=== PATIENT | female | born 1955 | race Caucasian/White ===

== ENCOUNTER 2016-04-12 18:56 | Emergency (ER) | payer MEDICARE ==
[2016-04-12] MEDS ORDERED: ALBUTEROL SULFATE 0.083% NEB 2.5 MG/3 ML AMPUL NEB ONE (19:36)
--- NOTE | 2016-04-12 19:38 | ER Document Report ---
ED Medical Screen (RME) - General Stated Complaint: LEFT AND RIGHT FLANK PAIN,COUGH Time seen by provider: 19:35 Mode of Arrival: Ambulatory Information source: Patient Notes: 61-year-old female that was seen for low back pain treated with Keflex was diagnosed with urinary tract infection she had right-sided flank pain at that time. She is back again today because she has a cough that persists, left upper quadrant abdominal pain, and low back pain all the way across. TRAVEL OUTSIDE OF THE [place] IN LAST 30 DAYS: No - Related Data Allergies/Adverse Reactions: erythromycin base [Erythromycin Base] Allergy (Verified 12/30/15 14:48) ondansetron [From Zofran (as hydrochloride)] Allergy (Verified 12/30/15 14:48) Past Medical History - Past Medical History Cardiac Medical History: Reports: Hx Congestive Heart Failure - Diastolic Heart Failure, Hx Coronary Artery Disease, Hx Heart Attack, Hx Hypercholesterolemia, Hx Hypertension Pulmonary Medical History: Reports: Hx Asthma, Hx COPD, Hx Pneumonia Denies: Hx Tuberculosis Neurological Medical History: Denies: Hx Seizures Renal/ Medical History: Reports: Hx Kidney Stones, Hx Renal Insufficiency Musculoskeltal Medical History: Reports Hx Arthritis Psychiatric Medical History: Reports: Hx Anxiety, Hx Depression Past Surgical History: Reports: Hx Appendectomy, Hx Cardiac Catheterization, Hx Cardiac Surgery - stent in 08 and open heart in 02, Hx Carotid Endarterectomy - LEFT, Hx Section - x2, Hx Cholecystectomy, Hx Coronary Stent - 2008, Hx Hysterectomy, Hx Vascular Surgery - Left Carotidendarterectomy - Immunizations Hx Diphtheria, Pertussis, Tetanus Vaccination: Yes
[2016-04-12 20:55] LABS: ABSOLUTE BASOPHILS # (AUTO) 0.1 10^3/uL (0.0-0.2); ABSOLUTE EOSINOPHILS # (AUTO) 0.2 10^3/uL (0.0-0.6); ABSOLUTE LYMPHOCYTES (AUTO) 2.3 10^3/uL (0.5-4.7); ABSOLUTE MONOCYTES (AUTO) 0.9 10^3/uL (0.1-1.4); ABSOLUTE NEUT (AUTO) 8.6 10^3/uL (1.7-8.2); BASOPHILS % (AUTO) 0.8 % (0-2); EOSINOPHILS % (AUTO) 1.3 % (0-6); HEMATOCRIT 35.7 % (36.0-47.0); HGB HCT DIFFERENCE 0.3; MEAN CORPUSCULAR HEMOGLOBIN 31.5 pg (27.0-33.4); MEAN CORPUSCULAR HGB CONC 33.6 g/dL (32.0-36.0); MEAN CORPUSCULAR VOLUME 94 fl (80-97); MONOCYTES % (AUTO) 7.3 % (3-13); RED CELL DISTRIBUTION WIDTH 13.7 % (11.5-14.0); SEGMENTED NEUTROPHILS % (AUTO) 71.6 % (42-78)
[2016-04-12 21:03] LABS: APPEARANCE,URINE CLEAR; BILIRUBIN,URINE NEGATIVE (NEGATIVE); GLUCOSE, URINE NEGATIVE (NEGATIVE); KETONES,URINE NEGATIVE (NEGATIVE); LEUKOCYTE ESTERASE,URINE NEGATIVE (NEGATIVE); NITRITE,URINE NEGATIVE (NEGATIVE); PROTEIN,URINE NEGATIVE (NEGATIVE); URINE SPECIFIC GRAVITY 1.009; UROBILINOGEN,URINE NEGATIVE mg/dL (<2.0)
[2016-04-12 21:10] LABS: ALANINE AMINOTRANSFERASE 25 U/L (9-52); ALBUMIN 3.7 g/dL (3.5-5.0); ALKALINE PHOSPHATASE 106 U/L (38-126); ANION GAP 7 (5-19); ASPARTATE AMINO TRANSFERASE 25 U/L (14-36); BILIRUBIN,TOTAL 0.3 mg/dL (0.2-1.3); BLOOD UREA NITROGEN 17 mg/dL (7-20); CARBON DIOXIDE 29 mmol/L (22-30); CHLORIDE 102 mmol/L (98-107); CREATINE KINASE 29 U/L (30-135); CREATININE RESULT 1.07 mg/dL (0.52-1.25); GLUCOSE 90 mg/dL (75-110); POTASSIUM 4.4 mmol/L (3.6-5.0); SODIUM 137.9 mmol/L (137-145); TOTAL PROTEIN 6.9 g/dL (6.3-8.2)
[2016-04-12 21:21] LABS: CREATINE KINASE MB 0.25 ng/mL (<4.55)
[2016-04-12 21:22] LABS: TROPONIN I < 0.012 ng/mL
[2016-04-12] MEDS ORDERED: IPRATROPIUM/ALBUTEROL 0.5-2.5 MG/3 ML AMPUL NEB ONE (21:43)
--- NOTE | 2016-04-12 22:20 | ER Document Report ---
ED GI/ - General Chief Complaint: Flank Pain Stated Complaint: LEFT AND RIGHT FLANK PAIN,COUGH Mode of Arrival: Ambulatory Information source: Patient Notes: Patient is a 61-year-old female with a history of congestive heart failure, mitral valve replacement and asthma who presents to the ER today for left flank pain. Patient also admits that she just started coughing this morning with some left lower chest pain. She states that the pain is worse with coughing and deep breathing. She denies any fevers, chills. She denies any swelling to her extremities. She just finished 10 days of Keflex for a urinary tract infection. She states that she is worried that the kidney infection is not gone. She denies dysuria, hematuria, history of kidney stones. TRAVEL OUTSIDE OF THE [place] IN LAST 30 DAYS: No - Related Data Allergies/Adverse Reactions: erythromycin base [Erythromycin Base] Allergy (Verified 12/30/15 14:48) ondansetron [From Zofran (as hydrochloride)] Allergy (Verified 12/30/15 14:48) Past Medical History - General Information source: Patient - Social History Smoking Status: Never Smoker Chew tobacco use (# tins/day): No Frequency of alcohol use: None Drug Abuse: None Family History: Reviewed & Not Pertinent Patient has suicidal ideation: No Patient has homicidal ideation: No - Past Medical History Cardiac Medical History: Reports: Hx Congestive Heart Failure - Diastolic Heart Failure, Hx Coronary Artery Disease, Hx Heart Attack, Hx Hypercholesterolemia, Hx Hypertension Pulmonary Medical History: Reports: Hx Asthma, Hx COPD, Hx Pneumonia Denies: Hx Tuberculosis Neurological Medical History: Denies: Hx Seizures Renal/ Medical History: Reports: Hx Kidney Stones, Hx Renal Insufficiency Musculoskeltal Medical History: Reports Hx Arthritis Psychiatric Medical History: Reports: Hx Anxiety, Hx Depression Past Surgical History: Reports: Hx Appendectomy, Hx Cardiac Catheterization, Hx Cardiac Surgery - stent in 08 and open heart in 02, Hx Carotid Endarterectomy - LEFT, Hx Section - x2, Hx Cholecystectomy, Hx Coronary Stent - 2008, Hx Hysterectomy, Hx Vascular Surgery - Left Carotidendarterectomy - Immunizations Hx Diphtheria, Pertussis, Tetanus Vaccination: Yes Hx Pneumococcal Vaccination: 04/04/14 Review of Systems - Review of Systems Constitutional: No symptoms reported EENT: No symptoms reported Cardiovascular: See HPI Respiratory: See HPI Gastrointestinal: No symptoms reported Genitourinary: See HPI Female Genitourinary: No symptoms reported Musculoskeletal: No symptoms reported Skin: No symptoms reported Hematologic/Lymphatic: No symptoms reported Neurological/Psychological: No symptoms reported Physical Exam - Vital signs Vitals: Resp Pulse Ox 14 100 04/12/16 21:34 04/12/16 21:34 - Notes Notes: PHYSICAL EXAMINATION: GENERAL: Appears uncomfortable, but in no acute distress. HEAD: Atraumatic, normocephalic. EYES: Pupils equal round and reactive to light, extraocular movements intact, sclera anicteric, conjunctiva are normal. NECK: Normal range of motion, supple without lymphadenopathy LUNGS: slight wheezing in lower lung og, No rales or rhonchi. HEART/CHEST: tender to palpation to left chest, Regular rate and rhythm without murmurs ABDOMEN: Soft, no tenderness. No guarding, no rebound BACK: no vertebral tenderness, normal ROM GI/: no CVA tenderness EXTREMITIES: Normal range of motion, no pitting edema. No cyanosis. NEUROLOGICAL: Cranial nerves grossly intact. Normal sensory/motor exams. PSYCH: Normal mood, normal affect. SKIN: Warm, Dry, normal turgor, no rashes or lesions noted Course - Re-evaluation Re-evalutation: 04/12/16 23:40 Pt has a mildly elevated WBC at 12, but is afebrile here. Other labwork is unremarkable today including normal cardiac enzymes, EKG without evidence of ischemia or change from past EKG, chest x-ray reveals peribronchial cuffing but no consolidation and normal sized heart, CT renal protocol actually performed due to complaints of flank pain although urinalysis was clear of hematuria or infection, CT did catch small pleural effusion in the left lower lobe of the lung. Pt will be started on levaquin and given an incentive spirometer here, she did receive some breathing treatments which did not help her per pt. 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 - Vital Signs Vital signs: Temp Pulse Resp BP Pulse Ox 11 L 148/65 H 100 04/12/16 22:01 04/12/16 22:00 04/12/16 22:01 - Laboratory Result Diagrams: 04/12/16 20:36 04/12/16 20:36 Laboratory results interpreted by me: 04/12/16 04/12/16 20:36 20:36 WBC 12.0 H Hct 35.7 L Absolute Neutrophils 8.6 H Est GFR (Non-Af Amer) 52 L Creatine Kinase 29 L Discharge - Discharge Clinical Impression: Pleural effusion Chest pain Qualifiers: Chest pain type: unspecified Qualified Code(s): R07.9 - Chest pain, unspecified Condition: Stable Disposition: HOME, SELF-CARE Instructions: Pleural Effusion ([facility]) Additional Instructions: Please use your incentive spirometer every hour when you remember while awake! Return immediately for any new or worsening symptoms. Follow up with primary care provider, call tomorrow to make followup appointment. Prescriptions: Levofloxacin [Levaquin 750 mg Tablet] 750 mg PO DAILY #10 tablet Oxycodone HCl/Acetaminophen [Percocet 5-325 mg Tablet] 1 - 2 tab PO Q4H PRN #15 tablet PRN Reason:
[2016-04-12] MEDS ORDERED: LEVOFLOXACIN 500 MG TABLET PO ONE (22:30)
[2016-04-12] MEDS ORDERED: OXYCODONE-ACETAMINOPHEN 5-325 MG TABLET PO ONE (22:42)
--- NOTE | 2016-04-12 23:00 | EKG REPORT ---
SEVERITY:- ABNORMAL ECG - SINUS RHYTHM FIRST DEGREE AV BLOCK NONSPECIFIC INTRAVENTRICULAR CONDUCTION DELAY : Confirmed by: Guanaco Foley 12-Apr-2016 22:59:31
[2016-04-12] MEDS ORDERED: HYDROCODONE/ACETAMINOPHEN 5-325 MG 6 TAB/DSPK PO PRN (23:59)
[2016-04-13 00:14] VITALS: BP 144/66
== END 2016-04-13 00:14 | disposition home or self-care (01) ==
LOC: ER 18:56
DX: J90 Pleural effusion, not elsewhere classified (principal); R07.9 Chest pain, unspecified; R10.9 Unspecified abdominal pain; R05 Cough; I50.9 Heart failure, unspecified; I10 Essential (primary) hypertension; E78.00 Pure hypercholesterolemia, unspecified; Z95.2 Presence of prosthetic heart valve; Z88.3 Allergy status to other anti-infective agents; Z90.710 Acquired absence of both cervix and uterus; Z90.49 Acquired absence of other specified parts of digestive tract; I25.2 Old myocardial infarction
CPT/HCPCS: 93005; 94640 ×2; 99285; 36415; 87086; 82553; 82550; 83690; 85025; 80053; 81001; 84484; 83880; 71020; 76380; 93010; A9270 ×5; J7620

== ENCOUNTER 2016-04-13 22:46 | Inpatient (IN) | payer MEDICARE ==
[2016-04-13] MEDS ORDERED: MORPHINE SULFATE 10 MG/ML INJ IV ONE (23:41)
--- NOTE | 2016-04-13 23:44 | ER Document Report ---
[id number] DIFFICULTY BREATHING Notes: Patient is a 61-year-old female presents for complaint of difficulty breathing. Patient seen yesterday. She had a CT scan that abdomen is a recent injury tract infection. CT scan abdomen was normal but did show that she had small pleural effusion left side. She is placed on Levaquin. She has a history of mitral valve repair. She has not yet had replacement. She's followed by cardiology at [facility] her monitoring her mitral valve. She says she is feeling much better and then tonight she suddenly felt short of breath. When paramedics arrived she was 89% on room air. She did 1 LB all treatment at home. She said it helps some. She's had no fevers. Some nausea. No vomiting. She says that she felt a headache when she was short of breath. She also had slight chest pain but says it feels different than any type of angina pain she's had in the past. TRAVEL OUTSIDE OF THE [place] IN LAST 30 DAYS: No - Related Data Allergies/Adverse Reactions: erythromycin base [Erythromycin Base] Allergy (Verified 12/30/15 14:48) ondansetron [From Zofran (as hydrochloride)] Allergy (Verified 12/30/15 14:48) prednisone Adverse Reaction (Intermediate, Verified 04/17/16 09:50) GI upset Home Medications: Current Home Medications Aspirin [Aspirin 81 mg Chewable Tablet] 81 mg PO DAILY 04/14/16 [History] Budesonide/Formoterol Fumarate [Symbicort HFA 160-4.5 mcg Inhaler 6 gm] 2 puff IH Q12 04/14/16 [History] Cholecalciferol (Vitamin D3) [Vitamin D3 1000 Unit Tablet] 3,000 unit PO FARIA@ 1000 04/14/16 [History] Clonazepam [Klonopin] 0.5 mg PO Q8 04/14/16 [History] Escitalopram Oxalate [Lexapro 10 mg Tablet] 10 mg PO QHS 04/14/16 [History] Ezetimibe [Zetia 10 mg Tablet] 10 mg PO DAILY 04/14/16 [History] Furosemide [Lasix 20 mg Tablet] 20 mg PO DAILYP PRN 04/14/16 [History] Metoprolol Succinate [Toprol Xl 25 mg Tab.sr] 25 mg PO DAILY 04/14/16 [History] Nitroglycerin [Nitrostat 0.4 mg (1/150 Gr) Tabs 25/Bottle] 0.4 tab SL PRN PRN [History] Spironolactone [Aldactone 25 mg Tablet] 12.5 mg PO DAILY 04/14/16 [History] Tramadol HCl [Ultram 50 mg Tablet] 50 mg PO Q8 04/14/16 [History] Past Medical History - Social History Smoking Status: Former Smoker Frequency of alcohol use: None Drug Abuse: None Family History: Reviewed & Not Pertinent - Past Medical History Cardiac Medical History: Reports: Hx Congestive Heart Failure - Diastolic Heart Failure, Hx Coronary Artery Disease, Hx Heart Attack, Hx Hypercholesterolemia, Hx Hypertension Pulmonary Medical History: Reports: Hx Asthma, Hx COPD, Hx Pneumonia Denies: Hx Tuberculosis Neurological Medical History: Denies: Hx Seizures Renal/ Medical History: Reports: Hx Kidney Stones, Hx Renal Insufficiency Musculoskeltal Medical History: Reports Hx Arthritis Psychiatric Medical History: Reports: Hx Anxiety, Hx Depression Past Surgical History: Reports: Hx Appendectomy, Hx Cardiac Catheterization, Hx Cardiac Surgery - stent in 08 and open heart in 02, Hx Carotid Endarterectomy - LEFT, Hx Section - x2, Hx Cholecystectomy, Hx Coronary Stent - 2008, Hx Hysterectomy, Hx Vascular Surgery - Left Carotidendarterectomy - Immunizations Hx Diphtheria, Pertussis, Tetanus Vaccination: Yes Hx Pneumococcal Vaccination: 04/04/14 Review of Systems - Review of Systems Notes: My Normal Review Basic REVIEW OF SYSTEMS: CONSTITUTIONAL : Denies fever, chills, or sweats. Denies recent illness. EENT: Denies eye, ear, throat, or mouth pain or symptoms. Denies nasal or sinus congestion. CARDIOVASCULAR: Mild chest pain which is resolved. RESPIRATORY: Difficulty breathing GASTROINTESTINAL: Denies abdominal pain. Denies nausea, vomiting, or diarrhea. Denies constipation. Last BM: MUSCULOSKELETAL: Denies neck or back pain or joint pain or swelling. SKIN: Denies rash or skin lesions.d glands. NEUROLOGICAL: Denies altered mental status or loss of consciousness. Has a headache. Denies weakness or paralysis or loss of use of either side. Denies problems with gait or speech. Denies sensory or motor loss. ALL OTHER SYSTEMS REVIEWED AND NEGATIVE. Physical Exam - Vital signs Vitals: Temp BP Pulse Ox 98.0 F 117/76 98 04/13/16 22:53 04/13/16 22:53 04/13/16 22:53 - Notes Notes: General Appearance: Well nourished, alert, cooperative, no acute distress, no obvious discomfort. Vitals: reviewed, See vital signs table. Head: no swelling or tenderness to the head Eyes: PERRL, EOMI, Conjuctiva clear Mouth: No decreasd moisturethy Neck: Supple, no neck tenderness, No thyromegaly Lungs: squeak like breath sounds in the right side. Left side is clear to auscultation. Heart: Normal rate, Regular rythm, No murmur, no rub Abdomen: Normal BS, soft, No rigidity, No abdominal tenderness, No guarding, no rebound, no abdominal masses, no organomegaly Extremities: strength 5/5 in all extremities, good pulses in all extremities, no swelling or tenderness in the extremities, no edema. Skin: warm, dry, appropriate color, no rash Neuro: speech clear, oriented x 3, normal affect, responds appropriately to questions. Course - Re-evaluation Re-evalutation: 04/14/16 01:41 Patient's continues to have some shortness of breath. She continued to be tachycardic. Chest x-ray does not show anything particular; however clinically she looks uncomfortable. I will therefore perform CTA of the chest. Hopefully this will give us more information as to what is going on. She does have a large leukocytosis. This is much larger than what it was yesterday. She does have a history of the mitral valve stenosis and therefore I will give IV fluids slowly. - Vital Signs Vital signs: Temp Pulse Resp BP Pulse Ox 97.6 F 84 16 139/61 H 96 04/18/16 14:36 04/18/16 14:36 04/18/16 14:36 04/18/16 14:36 04/18/16 14:36 - Laboratory Result Diagrams: 04/18/16 04:44 04/18/16 04:42 Laboratory results interpreted by me: 04/13/16 04/13/16 04/13/16 23:46 23:46 23:46 WBC 20.3 H Hct 35.9 L Seg Neuts % (Manual) 87 H Lymphocytes % (Manual) 4 L Abs Neuts (Manual) 18.3 H Est GFR (Non-Af Amer) 53 L NT-Pro-B Natriuret Pep 1700 H - EKG Interpretation by Me Additional EKG results interpreted by me: 04/14/16 00:00 EKG is reviewed and interpreted by me. EKG shows sinus tachycardia with rate of 108 bpm. Patient is an incomplete left bundle branch block. I did review her previous records and she had a cardiac stress testing in August where the polishing machine operator mentioned in his report that she had a left bundle branch block at that time. No concerning ST segment changes. KS interval, QRS duration are prolonged. QT interval is within normal range. 04/14/16 00:01 - Transfer of Care Notes: 04/20/16 04:42 Patient and the patient's worsening respiratory status or loss 24 hours, give fevers, and some of symptoms in the past with pneumonia; I feel that this most likely is pneumonia. CT was obtained to rule out PE. This was negative for PE. There is some allow wants to show infiltrates which could represent some edema but it most likely represents early pneumonia. Patient says in the past she had a very similar presentation and pneumonia did not show up on x-ray to several days later and by that time she was very sick and septic. Started patient on antibiotics. I think it's appropriate to admit this time. Dictation of this chart was performed using voice recognition software; therefore, there may be some unintended grammatical errors. Discharge - Discharge Clinical Impression: Pneumonia, Hypoxemia Condition: Stable Disposition: ADMITTED INPATIENT
[2016-04-14 00:11] LABS: HEMATOCRIT 35.9 % (36.0-47.0); HEMOGLOBIN 12.1 g/dL (12.0-15.5); HGB HCT DIFFERENCE 0.4; MEAN CORPUSCULAR HEMOGLOBIN 31.4 pg (27.0-33.4); MEAN CORPUSCULAR HGB CONC 33.7 g/dL (32.0-36.0); MEAN CORPUSCULAR VOLUME 93 fl (80-97); RED BLOOD COUNT 3.86 10^6/uL (3.72-5.28); RED CELL DISTRIBUTION WIDTH 13.5 % (11.5-14.0); WHITE BLOOD COUNT 20.3 10^3/uL (4.0-10.5)
[2016-04-14 00:12] LABS: ALANINE AMINOTRANSFERASE 28 U/L (9-52); ALBUMIN 4.1 g/dL (3.5-5.0); ALKALINE PHOSPHATASE 118 U/L (38-126); ANION GAP 11 (5-19); ASPARTATE AMINO TRANSFERASE 15 U/L (14-36); BILIRUBIN,TOTAL 0.5 mg/dL (0.2-1.3); BLOOD UREA NITROGEN 12 mg/dL (7-20); CALCIUM 9.5 mg/dL (8.4-10.2); CARBON DIOXIDE 23 mmol/L (22-30); CHLORIDE 104 mmol/L (98-107); CREATINE KINASE 41 U/L (30-135); CREATININE RESULT 1.05 mg/dL (0.52-1.25); GLUCOSE 105 mg/dL (75-110); POTASSIUM 4.9 mmol/L (3.6-5.0); SODIUM 137.9 mmol/L (137-145); TOTAL PROTEIN 6.4 g/dL (6.3-8.2)
[2016-04-14 00:24] LABS: CREATINE KINASE MB 0.36 ng/mL (<4.55)
[2016-04-14 00:25] LABS: TROPONIN I < 0.012 ng/mL
[2016-04-14 00:32] LABS: BAND NEUTROPHILS % (MANUAL) 3 % (3-5); BASOPHILS % (MANUAL) 0 % (0-2); EOSINOPHILS % (MANUAL) 0 % (0-6); LYMPHOCYTES % (MANUAL) 4 % (13-45); TOTAL CELLS COUNTED 100
[2016-04-14 00:33] LABS: RBC MORPHOLOGY COMMENT NORMO-CYTIC/CHROMIC
[2016-04-14] MEDS ORDERED: NORMAL SALINE 1000 ML 500 ML IV ONE (01:40)
[2016-04-14] MEDS ORDERED: MORPHINE SULFATE 10 MG/ML INJ IV ONE (01:43)
[2016-04-14] MEDS ORDERED: CEFTRIAXONE INJ 1000 MG VIAL IV ONE (03:08)
[2016-04-14] MEDS ORDERED: LEVOFLOXACIN 750 MG/D5W RTU 150 ML IV ONE (03:08)
[2016-04-14] MEDS ORDERED: MORPHINE SULFATE 10 MG/ML INJ ONE (06:41)
[2016-04-14] MEDS ORDERED: HYDROMORPHONE HCL INJ/PF 2 MG/ML AMPULE IV PRN (08:28)
[2016-04-14] MEDS ORDERED: ACETAMINOPHEN 325 MG TABLET PO PRN (08:31)
[2016-04-14 08:37] LABS: APPEARANCE,URINE CLEAR; BILIRUBIN,URINE NEGATIVE (NEGATIVE); GLUCOSE, URINE NEGATIVE (NEGATIVE); KETONES,URINE NEGATIVE (NEGATIVE); LEUKOCYTE ESTERASE,URINE NEGATIVE (NEGATIVE); NITRITE,URINE NEGATIVE (NEGATIVE); PROTEIN,URINE NEGATIVE (NEGATIVE); URINE SPECIFIC GRAVITY 1.006; UROBILINOGEN,URINE NEGATIVE mg/dL (<2.0)
[2016-04-14] MEDS: HYDROMORPHONE HCL INJ/PF 2 MG/ML AMPULE IV PRN ×3 (10:24→19:03)
[2016-04-14] MEDS: ALBUTEROL SULFATE 0.083% NEB 2.5 MG/3 ML AMPUL NEB PRN (12:15)
[2016-04-14] MEDS: METHYLPREDNISOLONE INJ 40 MG/1 ML SDV IV SCH ×2 (12:50→17:41)
[2016-04-14] MEDS: GUAIFENESIN 600 MG TABLET.SA PO SCH ×2 (12:51→21:20)
[2016-04-14] MEDS ORDERED: AZITHROMYCIN 500 MG in DEXTROSE 5%-WATER 250 ML IV ONE (13:00)
--- NOTE | 2016-04-14 13:40 | EKG REPORT ---
SEVERITY:- ABNORMAL ECG - SINUS TACHYCARDIA FIRST DEGREE AV BLOCK INCOMPLETE LEFT BUNDLE BRANCH BLOCK PROBABLE LEFT VENTRICULAR HYPERTROPHY : Confirmed by: Cassie Darby MD 14-Apr-2016 13:38:32
[2016-04-14] MEDS: AZITHROMYCIN 500 MG in DEXTROSE 5%-WATER 250 ML IV SCH (14:09)
[2016-04-14] MEDS: ALBUTEROL SULFATE 0.083% NEB 2.5 MG/3 ML AMPUL NEB SCH ×2 (14:15→19:56)
[2016-04-14] MEDS ORDERED: (PENDING PHARMACY ID) (Clonazepam [Klonopin] 0.5 MG) PO PRN (15:32)
[2016-04-14] MEDS ORDERED: TRAMADOL HCL 50 MG TABLET PO PRN (15:32)
[2016-04-14] MEDS ORDERED: CLONAZEPAM 1 MG TABLET PO PRN (15:39)
--- NOTE | 2016-04-14 16:13 | PDOC H&P ---
History of Present Illness Admission Date/PCP: 04/14/16 08:31 Patient complains of: Shortness of breath History of Present Illness: DEAN VILLANUEVA is a 61 year old female presents via EMS with one day shortness of breath and several days bilateral flank pain. She was found by EMS to have an O2 sat of 89% on room air. She does not normally require oxygen supplementation. Incidentally she was treated in the emergency department on for a urinary tract infection. Review of emergency department records at that time show an unremarkable urinalysis and normal urine culture. She had a CT of the abdomen and pelvis at that time that shows no acute process. During today's evaluation she had a CTA of the chest was negative for pulmonary embolism, minimal interstitial changes with possible left lower lung airspace disease, small/trace effusion. Chest x-ray shows sternotomy wires, and is read by radiology to have clearing of interstitial changes, however on my interpretation patient appears to have bilateral airspace disease consistent with either infiltrate or pulmonary edema. Echocardiogram from 08/22/2015 showed EF greater than 60%, normal left ventricular diastolic function no significant valvular disease. Past Medical History Cardiac Medical History: Reports: Congestive Heart Failure - Diastolic Heart Failure, Coronary Artery Disease, Myocardial Infarction, Hyperlipidema, Hypertension Pulmonary Medical History: Reports: Asthma, Chronic Obstructive Pulmonary Disease (COPD), Pneumonia Denies: Tuberculosis Neurological Medical History: Denies: Seizures Renal/ Medical History: Reports: Nephrolithiasis Musculoskeltal Medical History: Reports: Arthritis Psychiatric Medical History: Reports: Depression Hematology: Reports: Anemia Past Surgical History Past Surgical History: Reports: Appendectomy, Cardiac Catheterization, Carotid Endarterectomy - LEFT, Section - x2, Cholecystectomy, Coronary Stent - 2008, Hysterectomy, Vascular Surgery - Left Carotidendarterectomy Social History Information Source: Patient Lives with: Spouse/Significant other Smoking Status: Former Smoker Cigarettes Packs Per Day: 0.5 Number of Years Smokin Last Time Smoked: 2014 Frequency of Alcohol Use: Rare Hx Recreational Drug Use: No Drugs: None Hx Prescription Drug Abuse: No - Advance Directive Resuscitation Status: Full Code Family History Family History: CAD, Other - Cerebral aneurysm-sister Parental Family History Reviewed: Yes Children Family History Reviewed: Yes Sibling(s) Family History Reviewed.: Yes Medication/Allergy Home Medications: Albuterol Sulfate [Ventolin 0.042% Neb 1.25 mg/3 ml Ampul] 1.25 mg NEB Q6HP PRN 04/14/16 Albuterol Sulfate [Ventolin Hfa] 2 puff IH Q6HP PRN 04/14/16 Aspirin [Aspirin 81 mg Chewable Tablet] 81 mg PO DAILY 04/14/16 Budesonide/Formoterol Fumarate [Symbicort Hfa 160-4.5 Mcg Inhaler 6 gm] 2 puff IH Q12 04/14/16 Cholecalciferol (Vitamin D3) [Vitamin D3 1000 Unit Tablet] 3,000 unit PO FARIA@ 1000 04/14/16 Clonazepam [Klonopin] 0.5 mg PO HSP PRN 04/14/16 Clonazepam [Klonopin] 0.5 mg PO Q8 04/14/16 Escitalopram Oxalate [Lexapro 10 mg Tablet] 10 mg PO QHS 04/14/16 Ezetimibe [Zetia 10 mg Tablet] 10 mg PO DAILY 04/14/16 Furosemide [Lasix 20 mg Tablet] 20 mg PO DAILYP PRN 04/14/16 Levofloxacin [Levaquin 750 mg Tablet] 750 mg PO DAILY 04/14/16 Metoprolol Succinate [Toprol Xl 25 mg Tab.sr] 25 mg PO DAILY 04/14/16 Nitroglycerin [Nitrostat 0.4 mg (1/150 Gr) Tabs 25/Bottle] 0.4 tab SL PRN PRN Spironolactone [Aldactone 25 mg Tablet] 12.5 mg PO DAILY 04/14/16 Tramadol HCl [Ultram 50 mg Tablet] 50 mg PO Q8 04/14/16 Allergies/Adverse Reactions: erythromycin base [Erythromycin Base] Allergy (Verified 12/30/15 14:48) ondansetron [From Zofran (as hydrochloride)] Allergy (Verified 12/30/15 14:48) Review of Systems Constitutional: ABSENT: chills, fever(s), headache(s), weight gain, weight loss Eyes: ABSENT: visual disturbances Ears: ABSENT: hearing changes Cardiovascular: ABSENT: chest pain, dyspnea on exertion, edema, orthropnea, palpitations Respiratory: PRESENT: cough, dyspnea. ABSENT: hemoptysis Gastrointestinal: ABSENT: abdominal pain, constipation, diarrhea, hematemesis, hematochezia, nausea, vomiting Genitourinary: ABSENT: dysuria, hematuria Musculoskeletal: PRESENT: back pain. ABSENT: joint swelling Integumentary: ABSENT: rash, wounds Neurological: ABSENT: abnormal gait, abnormal speech, confusion, dizziness, focal weakness, syncope Psychiatric: ABSENT: anxiety, depression, homidical ideation, suicidal ideation Endocrine: ABSENT: cold intolerance, heat intolerance, polydipsia, polyuria Hematologic/Lymphatic: ABSENT: easy bleeding, easy bruising Physical Exam Vital Signs: Temp Pulse Resp BP Pulse Ox 97.8 F 113 H 18 115/52 L 94 04/14/16 15:11 04/14/16 15:11 04/14/16 15:11 04/14/16 15:11 04/14/16 15:11 Intake & Output 04/13/16 04/14/16 04/15/16 06:59 06:59 06:59 Intake Total 100 Balance 100 Weight 82.7 kg PHYSICAL EXAM: GENERAL: Appears well, no acute distress HEENT: Normocephalic, no scleral icterus, conjunctiva clear, EOEM intact, PERRLA , moist mucous membranes NECK: trachea midline, no thyromegally RESPIRATORY: Bilateral wheezes, fine rhonchi CARDIAC: Regular rate and rhythm, no murmur/ernesto/rub ABDOMEN: Soft, no distension, no tenderness, no guarding, normal bowel sounds, negative Bernardo sign RECTAL: deferred : deferred EXTREMITIES: No edema, cyanosis, clubbing MUSCULOSKELETAL: No joint swelling or deformity VASCULAR: normal peripheral pulses NEUROLOGIC: Alert, oriented to person/place/time, normal speech, cranial nerves grossly intact, 5/5 strength in all extremities, tactile sensation intact in all extremities SKIN: No rash, no wounds, no worrisome skin lesions PSYCHIATRIC: Normal mood, normal affect Results Laboratory Results: Labs- All tests 24 hr 04/13/16 04/13/16 04/13/16 23:46 23:46 23:46 WBC 20.3 H RBC 3.86 Hgb 12.1 Hct 35.9 L MCV 93 MCH 31.4 MCHC 33.7 RDW 13.5 Plt Count 267 Total Counted 100 Seg Neutrophils % Not Reportable Seg Neuts % (Manual) 87 H Band Neutrophils % 3 Lymphocytes % Not Reportable Lymphocytes % (Manual) 4 L Monocytes % Not Reportable Monocytes % (Manual) 6 Eosinophils % Not Reportable Eosinophils % (Manual) 0 Basophils % Not Reportable Basophils % (Manual) 0 Absolute Neutrophils Not Reportable Abs Neuts (Manual) 18.3 H Absolute Lymphocytes Not Reportable Abs Lymphs (Manual) 0.8 Absolute Monocytes Not Reportable Abs Monocytes (Manual) 1.2 Absolute Eosinophils Not Reportable Absolute Eos (Manual) 0.0 Absolute Basophils Not Reportable Abs Basophils (Manual) 0.0 Platelet Comment ADEQUATE RBC Morph Comment NORMO-CYTIC/CHROMIC Sodium 137.9 Potassium 4.9 Chloride 104 Carbon Dioxide 23 Anion Gap 11 BUN 12 Creatinine 1.05 Est GFR ( Amer) > 60 Est GFR (Non-Af Amer) 53 L Glucose 105 Calcium 9.5 Total Bilirubin 0.5 Direct Bilirubin 0.0 AST 15 ALT 28 Alkaline Phosphatase 118 Creatine Kinase 41 CK-MB (CK-2) 0.36 Troponin I < 0.012 NT-Pro-B Natriuret Pep 1700 H Total Protein 6.4 Albumin 4.1 Urine Color Urine Appearance Urine pH Ur Specific [place] Urine Protein Urine Glucose (UA) Urine Ketones Urine Blood Urine Nitrite Urine Bilirubin Urine Urobilinogen Ur Leukocyte Esterase Squamous Epi Cells Auto Urine Mucus (Auto) Urine Ascorbic Acid 04/14/16 04:04 WBC RBC Hgb Hct MCV MCH MCHC RDW Plt Count Total Counted Seg Neutrophils % Seg Neuts % (Manual) Band Neutrophils % Lymphocytes % Lymphocytes % (Manual) Monocytes % Monocytes % (Manual) Eosinophils % Eosinophils % (Manual) Basophils % Basophils % (Manual) Absolute Neutrophils Abs Neuts (Manual) Absolute Lymphocytes Abs Lymphs (Manual) Absolute Monocytes Abs Monocytes (Manual) Absolute Eosinophils Absolute Eos (Manual) Absolute Basophils Abs Basophils (Manual) Platelet Comment RBC Morph Comment Sodium Potassium Chloride Carbon Dioxide Anion Gap BUN Creatinine Est GFR ( Amer) Est GFR (Non-Af Amer) Glucose Calcium Total Bilirubin Direct Bilirubin AST ALT Alkaline Phosphatase Creatine Kinase CK-MB (CK-2) Troponin I NT-Pro-B Natriuret Pep Total Protein Albumin Urine Color STRAW Urine Appearance CLEAR Urine pH 6.0 Ur Specific [place] 1.006 Urine Protein NEGATIVE Urine Glucose (UA) NEGATIVE Urine Ketones NEGATIVE Urine Blood NEGATIVE Urine Nitrite NEGATIVE Urine Bilirubin NEGATIVE Urine Urobilinogen NEGATIVE Ur Leukocyte Esterase NEGATIVE Squamous Epi Cells Auto <1 Urine Mucus (Auto) RARE Urine Ascorbic Acid NEGATIVE Impressions: Chest X-Ray 04/13/16 23:39 IMPRESSION: Clearing of the previously noted interstitial changes. Chest/Abdomen CTA 04/14/16 01:41 IMPRESSION: No pulmonary emboli. Minimal interstitial changes in the lungs with small effusions. Question interstitial edema. Assessment & Plan - Diagnosis (1) Sepsis Is this a current diagnosis for this admission?: YesPlan: Treat pneumonia. (2) Pneumonia Is this a current diagnosis for this admission?: YesPlan: Likely bacterial. IV Rocephin, IV azithromycin. Check blood cultures and sputum culture. (3) Acute and chronic respiratory failure ([id number]) Qualifiers: Respiratory failure complication: hypoxia Qualified Code(s): J96.21 - Acute and chronic respiratory failure with hypoxia Is this a current diagnosis for this admission?: YesPlan: Continue oxygen supplementation. Incentive spirometer. Patient normally does not require home oxygen. (4) COPD exacerbation Is this a current diagnosis for this admission?: YesPlan: IV Solu-Medrol. Albuterol nebulizer treatments. (5) Coronary artery disease Qualifiers: Coronary Disease-Associated Artery/Lesion type: unspecified vessel or lesion type Associated angina: angina presence unspecified Is this a current diagnosis for this admission?: YesPlan: ASA, Toprol XL. Check lipid panel in the morning. Patient does not appear to be on a statin at this time. (6) Hypertension Qualifiers: Hypertension type: essential hypertension Qualified Code(s): I10 - Essential (primary) hypertension Is this a current diagnosis for this admission?: Yes (7) Chronic congestive heart failure with left ventricular diastolic dysfunction Is this a current diagnosis for this admission?: YesPlan: Clinically compensated. Continue Lasix 20 mg by mouth daily, spironolactone 12.5 mg by mouth daily, Toprol-XL 25 mg by mouth daily. (8) Bilateral flank pain Is this a current diagnosis for this admission?: YesPlan: Likely musculoskeletal in nature. CT abdomen/pelvis on 04/12/2016 showed no acute process. Urinalysis/urine culture on 04/12/2016 negative. - Time Time Spent: Greater than 70 Minutes
[2016-04-14] MEDS: ESCITALOPRAM OXALATE 10 MG TABLET PO SCH (21:20)
[2016-04-14] MEDS: BUDESONIDE/FORMOTEROL 160-4.5 MCG 60 PUFF/6 GM MDI IH SCH (21:21)
[2016-04-14] MEDS: CEFTRIAXONE 1 GM/D5W RTU 1 GM/50 ML RTUPB IV SCH (21:22)
[2016-04-14] MEDS: CLONAZEPAM 1 MG TABLET PO SCH (21:25)
[2016-04-14] MEDS ORDERED: (PENDING PHARMACY ID) (Clonazepam [Klonopin] 0.5 MG) PO SCH (22:00)
[2016-04-15] MEDS: HYDROMORPHONE HCL INJ/PF 2 MG/ML AMPULE IV PRN ×4 (00:25→22:09)
[2016-04-15] MEDS: METHYLPREDNISOLONE INJ 40 MG/1 ML SDV IV SCH ×3 (02:29→17:46)
[2016-04-15 05:28] LABS: ANION GAP 12 (5-19); BLOOD UREA NITROGEN 18 mg/dL (7-20); CALCIUM 9.5 mg/dL (8.4-10.2); CARBON DIOXIDE 23 mmol/L (22-30); CHLORIDE 101 mmol/L (98-107); CHOLESTEROL 129.74 mg/dL (0-200); CREATININE RESULT 0.88 mg/dL (0.52-1.25); Direct HDL 46 mg/dL (>40); GLUCOSE 212 mg/dL (75-110); POTASSIUM 4.6 mmol/L (3.6-5.0); SODIUM 135.6 mmol/L (137-145); TRIGLYCERIDES 52 mg/dL (<150)
[2016-04-15] MEDS: CLONAZEPAM 1 MG TABLET PO SCH ×3 (05:29→21:20)
[2016-04-15 05:30] LABS: HEMATOCRIT 30.8 % (36.0-47.0); HEMOGLOBIN 10.6 g/dL (12.0-15.5); MEAN CORPUSCULAR HEMOGLOBIN 32.1 pg (27.0-33.4); MEAN CORPUSCULAR HGB CONC 34.6 g/dL (32.0-36.0); MEAN CORPUSCULAR VOLUME 93 fl (80-97); RED BLOOD COUNT 3.31 10^6/uL (3.72-5.28); RED CELL DISTRIBUTION WIDTH 13.3 % (11.5-14.0); WHITE BLOOD COUNT 10.7 10^3/uL (4.0-10.5)
[2016-04-15 05:40] LABS: DIRECT LDL 72 mg/dL (<100)
[2016-04-15 06:06] LABS: BAND NEUTROPHILS % (MANUAL) 1 % (3-5); BASOPHILS % (MANUAL) 0 % (0-2); EOSINOPHILS % (MANUAL) 0 % (0-6); LYMPHOCYTES % (MANUAL) 5 % (13-45); TOTAL CELLS COUNTED 100
[2016-04-15 06:10] LABS: OVALOCYTES SLIGHT; POIKILOCYTOSIS SLIGHT; SCHISTOCYTES SLIGHT
[2016-04-15] MEDS: ALBUTEROL SULFATE 0.083% NEB 2.5 MG/3 ML AMPUL NEB PRN (06:40)
[2016-04-15] MEDS: ENOXAPARIN SODIUM INJ 40 MG/0.4 ML DISP.SYRIN SUBCUT SCH (07:39)
[2016-04-15] MEDS: ALBUTEROL SULFATE 0.083% NEB 2.5 MG/3 ML AMPUL NEB SCH ×3 (08:09→19:37)
[2016-04-15] MEDS: EZETIMIBE 10 MG TABLET PO SCH (09:39)
[2016-04-15] MEDS: GUAIFENESIN 600 MG TABLET.SA PO SCH ×2 (09:39→21:20)
[2016-04-15] MEDS: ASPIRIN 81 MG TABLET, CHEWABLE PO SCH (09:40)
[2016-04-15] MEDS: FUROSEMIDE 20 MG TABLET PO SCH (09:40)
[2016-04-15] MEDS: METOPROLOL SUCCINATE 25 MG TAB.SR.24H PO SCH (09:40)
[2016-04-15] MEDS: BUDESONIDE/FORMOTEROL 160-4.5 MCG 60 PUFF/6 GM MDI IH SCH ×2 (09:41→21:19)
[2016-04-15] MEDS: SPIRONOLACTONE 25 MG TABLET PO SCH (09:41)
--- NOTE | 2016-04-15 09:43 | EKG REPORT ---
SEVERITY:- ABNORMAL ECG - SINUS RHYTHM FIRST DEGREE AV BLOCK LEFT ATRIAL ABNORMALITY NONSPECIFIC INTRAVENTRICULAR CONDUCTION DELAY LEFT VENTRICULAR HYPERTROPHY : Confirmed by: Cassie Darby MD 15-Apr-2016 09:41:33
--- NOTE | 2016-04-15 09:43 | EKG REPORT ---
SEVERITY:- ABNORMAL ECG - SINUS RHYTHM FIRST DEGREE AV BLOCK PROBABLE LEFT ATRIAL ABNORMALITY LEFT VENTRICULAR HYPERTROPHY : Confirmed by: Cassie Darby MD 15-Apr-2016 09:41:37
[2016-04-15] MEDS: AZITHROMYCIN 500 MG in DEXTROSE 5%-WATER 250 ML IV SCH (10:06)
[2016-04-15] MEDS ORDERED: PROMETHAZINE HCL INJ 25 MG/1 ML VIAL IV PRN (10:45)
--- NOTE | 2016-04-15 10:52 | PDOC PROGRESS REPORT ---
Subjective Progress Note for:: 04/15/16 Subjective:: Patient has continued dyspnea, cough, sweats. She continues to have thoracic back pain and upper abdominal discomfort with coughing. She is having some nausea and vomiting as well. Patient denies fever, chills, headache, new focal weakness, diarrhea, constipation. Physical Exam Vital Signs: Temp Pulse Resp BP Pulse Ox 97.8 F 84 18 133/58 H 95 04/15/16 07:15 04/15/16 08:09 04/15/16 08:09 04/15/16 07:15 04/15/16 08:09 Intake & Output 04/14/16 04/15/16 04/16/16 06:59 06:59 06:59 Intake Total 2236 Balance 2236 Weight 85.2 kg GENERAL: No acute distress HEENT: Conjunctiva clear, nonicteric, moist mucous membranes, no JVD, midline trachea RESPIRATORY: Tachypnea, bilateral inspiratory/expiratory wheezes, diminished air excursion CARDIAC: Regular rate and rhythm, no murmurs/gallops/rubs ABDOMEN: Soft, nondistended, nontender, positive bowel sounds, no rebound, no guarding EXTREMETIES: No edema, cyanosis, clubbing NEUROLOGIC: Alert, oriented to person/place/time, CN's grossly intact, no focal deficits SKIN: No rash, wounds PSYCH: Normal mood, normal affect Results Laboratory Results: 04/15/16 04:40 04/15/16 04:40 04/15/16 04/15/16 04:40 04:40 WBC 10.7 H RBC 3.31 L Hgb 10.6 L Hct 30.8 L MCV 93 MCH 32.1 MCHC 34.6 RDW 13.3 Plt Count 253 Seg Neutrophils % Not Reportable Lymphocytes % Not Reportable Monocytes % Not Reportable Eosinophils % Not Reportable Basophils % Not Reportable Absolute Neutrophils Not Reportable Absolute Lymphocytes Not Reportable Absolute Monocytes Not Reportable Absolute Eosinophils Not Reportable Absolute Basophils Not Reportable Sodium 135.6 L Potassium 4.6 Chloride 101 Carbon Dioxide 23 Anion Gap 12 BUN 18 Creatinine 0.88 Est GFR ( Amer) > 60 Est GFR (Non-Af Amer) > 60 Glucose 212 H Calcium 9.5 Triglycerides 52 Cholesterol 129.74 LDL Cholesterol Direct 72 VLDL Cholesterol 10.0 HDL Cholesterol 46 Impressions: Chest X-Ray 04/13/16 23:39 IMPRESSION: Clearing of the previously noted interstitial changes. Chest/Abdomen CTA 04/14/16 01:41 IMPRESSION: No pulmonary emboli. Minimal interstitial changes in the lungs with small effusions. Question interstitial edema. Assessment & Plan - Diagnosis (1) Sepsis Is this a current diagnosis for this admission?: YesPlan: Patient's white blood count has improved and she is afebrile. (2) Pneumonia Is this a current diagnosis for this admission?: YesPlan: Likely bacterial. IV Rocephin, IV azithromycin pending blood cultures and sputum culture. (3) Acute and chronic respiratory failure ([id number]) Qualifiers: Respiratory failure complication: hypoxia Qualified Code(s): J96.21 - Acute and chronic respiratory failure with hypoxia Is this a current diagnosis for this admission?: YesPlan: Continue oxygen supplementation. Incentive spirometer. Patient normally does not require home oxygen. (4) COPD exacerbation Is this a current diagnosis for this admission?: YesPlan: Continue IV Solu-Medrol. Albuterol nebulizer treatments. (5) Coronary artery disease Qualifiers: Coronary Disease-Associated Artery/Lesion type: unspecified vessel or lesion type Associated angina: angina presence unspecified Is this a current diagnosis for this admission?: YesPlan: ASA, Toprol XL. Check lipid panel in the morning. Patient does not appear to be on a statin at this time. Lipid panel does not warrant statin therapy at this time. She is followed by cardiology at [facility]. (6) Hypertension Qualifiers: Hypertension type: essential hypertension Qualified Code(s): I10 - Essential (primary) hypertension Is this a current diagnosis for this admission?: Yes (7) Chronic congestive heart failure with left ventricular diastolic dysfunction Is this a current diagnosis for this admission?: YesPlan: Clinically compensated. Continue Lasix 20 mg by mouth daily, spironolactone 12.5 mg by mouth daily, Toprol-XL 25 mg by mouth daily. Echocardiogram done recently shows normal ejection fraction, normal diastolic function, evidence of mitral valve repair. (8) Bilateral flank pain Is this a current diagnosis for this admission?: YesPlan: Likely musculoskeletal in nature. CT abdomen/pelvis on 04/12/2016 showed no acute process. Urinalysis/urine culture on 04/12/2016 negative. (9) H/O mitral valve repair Is this a current diagnosis for this admission?: Yes - Time Time Spent with patient: 35 or more minutes
[2016-04-15] MEDS: ESCITALOPRAM OXALATE 10 MG TABLET PO SCH (21:20)
[2016-04-15] MEDS: CEFTRIAXONE 1 GM/D5W RTU 1 GM/50 ML RTUPB IV SCH (21:21)
[2016-04-16] MEDS: METHYLPREDNISOLONE INJ 40 MG/1 ML SDV IV SCH ×3 (02:14→17:01)
[2016-04-16 04:31] LABS: HEMATOCRIT 32.7 % (36.0-47.0); HEMOGLOBIN 10.3 g/dL (12.0-15.5); HGB HCT DIFFERENCE -1.8; MEAN CORPUSCULAR HEMOGLOBIN 30.3 pg (27.0-33.4); MEAN CORPUSCULAR HGB CONC 31.7 g/dL (32.0-36.0); MEAN CORPUSCULAR VOLUME 96 fl (80-97); RED BLOOD COUNT 3.42 10^6/uL (3.72-5.28); RED CELL DISTRIBUTION WIDTH 13.7 % (11.5-14.0); WHITE BLOOD COUNT 18.7 10^3/uL (4.0-10.5)
[2016-04-16 05:00] LABS: ANION GAP 10 (5-19); BLOOD UREA NITROGEN 21 mg/dL (7-20); CALCIUM 9.5 mg/dL (8.4-10.2); CARBON DIOXIDE 26 mmol/L (22-30); CHLORIDE 100 mmol/L (98-107); CREATININE RESULT 0.77 mg/dL (0.52-1.25); GLUCOSE 172 mg/dL (75-110); SODIUM 135.6 mmol/L (137-145)
[2016-04-16] MEDS: CLONAZEPAM 1 MG TABLET PO SCH ×3 (05:06→22:36)
[2016-04-16 05:14] LABS: BASOPHILS % (MANUAL) 0 % (0-2); EOSINOPHILS % (MANUAL) 0 % (0-6); LYMPHOCYTES % (MANUAL) 3 % (13-45); TOTAL CELLS COUNTED 100
[2016-04-16 05:15] LABS: RBC MORPHOLOGY COMMENT NORMO-CYTIC/CHROMIC; TOXIC GRANULATION SLIGHT
[2016-04-16] MEDS: ALBUTEROL SULFATE 0.083% NEB 2.5 MG/3 ML AMPUL NEB SCH ×3 (07:59→19:10)
[2016-04-16] MEDS: HYDROMORPHONE HCL INJ/PF 2 MG/ML AMPULE IV PRN ×3 (08:29→17:30)
[2016-04-16] MEDS: ENOXAPARIN SODIUM INJ 40 MG/0.4 ML DISP.SYRIN SUBCUT SCH (08:29)
[2016-04-16] MEDS: AZITHROMYCIN 500 MG in DEXTROSE 5%-WATER 250 ML IV SCH (09:35)
[2016-04-16] MEDS: FUROSEMIDE 20 MG TABLET PO SCH (09:36)
[2016-04-16] MEDS: METOPROLOL SUCCINATE 25 MG TAB.SR.24H PO SCH (09:36)
[2016-04-16] MEDS: SPIRONOLACTONE 25 MG TABLET PO SCH (09:36)
[2016-04-16] MEDS: EZETIMIBE 10 MG TABLET PO SCH (09:36)
[2016-04-16] MEDS: ASPIRIN 81 MG TABLET, CHEWABLE PO SCH (09:36)
[2016-04-16] MEDS: BUDESONIDE/FORMOTEROL 160-4.5 MCG 60 PUFF/6 GM MDI IH SCH ×2 (09:36→22:36)
[2016-04-16] MEDS: GUAIFENESIN 600 MG TABLET.SA PO SCH ×2 (09:36→22:36)
[2016-04-16] MEDS ORDERED: METHYLPREDNISOLONE INJ 125 MG/2 ML SDV IV ONE (13:15)
--- NOTE | 2016-04-16 16:30 | PDOC PROGRESS REPORT ---
Subjective Progress Note for:: 04/16/16 Subjective:: Patient has continued shortness of breath and cough. She does not feel that she is significantly improved from admission. Patient denies fever, chills, headache, new focal weakness, diarrhea, constipation. Physical Exam Vital Signs: Temp Pulse Resp BP Pulse Ox 97.8 F 100 16 143/78 H 97 04/16/16 12:07 04/16/16 14:00 04/16/16 13:46 04/16/16 12:07 04/16/16 13:46 Intake & Output 04/15/16 04/16/16 04/17/16 06:59 06:59 06:59 Intake Total 2236 2038 474 Output Total 1000 Balance 2236 1038 474 Weight 85.2 kg 87.4 kg GENERAL: No acute distress HEENT: Conjunctiva clear, nonicteric, moist mucous membranes, no JVD, midline trachea RESPIRATORY: Tachypnea, bilateral inspiratory/expiratory wheezes, diminished air excursion CARDIAC: Regular rate and rhythm, no murmurs/gallops/rubs ABDOMEN: Soft, nondistended, nontender, positive bowel sounds, no rebound, no guarding EXTREMETIES: No edema, cyanosis, clubbing NEUROLOGIC: Alert, oriented to person/place/time, CN's grossly intact, no focal deficits SKIN: No rash, wounds PSYCH: Normal mood, normal affect Results Laboratory Results: 04/16/16 04:19 04/16/16 04:19 04/16/16 04/16/16 04:19 04:19 WBC 18.7 H RBC 3.42 L Hgb 10.3 L Hct 32.7 L MCV 96 MCH 30.3 MCHC 31.7 L RDW 13.7 Plt Count 263 Seg Neutrophils % Not Reportable Lymphocytes % Not Reportable Monocytes % Not Reportable Eosinophils % Not Reportable Basophils % Not Reportable Absolute Neutrophils Not Reportable Absolute Lymphocytes Not Reportable Absolute Monocytes Not Reportable Absolute Eosinophils Not Reportable Absolute Basophils Not Reportable Sodium 135.6 L Potassium 5.0 Chloride 100 Carbon Dioxide 26 Anion Gap 10 BUN 21 H Creatinine 0.77 Est GFR ( Amer) > 60 Est GFR (Non-Af Amer) > 60 Glucose 172 H Calcium 9.5 04/15/16 07:17 Sputum Gram Stain - Final 04/15/16 07:17 Sputum Sputum Culture - Final C.albicans/C.dubliniensis Reduced Normal Gunjan Impressions: Chest X-Ray 04/13/16 23:39 IMPRESSION: Clearing of the previously noted interstitial changes. Chest/Abdomen CTA 04/14/16 01:41 IMPRESSION: No pulmonary emboli. Minimal interstitial changes in the lungs with small effusions. Question interstitial edema. Assessment & Plan - Diagnosis (1) Sepsis Is this a current diagnosis for this admission?: YesPlan: Patient's is afebrile. She has persistent leukocytosis but this may be steroid effect. (2) Pneumonia Is this a current diagnosis for this admission?: YesPlan: Likely bacterial. IV Rocephin, IV azithromycin pending blood cultures and sputum culture. (3) Acute and chronic respiratory failure ([id number]) Qualifiers: Respiratory failure complication: hypoxia Qualified Code(s): J96.21 - Acute and chronic respiratory failure with hypoxia Is this a current diagnosis for this admission?: YesPlan: Continue oxygen supplementation. Incentive spirometer. Patient normally does not require home oxygen. (4) COPD exacerbation Is this a current diagnosis for this admission?: YesPlan: Increase IV Solu-Medrol. Albuterol nebulizer treatments. (5) Coronary artery disease Qualifiers: Coronary Disease-Associated Artery/Lesion type: unspecified vessel or lesion type Associated angina: angina presence unspecified Is this a current diagnosis for this admission?: YesPlan: ASA, Toprol XL. Lipid panel does not warrant statin therapy at this time. She is followed by cardiology at [facility]. (6) Hypertension Qualifiers: Hypertension type: essential hypertension Qualified Code(s): I10 - Essential (primary) hypertension Is this a current diagnosis for this admission?: Yes (7) Chronic congestive heart failure with left ventricular diastolic dysfunction Is this a current diagnosis for this admission?: YesPlan: Clinically compensated. Continue Lasix 20 mg by mouth daily, spironolactone 12.5 mg by mouth daily, Toprol-XL 25 mg by mouth daily. Echocardiogram done recently shows normal ejection fraction, normal diastolic function, evidence of mitral valve repair. (8) Bilateral flank pain Is this a current diagnosis for this admission?: YesPlan: Likely musculoskeletal in nature. CT abdomen/pelvis on 04/12/2016 showed no acute process. Urinalysis/urine culture on 04/12/2016 negative. (9) H/O mitral valve repair Is this a current diagnosis for this admission?: Yes - Time Time Spent with patient: 35 or more minutes
[2016-04-16] MEDS: ESCITALOPRAM OXALATE 10 MG TABLET PO SCH (22:35)
[2016-04-16] MEDS: CEFTRIAXONE 1 GM/D5W RTU 1 GM/50 ML RTUPB IV SCH (22:35)
[2016-04-17] MEDS: METHYLPREDNISOLONE INJ 40 MG/1 ML SDV IV SCH ×2 (01:01→09:22)
[2016-04-17] MEDS: CLONAZEPAM 1 MG TABLET PO SCH ×3 (05:49→21:27)
[2016-04-17 05:51] LABS: HEMATOCRIT 33.1 % (36.0-47.0); HEMOGLOBIN 10.5 g/dL (12.0-15.5); HGB HCT DIFFERENCE -1.6; MEAN CORPUSCULAR HEMOGLOBIN 30.3 pg (27.0-33.4); MEAN CORPUSCULAR HGB CONC 31.6 g/dL (32.0-36.0); MEAN CORPUSCULAR VOLUME 96 fl (80-97); RED BLOOD COUNT 3.45 10^6/uL (3.72-5.28); RED CELL DISTRIBUTION WIDTH 13.5 % (11.5-14.0)
[2016-04-17 06:03] LABS: ANION GAP 12 (5-19); BLOOD UREA NITROGEN 27 mg/dL (7-20); CALCIUM 9.4 mg/dL (8.4-10.2); CARBON DIOXIDE 24 mmol/L (22-30); CHLORIDE 99 mmol/L (98-107); CREATININE RESULT 0.82 mg/dL (0.52-1.25); GLUCOSE 162 mg/dL (75-110); POTASSIUM 4.9 mmol/L (3.6-5.0); SODIUM 135.1 mmol/L (137-145)
[2016-04-17 06:30] LABS: BASOPHILS % (MANUAL) 0 % (0-2); EOSINOPHILS % (MANUAL) 0 % (0-6); LYMPHOCYTES % (MANUAL) 4 % (13-45); TOTAL CELLS COUNTED 100
[2016-04-17 06:34] LABS: RBC MORPHOLOGY COMMENT NORMO-CYTIC/CHROMIC
[2016-04-17] MEDS: ENOXAPARIN SODIUM INJ 40 MG/0.4 ML DISP.SYRIN SUBCUT SCH (07:53)
[2016-04-17] MEDS: ALBUTEROL SULFATE 0.083% NEB 2.5 MG/3 ML AMPUL NEB SCH ×3 (08:21→20:33)
[2016-04-17] MEDS: BUDESONIDE/FORMOTEROL 160-4.5 MCG 60 PUFF/6 GM MDI IH SCH ×2 (09:21→21:29)
[2016-04-17] MEDS: EZETIMIBE 10 MG TABLET PO SCH (09:22)
[2016-04-17] MEDS: ASPIRIN 81 MG TABLET, CHEWABLE PO SCH (09:22)
[2016-04-17] MEDS: METOPROLOL SUCCINATE 25 MG TAB.SR.24H PO SCH (09:22)
[2016-04-17] MEDS: GUAIFENESIN 600 MG TABLET.SA PO SCH ×2 (09:22→21:31)
[2016-04-17] MEDS: SPIRONOLACTONE 25 MG TABLET PO SCH (09:22)
[2016-04-17] MEDS: FUROSEMIDE 20 MG TABLET PO SCH (09:23)
--- NOTE | 2016-04-17 09:54 | PDOC PROGRESS REPORT ---
Subjective Progress Note for:: 04/17/16 Subjective:: Patient states that her shortness of breath is dramatically improved since yesterday. Patient denies fever, chills, headache, new focal weakness, diarrhea , constipation. Physical Exam Vital Signs: Temp Pulse Resp BP Pulse Ox 97.4 F 75 14 149/78 H 97 04/17/16 07:30 04/17/16 08:21 04/17/16 08:21 04/17/16 07:30 04/17/16 08:21 Intake & Output 04/16/16 04/17/16 04/18/16 06:59 06:59 06:59 Intake Total 2038 2560 Output Total 1000 Balance 1038 2560 Weight 87.4 kg 87.6 kg GENERAL: No acute distress HEENT: Conjunctiva clear, nonicteric, moist mucous membranes, no JVD, midline trachea RESPIRATORY: Tachypnea, bilateral inspiratory/expiratory wheezes, diminished air excursion CARDIAC: Regular rate and rhythm, no murmurs/gallops/rubs ABDOMEN: Soft, nondistended, nontender, positive bowel sounds, no rebound, no guarding EXTREMETIES: No edema, cyanosis, clubbing NEUROLOGIC: Alert, oriented to person/place/time, CN's grossly intact, no focal deficits SKIN: No rash, wounds PSYCH: Normal mood, normal affect Results Laboratory Results: 04/17/16 04:28 04/17/16 04:28 04/17/16 04/17/16 04:28 04:28 WBC 14.0 H RBC 3.45 L Hgb 10.5 L Hct 33.1 L MCV 96 MCH 30.3 MCHC 31.6 L RDW 13.5 Plt Count 294 Seg Neutrophils % Not Reportable Lymphocytes % Not Reportable Monocytes % Not Reportable Eosinophils % Not Reportable Basophils % Not Reportable Absolute Neutrophils Not Reportable Absolute Lymphocytes Not Reportable Absolute Monocytes Not Reportable Absolute Eosinophils Not Reportable Absolute Basophils Not Reportable Sodium 135.1 L Potassium 4.9 Chloride 99 Carbon Dioxide 24 Anion Gap 12 BUN 27 H Creatinine 0.82 Est GFR ( Amer) > 60 Est GFR (Non-Af Amer) > 60 Glucose 162 H Calcium 9.4 04/15/16 07:17 Sputum Gram Stain - Final 04/15/16 07:17 Sputum Sputum Culture - Final C.albicans/C.dubliniensis Reduced Normal Gunjan Impressions: Chest X-Ray 04/13/16 23:39 IMPRESSION: Clearing of the previously noted interstitial changes. Chest/Abdomen CTA 04/14/16 01:41 IMPRESSION: No pulmonary emboli. Minimal interstitial changes in the lungs with small effusions. Question interstitial edema. Assessment & Plan - Diagnosis (1) Sepsis Is this a current diagnosis for this admission?: YesPlan: Patient's is afebrile and symptomatically improving. (2) Pneumonia Is this a current diagnosis for this admission?: YesPlan: Likely bacterial. Sputum culture growing Liz which is likely colonization. Discontinue IV antibiotics. Start doxycycline 100 mg by mouth twice daily. She will need follow-up chest x-ray in 3-4 weeks to evaluate this as well as small pleural effusion. (3) Acute and chronic respiratory failure ([id number]) Qualifiers: Respiratory failure complication: hypoxia Qualified Code(s): J96.21 - Acute and chronic respiratory failure with hypoxia Is this a current diagnosis for this admission?: YesPlan: Wean off oxygen as tolerated. Incentive spirometer. Patient normally does not require home oxygen. (4) COPD exacerbation Is this a current diagnosis for this admission?: YesPlan: Much improved. Discontinue IV Solu-Medrol. Start Medrol 4 mg by mouth every 6 hours. Patient has adverse reaction to prednisone in the past. She states that she can take Medrol without problems. Albuterol nebulizer treatments. (5) Coronary artery disease Qualifiers: Coronary Disease-Associated Artery/Lesion type: unspecified vessel or lesion type Associated angina: angina presence unspecified Is this a current diagnosis for this admission?: YesPlan: ASA, Toprol XL. Lipid panel does not warrant statin therapy at this time. She is followed by cardiology at [facility]. (6) Hypertension Qualifiers: Hypertension type: essential hypertension Qualified Code(s): I10 - Essential (primary) hypertension Is this a current diagnosis for this admission?: Yes (7) Chronic congestive heart failure with left ventricular diastolic dysfunction Is this a current diagnosis for this admission?: YesPlan: Clinically compensated. Continue Lasix 20 mg by mouth daily, spironolactone 12.5 mg by mouth daily, Toprol-XL 25 mg by mouth daily. Echocardiogram done recently shows normal ejection fraction, normal diastolic function, evidence of mitral valve repair. (8) Bilateral flank pain Is this a current diagnosis for this admission?: YesPlan: Likely musculoskeletal in nature. CT abdomen/pelvis on 04/12/2016 showed no acute process. Urinalysis/urine culture on 04/12/2016 negative. (9) H/O mitral valve repair Is this a current diagnosis for this admission?: YesPlan: Patient is followed by cardiology and CT surgery at [facility]. She states that they are planning to do a REFUGIO to further evaluate valve diameter. She states that they may be considering valve replacement. - Time Time Spent with patient: 35 or more minutes
[2016-04-17] MEDS ORDERED: AZITHROMYCIN 250 MG TABLET PO SCH (10:00)
[2016-04-17] MEDS ORDERED: PREDNISONE 20 MG TABLET PO SCH (10:00)
[2016-04-17] MEDS ORDERED: DOXYCYCLINE HYCLATE 100 MG TABLET PO ONE (11:30)
[2016-04-17] MEDS: OXYCODONE HCL IR 5 MG TABLET PO PRN ×2 (12:22→18:41)
[2016-04-17] MEDS: METHYLPREDNISOLONE 4 MG TABLET PO SCH ×2 (12:23→16:59)
[2016-04-17] MEDS: ESCITALOPRAM OXALATE 10 MG TABLET PO SCH (21:26)
[2016-04-17] MEDS: DOXYCYCLINE HYCLATE 100 MG TABLET PO SCH (21:26)
[2016-04-18] MEDS: METHYLPREDNISOLONE 4 MG TABLET PO SCH ×3 (00:14→11:39)
[2016-04-18 05:11] LABS: HEMATOCRIT 32.5 % (36.0-47.0); HEMOGLOBIN 10.7 g/dL (12.0-15.5); HGB HCT DIFFERENCE -0.4; MEAN CORPUSCULAR HEMOGLOBIN 30.9 pg (27.0-33.4); MEAN CORPUSCULAR HGB CONC 32.8 g/dL (32.0-36.0); MEAN CORPUSCULAR VOLUME 94 fl (80-97); RED BLOOD COUNT 3.46 10^6/uL (3.72-5.28); RED CELL DISTRIBUTION WIDTH 13.5 % (11.5-14.0); WHITE BLOOD COUNT 11.6 10^3/uL (4.0-10.5)
[2016-04-18 05:38] LABS: ANION GAP 11 (5-19); BLOOD UREA NITROGEN 28 mg/dL (7-20); CALCIUM 9.3 mg/dL (8.4-10.2); CARBON DIOXIDE 27 mmol/L (22-30); CHLORIDE 99 mmol/L (98-107); CREATININE RESULT 0.86 mg/dL (0.52-1.25); GLUCOSE 129 mg/dL (75-110); POTASSIUM 4.9 mmol/L (3.6-5.0); SODIUM 136.6 mmol/L (137-145)
[2016-04-18 05:54] LABS: BASOPHILS % (MANUAL) 1 % (0-2); EOSINOPHILS % (MANUAL) 0 % (0-6); LYMPHOCYTES % (MANUAL) 7 % (13-45); TOTAL CELLS COUNTED 100
[2016-04-18 05:56] LABS: RBC MORPHOLOGY COMMENT NORMO-CYTIC/CHROMIC
[2016-04-18] MEDS: CLONAZEPAM 1 MG TABLET PO SCH ×2 (06:33→13:24)
[2016-04-18] MEDS: ENOXAPARIN SODIUM INJ 40 MG/0.4 ML DISP.SYRIN SUBCUT SCH (08:14)
[2016-04-18] MEDS: OXYCODONE HCL IR 5 MG TABLET PO PRN (08:20)
[2016-04-18] MEDS: ALBUTEROL SULFATE 0.083% NEB 2.5 MG/3 ML AMPUL NEB SCH ×2 (08:21→14:16)
[2016-04-18] MEDS ORDERED: CHOLECALCIFEROL (D3) 1,000 UNIT TABLET PO SCH (10:00)
[2016-04-18] MEDS: METOPROLOL SUCCINATE 25 MG TAB.SR.24H PO SCH (10:50)
[2016-04-18] MEDS: BUDESONIDE/FORMOTEROL 160-4.5 MCG 60 PUFF/6 GM MDI IH SCH (10:50)
[2016-04-18] MEDS: DOXYCYCLINE HYCLATE 100 MG TABLET PO SCH (10:51)
[2016-04-18] MEDS: SPIRONOLACTONE 25 MG TABLET PO SCH (10:51)
[2016-04-18] MEDS: FUROSEMIDE 20 MG TABLET PO SCH (10:51)
[2016-04-18] MEDS: EZETIMIBE 10 MG TABLET PO SCH (10:51)
[2016-04-18] MEDS: ASPIRIN 81 MG TABLET, CHEWABLE PO SCH (10:51)
[2016-04-18] MEDS: GUAIFENESIN 600 MG TABLET.SA PO SCH (10:56)
--- NOTE | 2016-04-18 14:06 | PDOC DISCHARGE SUMMARY ---
General - Admit/Disc Date/PCP Admission Date/Primary Care Provider: 04/14/16 08:31 Discharge Date: 04/18/16 - Discharge Diagnosis (1) Sepsis Is this a current diagnosis for this admission?: YesSummary: Patient presented with sepsis secondary to pneumonia. Sepsis is now resolved. (2) Pneumonia Is this a current diagnosis for this admission?: YesSummary: Patient was admitted for pneumonia. This was likely bacterial however culture were negative. Patient was initially treated with IV antibiotics. She was eventually converted to oral doxycycline and has been stable on oral antibiotics. (3) Acute and chronic respiratory failure ([id number]) Is this a current diagnosis for this admission?: YesSummary: Patient required oxygen supplementation initially secondary to COPD and pneumonia. She is now stable on room air. (4) COPD exacerbation Is this a current diagnosis for this admission?: YesSummary: Patient had acute exacerbation of COPD. She was initially treated with IV steroids and nebulization treatments. She has not been converted to Medrol dosepak. (5) Coronary artery disease Is this a current diagnosis for this admission?: Yes (6) Hypertension Is this a current diagnosis for this admission?: Yes (7) Chronic congestive heart failure with left ventricular diastolic dysfunction Is this a current diagnosis for this admission?: YesSummary: Patient has chronic congestive heart failure. Echocardiogram done recently shows normal ejection fraction, normal diastolic function, evidence of mitral valve repair. She is followed by cardiology at [facility]. I believe they are planning on doing a mitral valve replacement soon. She is to follow-up with cardiology as soon as possible. (8) Bilateral flank pain Is this a current diagnosis for this admission?: Yes (9) H/O mitral valve repair Is this a current diagnosis for this admission?: Yes - Additional Information Resuscitation Status: Full Code Discharge Diet: Cardiac Discharge Activity: Slowly Increase Activity Home Medications: Aspirin [Aspirin 81 mg Chewable Tablet] 81 mg PO DAILY 04/14/16 Budesonide/Formoterol Fumarate [Symbicort HFA 160-4.5 mcg Inhaler 6 gm] 2 puff IH Q12 04/14/16 Cholecalciferol (Vitamin D3) [Vitamin D3 1000 Unit Tablet] 3,000 unit PO FARIA@ 1000 04/14/16 Clonazepam [Klonopin] 0.5 mg PO Q8 04/14/16 Escitalopram Oxalate [Lexapro 10 mg Tablet] 10 mg PO QHS 04/14/16 Ezetimibe [Zetia 10 mg Tablet] 10 mg PO DAILY 04/14/16 Furosemide [Lasix 20 mg Tablet] 20 mg PO DAILYP PRN 04/14/16 Metoprolol Succinate [Toprol Xl 25 mg Tab.sr] 25 mg PO DAILY 04/14/16 Nitroglycerin [Nitrostat 0.4 mg (1/150 Gr) Tabs 25/Bottle] 0.4 tab SL PRN PRN Spironolactone [Aldactone 25 mg Tablet] 12.5 mg PO DAILY 04/14/16 Tramadol HCl [Ultram 50 mg Tablet] 50 mg PO Q8 04/14/16 Albuterol Sulfate [Ventolin 0.083% Neb 2.5 mg/3 mL Ampul] 2.5 mg NEB RTQ6HP PRN #60 vial.neb 04/18/16 Albuterol Sulfate [Ventolin Hfa] 2 puff IH Q6HP PRN #1 hfa.aer.ad 04/18/16 Doxycycline Hyclate [Vibramycin 100 mg Tablet] 100 mg PO Q12 #14 tablet Methylprednisolone [Medrol Dosepack (4 mg/Tab) 21 Tab/Dosepak] 4 mg PO ASDIR PRN #21 tab.ds.pk 04/18/16 Oxycodone HCl [Oxy-Ir 5 mg Tablet] 5 mg PO Q6HP PRN #20 tablet 04/18/16 History of Present Illness Patient complains of: Shortness of breath History of Present Illness: EDAN VILLANUEVA is a 61 year old female presents via EMS with one day shortness of breath and several days bilateral flank pain. She was found by EMS to have an O2 sat of 89% on room air. She does not normally require oxygen supplementation. Incidentally she was treated in the emergency department on for a urinary tract infection. Review of emergency department records at that time show an unremarkable urinalysis and normal urine culture. She had a CT of the abdomen and pelvis at that time that shows no acute process. During today's evaluation she had a CTA of the chest was negative for pulmonary embolism, minimal interstitial changes with possible left lower lung airspace disease, small/trace effusion. Chest x-ray shows sternotomy wires, and is read by radiology to have clearing of interstitial changes, however on my interpretation patient appears to have bilateral airspace disease consistent with either infiltrate or pulmonary edema. Echocardiogram from 08/22/2015 showed EF greater than 60%, normal left ventricular diastolic function no significant valvular disease. Hospital Course Hospital Course: See above Physical Exam Vital Signs: Temp Pulse Resp BP Pulse Ox 97.6 F 84 16 141/77 H 96 04/18/16 11:38 04/18/16 11:38 04/18/16 11:38 04/18/16 11:38 04/18/16 11:38 Intake & Output 04/17/16 04/18/16 04/19/16 06:59 06:59 06:59 Intake Total 2560 2067 650 Balance 2560 2067 650 Weight 87.6 kg 87.6 kg GENERAL: No acute distress HEENT: Conjunctiva clear, nonicteric, moist mucous membranes, no JVD, midline trachea RESPIRATORY: Faint bilateral wheezes, good air excursion CARDIAC: Regular rate and rhythm, no murmurs/gallops/rubs ABDOMEN: Soft, nondistended, nontender, positive bowel sounds, no rebound, no guarding EXTREMETIES: No edema, cyanosis, clubbing NEUROLOGIC: Alert, oriented to person/place/time, CN's grossly intact, no focal deficits SKIN: No rash, wounds PSYCH: Normal mood, normal affect Results Laboratory Results: 04/18/16 04:44 04/18/16 04:42 04/18/16 04/18/16 04:42 04:44 WBC 11.6 H RBC 3.46 L Hgb 10.7 L Hct 32.5 L MCV 94 MCH 30.9 MCHC 32.8 RDW 13.5 Plt Count 309 Seg Neutrophils % Not Reportable Lymphocytes % Not Reportable Monocytes % Not Reportable Eosinophils % Not Reportable Basophils % Not Reportable Absolute Neutrophils Not Reportable Absolute Lymphocytes Not Reportable Absolute Monocytes Not Reportable Absolute Eosinophils Not Reportable Absolute Basophils Not Reportable Sodium 136.6 L Potassium 4.9 Chloride 99 Carbon Dioxide 27 Anion Gap 11 BUN 28 H Creatinine 0.86 Est GFR ( Amer) > 60 Est GFR (Non-Af Amer) > 60 Glucose 129 H Calcium 9.3 Impressions: Chest X-Ray 04/13/16 23:39 IMPRESSION: Clearing of the previously noted interstitial changes. Chest/Abdomen CTA 04/14/16 01:41 IMPRESSION: No pulmonary emboli. Minimal interstitial changes in the lungs with small effusions. Question interstitial edema. Qualifiers PATEINT BEING DISCHARGED WITH ANY OF THE FOLLOWING DIAGNOSIS?: No Plan Discharge Plan: Follow-up with cardiology and pulmonary medicine at [facility]. Time Spent: Less than 30 Minutes
[2016-04-18 14:40] VITALS: BP 139/61
== END 2016-04-18 15:20 | disposition home or self-care (01) | DRG 871 ==
LOC: ER 22:46 → EH 04-14 08:31 → UNDOADMIN 04-14 09:08 → EH 04-14 09:08 → 3W 04-14 10:45
PROVIDERS: ADMIT Family Medicine; ATTEND Family Medicine
PROC: 3E0F73Z Introduction of Anti-inflammatory into Respiratory Tract, Via Natural or Artificial Opening (ICD-10-PCS; principal; 2016-04-14)
DX: A41.9 Sepsis, unspecified organism (principal); J18.9 Pneumonia, unspecified organism; J96.21 Acute and chronic respiratory failure with hypoxia; I50.32 Chronic diastolic (congestive) heart failure; J44.1 Chronic obstructive pulmonary disease with (acute) exacerbation; I11.0 Hypertensive heart disease with heart failure; E87.5 Hyperkalemia; J45.909 Unspecified asthma, uncomplicated; M19.90 Unspecified osteoarthritis, unspecified site; F32.9 Major depressive disorder, single episode, unspecified; D64.9 Anemia, unspecified; I05.0 Rheumatic mitral stenosis; I25.2 Old myocardial infarction; Z90.49 Acquired absence of other specified parts of digestive tract; Z95.5 Presence of coronary angioplasty implant and graft; Z90.710 Acquired absence of both cervix and uterus; Z79.51 Long term (current) use of inhaled steroids; Z79.899 Other long term (current) drug therapy; Z87.891 Personal history of nicotine dependence; Z88.3 Allergy status to other anti-infective agents; Z79.82 Long term (current) use of aspirin
CPT/HCPCS: 36415; 71010; 71020; 71275; 76380; 80048; 80053; 80061; 81001; 82550; 82553; 83690; 83880; 84484; 85025; 87040; 87070; 87077; 87086; 87186; 87205; 93005; 93010; 94799; 96361; 96365; 96375; 96376; 99285; J0456; J0696; J1170; J1650; J2270; J2550; J2920; J2930; J3490; J7030; J7060; J7509

== ENCOUNTER 2016-05-27 12:56 | Emergency (ER) | payer MEDICARE ==
--- NOTE | 2016-05-27 13:17 | ER Document Report ---
ED Medical Screen (RME) - General Chief Complaint: Flank Pain Stated Complaint: FLANK PAIN Mode of Arrival: Ambulatory Information source: Patient Notes: 61 y/o F presents to ED c/o persistent left flank pain and pain/redness to right lower leg. Pt states was recently admitted to hospital for pneumonia and pleural effusion with similar symptoms. I have greeted and performed a rapid initial assessment of this patient. A comprehensive ED assessment and evaluation of the patient, analysis of test results and completion of the medical decision making process will be conducted by additional ED providers. TRAVEL OUTSIDE OF THE [place] IN LAST 30 DAYS: No - Related Data Allergies/Adverse Reactions: erythromycin base [Erythromycin Base] Allergy (Verified 05/27/16 13:02) ondansetron [From Zofran (as hydrochloride)] Allergy (Verified 05/27/16 13:02) prednisone Adverse Reaction (Intermediate, Verified 05/27/16 13:02) GI upset Past Medical History - Social History Chew tobacco use (# tins/day): No Frequency of alcohol use: None Drug Abuse: None - Past Medical History Cardiac Medical History: Reports: Hx Congestive Heart Failure - Diastolic Heart Failure, Hx Coronary Artery Disease, Hx Heart Attack, Hx Hypercholesterolemia, Hx Hypertension Pulmonary Medical History: Reports: Hx Asthma, Hx COPD, Hx Pneumonia Denies: Hx Tuberculosis Neurological Medical History: Denies: Hx Seizures Renal/ Medical History: Reports: Hx Kidney Stones, Hx Renal Insufficiency. Denies: Hx Peritoneal Dialysis Musculoskeltal Medical History: Reports Hx Arthritis Psychiatric Medical History: Reports: Hx Anxiety, Hx Depression Past Surgical History: Reports: Hx Appendectomy, Hx Cardiac Catheterization, Hx Cardiac Surgery - stent in 08 and open heart in 02, Hx Carotid Endarterectomy - LEFT, Hx Section - x2, Hx Cholecystectomy, Hx Coronary Stent - 2008, Hx Hysterectomy, Hx Vascular Surgery - Left Carotidendarterectomy - Immunizations Hx Diphtheria, Pertussis, Tetanus Vaccination: Yes Physical Exam - Vital signs Vitals: Temp Pulse Resp BP Pulse Ox 98.1 F 78 16 113/87 H 95 05/27/16 13:01 05/27/16 13:01 05/27/16 13:01 05/27/16 13:01 05/27/16 13:01 - General General appearance: Appears well, Alert In distress: None - Respiratory Respiratory status: No respiratory distress - Cardiovascular Rhythm: Regular Pulses: Normal: Radial Normal capillary refill: Yes Course - Vital Signs Vital signs: Temp Pulse Resp BP Pulse Ox 98.1 F 78 16 113/87 H 95 05/27/16 13:01 05/27/16 13:01 05/27/16 13:01 05/27/16 13:01 05/27/16 13:01
[2016-05-27 13:59] LABS: APPEARANCE,URINE CLEAR; BILIRUBIN,URINE NEGATIVE (NEGATIVE); GLUCOSE, URINE NEGATIVE (NEGATIVE); KETONES,URINE NEGATIVE (NEGATIVE); LEUKOCYTE ESTERASE,URINE NEGATIVE (NEGATIVE); NITRITE,URINE NEGATIVE (NEGATIVE); PROTEIN,URINE NEGATIVE (NEGATIVE); URINE SPECIFIC GRAVITY 1.009; UROBILINOGEN,URINE NEGATIVE mg/dL (<2.0)
[2016-05-27 14:00] LABS: ABSOLUTE BASOPHILS # (AUTO) 0.1 10^3/uL (0.0-0.2); ABSOLUTE EOSINOPHILS # (AUTO) 0.1 10^3/uL (0.0-0.6); ABSOLUTE LYMPHOCYTES (AUTO) 2.2 10^3/uL (0.5-4.7); ABSOLUTE MONOCYTES (AUTO) 0.7 10^3/uL (0.1-1.4); ABSOLUTE NEUT (AUTO) 5.8 10^3/uL (1.7-8.2); BASOPHILS % (AUTO) 0.6 % (0-2); EOSINOPHILS % (AUTO) 1.1 % (0-6); HEMATOCRIT 37.7 % (36.0-47.0); HEMOGLOBIN 12.9 g/dL (12.0-15.5); LYMPHOCYTES % (AUTO) 25.2 % (13-45); MEAN CORPUSCULAR HGB CONC 34.4 g/dL (32.0-36.0); MEAN CORPUSCULAR VOLUME 93 fl (80-97); MONOCYTES % (AUTO) 7.4 % (3-13); RED BLOOD COUNT 4.05 10^6/uL (3.72-5.28); RED CELL DISTRIBUTION WIDTH 14.1 % (11.5-14.0); SEGMENTED NEUTROPHILS % (AUTO) 65.7 % (42-78); WHITE BLOOD COUNT 8.9 10^3/uL (4.0-10.5)
[2016-05-27 14:11] LABS: ALANINE AMINOTRANSFERASE 22 U/L (9-52); ALBUMIN 4.5 g/dL (3.5-5.0); ALKALINE PHOSPHATASE 103 U/L (38-126); ANION GAP 9 (5-19); ASPARTATE AMINO TRANSFERASE 17 U/L (14-36); BILIRUBIN,TOTAL 0.4 mg/dL (0.2-1.3); BLOOD UREA NITROGEN 17 mg/dL (7-20); CALCIUM 10.3 mg/dL (8.4-10.2); CARBON DIOXIDE 26 mmol/L (22-30); CHLORIDE 101 mmol/L (98-107); CREATINE KINASE 42 U/L (30-135); CREATININE RESULT 0.89 mg/dL (0.52-1.25); GLUCOSE 103 mg/dL (75-110); POTASSIUM 4.5 mmol/L (3.6-5.0); SODIUM 136.3 mmol/L (137-145); TOTAL PROTEIN 6.7 g/dL (6.3-8.2)
[2016-05-27 14:23] LABS: CREATINE KINASE MB 0.24 ng/mL (<4.55)
[2016-05-27 14:24] LABS: TROPONIN I < 0.012 ng/mL
--- NOTE | 2016-05-27 16:34 | EKG REPORT ---
SEVERITY:- ABNORMAL ECG - SINUS RHYTHM FIRST DEGREE AV BLOCK NONSPECIFIC INTRAVENTRICULAR CONDUCTION DELAY PROBABLE LEFT VENTRICULAR HYPERTROPHY : Confirmed by: Cassie Darby MD 27-May-2016 16:33:21
[2016-05-27] MEDS ORDERED: MORPHINE SULFATE 10 MG/ML INJ IV PRN (16:38)
[2016-05-27] MEDS ORDERED: PROMETHAZINE HCL 25 MG TABLET PO ONE (16:38)
--- NOTE | 2016-05-27 16:44 | ER Document Report ---
ED General - General Chief Complaint: Flank Pain Stated Complaint: FLANK PAIN Time seen by provider: 16:39 Mode of Arrival: Ambulatory Information source: Patient Notes: This is a 61-year-old female with a history of recent pneumonia, mitral valve repair, reactive airway disease. Patient presents to the ER with sharp left- sided chest pain. Patient states it similar to when she had pneumonia and pleural effusion in the past. Patient denies any chest pain with exertion. She looks comfortable in the stretcher at this time. She also states that she has an area of tenderness on the anterior mid fisher on the right lower extremity. She denies any trauma to the extremity and states when she woke up the aftab was there and it was tender. The patient is concerned that she has worsening pleural effusion which she's been diagnosed within the past on the left. She is also concerned about the pneumonia in the past. TRAVEL OUTSIDE OF THE [place] IN LAST 30 DAYS: No - HPI Onset: Last week Onset/Duration: Gradual Quality of pain: Sharp Severity: Moderate Pain Level: 2 Associated symptoms: denies: Chills, Fever, Shortness of breath Exacerbated by: Denies Relieved by: Denies Similar symptoms previously: Yes Recently seen / treated by doctor: Yes - Related Data Allergies/Adverse Reactions: erythromycin base [Erythromycin Base] Allergy (Verified 05/27/16 13:02) ondansetron [From Zofran (as hydrochloride)] Allergy (Verified 05/27/16 13:02) prednisone Adverse Reaction (Intermediate, Verified 05/27/16 13:02) GI upset Past Medical History - General Information source: Patient - Social History Smoking Status: Never Smoker Chew tobacco use (# tins/day): No Frequency of alcohol use: None Drug Abuse: None Lives with: Family Family History: Reviewed & Not Pertinent Patient has suicidal ideation: No Patient has homicidal ideation: No - Past Medical History Cardiac Medical History: Reports: Hx Congestive Heart Failure - Diastolic Heart Failure, Hx Coronary Artery Disease, Hx Heart Attack, Hx Hypercholesterolemia, Hx Hypertension Pulmonary Medical History: Reports: Hx Asthma, Hx COPD, Hx Pneumonia Denies: Hx Tuberculosis Neurological Medical History: Denies: Hx Seizures Renal/ Medical History: Reports: Hx Kidney Stones, Hx Renal Insufficiency. Denies: Hx Peritoneal Dialysis Musculoskeltal Medical History: Reports Hx Arthritis Psychiatric Medical History: Reports: Hx Anxiety, Hx Depression Past Surgical History: Reports: Hx Appendectomy, Hx Cardiac Catheterization, Hx Cardiac Surgery - stent in 08 and open heart in 02, Hx Carotid Endarterectomy - LEFT, Hx Section - x2, Hx Cholecystectomy, Hx Coronary Stent - 2008, Hx Hysterectomy, Hx Vascular Surgery - Left Carotidendarterectomy - Immunizations Hx Diphtheria, Pertussis, Tetanus Vaccination: Yes Hx Pneumococcal Vaccination: 04/04/14 Review of Systems - Review of Systems Constitutional: denies: Chills, Fever EENT: No symptoms reported Cardiovascular: No symptoms reported Respiratory: See HPI Gastrointestinal: No symptoms reported Genitourinary: No symptoms reported Female Genitourinary: No symptoms reported Musculoskeletal: No symptoms reported Skin: No symptoms reported Hematologic/Lymphatic: No symptoms reported Neurological/Psychological: No symptoms reported Physical Exam - Vital signs Vitals: Temp Pulse Resp BP Pulse Ox 98.1 F 78 16 113/87 H 95 05/27/16 13:01 05/27/16 13:01 05/27/16 13:01 05/27/16 13:01 05/27/16 13:01 Notes: Physical exam: GENERAL: 61-year-old female, alert and oriented 3, tearful but does not appear to be in any respiratory distress. Her oxygen saturation is 100% on room air. Pulse is 85. HEAD: Atraumatic, normocephalic. EYES: Pupils equal round and reactive to light, extraocular movements intact, sclera anicteric, conjunctiva are normal. ENT: TMs normal, nares patent, oropharynx clear without exudates. Moist mucous membranes. NECK: Normal range of motion, supple without lymphadenopathy or JVD. LUNGS: Breath sounds clear to auscultation bilaterally and equal. No wheezes rales or rhonchi. HEART: Regular rate and rhythm without murmurs, rubs or gallops. ABDOMEN: Soft, normoactive bowel sounds. No tenderness to palpation. No guarding, no rebound. No masses appreciated. EXTREMITIES: Patient does have an area of erythema on the anterior portion of the mid tib-fib area which is tender to palpation. It does not feel nodular. It is not fluctuant or warm. It looks like a bruise. There is no calf pain, calf erythema or calf tenderness. The distal foot has good cap refill and is warm and a good DP pulse. NEUROLOGICAL: Cranial nerves II through XII grossly intact. Normal speech, normal gait. PSYCH: Normal mood, normal affect. SKIN: Warm, Dry, normal turgor, no rashes or lesions noted. Course - Re-evaluation Re-evalutation: 05/27/16 16:43 Patient is followed by a saw superintendent (Dr. Cavazos) in [place] and is scheduled for repeat evaluation in July with a possible follow-up REFUGIO for the mitral valve. The patient is also followed by a client advocate (Dr. Sen Perry) who has recently evaluated the patient. 05/27/16 22:52 The lesion on the leg is on the anterior fisher and looks more like a bruise to me. The patient's been in the ER for 8 hours and I have seen no change in the lesion in that time period. I have very little suspicion for DVT. The lower extremity Doppler ordered from triage was negative. CT of the chest shows no evidence of pleural effusion and complete resolution of the pneumonia. Patient's white blood cell count, electrolytes, renal function are all normal. I've discussed the results with her as well as her who is at the bedside. I've given him a copy of all her results and requested they follow up with both her saw superintendent and client advocate as planned. - Vital Signs Vital signs: Temp Pulse Resp BP Pulse Ox 98.3 F 78 18 113/57 L 95 05/27/16 21:31 05/27/16 13:01 05/27/16 21:31 05/27/16 21:31 05/27/16 21:31 - Laboratory Result Diagrams: 05/27/16 13:40 05/27/16 13:40 Laboratory results interpreted by me: 05/27/16 05/27/16 13:40 13:40 RDW 14.1 H Sodium 136.3 L Calcium 10.3 H - Diagnostic Test Radiology reviewed: Image reviewed, Reports reviewed - Chest x-ray is clear Discharge - Discharge Clinical Impression: pleurisy Condition: Stable Disposition: HOME, SELF-CARE Instructions: Pleurisy ([facility]), Oral Narcotic Medication ([facility]) Additional Instructions: As we discussed: The CAT scan of the lungs look good and there is no evidence of any effusion and the pneumonia has cleared. The lower extremity Doppler showed no evidence of blood clots. Your white blood count, electrolytes, renal function and sugar were good. Take the pain medicine as prescribed. The pain medicine is Gardner which is the same as Vicodin (same medicine, different names). See the narcotic instruction sheet Take Phenergan as needed Bring a copy of today's results with you when you see the saw superintendent and the client advocate Follow-up with both of those doctors as planned. Return to the emergency room for any fever (temperature greater than 100.5), worsening pain, any worsening redness or any concerns he getting worse. Prescriptions: Hydrocodone/Acetaminophen [Gardner 5-325 Tablet] 1 each PO Q6HP PRN #30 tablet PRN Reason: Promethazine HCl [Phenergan 25 mg Tablet] 25 mg PO Q6H PRN #15 tablet PRN Reason:
--- NOTE | 2016-05-27 16:54 | XCELERA REPORT ---
[address] [address] Lower Extremity Venous Evaluation Name: DEAN VILLANUEVA Age: 61 yrs Gender: Female : 1955 Patient Status: Emergency Patient Location: ER Study Date: 05/27/2016 02:25 PM Procedure: Color flow and duplex imaging of the veins of the right lower extremity as well as the left Common Femoral vein. Reason For Study: right lower leg pain, redness Ordering Physician: BECKY BONNER Performed By: Gifty Friedman Right Sided Venous Evaluation Normal vessel filling wall to wall, compression and augmentation as well as Colour flow down to the infrageniculate veins. Left Sided Venous Evaluation The left common femoral vein is fully compressible. Spontaneous and phasic flow is present in the left common femoral vein. Critical Findings Called in at about 1700. Interpretation Summary No duplex evidence of DVT or obstruction in the right lower extremity nor in the left Common Femoral vein. : BECKY BONNER > Carmelo Espino
[2016-05-27] MEDS ORDERED: HYDROCODONE/ACETAMINOPHEN 5-325 MG 6 TAB/DSPK PO PRN (21:45)
[2016-05-27 21:51] VITALS: BP 113/57
== END 2016-05-27 22:00 | disposition home or self-care (01) ==
LOC: ER 12:56
DX: R09.1 Pleurisy (principal); L98.9 Disorder of the skin and subcutaneous tissue, unspecified; L53.9 Erythematous condition, unspecified; J45.909 Unspecified asthma, uncomplicated; J44.9 Chronic obstructive pulmonary disease, unspecified; I25.10 Atherosclerotic heart disease of native coronary artery without angina pectoris; I25.2 Old myocardial infarction; I10 Essential (primary) hypertension; Z87.01 Personal history of pneumonia (recurrent); Z98.890 Other specified postprocedural states; Z88.1 Allergy status to other antibiotic agents; Z88.8 Allergy status to other drugs, medicaments and biological substances; Z98.61 Coronary angioplasty status
CPT/HCPCS: 93005; 99285; 96374; 36415; 82553; 82550; 85025; 80053; 81001; 84484; 93971 ×2; 71020; 71250; 93010; J2270; A9270 ×2

== ENCOUNTER 2016-07-11 14:58 | Emergency (ER) | payer MEDICARE ==
[2016-07-11] MEDS ORDERED: KETOROLAC TROMETHAMINE INJ/PF 30 MG/1 ML SDV IV ONE (15:16)
[2016-07-11] MEDS ORDERED: MORPHINE SULFATE 10 MG/ML INJ IV ONE (15:16)
--- NOTE | 2016-07-11 15:16 | ER Document Report ---
ED General - General Mode of Arrival: Medic Information source: Patient, [facility] Records TRAVEL OUTSIDE OF THE [place] IN LAST 30 DAYS: No - HPI Patient complains to provider of: Left Chest Pain Onset: Other - Apr 2016 Onset/Duration: Gradual, Persistent Quality of pain: Stabbing Associated symptoms: Productive cough, Hurts to breath Similar symptoms previously: Yes Recently seen / treated by doctor: Yes - Apr 2016, May 2016 [facility] ED <YESSI VASQUEZ - Last Filed: 07/11/16 15:36> <TODD VARGAS - Last Filed: 07/11/16 19:09> - General Chief Complaint: Breathing Difficulty Stated Complaint: DIFFICULTY BREATHING Notes: Patient is a 61-year-old female presenting to the emergency department with concerns of pain in her left lung when she breathes deeply that she states is been ongoing since she was discharged from here in April 2016. Patient states she returned late May and Dr. Bishop ordered a CT, which she states showed the same pleural effusion, but CT report from that visit states that there were no abnormalities. Patient complains of left-sided sharp pain in the same place as before, especially with deep breaths. Patient also complains of cough with frothy white sputum. Patient has a history of mitral valve stenosis, second-degree heart block, and heart failure, and states that she has an implanted loop heart monitor. (YESSI VASQUEZ) - Related Data Allergies/Adverse Reactions: erythromycin base [Erythromycin Base] Allergy (Verified 05/27/16 13:02) ondansetron [From Zofran (as hydrochloride)] Allergy (Verified 05/27/16 13:02) prednisone Adverse Reaction (Intermediate, Verified 05/27/16 13:02) GI upset Home Medications: Current Home Medications Clonazepam [Klonopin 1 mg Tablet] 1 mg PO TID 07/11/16 [History] Furosemide [Lasix] 40 mg PO DAILY 07/11/16 [History] Past Medical History - General Information source: Patient, [facility] Records - Social History Smoking Status: Never Smoker Family History: Reviewed & Not Pertinent - Past Medical History Cardiac Medical History: Reports: Hx Congestive Heart Failure - Diastolic Heart Failure, Hx Coronary Artery Disease, Hx Heart Attack, Hx Hypercholesterolemia, Hx Hypertension Pulmonary Medical History: Reports: Hx Asthma, Hx COPD, Hx Pneumonia Denies: Hx Tuberculosis Neurological Medical History: Denies: Hx Seizures Renal/ Medical History: Reports: Hx Kidney Stones, Hx Renal Insufficiency. Denies: Hx Peritoneal Dialysis Musculoskeltal Medical History: Reports Hx Arthritis Psychiatric Medical History: Reports: Hx Anxiety, Hx Depression Past Surgical History: Reports: Hx Appendectomy, Hx Cardiac Catheterization, Hx Cardiac Surgery - stent in 08 and open heart in 02, Hx Carotid Endarterectomy - LEFT, Hx Section - x2, Hx Cholecystectomy, Hx Coronary Stent - 2008, Hx Hysterectomy, Hx Vascular Surgery - Left Carotidendarterectomy - Immunizations Hx Diphtheria, Pertussis, Tetanus Vaccination: Yes Hx Pneumococcal Vaccination: 04/04/14 <YESSI VASUQEZ - Last Filed: 07/11/16 15:36> Review of Systems - Review of Systems Constitutional: No symptoms reported EENT: No symptoms reported Cardiovascular: No symptoms reported Respiratory: See HPI, Cough, Hurts to breathe - pain with deep breathing, Sputum - white frothy, Wheezing Gastrointestinal: No symptoms reported Genitourinary: No symptoms reported Female Genitourinary: No symptoms reported Musculoskeletal: No symptoms reported Skin: No symptoms reported Hematologic/Lymphatic: No symptoms reported Neurological/Psychological: No symptoms reported -: Yes All other systems reviewed and negative <YESSI VASQUEZ - Last Filed: 07/11/16 15:36> Physical Exam - Vital signs Interpretation: Normal - General General appearance: Alert - Tearful - HEENT Head: Normocephalic, Atraumatic Eyes: Normal Pupils: PERRL - Respiratory Respiratory status: No respiratory distress Chest status: Pain with deep breathing Breath sounds: Decreased air movement - Bilaterally, Wheezing - Mild Chest palpation: Normal - Cardiovascular Rhythm: Regular Heart sounds: Normal auscultation Murmur: No - Abdominal Inspection: Normal Tenderness: Nontender - Back Back: Normal, Nontender - Extremities General upper extremity: Normal inspection, Nontender General lower extremity: Normal inspection, Nontender Calf: Other - No calf tenderness - Neurological Neuro grossly intact: Yes Cognition: Normal Orientation: AAOx4 Five [place] Coma Scale Eye Opening: Spontaneous Luis Coma Scale Verbal: Oriented Five Points Coma Scale Motor: Obeys Commands Luis Coma Scale Total: 15 Speech: Normal - Psychological Associated symptoms: Normal affect, Tearful - Skin Skin Temperature: Warm Skin Moisture: Dry Skin Color: Normal <YESSI VASQUEZ - Last Filed: 07/11/16 15:36> Course <YESSI VASQUEZ - Last Filed: 07/11/16 15:36> - Laboratory Result Diagrams: 07/11/16 15:20 07/11/16 15:20 - EKG Interpretation by Me EKG shows normal: Sinus rhythm Rate: Normal Rhythm: NSR Heart block present: 1st Degree <TODD VARGAS - Last Filed: 07/11/16 19:09> - Re-evaluation Re-evalutation: 07/11/16 18:58 Patient's pain is improved. She has a follow-up this week at [place]. Her CT scan here is negative. I see no infectious cause so no antibiotics are warranted. She can use Medrol but she is not supposed to use NSAIDs at all. We will write her for some pain medication to help her through this. ( TODD VARGAS) - Vital Signs Vital signs: Temp Pulse Resp BP Pulse Ox 97.7 F 69 15 150/74 H 99 07/11/16 15:15 07/11/16 15:15 07/11/16 18:00 07/11/16 17:02 07/11/16 18:00 - Laboratory Laboratory results interpreted by me: 07/11/16 07/11/16 07/11/16 15:20 15:20 16:37 RDW 14.2 H VBG pH 7.51 H VBG pCO2 30.1 L Ur Leukocyte Esterase TRACE H - EKG Interpretation by Me Additional EKG results interpreted by me: 07/11/16 15:26 Nonspecific intraventricular conduction delay (TODD VARGAS) Discharge <YESSI VASQUEZ - Last Filed: 07/11/16 15:36> <TODD VARGAS - Last Filed: 07/11/16 19:09> - Discharge Clinical Impression: Chest pain, Pleurisy without effusion Clinical Impression: (Ruled Out): Pleurisy Condition: Good Disposition: HOME, SELF-CARE Additional Instructions: Please follow up with your primary care physician this week. Return for worsening or concern. Start the Medrol Dosepak tomorrow. Prescriptions: Hydrocodone/Acetaminophen [[place] 5-325 mg Tablet] 1 tab PO Q4HP PRN #14 tablet PRN Reason: For Pain Methylprednisolone [Medrol Dosepack (4 mg/Tab) 21 Tab/Dosepak] 4 mg PO ASDIR PRN #21 tab.ds.pk PRN Reason: Forms: Elevated Blood Pressure Scribe Attestation: 07/11/16 19:01 I personally performed the services described in the documentation, reviewed and edited the documentation which was dictated to the scribe in my presence, and it accurately records my words and actions. (TODD VARGAS) Scribe Documentation - Scribe Written by Scribe:: Yessi Vasquez 07/11/2016 1516 acting as scribe for :: Alberto <YESSI VASQUEZ - Last Filed: 07/11/16 15:36>
[2016-07-11] MEDS ORDERED: IPRATROPIUM/ALBUTEROL 0.5-2.5 MG/3 ML AMPUL NEB ONE (15:28)
[2016-07-11 15:54] LABS: ABSOLUTE BASOPHILS # (AUTO) 0.1 10^3/uL (0.0-0.2); ABSOLUTE EOSINOPHILS # (AUTO) 0.1 10^3/uL (0.0-0.6); ABSOLUTE LYMPHOCYTES (AUTO) 2.1 10^3/uL (0.5-4.7); ABSOLUTE MONOCYTES (AUTO) 0.6 10^3/uL (0.1-1.4); ABSOLUTE NEUT (AUTO) 5.1 10^3/uL (1.7-8.2); BASOPHILS % (AUTO) 0.7 % (0-2); EOSINOPHILS % (AUTO) 1.7 % (0-6); HEMATOCRIT 37.9 % (36.0-47.0); HEMOGLOBIN 13.1 g/dL (12.0-15.5); HGB HCT DIFFERENCE 1.4; LYMPHOCYTES % (AUTO) 26.4 % (13-45); MEAN CORPUSCULAR HEMOGLOBIN 32.2 pg (27.0-33.4); MEAN CORPUSCULAR HGB CONC 34.5 g/dL (32.0-36.0); MEAN CORPUSCULAR VOLUME 94 fl (80-97); RED BLOOD COUNT 4.05 10^6/uL (3.72-5.28); RED CELL DISTRIBUTION WIDTH 14.2 % (11.5-14.0); SEGMENTED NEUTROPHILS % (AUTO) 63.2 % (42-78); WHITE BLOOD COUNT 8.1 10^3/uL (4.0-10.5)
[2016-07-11 15:56] LABS: VENOUS BLOOD BASE EXCESS 1.3 mmol/L; VENOUS BLOOD HCO3 23.3 mmol/L (20-32); VENOUS BLOOD PCO2 30.1 mmHg (35-63); VENOUS BLOOD PH 7.51 (7.30-7.42)
[2016-07-11 16:08] LABS: ALANINE AMINOTRANSFERASE 22 U/L (9-52); ALBUMIN 4.4 g/dL (3.5-5.0); ALKALINE PHOSPHATASE 94 U/L (38-126); ANION GAP 11 (5-19); ASPARTATE AMINO TRANSFERASE 21 U/L (14-36); BILIRUBIN,DIRECT 0.3 mg/dL (0.0-0.4); BILIRUBIN,TOTAL 0.4 mg/dL (0.2-1.3); BLOOD UREA NITROGEN 14 mg/dL (7-20); CARBON DIOXIDE 26 mmol/L (22-30); CHLORIDE 105 mmol/L (98-107); CREATINE KINASE 54 U/L (30-135); CREATININE RESULT 0.87 mg/dL (0.52-1.25); GLUCOSE 94 mg/dL (75-110); POTASSIUM 4.2 mmol/L (3.6-5.0); SODIUM 141.8 mmol/L (137-145); TOTAL PROTEIN 7.1 g/dL (6.3-8.2)
[2016-07-11 16:20] LABS: CREATINE KINASE MB 0.43 ng/mL (<4.55)
[2016-07-11 16:21] LABS: TROPONIN I < 0.012 ng/mL
[2016-07-11 16:53] LABS: APPEARANCE,URINE CLEAR; BILIRUBIN,URINE NEGATIVE (NEGATIVE); GLUCOSE, URINE NEGATIVE (NEGATIVE); KETONES,URINE NEGATIVE (NEGATIVE); LEUKOCYTE ESTERASE,URINE TRACE (NEGATIVE); NITRITE,URINE NEGATIVE (NEGATIVE); PROTEIN,URINE NEGATIVE (NEGATIVE); UROBILINOGEN,URINE NEGATIVE mg/dL (<2.0)
[2016-07-11] MEDS ORDERED: DOXYCYCLINE HYCLATE 100 MG TABLET PO ONE (16:59)
[2016-07-11] MEDS ORDERED: HYDROMORPHONE HCL INJ/PF 2 MG/ML AMPULE IV ONE (17:16)
[2016-07-11 17:17] VITALS: BP 150/74
--- NOTE | 2016-07-11 20:48 | EKG REPORT ---
SEVERITY:- ABNORMAL ECG - SINUS RHYTHM FIRST DEGREE AV BLOCK NONSPECIFIC INTRAVENTRICULAR CONDUCTION DELAY : Confirmed by: Guanaco Foley 11-Jul-2016 20:47:49
== END 2016-07-11 19:36 | disposition home or self-care (01) ==
LOC: ER 14:58
DX: R09.1 Pleurisy (principal); J44.9 Chronic obstructive pulmonary disease, unspecified; R07.1 Chest pain on breathing; R05 Cough; I44.0 Atrioventricular block, first degree; I25.10 Atherosclerotic heart disease of native coronary artery without angina pectoris; I25.2 Old myocardial infarction; I10 Essential (primary) hypertension; Z95.818 Presence of other cardiac implants and grafts; Z86.79 Personal history of other diseases of the circulatory system; Z88.1 Allergy status to other antibiotic agents; Z88.8 Allergy status to other drugs, medicaments and biological substances; Z87.01 Personal history of pneumonia (recurrent); Z98.61 Coronary angioplasty status
CPT/HCPCS: 93005; 94640; 99285; 96374; 96375; 36415; 82553; 82550; 85025; 80053; 81001; 84484; 82803; 83880; 71010; 71275; 93010; J1885; J2270; J1170; A9270; J7620

== ENCOUNTER 2016-08-06 18:06 | Emergency (ER) | payer MEDICARE ==
[2016-08-06 18:36] VITALS: BP 118/62
--- NOTE | 2016-08-06 19:02 | EKG REPORT ---
SEVERITY:- ABNORMAL ECG - SINUS RHYTHM FIRST DEGREE AV BLOCK : Confirmed by: Gilberto Streeter MD 06-Aug-2016 19:01:40
--- NOTE | 2016-08-06 20:01 | ER Document Report ---
ED Medical Screen (RME) - General Chief Complaint: Chest Pain Stated Complaint: CHEST PAIN Notes: Patient is a 61-year-old female with past medical history of mitral valve regurgitation requiring surgical repair in the future with associated pulmonary hypertension followed at [facility] who presents with multiple complaints including headache, left flank spasms, intermittent shortness of breath, intermittent chest pain and nausea. She states "I'm just so scared and I feel so sick". I have greeted and performed a rapid initial assessment of this patient. A comprehensive ED assessment and evaluation of the patient, analysis of test results and completion of medical decision making process will be conducted by an additional ED providers. TRAVEL OUTSIDE OF THE [place]. IN LAST 30 DAYS: No - Related Data Allergies/Adverse Reactions: erythromycin base [Erythromycin Base] Allergy (Verified 05/27/16 13:02) ondansetron [From Zofran (as hydrochloride)] Allergy (Verified 05/27/16 13:02) prednisone Adverse Reaction (Intermediate, Verified 05/27/16 13:02) GI upset Past Medical History - Past Medical History Cardiac Medical History: Reports: Hx Congestive Heart Failure - Diastolic Heart Failure, Hx Coronary Artery Disease, Hx Heart Attack, Hx Hypercholesterolemia, Hx Hypertension Pulmonary Medical History: Reports: Hx Asthma, Hx COPD, Hx Pneumonia Denies: Hx Tuberculosis Neurological Medical History: Denies: Hx Seizures Renal/ Medical History: Reports: Hx Kidney Stones, Hx Renal Insufficiency. Denies: Hx Peritoneal Dialysis Musculoskeltal Medical History: Reports Hx Arthritis Psychiatric Medical History: Reports: Hx Anxiety, Hx Depression Past Surgical History: Reports: Hx Appendectomy, Hx Cardiac Catheterization, Hx Cardiac Surgery - stent in 08 and open heart in 02, Hx Carotid Endarterectomy - LEFT, Hx Section - x2, Hx Cholecystectomy, Hx Coronary Stent - 2008, Hx Hysterectomy, Hx Vascular Surgery - Left Carotidendarterectomy - Immunizations Hx Diphtheria, Pertussis, Tetanus Vaccination: Yes Physical Exam - Vital signs Vitals: Temp Pulse Resp BP Pulse Ox 98.3 F 72 20 118/62 98 08/06/16 18:31 08/06/16 18:31 08/06/16 18:31 08/06/16 18:31 08/06/16 18:31 Notes: PHYSICAL EXAMINATION: GENERAL: Well-appearing, well-nourished and in no acute distress. HEAD: Atraumatic, normocephalic. EYES: Pupils equal round and reactive to light, extraocular movements intact, sclera anicteric, conjunctiva are normal. ENT: nares patent, oropharynx clear without exudates. Moist mucous membranes. NECK: Normal range of motion, supple without lymphadenopathy LUNGS: Breath sounds clear to auscultation bilaterally and equal. Mildly diminished at the left base HEART: Regular rate and rhythm, systolic murmur 3 out of 6 ABDOMEN: Soft, nontender, normoactive bowel sounds. No guarding, no rebound. No masses appreciated. EXTREMITIES: Normal range of motion, no pitting or edema. No cyanosis. NEUROLOGICAL: No focal neurological deficits. Moves all extremities spontaneously and on command. PSYCH: Anxious, tearful SKIN: Warm, Dry, normal turgor, no rashes or lesions noted. Course - Vital Signs Vital signs: Temp Pulse Resp BP Pulse Ox 98.3 F 72 20 118/62 98 08/06/16 18:31 08/06/16 18:31 08/06/16 18:31 08/06/16 18:31 08/06/16 18:31
[2016-08-06] MEDS ORDERED: ASPIRIN 81 MG TABLET, CHEWABLE PO ONE (20:12)
[2016-08-06 20:40] LABS: ABSOLUTE BASOPHILS # (AUTO) 0.1 10^3/uL (0.0-0.2); ABSOLUTE EOSINOPHILS # (AUTO) 0.2 10^3/uL (0.0-0.6); ABSOLUTE MONOCYTES (AUTO) 0.5 10^3/uL (0.1-1.4); ABSOLUTE NEUT (AUTO) 4.7 10^3/uL (1.7-8.2); BASOPHILS % (AUTO) 1.4 % (0-2); EOSINOPHILS % (AUTO) 2.8 % (0-6); HEMATOCRIT 39.3 % (36.0-47.0); HEMOGLOBIN 13.2 g/dL (12.0-15.5); HGB HCT DIFFERENCE 0.3; LYMPHOCYTES % (AUTO) 27.2 % (13-45); MEAN CORPUSCULAR HEMOGLOBIN 32.4 pg (27.0-33.4); MEAN CORPUSCULAR HGB CONC 33.7 g/dL (32.0-36.0); MEAN CORPUSCULAR VOLUME 96 fl (80-97); RED BLOOD COUNT 4.08 10^6/uL (3.72-5.28); RED CELL DISTRIBUTION WIDTH 13.6 % (11.5-14.0); SEGMENTED NEUTROPHILS % (AUTO) 61.6 % (42-78); WHITE BLOOD COUNT 7.5 10^3/uL (4.0-10.5)
[2016-08-06 20:57] LABS: ANION GAP 12 (5-19); BLOOD UREA NITROGEN 15 mg/dL (7-20); CALCIUM 9.8 mg/dL (8.4-10.2); CARBON DIOXIDE 24 mmol/L (22-30); CHLORIDE 101 mmol/L (98-107); CREATININE RESULT 0.86 mg/dL (0.52-1.25); GLUCOSE 98 mg/dL (75-110); POTASSIUM 4.6 mmol/L (3.6-5.0); SODIUM 136.9 mmol/L (137-145)
--- NOTE | 2016-08-06 23:34 | ER Document Report ---
ED General <ROSEMARIE BAUTISTA - Last Filed: 08/06/16 23:44> - General Mode of Arrival: Ambulatory Information source: Patient TRAVEL OUTSIDE OF THE [place] IN LAST 30 DAYS: No - HPI Onset: Other - since April Onset/Duration: Persistent Quality of pain: Achy, Sharp Severity: None Similar symptoms previously: Yes Recently seen / treated by doctor: Yes <NAYELIMARY - Last Filed: 08/07/16 05:36> - General Chief Complaint: Chest Pain Stated Complaint: CHEST PAIN Notes: Patient is a 61-year-old female that presents to the emergency department today with complaints of a headache and left posterior chest wall pain. The patient states the symptoms have been going on since April. Patient is being followed at [facility] by a looper fixer for mitral valve stenosis and she is waiting for a mechanical valve replacement. Patient believes that her headache and chest wall pain are secondary to her mitral valve stenosis and adds that "you should read up at the [facility]" in regards to the correlation between mitral valve stenosis and headaches/chest wall pain. Patient has no primary care physician currently but after reviewing records, she has been to several primary care physicians in the area. Patient goes on to say that "she does not have a primary care physician in the area because there are no good ones". Patient requesting narcotic pain medication to "get some relief from this pain" . Patient confirms that there is no change in her headache or chest wall pain, this is the same pain that has been going on since April. Patient was given [place] by a physician at [facility] and she has run out of this prescription. Patient denies any rashes. (MARY TYLER) - Related Data Allergies/Adverse Reactions: erythromycin base [Erythromycin Base] Allergy (Verified 05/27/16 13:02) ondansetron [From Zofran (as hydrochloride)] Allergy (Verified 05/27/16 13:02) prednisone Adverse Reaction (Intermediate, Verified 05/27/16 13:02) GI upset Past Medical History - General Information source: Patient, [facility] Records - Social History Smoking Status: Never Smoker Cigarette use (# per day): No Frequency of alcohol use: None Drug Abuse: None Lives with: Family Family History: Reviewed & Not Pertinent Patient has suicidal ideation: No Patient has homicidal ideation: No - Past Medical History Cardiac Medical History: Reports: Hx Congestive Heart Failure - Diastolic Heart Failure, Hx Coronary Artery Disease, Hx Heart Attack, Hx Hypercholesterolemia, Hx Hypertension Pulmonary Medical History: Reports: Hx Asthma, Hx COPD, Hx Pneumonia Renal/ Medical History: Reports: Hx Kidney Stones, Hx Renal Insufficiency Musculoskeltal Medical History: Reports Hx Arthritis Psychiatric Medical History: Reports: Hx Anxiety, Hx Depression Past Surgical History: Reports: Hx Appendectomy, Hx Cardiac Catheterization, Hx Cardiac Surgery - stent in 08 and open heart in 02, Hx Carotid Endarterectomy - LEFT, Hx Section - x2, Hx Cholecystectomy, Hx Coronary Stent - 2008, Hx Hysterectomy, Hx Vascular Surgery - Left Carotidendarterectomy - Immunizations Hx Diphtheria, Pertussis, Tetanus Vaccination: Yes Hx Pneumococcal Vaccination: 04/04/14 <MARY TYLER - Last Filed: 08/07/16 05:36> Review of Systems - Review of Systems Constitutional: No symptoms reported EENT: No symptoms reported Cardiovascular: No symptoms reported Respiratory: See HPI, Other - left posterior chest wall pain Gastrointestinal: No symptoms reported Genitourinary: No symptoms reported Female Genitourinary: No symptoms reported Musculoskeletal: No symptoms reported Skin: No symptoms reported Hematologic/Lymphatic: No symptoms reported Neurological/Psychological: See HPI, Headaches -: Yes All other systems reviewed and negative <MARY TYLER - Last Filed: 08/07/16 05:36> Physical Exam <ROSEMARIE BAUTISTA - Last Filed: 08/06/16 23:44> <MARY TYLER - Last Filed: 08/07/16 05:36> - Vital signs Vitals: Temp Pulse Resp BP Pulse Ox 98.3 F 72 20 118/62 98 08/06/16 18:31 08/06/16 18:31 08/06/16 18:31 08/06/16 18:31 08/06/16 18:31 - Notes Notes: Physical Exam: General: Alert, appears well. HEENT: Normocephalic. Atraumatic. PERRL. Extraocular movements intact. Oropharynx clear. Neck: Supple. Non-tender. Respiratory: No respiratory distress. Clear and equal breath sounds bilaterally. Reproducible left sided chest wall pain. Cardiovascular: Regular rate and rhythm. Abdominal: Normal Inspection. Non-tender. No distension. Normal Bowel Sounds. Back: Non-tender. No deformity or step off. Extremities: Moves all four extremities. Upper extremities: Normal inspection. Normal ROM. Lower extremities: Normal inspection. No edema. Normal ROM. Neurological: Normal cognition. AAOx4. Normal speech. Psychological: Normal affect. Normal Mood. Skin: Warm. Dry. Normal color. (NAYELIMARY) Course - Laboratory Result Diagrams: 08/06/16 20:25 08/06/16 20:25 <ROSEMARIE BAUTISTA - Last Filed: 08/06/16 23:44> - Laboratory Result Diagrams: 08/06/16 20:25 08/06/16 20:25 <NAYELIMARY - Last Filed: 08/07/16 05:36> - Re-evaluation Re-evalutation: 08/06/16 23:39 Patient presents emergency per chief complaint headache. She describes it as exactly same character quality frequency and duration is previous headaches that been going on for quite some time. She also gets intermittent dizziness. Was concerned about her blood pressure is 118/60 to arrival. She complains of chronic left chest wall left flank pain that has been going on "for a while. When I ask her specifically she says several months. She sees [facility] specialist in cardiology but does not have a local primary care physician and states a local primary care physicians are terrible and she will see any of them. Review of records shows that she's had multiple different local primary care physicians all of which she no longer sees. She has all the paperwork from [facility] including discharge paperwork from her last visit. She states they were giving her Vicodin for her chronic chest wall pain and she is out of it now. She has been seen and evaluated up in the triage area had a full extensive workup including chest x-ray EKG labs all of which are nonacute. She has reproducible chest wall tenderness on examination which she states is the same as previous episodes. She has no acute clinical concerns for LA PE or dissection. Discussion with her and her at the bedside in terms of outpatient management of the chronic condition. I told her that I could give her a dose of something here for pain but I cannot write her prescription they became very angry and argumentative with me stating that we have always given her chronic pain medication in the past. Explained to her our policy in the hospital policy. She states at [facility] told her to come here I explained to her that that is appropriate and when he come to the emergency department we do a workup to look for anything acute life threatening. If her workup is negative and there is a chronic condition for her own safety we need her to be managed by a local primary care physician or [facility] if she chooses to go there. Very disgruntled angry ripping her bandages EKG pads off. Charge nurse came in explained our policy as well. They gave her a dose of [place] here we'll send her information to the mental health case manager and administration to support outpatient follow-up and reasons why we don't treat chronic pain in the emergency department specifically discussed reasons for ED return sooner 08/06/16 23:42 08/06/16 23:44 (ROSEMARIE BAUTISTA) - Vital Signs Vital signs: Temp Pulse Resp BP Pulse Ox 98.3 F 72 20 118/62 98 08/06/16 18:31 08/06/16 18:31 08/06/16 18:31 08/06/16 18:31 08/06/16 18:31 - Laboratory Laboratory results interpreted by me: 08/06/16 20:25 Sodium 136.9 L - EKG Interpretation by Me Additional EKG results interpreted by me: 08/06/16 23:44 EKG shows sinus rhythm with first-degree block no acute ST segment elevation or depression (ROSEMARIE BAUTISTA) Discharge <ROSEMARIE BAUTISTA - Last Filed: 08/06/16 23:44> <MARY TYLER - Last Filed: 08/07/16 05:36> - Discharge Clinical Impression: chronic chest wall pain, request for narcotic prescription, history of mitral valve regurgitation Condition: Stable Disposition: HOME, SELF-CARE Additional Instructions: Chest Wall Pain recurrent Your chest pain has been diagnosed as coming from the chest wall. This is often caused by straining the muscles or joints in the chest during physical activity, direct trauma, coughing, or vigorous vomiting. Persons with arthritis are especially prone to this type of pain, due to inflammation of the cartilage joints near the breast bone. Occasionally, no cause can be found. Rest from strenuous physical activity. This kind of chest pain is usually made worse by movement of the chest. Depending on the symptoms, we may prescribe medicine for pain, muscle relaxation, and antiinflammatory effects. If the pain is new, and seems to be due to muscle strain, cold packs can help. Otherwise, apply gentle warmth to the painful area for 15 minutes every hour or two. You should contact the doctor immediately if things change. Further evaluation is needed if you develop a fever or cough, if the nature of the pain changes, or if you become short of breath. Referrals: KARTIK NULL MD [ACTIVE STAFF] - (Call for an appointment to be seen in 2-3 days must have primary care physician to manage all chronic or current conditions return to the emergency from sooner for increasing worsening or new symptoms) Scribe Attestation: 08/06/16 23:38 I personally performed the services described in the documentation reviewed the documentation recorded by my scribe in my presence and it accurately and completely records my words and actions (ROSEMARIE BAUTISTA) Scribe Documentation - Scribe Written by Katy:: Katy Anna, 08/07/2016 0031 acting as scribe for :: Daniel <MARY TYLER - Last Filed: 08/07/16 05:36>
[2016-08-06] MEDS ORDERED: HYDROCODONE/ACETAMINOPHEN 5-325 MG TABLET PO ONE (23:43)
== END 2016-08-06 23:52 | disposition home or self-care (01) ==
LOC: ER 18:06
DX: G89.29 Other chronic pain (principal); R07.9 Chest pain, unspecified; R51 Headache; R06.02 Shortness of breath; R11.0 Nausea; I34.0 Nonrheumatic mitral (valve) insufficiency; I50.30 Unspecified diastolic (congestive) heart failure; I25.10 Atherosclerotic heart disease of native coronary artery without angina pectoris; E78.00 Pure hypercholesterolemia, unspecified; I10 Essential (primary) hypertension; J44.9 Chronic obstructive pulmonary disease, unspecified; J45.909 Unspecified asthma, uncomplicated; Z88.3 Allergy status to other anti-infective agents; Z87.442 Personal history of urinary calculi; Z90.49 Acquired absence of other specified parts of digestive tract; Z90.710 Acquired absence of both cervix and uterus; I25.2 Old myocardial infarction
CPT/HCPCS: 36415; 71010; 80048; 84484; 85025; 93005; 93010; 99285

== ENCOUNTER → 2016-09-20 | Outpatient (CLI) | payer MEDICARE ==
[2016-09-20 10:45] LABS: PROTHROMBIN TIME 22.9 SEC (11.4-15.4)
== END ==
LOC: OD 10:11
PROVIDERS: ATTEND Nurse Practitioner Adult Health
DX: Z95.2 Presence of prosthetic heart valve (principal)
CPT/HCPCS: 36415; 85610

== ENCOUNTER → 2016-09-28 | Outpatient (CLI) | payer MEDICARE ==
[2016-09-28 09:30] LABS: PROTHROMBIN TIME 17.1 SEC (11.4-15.4)
== END ==
LOC: OD 08:07
PROVIDERS: ATTEND Internal Medicine
DX: Z95.4 Presence of other heart-valve replacement (principal)
CPT/HCPCS: 36415; 85610

== ENCOUNTER 2016-10-01 13:50 | Inpatient (IN) | payer MEDICARE ==
[2016-10-01] MEDS ORDERED: ASPIRIN 81 MG TABLET, CHEWABLE PO ONE (15:08)
[2016-10-01] MEDS ORDERED: HYDROMORPHONE HCL INJ/PF 2 MG/ML AMPULE IV ONE ×2 (15:10→20:03)
--- NOTE | 2016-10-01 15:30 | ER Document Report ---
ED Medical Screen (RME) - General Mode of Arrival: Wheelchair Information source: Patient TRAVEL OUTSIDE OF THE [place] IN LAST 30 DAYS: No - HPI Patient complains to provider of: Chest Pain Onset: Yesterday Associated Symptoms: Other - see notes above - Related Data Smoking: Non-smoker Frequency of alcohol use: None Drug Abuse: None <GAVIOTA PEREZ - Last Filed: 10/01/16 16:10> <CHRIS SMILEY - Last Filed: 10/01/16 20:45> - General Chief Complaint: Chest Pain Stated Complaint: CHEST Time Seen by Provider: 10/01/16 14:59 Notes: 61 year old female with history of mitral valve replacement secondary to mitral valve stenosis, CABGx1, and a pacemaker presents to the ED complaining of bilateral chest wall pain that is exacerbated with deep breathing. Patient had surgery performed in early September [address] Murray ([place]) for a mechanical valve, CABGx1, and pacemaker. Patient spoke with Dr. Murray earlier today describing her symptoms and was told to come to the ED to be evaluated. Patient reports that her doctor is concerned over possible pulmonary emboli. Patient is currently taking Dilaudid for pain control secondary to the surgery. (GAVIOTA PEREZ) - Related Data Allergies/Adverse Reactions: erythromycin base [Erythromycin Base] Allergy (Verified 05/27/16 13:02) ondansetron [From Zofran (as hydrochloride)] Allergy (Verified 05/27/16 13:02) prednisone Adverse Reaction (Intermediate, Verified 05/27/16 13:02) GI upset Past Medical History - General Information source: Patient - Social History Cigarette use (# per day): No Chew tobacco use (# tins/day): No Frequency of alcohol use: None Drug Abuse: None - Past Medical History Cardiac Medical History: Reports: Hx Congestive Heart Failure - Diastolic Heart Failure, Hx Coronary Artery Disease, Hx Heart Attack, Hx Hypercholesterolemia, Hx Hypertension Pulmonary Medical History: Reports: Hx Asthma, Hx COPD, Hx Pneumonia Denies: Hx Tuberculosis Neurological Medical History: Denies: Hx Seizures Renal/ Medical History: Reports: Hx Kidney Stones, Hx Renal Insufficiency. Denies: Hx Peritoneal Dialysis Musculoskeltal Medical History: Reports Hx Arthritis Psychiatric Medical History: Reports: Hx Anxiety, Hx Depression Past Surgical History: Reports: Hx Appendectomy, Hx Cardiac Catheterization, Hx Cardiac Surgery - stent in 08 and open heart in 02, Hx Carotid Endarterectomy - LEFT, Hx Section - x2, Hx Cholecystectomy, Hx Coronary Stent - 2008, Hx Hysterectomy, Hx Vascular Surgery - Left Carotidendarterectomy - Immunizations Hx Diphtheria, Pertussis, Tetanus Vaccination: Yes <GAVIOTA PEREZ - Last Filed: 10/01/16 16:10> Review of Systems - Review of Systems Constitutional: See HPI, Recent illness - Recent surgery early September 2016 EENT: No symptoms reported Cardiovascular: See HPI, Chest pain Respiratory: See HPI, Hurts to breathe Gastrointestinal: No symptoms reported Genitourinary: No symptoms reported Female Genitourinary: No symptoms reported Musculoskeletal: No symptoms reported Skin: No symptoms reported Hematologic/Lymphatic: No symptoms reported Neurological/Psychological: No symptoms reported -: Yes All other systems reviewed and negative <GAVIOTA PEREZ - Last Filed: 10/01/16 16:10> Physical Exam - General General appearance: Alert In distress: None - Respiratory Respiratory status: No respiratory distress Breath sounds: Other - Crackles to the bilateral bases with diffuse pleural rub. - Skin Skin Temperature: Warm Skin Moisture: Dry Skin Color: Normal Skin irregularity: other - well healing scars secondary to sternotomy and pacemaker incision site. <GAVIOTA PEREZ - Last Filed: 10/01/16 16:10> Course - Laboratory Result Diagrams: 10/01/16 15:20 10/01/16 15:20 <GAVIOTA PEREZ - Last Filed: 10/01/16 16:10> - Laboratory Result Diagrams: 10/01/16 15:20 10/01/16 15:20 <CHRIS SMILEY - Last Filed: 10/01/16 20:45> - Vital Signs Vital signs: Temp Pulse Resp BP Pulse Ox 98.5 F 73 14 126/103 H 98 10/01/16 14:13 10/01/16 14:13 10/01/16 19:00 10/01/16 19:01 10/01/16 19:01 - Laboratory Laboratory results interpreted by me: 10/01/16 10/01/16 10/01/16 15:20 15:20 15:20 RBC 3.48 L Hgb 10.3 L Hct 32.8 L MCHC 31.5 L RDW 15.7 H Eosinophils % 15.6 H Absolute Eosinophils 1.2 H PT 15.6 H Alkaline Phosphatase 143 H NT-Pro-B Natriuret Pep 10/01/16 15:20 RBC Hgb Hct MCHC RDW Eosinophils % Absolute Eosinophils PT Alkaline Phosphatase NT-Pro-B Natriuret Pep 1920 H Doctor's Discharge <GAVIOTA PEREZ - Last Filed: 10/01/16 16:10> <CHRIS SMILEY - Last Filed: 10/01/16 20:45> - Discharge Clinical Impression: Right-sided chest pain, Subtherapeutic international normalized ratio (INR), H/ O mitral valve repair Condition: Good Disposition: ADMITTED OBSERVATION Scribe Documentation - Scribe Written by Alphonseibe:: Katy De Leon, 10/01/2016 1535 acting as scribe for :: Anaid <GAVIOTA PEREZ - Last Filed: 10/01/16 16:10>
[2016-10-01 15:45] LABS: ABSOLUTE BASOPHILS # (AUTO) 0.1 10^3/uL (0.0-0.2); ABSOLUTE EOSINOPHILS # (AUTO) 1.2 10^3/uL (0.0-0.6); ABSOLUTE LYMPHOCYTES (AUTO) 1.3 10^3/uL (0.5-4.7); ABSOLUTE MONOCYTES (AUTO) 0.7 10^3/uL (0.1-1.4); ABSOLUTE NEUT (AUTO) 4.2 10^3/uL (1.7-8.2); BASOPHILS % (AUTO) 0.9 % (0-2); EOSINOPHILS % (AUTO) 15.6 % (0-6); HEMATOCRIT 32.8 % (36.0-47.0); HEMOGLOBIN 10.3 g/dL (12.0-15.5); HGB HCT DIFFERENCE -1.9; LYMPHOCYTES % (AUTO) 17.8 % (13-45); MEAN CORPUSCULAR HEMOGLOBIN 29.7 pg (27.0-33.4); MEAN CORPUSCULAR HGB CONC 31.5 g/dL (32.0-36.0); MEAN CORPUSCULAR VOLUME 94 fl (80-97); RED BLOOD COUNT 3.48 10^6/uL (3.72-5.28); RED CELL DISTRIBUTION WIDTH 15.7 % (11.5-14.0); SEGMENTED NEUTROPHILS % (AUTO) 56.7 % (42-78); WHITE BLOOD COUNT 7.4 10^3/uL (4.0-10.5)
[2016-10-01 15:48] LABS: PROTHROMBIN TIME 15.6 SEC (11.4-15.4)
[2016-10-01 16:00] LABS: ALANINE AMINOTRANSFERASE 27 U/L (9-52); ALBUMIN 4.1 g/dL (3.5-5.0); ALKALINE PHOSPHATASE 143 U/L (38-126); ANION GAP 11 (5-19); ASPARTATE AMINO TRANSFERASE 19 U/L (14-36); BILIRUBIN,DIRECT 0.3 mg/dL (0.0-0.4); BILIRUBIN,TOTAL 0.6 mg/dL (0.2-1.3); BLOOD UREA NITROGEN 14 mg/dL (7-20); CALCIUM 9.4 mg/dL (8.4-10.2); CARBON DIOXIDE 29 mmol/L (22-30); CHLORIDE 101 mmol/L (98-107); CREATINE KINASE 50 U/L (30-135); CREATININE RESULT 0.89 mg/dL (0.52-1.25); GLUCOSE 81 mg/dL (75-110); POTASSIUM 4.1 mmol/L (3.6-5.0); SODIUM 140.8 mmol/L (137-145); TOTAL PROTEIN 7.4 g/dL (6.3-8.2)
[2016-10-01 16:12] LABS: CREATINE KINASE MB 0.56 ng/mL (<4.55)
[2016-10-01 16:17] LABS: TROPONIN I 0.104 ng/mL
[2016-10-01] MEDS ORDERED: LIDOCAINE 5% (700 MG) TRANSDERMAL ADH..PATCH TP ONE ×2 (16:29→20:30)
--- NOTE | 2016-10-01 16:30 | RADIOLOGY REPORT (SQ) ---
EXAM DESCRIPTION: CHEST SINGLE VIEW COMPLETED DATE/TIME: 10/01/2016 4:19 pm REASON FOR STUDY: chest pain post CABG COMPARISON: 08/06/2016 EXAM PARAMETERS: NUMBER OF VIEWS: One view. TECHNIQUE: Single frontal radiographic view of the chest acquired. RADIATION DOSE: NA LIMITATIONS: None. FINDINGS: LUNGS AND PLEURA: There is a small left pleural effusion and a minimal right pleural effus ion. No pulmonary infiltrate or mass is seen. MEDIASTINUM AND HILAR STRUCTURES: No masses. Contour normal. HEART AND VASCULAR STRUCTURES: The heart size is borderline. There is no evidence of failure. BONES: No acute findings. HARDWARE: Pacemaker, sternotomy wires, graft markers. OTHER: No other significant finding. IMPRESSION: Borderline cardiomegaly with small pleural effusions and no blessing CHF. TECHNICAL DOCUMENTATION: JOB ID: [id number]
--- NOTE | 2016-10-01 17:14 | RADIOLOGY REPORT (SQ) ---
EXAM DESCRIPTION: CTA CHEST COMPLETED DATE/TIME: 10/01/2016 4:36 pm REASON FOR STUDY: CP post CABG, r/o PE per [place] CT surgery COMPARISON: Chest radiograph 10/01/2016 TECHNIQUE: CT scan of the chest performed using helical scanning technique with dynamic intravenous contrast injection. Images reviewed with lung, soft tissue and bone windows. Reconstructed coronal and sagittal MPR images reviewed. Additional 3 dimensional post-processing performed to develop Maximal Intensity Projection images (DE P). All images stored on PACS. All CT scanners at this facility use dose modulation, iterative reconstruction, and/or weight based d osing when appropriate to reduce radiation dose to as low as reasonably achievable (ALARA). [facility]: Dose Right [facility]: CareDose [facility]: Dose Right [facility]: Teradose 4D [facility]: Linq3 CONTRAST TYPE AND DOSE: contrast/concentration: Isovue 370.00 mg/ml; Total Contrast Delivered: 78.0 ml; Total Saline Delivered: 100.0 ml RENAL FUNCTION: GFR > 60. RADIATION DOSE: Up-to-date CT equipment and radiation dose reduction techniques were employed. CTDIv ol: 16.9 - 33.1 mGy. DLP: 537 mGy-cm. . LIMITATIONS: None. FINDINGS: LUNGS AND PLEURA: Small right pleural effusion. Small to moderate left pleural effusion w ith basilar atelectasis. Pneumothorax. AORTA AND GREAT VESSELS: No aneurysm. HEART: No pericardial effusion. PULMONARY ARTERIES: No emboli visualized in the main pulmonary arteries or the segmental branches. HILAR AND MEDIASTINAL STRUCTURES: No identified masses or abnormal nodes. HARDWARE: Cardiac pacemaker. UPPER ABDOMEN: No significant findings. Limited exam. THYROID AND OTHER SOFT TISSUES: No masses. No adenopathy. BONES: Sternal wires. 3D MIPS: Confirm above findings. OTHER: No other significant finding. IMPRESSION: No pulmonary emboli Small right pleural effusion small to moderate left pleural effusion with left basilar atelectasis. TECHNICAL DOCUMENTATION: JOB ID: [id number] Quality ID # [id number]: Final reports with documentation of one or more dose reduction techniques (e.g., Au tomated exposure control, adjustment of the mA and/or kV according to patient size, use of iterative reconstruction technique) 2010 [employer]- All Rights Reserved
[2016-10-01] MEDS ORDERED: HEPARIN SODIUM,PORCINE/D5W 250 ML IV PRN (19:40)
[2016-10-01] MEDS ORDERED: HEPARIN SOD (PORCINE) 1,000 UNIT/ML 10 ML VIAL IV ONE (19:40)
[2016-10-01] MEDS ORDERED: HEPARIN SOD (PORCINE) 1,000 UNIT/ML 10 ML VIAL IV PRN ×2 (19:40→22:14)
--- NOTE | 2016-10-01 19:49 | ER Document Report ---
ED General - General Chief Complaint: Chest Pain Stated Complaint: CHEST Time Seen by Provider: 10/01/16 14:59 Mode of Arrival: Wheelchair TRAVEL OUTSIDE OF THE [place] IN LAST 30 DAYS: No - HPI Notes: Patient is coming in for chest wall pain evaluation. Patient recently had CABG 1 vessel pacemaker replacement heart valve replacement performed at [facility] 4 weeks ago. Patient developed right sided chest wall pain approximately 24 hours prior to arrival. Patient states pain is worse with deep breath and movement. Patient denies any history of other trauma. Patient states compliance with her home medications. Denies any other complaints. - Related Data Allergies/Adverse Reactions: erythromycin base [Erythromycin Base] Allergy (Verified 05/27/16 13:02) ondansetron [From Zofran (as hydrochloride)] Allergy (Verified 05/27/16 13:02) prednisone Adverse Reaction (Intermediate, Verified 05/27/16 13:02) GI upset Past Medical History - General Information source: Patient - Social History Smoking Status: Unknown if Ever Smoked Cigarette use (# per day): No Chew tobacco use (# tins/day): No Frequency of alcohol use: None Drug Abuse: None Family History: Reviewed & Not Pertinent Patient has suicidal ideation: No Patient has homicidal ideation: No - Past Medical History Cardiac Medical History: Reports: Hx Congestive Heart Failure - Diastolic Heart Failure, Hx Coronary Artery Disease, Hx Heart Attack, Hx Hypercholesterolemia, Hx Hypertension Pulmonary Medical History: Reports: Hx Asthma, Hx COPD, Hx Pneumonia Denies: Hx Tuberculosis Neurological Medical History: Denies: Hx Seizures Renal/ Medical History: Reports: Hx Kidney Stones, Hx Renal Insufficiency. Denies: Hx Peritoneal Dialysis Musculoskeltal Medical History: Reports Hx Arthritis Psychiatric Medical History: Reports: Hx Anxiety, Hx Depression Past Surgical History: Reports: Hx Appendectomy, Hx Cardiac Catheterization, Hx Cardiac Surgery - stent in 08 and open heart in 02, Hx Carotid Endarterectomy - LEFT, Hx Section - x2, Hx Cholecystectomy, Hx Coronary Stent - 2008, Hx Hysterectomy, Hx Vascular Surgery - Left Carotidendarterectomy - Immunizations Hx Diphtheria, Pertussis, Tetanus Vaccination: Yes Hx Pneumococcal Vaccination: 04/04/14 Review of Systems - Review of Systems Constitutional: No symptoms reported EENT: No symptoms reported Cardiovascular: Chest pain Respiratory: No symptoms reported Gastrointestinal: No symptoms reported Genitourinary: No symptoms reported Female Genitourinary: No symptoms reported Musculoskeletal: No symptoms reported Skin: No symptoms reported Hematologic/Lymphatic: No symptoms reported Neurological/Psychological: No symptoms reported Physical Exam - Vital signs Vitals: Temp Pulse Resp BP Pulse Ox 98.5 F 73 14 128/64 H 96 10/01/16 14:13 10/01/16 14:13 10/01/16 14:13 10/01/16 14:13 10/01/16 14:13 Interpretation: Normal - General General appearance: Appears well, Alert - HEENT Head: Normocephalic, Atraumatic Eyes: Normal Pupils: PERRL - Respiratory Respiratory status: No respiratory distress Chest status: Tender - Reproduction of pain to palpation Breath sounds: Normal Chest palpation: Normal - Cardiovascular Rhythm: Regular Heart sounds: Normal auscultation Murmur: No - Abdominal Inspection: Normal Distension: No distension Bowel sounds: Normal Tenderness: Nontender Organomegaly: No organomegaly - Back Back: Normal, Nontender - Extremities General upper extremity: Normal inspection, Nontender, Normal color, Normal ROM , Normal temperature General lower extremity: Normal inspection, Nontender, Normal color, Normal ROM , Normal temperature, Normal weight bearing. No: Janae's sign - Neurological Neuro grossly intact: Yes Cognition: Normal Orientation: AAOx4 [place]on Coma Scale Eye Opening: Spontaneous [place] Coma Scale Verbal: Oriented Lim[place] Coma Scale Motor: Obeys Commands Limon Coma Scale Total: 15 Speech: Normal Motor strength normal: LUE, RUE, LLE, RLE Sensory: Normal - Psychological Associated symptoms: Normal affect, Normal mood - Skin Skin Temperature: Warm Skin Moisture: Dry Skin Color: Normal Course - Re-evaluation Re-evalutation: 10/01/16 20:05 Patient coming in for evaluation of right-sided chest wall pain concerned about PE. Patient lab work does not reveal any critical pathology. CTA did not reveal any critical pathology. I did discuss with Dr. Reza Colon cardiothoracic surgery at [facility] agrees with assessment plan however is concerned that the patient has mechanical heart valve and have an INR 1.1. Requested we admit the patient to our hospital for bridging and hold patient's her INR is therapeutic level. Discussed with hospitalist who requested a cardiology consult. Discussed with Dr. Darby who agrees that the troponin is more likely due to recent surgery no need for any further cardiac workup at this time the patient can be bridged no need for any cardiac consult. Discussed again with the hospitalist Dr. Flores agreed to admit the patient for breathing. Patient was admitted for her INR - Vital Signs Vital signs: Temp Pulse Resp BP Pulse Ox 98.5 F 73 14 126/103 H 98 10/01/16 14:13 10/01/16 14:13 10/01/16 19:00 10/01/16 19:01 10/01/16 19:01 - Laboratory Result Diagrams: 10/01/16 15:20 10/01/16 15:20 Laboratory results interpreted by me: 10/01/16 10/01/16 10/01/16 15:20 15:20 15:20 RBC 3.48 L Hgb 10.3 L Hct 32.8 L MCHC 31.5 L RDW 15.7 H Eosinophils % 15.6 H Absolute Eosinophils 1.2 H PT 15.6 H Alkaline Phosphatase 143 H NT-Pro-B Natriuret Pep 10/01/16 15:20 RBC Hgb Hct MCHC RDW Eosinophils % Absolute Eosinophils PT Alkaline Phosphatase NT-Pro-B Natriuret Pep 1920 H Discharge - Discharge Clinical Impression: Right-sided chest pain, Subtherapeutic international normalized ratio (INR), H/ O mitral valve repair Condition: Good Disposition: ADMITTED OBSERVATION Admitting Provider: Latoniaist Lynnette Flores Unit Admitted: Telemetry
--- NOTE | 2016-10-01 20:45 | EKG REPORT ---
SEVERITY:- ABNORMAL ECG - SINUS RHYTHM FIRST DEGREE AV BLOCK NONSPECIFIC INTRAVENTRICULAR CONDUCTION DELAY PROBABLE LVH WITH SECONDARY REPOL ABNRM : Confirmed by: Guanaco Foley 01-Oct-2016 20:44:30
[2016-10-01 21:13] LABS: ABSOLUTE BASOPHILS # (AUTO) 0.1 10^3/uL (0.0-0.2); ABSOLUTE EOSINOPHILS # (AUTO) 1.2 10^3/uL (0.0-0.6); ABSOLUTE LYMPHOCYTES (AUTO) 1.4 10^3/uL (0.5-4.7); ABSOLUTE MONOCYTES (AUTO) 0.7 10^3/uL (0.1-1.4); ABSOLUTE NEUT (AUTO) 4.8 10^3/uL (1.7-8.2); BASOPHILS % (AUTO) 0.9 % (0-2); EOSINOPHILS % (AUTO) 15.1 % (0-6); HEMATOCRIT 31.7 % (36.0-47.0); HGB HCT DIFFERENCE -1.7; LYMPHOCYTES % (AUTO) 17.4 % (13-45); MEAN CORPUSCULAR HEMOGLOBIN 29.6 pg (27.0-33.4); MEAN CORPUSCULAR HGB CONC 31.5 g/dL (32.0-36.0); MEAN CORPUSCULAR VOLUME 94 fl (80-97); MONOCYTES % (AUTO) 8.4 % (3-13); RED BLOOD COUNT 3.38 10^6/uL (3.72-5.28); RED CELL DISTRIBUTION WIDTH 15.3 % (11.5-14.0); SEGMENTED NEUTROPHILS % (AUTO) 58.2 % (42-78); WHITE BLOOD COUNT 8.3 10^3/uL (4.0-10.5)
[2016-10-01 21:25] LABS: PARTIAL THROMBOPLASTIN TIME 35.9 SEC (23.5-35.8)
[2016-10-01 21:34] LABS: APPEARANCE,URINE CLEAR; BILIRUBIN,URINE NEGATIVE (NEGATIVE); GLUCOSE, URINE NEGATIVE (NEGATIVE); KETONES,URINE NEGATIVE (NEGATIVE); LEUKOCYTE ESTERASE,URINE MODERATE (NEGATIVE); NITRITE,URINE NEGATIVE (NEGATIVE); PROTEIN,URINE NEGATIVE (NEGATIVE); URINE SPECIFIC GRAVITY 1.012; UROBILINOGEN,URINE NEGATIVE mg/dL (<2.0)
[2016-10-01] MEDS ORDERED: MAGNESIUM HYDROXIDE SUSP 30 ML UDCUP PO PRN (22:17)
[2016-10-01] MEDS ORDERED: ACETAMINOPHEN 325 MG TABLET PO PRN (22:17)
[2016-10-01] MEDS ORDERED: PROMETHAZINE HCL 25 MG TABLET PO PRN (22:25)
--- NOTE | 2016-10-01 22:43 | PDOC H&P ---
History of Present Illness Admission Date/PCP: 10/01/16 19:59 PCP Savi (sp.??) Jazmine [facility] History of Present Illness: DEAN VILLANUEVA is a 61 year old female, status post single vessel coronary arterial bypass graft, pacemaker implant, and mechanical mitral valve replacement the of this month at [facility]. She presents to the emergency room for evaluation of approximately 24 hour history of intermittent sharp right lower lateral chest wall pain that increases with deep breathing and with certain movements. She has had nausea but no vomiting. Low-grade fever 99.0-99.8; states she usually runs 97.8. No shaking chills. No diarrhea or dysuria. Emergency room physician discussed patient with cardiothoracic surgery at [facility]. Their concern was her subtherapeutic INR. Recommended this be bridged with either Lovenox or heparin. Patient declined the Lovenox route which could have been accomplished at home. Will proceed with heparin drip. No absolute contraindication to systemic anticoagulation. Patient and both state that her INR has been difficult to regulate on Coumadin. Emergency room physician also discussed the case with Dr. Darby, our on- call core cleaner. He felt that her indeterminate troponin was due to recent surgery with no further cardiac workup needed and no need for cardiology consult at this facility. Notes in the chart have been reviewed. She is currently resting quietly, still having some mild chest discomfort at the above-noted site. Patient has been discussed with emergency room physician who evaluated the patient. Hospitalized on our service the through 18 April of this year, with final diagnoses including sepsis felt secondary to pneumonia, along with COPD exacerbation and acute on chronic respiratory failure. History and physical and discharge summary have been reviewed. According to her discharge summary, echocardiogram August of last year revealed ejection fraction greater than 60%, with a normal left ventricular diastolic function.. Laboratory results are listed in [employer] and are reviewed. X-ray summary results are listed below, with full report(s) reviewed. . EKG reviewed and compared to prior tracing from the fifth of last month. Social history/personal habits: . 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 No use of alcohol tobacco or illicit drugs. Allergies/adverse reactions are listed in [employer] and are reviewed. Home medications initially autopopulated into [facility] [facility] may not accurately reflect patient's true medications, dosages, and/or frequencies. certified ophthalmic technician has reconciled medications. REVIEW OF SYSTEMS: Constitutional: See history and present illness. Eyes: Wears glasses ENT: No swallowing problems or complaints. Denies hearing loss. Pulmonary: No current complaints. Cardiovascular: See history and present illness. Gastrointestinal: See history and present illness. Skin: No current complaints, including rashes. Hematologic: Easy bruising. Neurologic: No current complaints, including numbness or tingling. Musculoskeletal: Mild arthritis. Psychiatric: Anxiety Endocrine: No current complaints, including polyuria. Genitourinary: No current complaints, including dysuria. PHYSICAL EXAMINATION: 5 feet tall. 95.6 kg. BMI 41.2 kg/m. Blood pressure 174/71. 98% saturation on room air. Pulse 75 and regular. Respirations are 13 and unlabored. Temperature 98.5. Obese otherwise well-developed female appearing perhaps a bit older than her stated age. Pleasant awake alert and cooperative. No obvious distress other than mild discomfort at the above-noted site. Female emergency room nurse Xi is present. is present at her side; patient approves. Skin is warm and dry. No grossly obvious evidence of rash in areas of skin examined. No subcutaneous nodules palpated. Sternal incision, pacemaker incision, and upper abdominal incisions all healing nicely. ENT: Hearing grossly normal to normal conversation. Tongue midline on protrusion pink and slightly tacky. Eyes: No scleral icterus. Pupils equal and reactive to light at 4 mm. [place] conjunctivae. Neck is supple and nontender to gentle active range of motion and palpation. Midline trachea. No palpable thyroid nodule mass enlargement or tenderness. Lymphatic: No palpable cervical or clavicular nodes. Neck and lymphatic exams limited by patient body habitus. Psychiatric: Reasonable insight into acute and chronic medical issues. Oriented to time location and why here. Lungs: Auscultation reveals clear and equal breath sounds bilaterally. No use of accessory respiratory muscles. Cardiovascular: Heart regular rate and rhythm, without gallop murmur or rub. No carotid or abdominal aortic bruits. No ankle or pedal edema. Faintly palpable dorsalis pedis pulses. Palpation and compression at the lower right lateral chest wall does increase her sharp discomfort. No crepitus fluctuance or gross instability. Abdomen:soft somewhat obese nontender with positive bowel sounds. Unable to adequately evaluate abdomen for masses or organomegaly due to body habitus. Extremities: Feet are warm and dry. No calf tenderness to compression. No grossly obvious visual evidence of calf swelling. Gentle manipulation of lower extremities fails to reveal any obvious evidence of injury or instability to knees hips or ankles. Neurologic: Moves upper extremities grossly normally. Patellar reflexes absent. Absent Babinski. Light touch is intact at feet. Dorsiflexion and plantarflexion of feet 5 / 5 and symmetric. Past Medical History Cardiac Medical History: Reports: Congestive Heart Failure - History of heart Failure, Coronary Artery Disease, Myocardial Infarction, Hyperlipidema, Hypertension Denies: DVT, Pulmonary Embolism Pulmonary Medical History: Reports: Asthma, Pneumonia Denies: Chronic Obstructive Pulmonary Disease (COPD), Sleep Apnea, Tuberculosis EENT Medical History: Reports: Eyes - Glasses Denies: Ears, Throat Neurological Medical History: Reports: Other - Prior TIA Denies: Hemorrhagic CVA, Ischemic CVA, Seizures Endocrine Medical History: Denies: Diabetes Mellitus Type 1, Diabetes Mellitus Type 2, Hyperthyroidism, Hypothyroidism Renal/ Medical History: Reports: None GI Medical History: Denies: Cirrhosis, Gastroesophageal Reflux Disease, Hepatitis, Peptic Ulcer Disease Musculoskeltal Medical History: Reports: Arthritis Skin Medical History: Reports: None Psychiatric Medical History: Reports: General Anxiety Disorder Denies: Alcohol Dependency, Depression, Substance Abuse, Tobacco Dependency Hematology: Reports: Anemia, Other - Easy bruising Infectious Medical History: Denies: Clostridium Difficile, Hepatitis B, Hepatitis C, Methicillin- Resistant Staph Aureus Past Surgical History Past Surgical History: Reports: Appendectomy, Cardiac Catheterization, Carotid Endarterectomy - LEFT, Section - x2, Cholecystectomy, Coronary Artery Bypass Graft - September 2016, Coronary Stent - 2008, Hysterectomy, Pacemaker - September 2016, Valve Replacement - Mitral valve, September 2016, Vascular Surgery - Left Carotidendarterectomy Social History Information Source: Patient, Emergency Med Personnel, [facility] Records Lives with: Spouse/Significant other Smoking Status: Unknown if Ever Smoked Frequency of Alcohol Use: None Hx Recreational Drug Use: No Drugs: None Hx Prescription Drug Abuse: No - Advance Directive Resuscitation Status: Full Code Surrogate healthcare decision maker:: Family History Family History: Reviewed & Not Pertinent Parental Family History Reviewed: Yes - Both parents at an advanced age. Children Family History Reviewed: Yes - Son with bronchitis Sibling(s) Family History Reviewed.: Yes - Sister of complications of an AV malformation Medication/Allergy Home Medications: Albuterol Sulfate [Albuterol Sulfate 2.5mg/3 mL] 1 vial NEB Q6HP PRN 10/01/16 Albuterol Sulfate [Ventolin Hfa] 2 puff IH Q6HP PRN 10/01/16 Amox Tr/Potassium Clavulanate [Augmentin 875-125 mg Tablet] 1 tab PO BID Aspirin [Aspirin 81 mg Chewable Tablet] 81 mg PO DAILY 10/01/16 Budesonide/Formoterol Fumarate [Symbicort HFA 160-4.5 mcg Inhaler 6 gm] 2 puff IH Q12 10/01/16 Clonazepam [Klonopin] 0.5 mg PO TID 10/01/16 Escitalopram Oxalate [Lexapro 10 mg Tablet] 10 mg PO QHS 10/01/16 Ezetimibe [Zetia 10 mg Tablet] 10 mg PO DAILY 10/01/16 Furosemide [Lasix] 40 mg PO BID 10/01/16 Hydromorphone HCl [Dilaudid 2 mg Tablet] 2 mg PO Q4HP PRN 10/01/16 Metoprolol Succinate [Toprol Xl 25 mg Tab.sr] 25 mg PO BID 10/01/16 Nitroglycerin [Nitrostat] 0.4 mg SL Q5M 10/01/16 Potassium Chloride [Klor-Con 10 Meq Tablet.sa] 20 meq PO DAILY 10/01/16 Spironolactone [Aldactone 25 mg Tablet] 25 mg PO DAILY 10/01/16 Warfarin Sodium [Coumadin 2.5 mg Tablet] 2.5 mg PO DAILY 10/01/16 Allergies/Adverse Reactions: erythromycin base [Erythromycin Base] Allergy (Verified 05/27/16 13:02) ondansetron [From Zofran (as hydrochloride)] Allergy (Verified 05/27/16 13:02) prednisone Adverse Reaction (Intermediate, Verified 10/01/16 22:19) GI upset Physical Exam Vital Signs: Temp Pulse Resp BP Pulse Ox 98.5 F 73 13 144/72 H 93 10/01/16 14:13 10/01/16 14:13 10/01/16 21:23 10/01/16 21:23 10/01/16 21:43 Results Laboratory Results: 10/01/16 20:47 10/01/16 10/01/16 20:47 21:06 WBC 8.3 RBC 3.38 L Hgb 10.0 L Hct 31.7 L MCV 94 MCH 29.6 MCHC 31.5 L RDW 15.3 H Plt Count 329 Seg Neutrophils % 58.2 Lymphocytes % 17.4 Monocytes % 8.4 Eosinophils % 15.1 H Basophils % 0.9 Absolute Neutrophils 4.8 Absolute Lymphocytes 1.4 Absolute Monocytes 0.7 Absolute Eosinophils 1.2 H Absolute Basophils 0.1 Urine Color STRAW Urine Appearance CLEAR Urine pH 7.0 Ur Specific [place] 1.012 Urine Protein NEGATIVE Urine Glucose (UA) NEGATIVE Urine Ketones NEGATIVE Urine Blood NEGATIVE Urine Nitrite NEGATIVE Ur Leukocyte Esterase MODERATE H Urine WBC (Auto) 12 10/01/16 20:47 Troponin I 0.092 Impressions: Chest X-Ray 10/01/16 15:09 IMPRESSION: Borderline cardiomegaly with small pleural effusions and no blessing CHF. Chest/Abdomen CTA 10/01/16 15:09 IMPRESSION: No pulmonary emboli Small right pleural effusion small to moderate left pleural effusion with left basilar atelectasis. Assessment & Plan - Diagnosis (1) Abnormal urinalysis Is this a current diagnosis for this admission?: YesPlan: Urine culture. We will forego antibiotics at this point in time. (2) Anticoagulated Is this a current diagnosis for this admission?: YesPlan: As noted above, will proceed with heparin drip, with adjustment of her Coumadin. Systemic anticoagulation recommended to patient and . Patient and understand the risks of systemic anti-coagulation to include but not be limited to internal bleeding, which can take the form of GI tract and/or intracranial hemorrhage, the latter of which can result in or stroke with permanent paralysis. Patient has no absolute contraindication to systemic anticoagulation. Above discussed in lay person's terms. Patient agrees to undergo systemic anticoagulation. (3) H/O mitral valve repair Is this a current diagnosis for this admission?: Yes (4) Right-sided chest pain Is this a current diagnosis for this admission?: YesPlan: Chest wall pain. As needed pain medication. (5) Subtherapeutic international normalized ratio (INR) Is this a current diagnosis for this admission?: Yes (6) COPD (chronic obstructive pulmonary disease) Qualifiers: Emphysema type: unspecified Is this a current diagnosis for this admission?: YesPlan: Resume home medications as appropriate once these have been determined and reviewed.
[2016-10-01] MEDS: OXYCODONE HCL IR 5 MG TABLET PO PRN (23:44)
[2016-10-02] MEDS: OXYCODONE HCL IR 5 MG TABLET PO PRN (05:45)
[2016-10-02] MEDS: IPRATROPIUM/ALBUTEROL 0.5-2.5 MG/3 ML AMPUL NEB PRN (06:02)
[2016-10-02 07:03] LABS: PROTHROMBIN TIME 17.3 SEC (11.4-15.4)
[2016-10-02] MEDS ORDERED: WARFARIN SODIUM 3.5 MG PO SCH (10:00)
[2016-10-02] MEDS: POTASSIUM CHLORIDE 10 MEQ TABLET.SA PO SCH (10:38)
[2016-10-02] MEDS: ASPIRIN 81 MG TABLET, CHEWABLE PO SCH (10:38)
[2016-10-02] MEDS: EZETIMIBE 10 MG TABLET PO SCH (10:38)
[2016-10-02] MEDS: DOCUSATE SODIUM 100 MG CAPSULE PO SCH ×2 (10:38→17:14)
[2016-10-02] MEDS: FUROSEMIDE 40 MG TABLET PO SCH ×2 (10:39→17:14)
[2016-10-02] MEDS: SPIRONOLACTONE 25 MG TABLET PO SCH (10:39)
[2016-10-02] MEDS: METOPROLOL SUCCINATE 25 MG TAB.SR.24H PO SCH ×2 (10:40→17:25)
[2016-10-02] MEDS ORDERED: (PENDING PHARMACY ID) (Amox Tr/Potassium Clavulanate [Augmentin 875-125 Mg Tablet] 1 TAB) PO SCH (10:45)
[2016-10-02] MEDS: BUDESONIDE/FORMOTEROL 160-4.5 MCG 60 PUFF/6 GM MDI IH SCH ×2 (10:45→22:08)
[2016-10-02] MEDS: HYDROMORPHONE HCL 2 MG TABLET PO PRN ×3 (11:24→22:08)
--- NOTE | 2016-10-02 12:31 | PDOC PROGRESS REPORT ---
Subjective Progress Note for:: 10/02/16 Subjective:: Patient has no new complaints. She continues to have right lateral/mid axillary sharp chest pain with deep exertion. She denies bleeding problems. She denies fever, chills, shortness of breath, abdominal pain, nausea, vomiting. Physical Exam Vital Signs: Temp Pulse Resp BP Pulse Ox 99.6 F 77 17 140/58 H 98 10/02/16 07:52 10/02/16 07:52 10/02/16 07:52 10/02/16 07:52 10/02/16 07:52 Intake & Output 10/01/16 10/02/16 10/03/16 06:59 06:59 06:59 Intake Total 590 Balance 590 Weight 85.3 kg GENERAL: No acute distress HEENT: Conjunctiva clear, nonicteric, moist mucous membranes, no JVD, midline trachea RESPIRATORY: Clear to auscultation bilaterally, no wheezes, no rhonchi CARDIAC: Regular rate and rhythm, no murmurs/gallops/rubs ABDOMEN: Soft, nondistended, nontender, positive bowel sounds, no rebound, no guarding EXTREMETIES: No edema, cyanosis, clubbing NEUROLOGIC: Alert, oriented to person/place/time, CN's grossly intact, no focal deficits SKIN: Sternal incision healing well. Left upper chest wall incision at pacemaker site healing well. PSYCH: Normal mood, normal affect Results Laboratory Results: 10/02/16 00:38 Stool Occult Blood NEGATIVE Impressions: Chest X-Ray 10/01/16 15:09 IMPRESSION: Borderline cardiomegaly with small pleural effusions and no blessing CHF. Chest/Abdomen CTA 10/01/16 15:09 IMPRESSION: No pulmonary emboli Small right pleural effusion small to moderate left pleural effusion with left basilar atelectasis. Assessment & Plan - Diagnosis (1) Subtherapeutic international normalized ratio (INR) Is this a current diagnosis for this admission?: YesPlan: Coumadin increased to 5 mg QPM. Continue heparin drip until INR greater than 2.5. Monitor INR daily secondary to dosage adjustment and drug drug interaction with Augmentin. (2) H/O mitral valve repair Is this a current diagnosis for this admission?: YesPlan: Anticoagulation management as mentioned above. (3) Chest pain Is this a current diagnosis for this admission?: YesPlan: Patient with right lateral chest wall pain. Reproducible on exam. Muscular skeletal nature. (4) Sternal wound infection Is this a current diagnosis for this admission?: YesPlan: Patient is completing course of oral Augmentin. (5) Coronary artery disease Qualifiers: Coronary Disease-Associated Artery/Lesion type: unspecified vessel or lesion type Associated angina: angina presence unspecified Is this a current diagnosis for this admission?: YesPlan: Patient with recent single-vessel bypass graft. Continue aspirin, metoprolol. (6) COPD (chronic obstructive pulmonary disease) Qualifiers: Emphysema type: unspecified Is this a current diagnosis for this admission?: YesPlan: Continue Symbicort. DuoNeb's as needed. - Time Time Spent with patient: 35 or more minutes
[2016-10-02] MEDS ORDERED: (PENDING PHARMACY ID) (Clonazepam [Klonopin] 0.5 MG) PO SCH (14:00)
[2016-10-02] MEDS: CLONAZEPAM 1 MG TABLET PO SCH ×2 (16:23→22:08)
[2016-10-02] MEDS: AMOXICILLIN TR/POT CLAVULANATE 500-125 MG TAB PO SCH ×2 (16:24→22:08)
[2016-10-02] MEDS: HEPARIN SODIUM,PORCINE/D5W 25,000 UNIT/250 ML RTUINJ IV PRN (17:25)
[2016-10-02] MEDS ORDERED: WARFARIN SODIUM 2.5 MG TABLET PO SCH (22:00)
[2016-10-02] MEDS ORDERED: WARFARIN SODIUM 1 MG TABLET PO SCH (22:00)
[2016-10-02] MEDS: ESCITALOPRAM OXALATE 10 MG TABLET PO SCH (22:08)
[2016-10-02] MEDS: WARFARIN SODIUM 5 MG TABLET PO SCH (22:08)
[2016-10-03] MEDS: HYDROMORPHONE HCL 2 MG TABLET PO PRN ×4 (04:16→21:56)
[2016-10-03] MEDS: CLONAZEPAM 1 MG TABLET PO SCH ×3 (05:25→21:56)
[2016-10-03] MEDS: AMOXICILLIN TR/POT CLAVULANATE 500-125 MG TAB PO SCH ×3 (05:25→21:56)
[2016-10-03 07:32] LABS: PROTHROMBIN TIME 15.3 SEC (11.4-15.4)
[2016-10-03 07:34] LABS: PARTIAL THROMBOPLASTIN TIME 72.8 SEC (23.5-35.8)
[2016-10-03 07:35] LABS: ABSOLUTE BASOPHILS # (AUTO) 0.1 10^3/uL (0.0-0.2); ABSOLUTE EOSINOPHILS # (AUTO) 1.1 10^3/uL (0.0-0.6); ABSOLUTE LYMPHOCYTES (AUTO) 1.4 10^3/uL (0.5-4.7); ABSOLUTE MONOCYTES (AUTO) 0.8 10^3/uL (0.1-1.4); ABSOLUTE NEUT (AUTO) 4.5 10^3/uL (1.7-8.2); EOSINOPHILS % (AUTO) 13.9 % (0-6); HEMATOCRIT 30.9 % (36.0-47.0); HEMOGLOBIN 9.8 g/dL (12.0-15.5); HGB HCT DIFFERENCE -1.5; LYMPHOCYTES % (AUTO) 17.9 % (13-45); MEAN CORPUSCULAR HEMOGLOBIN 29.5 pg (27.0-33.4); MEAN CORPUSCULAR HGB CONC 31.9 g/dL (32.0-36.0); MEAN CORPUSCULAR VOLUME 93 fl (80-97); MONOCYTES % (AUTO) 10.4 % (3-13); RED BLOOD COUNT 3.34 10^6/uL (3.72-5.28); RED CELL DISTRIBUTION WIDTH 15.2 % (11.5-14.0); SEGMENTED NEUTROPHILS % (AUTO) 56.8 % (42-78); WHITE BLOOD COUNT 7.9 10^3/uL (4.0-10.5)
[2016-10-03 07:53] LABS: ANION GAP 11 (5-19); BLOOD UREA NITROGEN 15 mg/dL (7-20); CALCIUM 9.3 mg/dL (8.4-10.2); CARBON DIOXIDE 28 mmol/L (22-30); CHLORIDE 102 mmol/L (98-107); CREATININE RESULT 0.97 mg/dL (0.52-1.25); GLUCOSE 119 mg/dL (75-110); POTASSIUM 4.5 mmol/L (3.6-5.0); SODIUM 140.7 mmol/L (137-145)
[2016-10-03] MEDS: EZETIMIBE 10 MG TABLET PO SCH (09:50)
[2016-10-03] MEDS: POTASSIUM CHLORIDE 10 MEQ TABLET.SA PO SCH (09:50)
[2016-10-03] MEDS: FUROSEMIDE 40 MG TABLET PO SCH ×2 (09:50→17:07)
[2016-10-03] MEDS: BUDESONIDE/FORMOTEROL 160-4.5 MCG 60 PUFF/6 GM MDI IH SCH ×2 (09:50→21:57)
[2016-10-03] MEDS: DOCUSATE SODIUM 100 MG CAPSULE PO SCH ×2 (09:51→17:06)
[2016-10-03] MEDS: SPIRONOLACTONE 25 MG TABLET PO SCH (09:51)
[2016-10-03] MEDS: METOPROLOL SUCCINATE 25 MG TAB.SR.24H PO SCH ×2 (09:51→17:06)
[2016-10-03] MEDS: ASPIRIN 81 MG TABLET, CHEWABLE PO SCH (09:52)
[2016-10-03] MEDS: HEPARIN SODIUM,PORCINE/D5W 25,000 UNIT/250 ML RTUINJ IV PRN (09:52)
--- NOTE | 2016-10-03 11:23 | EKG REPORT ---
SEVERITY:- ABNORMAL ECG - ATRIAL-PACED COMPLEXES FIRST DEGREE AV BLOCK PROBABLE LEFT ATRIAL ABNORMALITY LEFT BUNDLE BRANCH BLOCK : Confirmed by: Guanaco Foley 03-Oct-2016 11:22:44
--- NOTE | 2016-10-03 13:10 | PDOC PROGRESS REPORT ---
Subjective Progress Note for:: 10/03/16 Subjective:: Patient with no new complaints. Patient denies fever, chills, headache, new focal weakness, chest pain, shortness of breath, abdominal pain, nausea, vomiting, diarrhea, constipation. Physical Exam Vital Signs: Temp Pulse Resp BP Pulse Ox 98.5 F 70 20 123/59 L 96 10/03/16 07:53 10/03/16 07:53 10/03/16 07:53 10/03/16 07:53 10/03/16 07:53 Intake & Output 10/02/16 10/03/16 10/04/16 06:59 06:59 06:59 Intake Total 590 1890 Output Total 4210 Balance 590 -2320 Weight 85.3 kg GENERAL: No acute distress HEENT: Conjunctiva clear, nonicteric, moist mucous membranes, no JVD, midline trachea RESPIRATORY: Clear to auscultation bilaterally, no wheezes, no rhonchi CARDIAC: Regular rate and rhythm, no murmurs/gallops/rubs ABDOMEN: Soft, nondistended, nontender, positive bowel sounds, no rebound, no guarding EXTREMETIES: No edema, cyanosis, clubbing NEUROLOGIC: Alert, oriented to person/place/time, CN's grossly intact, no focal deficits SKIN: Sternal incision healing well. Left upper chest wall incision at pacemaker site healing well. PSYCH: Normal mood, normal affect Results Laboratory Results: 10/03/16 06:48 10/03/16 06:48 10/03/16 10/03/16 06:48 06:48 WBC 7.9 RBC 3.34 L Hgb 9.8 L Hct 30.9 L MCV 93 MCH 29.5 MCHC 31.9 L RDW 15.2 H Plt Count 355 Seg Neutrophils % 56.8 Lymphocytes % 17.9 Monocytes % 10.4 Eosinophils % 13.9 H Basophils % 1.0 Absolute Neutrophils 4.5 Absolute Lymphocytes 1.4 Absolute Monocytes 0.8 Absolute Eosinophils 1.1 H Absolute Basophils 0.1 Sodium 140.7 Potassium 4.5 Chloride 102 Carbon Dioxide 28 Anion Gap 11 BUN 15 Creatinine 0.97 Est GFR ( Amer) > 60 Est GFR (Non-Af Amer) 59 L Glucose 119 H Calcium 9.3 Impressions: Chest X-Ray 10/01/16 15:09 IMPRESSION: Borderline cardiomegaly with small pleural effusions and no blessing CHF. Chest/Abdomen CTA 10/01/16 15:09 IMPRESSION: No pulmonary emboli Small right pleural effusion small to moderate left pleural effusion with left basilar atelectasis. Assessment & Plan - Diagnosis (1) Subtherapeutic international normalized ratio (INR) Is this a current diagnosis for this admission?: YesPlan: Coumadin increased to 5 mg QPM. Continue heparin drip until INR greater than 2.5. Monitor INR daily secondary to dosage adjustment and drug drug interaction with Augmentin. (2) H/O mitral valve repair Is this a current diagnosis for this admission?: YesPlan: Anticoagulation management as mentioned above. (3) Chest pain Is this a current diagnosis for this admission?: YesPlan: Patient with right lateral chest wall pain. Reproducible on exam. Muscular skeletal nature. (4) Sternal wound infection Is this a current diagnosis for this admission?: YesPlan: Patient is completing course of oral Augmentin. (5) Coronary artery disease Qualifiers: Coronary Disease-Associated Artery/Lesion type: unspecified vessel or lesion type Associated angina: angina presence unspecified Is this a current diagnosis for this admission?: YesPlan: Patient with recent single-vessel bypass graft. Continue aspirin, metoprolol. (6) COPD (chronic obstructive pulmonary disease) Qualifiers: Emphysema type: unspecified Is this a current diagnosis for this admission?: Yes - Time Time Spent with patient: 25-34 minutes
[2016-10-03] MEDS: IPRATROPIUM/ALBUTEROL 0.5-2.5 MG/3 ML AMPUL NEB PRN (14:13)
[2016-10-03] MEDS ORDERED: HYDROMORPHONE HCL INJ/PF 2 MG/ML AMPULE ONE (18:02)
[2016-10-03] MEDS ORDERED: HYDROMORPHONE HCL INJ/PF 2 MG/ML AMPULE IV ONE (18:30)
[2016-10-03] MEDS: WARFARIN SODIUM 5 MG TABLET PO SCH (21:56)
[2016-10-03] MEDS: ESCITALOPRAM OXALATE 10 MG TABLET PO SCH (21:56)
[2016-10-04] MEDS: HYDROMORPHONE HCL 2 MG TABLET PO PRN ×5 (05:15→22:04)
[2016-10-04] MEDS: AMOXICILLIN TR/POT CLAVULANATE 500-125 MG TAB PO SCH ×3 (05:15→21:12)
[2016-10-04] MEDS: CLONAZEPAM 1 MG TABLET PO SCH ×3 (05:16→21:11)
[2016-10-04] MEDS: HEPARIN SODIUM,PORCINE/D5W 25,000 UNIT/250 ML RTUINJ IV PRN (05:25)
[2016-10-04 06:13] LABS: HEMATOCRIT 31.7 % (36.0-47.0); HEMOGLOBIN 10.2 g/dL (12.0-15.5); HGB HCT DIFFERENCE -1.1; MEAN CORPUSCULAR HEMOGLOBIN 29.5 pg (27.0-33.4); MEAN CORPUSCULAR HGB CONC 32.1 g/dL (32.0-36.0); MEAN CORPUSCULAR VOLUME 92 fl (80-97); RED BLOOD COUNT 3.44 10^6/uL (3.72-5.28); RED CELL DISTRIBUTION WIDTH 15.3 % (11.5-14.0); WHITE BLOOD COUNT 7.4 10^3/uL (4.0-10.5)
[2016-10-04 06:17] LABS: PROTHROMBIN TIME 17.4 SEC (11.4-15.4)
[2016-10-04 06:24] LABS: ANION GAP 12 (5-19); BLOOD UREA NITROGEN 17 mg/dL (7-20); CALCIUM 9.6 mg/dL (8.4-10.2); CARBON DIOXIDE 26 mmol/L (22-30); CHLORIDE 104 mmol/L (98-107); CREATININE RESULT 0.95 mg/dL (0.52-1.25); GLUCOSE 100 mg/dL (75-110); POTASSIUM 4.3 mmol/L (3.6-5.0); SODIUM 142.1 mmol/L (137-145)
[2016-10-04] MEDS: POTASSIUM CHLORIDE 10 MEQ TABLET.SA PO SCH (09:43)
[2016-10-04] MEDS: DOCUSATE SODIUM 100 MG CAPSULE PO SCH ×2 (09:43→18:05)
[2016-10-04] MEDS: SPIRONOLACTONE 25 MG TABLET PO SCH (09:43)
[2016-10-04] MEDS: METOPROLOL SUCCINATE 25 MG TAB.SR.24H PO SCH ×2 (09:44→18:06)
[2016-10-04] MEDS: ASPIRIN 81 MG TABLET, CHEWABLE PO SCH (09:45)
[2016-10-04] MEDS: EZETIMIBE 10 MG TABLET PO SCH (09:45)
[2016-10-04] MEDS: BUDESONIDE/FORMOTEROL 160-4.5 MCG 60 PUFF/6 GM MDI IH SCH ×2 (09:45→21:11)
[2016-10-04] MEDS: FUROSEMIDE 40 MG TABLET PO SCH ×2 (09:45→18:05)
[2016-10-04 09:56] LABS: APPEARANCE,URINE CLEAR; BILIRUBIN,URINE NEGATIVE (NEGATIVE); GLUCOSE, URINE NEGATIVE (NEGATIVE); KETONES,URINE NEGATIVE (NEGATIVE); LEUKOCYTE ESTERASE,URINE NEGATIVE (NEGATIVE); NITRITE,URINE NEGATIVE (NEGATIVE); PROTEIN,URINE NEGATIVE (NEGATIVE); UROBILINOGEN,URINE NEGATIVE mg/dL (<2.0)
--- NOTE | 2016-10-04 15:15 | PDOC PROGRESS REPORT ---
Subjective Progress Note for:: 10/04/16 Subjective:: Patient with no new complaints. Patient denies fever, chills, headache, new focal weakness, chest pain, shortness of breath, abdominal pain, nausea, vomiting, diarrhea, constipation. Physical Exam Vital Signs: Temp Pulse Resp BP Pulse Ox 98.3 F 70 16 142/52 H 97 10/04/16 11:40 10/04/16 14:00 10/04/16 14:00 10/04/16 11:40 10/04/16 14:00 Intake & Output 10/03/16 10/04/16 10/05/16 06:59 06:59 06:59 Intake Total 2747 Output Total 5350 Balance -2603 Weight 85.5 kg GENERAL: No acute distress HEENT: Conjunctiva clear, nonicteric, moist mucous membranes, no JVD, midline trachea RESPIRATORY: Clear to auscultation bilaterally, no wheezes, no rhonchi CARDIAC: Regular rate and rhythm, mechanical click, no murmur ABDOMEN: Soft, nondistended, nontender, positive bowel sounds, no rebound, no guarding EXTREMETIES: No edema, cyanosis, clubbing NEUROLOGIC: Alert, oriented to person/place/time, CN's grossly intact, no focal deficits SKIN: Sternal incision healing well. Left upper chest wall incision at pacemaker site healing well. PSYCH: Normal mood, normal affect Results Laboratory Results: 10/04/16 05:12 10/04/16 05:12 10/04/16 10/04/16 10/04/16 05:12 05:12 09:20 WBC 7.4 RBC 3.44 L Hgb 10.2 L Hct 31.7 L MCV 92 MCH 29.5 MCHC 32.1 RDW 15.3 H Plt Count 373 Sodium 142.1 Potassium 4.3 Chloride 104 Carbon Dioxide 26 Anion Gap 12 BUN 17 Creatinine 0.95 Est GFR ( Amer) > 60 Est GFR (Non-Af Amer) > 60 Glucose 100 Calcium 9.6 Urine Color YELLOW Urine Appearance CLEAR Urine pH 7.0 Ur Specific [place] 1.010 Urine Protein NEGATIVE Urine Glucose (UA) NEGATIVE Urine Ketones NEGATIVE Urine Blood NEGATIVE Urine Nitrite NEGATIVE Ur Leukocyte Esterase NEGATIVE Urine WBC (Auto) 1 Impressions: Chest X-Ray 10/01/16 15:09 IMPRESSION: Borderline cardiomegaly with small pleural effusions and no blessing CHF. Chest/Abdomen CTA 10/01/16 15:09 IMPRESSION: No pulmonary emboli Small right pleural effusion small to moderate left pleural effusion with left basilar atelectasis. Assessment & Plan - Diagnosis (1) Subtherapeutic international normalized ratio (INR) Is this a current diagnosis for this admission?: YesPlan: Coumadin increased to 5 mg QPM 10/02/2016. Continue heparin drip until INR greater than 2.5. Monitor INR daily secondary to dosage adjustment and drug drug interaction with Augmentin. Consult dietitian for Coumadin education. (2) H/O mitral valve repair Is this a current diagnosis for this admission?: YesPlan: Anticoagulation management as mentioned above. (3) Chest pain Is this a current diagnosis for this admission?: YesPlan: Patient with right lateral chest wall pain. Reproducible on exam. Muscular skeletal nature. (4) Sternal wound infection Is this a current diagnosis for this admission?: YesPlan: Patient is completing course of oral Augmentin until 10/09/2016. (5) Coronary artery disease Qualifiers: Coronary Disease-Associated Artery/Lesion type: unspecified vessel or lesion type Associated angina: angina presence unspecified Is this a current diagnosis for this admission?: YesPlan: Patient with recent single-vessel bypass graft. Continue aspirin, metoprolol. (6) COPD (chronic obstructive pulmonary disease) Qualifiers: Emphysema type: unspecified Is this a current diagnosis for this admission?: Yes - Time Time Spent with patient: 25-34 minutes Anticipated discharge: Home
[2016-10-04] MEDS: WARFARIN SODIUM 5 MG TABLET PO SCH (21:12)
[2016-10-04] MEDS: ESCITALOPRAM OXALATE 10 MG TABLET PO SCH (21:12)
[2016-10-04] MEDS: IPRATROPIUM/ALBUTEROL 0.5-2.5 MG/3 ML AMPUL NEB PRN (21:16)
[2016-10-05] MEDS: HEPARIN SODIUM,PORCINE/D5W 25,000 UNIT/250 ML RTUINJ IV PRN (00:59)
[2016-10-05 06:06] LABS: ABSOLUTE BASOPHILS # (AUTO) 0.1 10^3/uL (0.0-0.2); ABSOLUTE EOSINOPHILS # (AUTO) 0.6 10^3/uL (0.0-0.6); ABSOLUTE LYMPHOCYTES (AUTO) 1.7 10^3/uL (0.5-4.7); ABSOLUTE NEUT (AUTO) 5.4 10^3/uL (1.7-8.2); BASOPHILS % (AUTO) 1.1 % (0-2); EOSINOPHILS % (AUTO) 7.1 % (0-6); HEMATOCRIT 32.8 % (36.0-47.0); HEMOGLOBIN 10.7 g/dL (12.0-15.5); HGB HCT DIFFERENCE -0.7; MEAN CORPUSCULAR HEMOGLOBIN 29.9 pg (27.0-33.4); MEAN CORPUSCULAR HGB CONC 32.6 g/dL (32.0-36.0); MEAN CORPUSCULAR VOLUME 92 fl (80-97); RED BLOOD COUNT 3.58 10^6/uL (3.72-5.28); SEGMENTED NEUTROPHILS % (AUTO) 61.8 % (42-78); WHITE BLOOD COUNT 8.8 10^3/uL (4.0-10.5)
[2016-10-05] MEDS: CLONAZEPAM 1 MG TABLET PO SCH ×3 (06:08→22:39)
[2016-10-05] MEDS: AMOXICILLIN TR/POT CLAVULANATE 500-125 MG TAB PO SCH (06:08)
[2016-10-05 06:12] LABS: PROTHROMBIN TIME 18.7 SEC (11.4-15.4)
[2016-10-05 06:19] LABS: ANION GAP 13 (5-19); BLOOD UREA NITROGEN 18 mg/dL (7-20); CALCIUM 9.6 mg/dL (8.4-10.2); CARBON DIOXIDE 26 mmol/L (22-30); CHLORIDE 103 mmol/L (98-107); CREATININE RESULT 0.99 mg/dL (0.52-1.25); GLUCOSE 99 mg/dL (75-110); POTASSIUM 4.4 mmol/L (3.6-5.0); SODIUM 141.9 mmol/L (137-145)
[2016-10-05] MEDS: HYDROMORPHONE HCL 2 MG TABLET PO PRN (07:42)
[2016-10-05] MEDS: DOCUSATE SODIUM 100 MG CAPSULE PO SCH ×2 (09:31→17:26)
[2016-10-05] MEDS: SULFAMETHOXAZOLE/TRIMETHOPRIM 800-160 MG TABLET PO SCH ×2 (09:31→22:39)
[2016-10-05] MEDS: POTASSIUM CHLORIDE 10 MEQ TABLET.SA PO SCH (09:32)
[2016-10-05] MEDS: SPIRONOLACTONE 25 MG TABLET PO SCH (09:32)
[2016-10-05] MEDS: ASPIRIN 81 MG TABLET, CHEWABLE PO SCH (09:32)
[2016-10-05] MEDS: FUROSEMIDE 40 MG TABLET PO SCH ×2 (09:32→17:26)
[2016-10-05] MEDS: METOPROLOL SUCCINATE 25 MG TAB.SR.24H PO SCH ×2 (09:32→17:26)
[2016-10-05] MEDS: EZETIMIBE 10 MG TABLET PO SCH (09:32)
[2016-10-05] MEDS: BUDESONIDE/FORMOTEROL 160-4.5 MCG 60 PUFF/6 GM MDI IH SCH ×2 (09:33→22:41)
[2016-10-05] MEDS ORDERED: HYDROMORPHONE HCL 2 MG TABLET PO PRN (11:17)
[2016-10-05] MEDS ORDERED: KETOROLAC TROMETHAMINE INJ/PF 30 MG/1 ML SDV IV ONE (12:00)
[2016-10-05] MEDS: OXYCODONE-ACETAMINOPHEN 5-325 MG TABLET PO PRN ×2 (13:53→20:11)
--- NOTE | 2016-10-05 15:49 | PDOC PROGRESS REPORT ---
Subjective Progress Note for:: 10/05/16 Subjective:: Patient reports that she is feeling significantly better. Nursing notes that she is slightly confused today after receiving Dilaudid. Patient reports that she would like to come off of Dilaudid, but reports that she has been on this since her discharge from [place]. She reports that she gets discomfort around both sides of her ribs with deep breathing. Patient denies chest pain, shortness of breath, nausea, vomiting, fever, chills , headache, constipation, diarrhea, new onset weakness. Physical Exam Vital Signs: Temp Pulse Resp BP Pulse Ox 98.2 F 75 17 148/66 H 98 10/05/16 07:07 10/05/16 07:07 10/05/16 07:07 10/05/16 07:07 10/05/16 07:07 Intake & Output 10/04/16 10/05/16 10/06/16 06:59 06:59 06:59 Intake Total 2747 1575 Output Total 5350 1950 Balance -2603 -375 Weight 85.5 kg 86.3 kg Exam: GENERAL: No acute distress HEENT: Conjunctiva clear, nonicteric, moist mucous membranes, no JVD, midline trachea RESPIRATORY: Clear to auscultation bilaterally, no wheezes, no rhonchi CARDIAC: Regular rate and rhythm, mechanical click, no murmur ABDOMEN: Soft, nondistended, nontender, positive bowel sounds, no rebound, no guarding EXTREMETIES: No edema, cyanosis, clubbing NEUROLOGIC: Alert, oriented to person/place/time, CN's grossly intact, no focal deficits SKIN: Sternal incision healing well. Left upper chest wall incision at pacemaker site healing well. PSYCH: Normal mood, normal affect; slightly tangential Results Laboratory Results: 10/05/16 05:24 10/05/16 05:24 10/04/16 10/04/16 10/05/16 09:20 21:00 05:24 WBC 8.8 RBC 3.58 L Hgb 10.7 L Hct 32.8 L MCV 92 MCH 29.9 MCHC 32.6 RDW 15.0 H Plt Count 379 Seg Neutrophils % 61.8 Lymphocytes % 19.0 Monocytes % 11.0 Eosinophils % 7.1 H Basophils % 1.1 Absolute Neutrophils 5.4 Absolute Lymphocytes 1.7 Absolute Monocytes 1.0 Absolute Eosinophils 0.6 Absolute Basophils 0.1 Sodium Potassium Chloride Carbon Dioxide Anion Gap BUN Creatinine Est GFR ( Amer) Est GFR (Non-Af Amer) Glucose Calcium Urine Color YELLOW Urine Appearance CLEAR Urine pH 7.0 Ur Specific [place] 1.010 Urine Protein NEGATIVE Urine Glucose (UA) NEGATIVE Urine Ketones NEGATIVE Urine Blood NEGATIVE Urine Nitrite NEGATIVE Ur Leukocyte Esterase NEGATIVE Urine WBC (Auto) 1 Stool Occult Blood NEGATIVE 10/05/16 05:24 WBC RBC Hgb Hct MCV MCH MCHC RDW Plt Count Seg Neutrophils % Lymphocytes % Monocytes % Eosinophils % Basophils % Absolute Neutrophils Absolute Lymphocytes Absolute Monocytes Absolute Eosinophils Absolute Basophils Sodium 141.9 Potassium 4.4 Chloride 103 Carbon Dioxide 26 Anion Gap 13 BUN 18 Creatinine 0.99 Est GFR ( Amer) > 60 Est GFR (Non-Af Amer) 57 L Glucose 99 Calcium 9.6 Urine Color Urine Appearance Urine pH Ur Specific [place] Urine Protein Urine Glucose (UA) Urine Ketones Urine Blood Urine Nitrite Ur Leukocyte Esterase Urine WBC (Auto) Stool Occult Blood Impressions: Chest X-Ray 10/01/16 15:09 IMPRESSION: Borderline cardiomegaly with small pleural effusions and no blessing CHF. Chest/Abdomen CTA 10/01/16 15:09 IMPRESSION: No pulmonary emboli Small right pleural effusion small to moderate left pleural effusion with left basilar atelectasis. Assessment & Plan - Diagnosis (1) Subtherapeutic international normalized ratio (INR) Is this a current diagnosis for this admission?: YesPlan: Continue heparin drip and increase patient's Coumadin tonight. Ordered home health for this patient. Patient may benefit from home Coumadin monitor. (2) UTI (urinary tract infection) Qualifiers: Urinary tract infection type: acute cystitis Hematuria presence: without hematuria Qualified Code(s): N30.00 - Acute cystitis without hematuria Is this a current diagnosis for this admission?: YesPlan: Patient to oral Bactrim for 3 days. (3) Anemia Qualifiers: Anemia type: unspecified type Qualified Code(s): D64.9 - Anemia, unspecified Is this a current diagnosis for this admission?: YesPlan: Chronic and likely multifactorial secondary to recent surgery and now mechanical valve. (4) Coronary artery disease Qualifiers: Coronary Disease-Associated Artery/Lesion type: unspecified vessel or lesion type Associated angina: angina presence unspecified Is this a current diagnosis for this admission?: Yes (5) Gastroesophageal reflux disease Qualifiers: Esophagitis presence: esophagitis presence not specified Qualified Code(s): K21.9 - Gastro-esophageal reflux disease without esophagitis Is this a current diagnosis for this admission?: Yes (6) H/O mitral valve repair Is this a current diagnosis for this admission?: Yes (7) Troponin leak Is this a current diagnosis for this admission?: YesPlan: Secondary to recent cardiac surgery (8) Bilateral flank pain Is this a current diagnosis for this admission?: YesPlan: Secondary to immobility. Place patient on Toradol and Percocet and begin to wean Dilaudid. (9) COPD (chronic obstructive pulmonary disease) Qualifiers: Emphysema type: unspecified Is this a current diagnosis for this admission?: Yes (11) Obesity (BMI 30-39.9) Qualifiers: Obesity type: with alveolar hypoventilation Obesity severity: morbid Qualified Code(s): E66.2 - Morbid (severe) obesity with alveolar hypoventilation Is this a current diagnosis for this admission?: Yes - Time Time Spent with patient: 25-34 minutes Medications reviewed and adjusted accordingly: Yes Anticipated discharge: Home Within: within 48 hours - Inpatient Certification Based on my medical assessment, after consideration of the patient's comorbidities, presenting symptoms, or acuity I expect that the services needed warrant INPATIENT care.: Yes I certify that my determination is in accordance with my understanding of Medicare's requirements for reasonable and necessary INPATIENT services [42 CFR 412.3e].: Yes Medical Necessity: Risk of Complication if Not Cared For in Hospital Post Hospital Care: D/C [employer] Documentation
[2016-10-05] MEDS: KETOROLAC TROMETHAMINE INJ/PF 30 MG/1 ML SDV IV PRN (17:59)
[2016-10-05] MEDS: WARFARIN SODIUM 5 MG TABLET PO SCH (22:39)
[2016-10-05] MEDS: ESCITALOPRAM OXALATE 10 MG TABLET PO SCH (22:39)
[2016-10-06] MEDS: KETOROLAC TROMETHAMINE INJ/PF 30 MG/1 ML SDV IV PRN ×2 (00:33→08:18)
[2016-10-06] MEDS: CLONAZEPAM 1 MG TABLET PO SCH ×3 (05:40→21:46)
[2016-10-06 06:29] LABS: HEMATOCRIT 31.5 % (36.0-47.0); HEMOGLOBIN 10.3 g/dL (12.0-15.5); HGB HCT DIFFERENCE -0.6; MEAN CORPUSCULAR HEMOGLOBIN 29.8 pg (27.0-33.4); MEAN CORPUSCULAR HGB CONC 32.6 g/dL (32.0-36.0); MEAN CORPUSCULAR VOLUME 91 fl (80-97); RED BLOOD COUNT 3.45 10^6/uL (3.72-5.28); RED CELL DISTRIBUTION WIDTH 15.4 % (11.5-14.0); WHITE BLOOD COUNT 8.7 10^3/uL (4.0-10.5)
[2016-10-06 06:33] LABS: PROTHROMBIN TIME 22.7 SEC (11.4-15.4)
[2016-10-06 07:18] LABS: ANION GAP 14 (5-19); BLOOD UREA NITROGEN 31 mg/dL (7-20); CALCIUM 9.3 mg/dL (8.4-10.2); CARBON DIOXIDE 25 mmol/L (22-30); CHLORIDE 98 mmol/L (98-107); CREATININE RESULT 1.58 mg/dL (0.52-1.25); GLUCOSE 110 mg/dL (75-110); MAGNESIUM 2.6 mg/dL (1.6-2.3); SODIUM 137.2 mmol/L (137-145)
[2016-10-06 08:53] LABS: APPEARANCE,URINE CLEAR; BILIRUBIN,URINE NEGATIVE (NEGATIVE); GLUCOSE, URINE NEGATIVE (NEGATIVE); KETONES,URINE NEGATIVE (NEGATIVE); LEUKOCYTE ESTERASE,URINE NEGATIVE (NEGATIVE); NITRITE,URINE NEGATIVE (NEGATIVE); PROTEIN,URINE NEGATIVE (NEGATIVE); URINE SPECIFIC GRAVITY 1.011; UROBILINOGEN,URINE NEGATIVE mg/dL (<2.0)
[2016-10-06] MEDS: POTASSIUM CHLORIDE 10 MEQ TABLET.SA PO SCH (09:57)
[2016-10-06] MEDS: EZETIMIBE 10 MG TABLET PO SCH (09:57)
[2016-10-06] MEDS: ASPIRIN 81 MG TABLET, CHEWABLE PO SCH (09:58)
[2016-10-06] MEDS: SULFAMETHOXAZOLE/TRIMETHOPRIM 800-160 MG TABLET PO SCH ×2 (09:58→21:46)
[2016-10-06] MEDS: METOPROLOL SUCCINATE 25 MG TAB.SR.24H PO SCH ×2 (09:58→17:11)
[2016-10-06] MEDS: DOCUSATE SODIUM 100 MG CAPSULE PO SCH ×2 (09:59→17:11)
[2016-10-06] MEDS: SPIRONOLACTONE 25 MG TABLET PO SCH (09:59)
[2016-10-06] MEDS: BUDESONIDE/FORMOTEROL 160-4.5 MCG 60 PUFF/6 GM MDI IH SCH ×2 (09:59→21:46)
[2016-10-06] MEDS: FUROSEMIDE 40 MG TABLET PO SCH (09:59)
[2016-10-06] MEDS: OXYCODONE-ACETAMINOPHEN 5-325 MG TABLET PO PRN ×3 (10:15→20:43)
[2016-10-06] MEDS ORDERED: NORMAL SALINE 1000 ML 500 ML IV ONE (11:33)
[2016-10-06 11:54] LABS: PROTHROMBIN TIME 24.9 SEC (11.4-15.4)
[2016-10-06 11:56] LABS: PARTIAL THROMBOPLASTIN TIME 112.6 SEC (23.5-35.8)
--- NOTE | 2016-10-06 15:01 | PDOC PROGRESS REPORT ---
Subjective Progress Note for:: 10/06/16 Subjective:: Patient reports that she is feeling significantly better. Patient reports that Percocet improved her over Dilaudid. Patient denies chest pain, shortness of breath, nausea, vomiting, fever, chills , headache, constipation, diarrhea, new onset weakness. Physical Exam Vital Signs: Temp Pulse Resp BP Pulse Ox 97.9 F 81 16 136/51 H 98 10/06/16 11:52 10/06/16 11:52 10/06/16 11:52 10/06/16 11:52 10/06/16 11:52 Intake & Output 10/05/16 10/06/16 10/07/16 06:59 06:59 06:59 Intake Total 1575 1281 Output Total 1950 200 Balance -375 1081 Weight 86.3 kg 86.9 kg Exam: GENERAL: No acute distress HEENT: Conjunctiva clear, nonicteric, moist mucous membranes, no JVD, midline trachea RESPIRATORY: Clear to auscultation bilaterally, no wheezes, no rhonchi CARDIAC: Regular rate and rhythm, mechanical click, no murmur ABDOMEN: Soft, nondistended, nontender, positive bowel sounds, no rebound, no guarding EXTREMETIES: No edema, cyanosis, clubbing NEUROLOGIC: Alert, oriented to person/place/time, CN's grossly intact, no focal deficits SKIN: Sternal incision healing well. Left upper chest wall incision at pacemaker site healing well. PSYCH: Normal mood, normal affect Results Laboratory Results: 10/06/16 05:26 10/06/16 05:26 10/06/16 10/06/16 10/06/16 05:26 05:26 08:15 WBC 8.7 RBC 3.45 L Hgb 10.3 L Hct 31.5 L MCV 91 MCH 29.8 MCHC 32.6 RDW 15.4 H Plt Count 372 Sodium 137.2 Potassium 5.0 Chloride 98 Carbon Dioxide 25 Anion Gap 14 BUN 31 H Creatinine 1.58 H Est GFR ( Amer) 40 L Est GFR (Non-Af Amer) 33 L Glucose 110 Calcium 9.3 Magnesium 2.6 H Urine Color YELLOW Urine Appearance CLEAR Urine pH 5.0 Ur Specific [place] 1.011 Urine Protein NEGATIVE Urine Glucose (UA) NEGATIVE Urine Ketones NEGATIVE Urine Blood NEGATIVE Urine Nitrite NEGATIVE Ur Leukocyte Esterase NEGATIVE Urine WBC (Auto) 1 Urine RBC (Auto) 0 Impressions: Chest X-Ray 10/01/16 15:09 IMPRESSION: Borderline cardiomegaly with small pleural effusions and no blessing CHF. Chest/Abdomen CTA 10/01/16 15:09 IMPRESSION: No pulmonary emboli Small right pleural effusion small to moderate left pleural effusion with left basilar atelectasis. Assessment & Plan - Diagnosis (1) Subtherapeutic international normalized ratio (INR) Is this a current diagnosis for this admission?: YesPlan: Continue heparin drip and continue patient's Coumadin. Ordered home health for this patient. Patient may benefit from home Coumadin monitor. (2) UTI (urinary tract infection) Qualifiers: Urinary tract infection type: acute cystitis Hematuria presence: without hematuria Qualified Code(s): N30.00 - Acute cystitis without hematuria Is this a current diagnosis for this admission?: YesPlan: Patient on oral Bactrim for 3 days. (3) Anemia Qualifiers: Anemia type: unspecified type Qualified Code(s): D64.9 - Anemia, unspecified Is this a current diagnosis for this admission?: Yes (4) Coronary artery disease Qualifiers: Coronary Disease-Associated Artery/Lesion type: unspecified vessel or lesion type Associated angina: angina presence unspecified Is this a current diagnosis for this admission?: Yes (5) Gastroesophageal reflux disease Qualifiers: Esophagitis presence: esophagitis presence not specified Qualified Code(s): K21.9 - Gastro-esophageal reflux disease without esophagitis Is this a current diagnosis for this admission?: Yes (6) H/O mitral valve repair Is this a current diagnosis for this admission?: Yes (7) Troponin leak Is this a current diagnosis for this admission?: YesPlan: Secondary to recent cardiac surgery (8) Bilateral flank pain Is this a current diagnosis for this admission?: Yes (9) COPD (chronic obstructive pulmonary disease) Qualifiers: Emphysema type: unspecified Is this a current diagnosis for this admission?: YesPlan: Continue prn nebulized. (10) Chronic congestive heart failure with left ventricular diastolic dysfunction Is this a current diagnosis for this admission?: Yes (11) Obesity (BMI 30-39.9) Qualifiers: Obesity type: with alveolar hypoventilation Obesity severity: morbid Qualified Code(s): E66.2 - Morbid (severe) obesity with alveolar hypoventilation Is this a current diagnosis for this admission?: Yes - Time Time Spent with patient: 15-24 minutes
[2016-10-06 18:42] LABS: PROTHROMBIN TIME 27.6 SEC (11.4-15.4)
[2016-10-06] MEDS: WARFARIN SODIUM 5 MG TABLET PO SCH (21:46)
[2016-10-06] MEDS: ESCITALOPRAM OXALATE 10 MG TABLET PO SCH (21:46)
[2016-10-07] MEDS: OXYCODONE-ACETAMINOPHEN 5-325 MG TABLET PO PRN ×4 (04:34→21:48)
[2016-10-07] MEDS: KETOROLAC TROMETHAMINE INJ/PF 30 MG/1 ML SDV IV PRN (04:34)
[2016-10-07] MEDS: IPRATROPIUM/ALBUTEROL 0.5-2.5 MG/3 ML AMPUL NEB PRN (04:39)
[2016-10-07] MEDS: CLONAZEPAM 1 MG TABLET PO SCH ×3 (05:26→21:48)
[2016-10-07 05:31] LABS: ABSOLUTE BASOPHILS # (AUTO) 0.1 10^3/uL (0.0-0.2); ABSOLUTE EOSINOPHILS # (AUTO) 0.9 10^3/uL (0.0-0.6); ABSOLUTE LYMPHOCYTES (AUTO) 1.6 10^3/uL (0.5-4.7); ABSOLUTE MONOCYTES (AUTO) 0.8 10^3/uL (0.1-1.4); ABSOLUTE NEUT (AUTO) 4.8 10^3/uL (1.7-8.2); BASOPHILS % (AUTO) 1.3 % (0-2); EOSINOPHILS % (AUTO) 10.9 % (0-6); HEMATOCRIT 32.1 % (36.0-47.0); HEMOGLOBIN 10.3 g/dL (12.0-15.5); HGB HCT DIFFERENCE -1.2; LYMPHOCYTES % (AUTO) 19.2 % (13-45); MEAN CORPUSCULAR HEMOGLOBIN 29.6 pg (27.0-33.4); MEAN CORPUSCULAR HGB CONC 32.1 g/dL (32.0-36.0); MEAN CORPUSCULAR VOLUME 92 fl (80-97); MONOCYTES % (AUTO) 9.5 % (3-13); RED BLOOD COUNT 3.48 10^6/uL (3.72-5.28); RED CELL DISTRIBUTION WIDTH 15.5 % (11.5-14.0); SEGMENTED NEUTROPHILS % (AUTO) 59.1 % (42-78); WHITE BLOOD COUNT 8.1 10^3/uL (4.0-10.5)
[2016-10-07 05:35] LABS: PROTHROMBIN TIME 30.5 SEC (11.4-15.4)
[2016-10-07 05:37] LABS: PARTIAL THROMBOPLASTIN TIME 87.6 SEC (23.5-35.8)
[2016-10-07 05:54] LABS: ANION GAP 14 (5-19); BLOOD UREA NITROGEN 33 mg/dL (7-20); CALCIUM 9.4 mg/dL (8.4-10.2); CARBON DIOXIDE 21 mmol/L (22-30); CHLORIDE 98 mmol/L (98-107); CREATININE RESULT 1.76 mg/dL (0.52-1.25); GLUCOSE 82 mg/dL (75-110); POTASSIUM 5.9 mmol/L (3.6-5.0)
[2016-10-07] MEDS ORDERED: NORMAL SALINE 1000 ML 1,000 ML IV ONE (07:35)
[2016-10-07] MEDS ORDERED: NORMAL SALINE 1000 ML 1,000 ML IV PRN (07:38)
[2016-10-07] MEDS ORDERED: MAGNESIUM HYDROXIDE SUSP 30 ML UDCUP PO PRN (07:44)
[2016-10-07] MEDS ORDERED: SODIUM POLYSTYRENE SULFONATE 15 GM/60 ML PO ONE (07:45)
[2016-10-07] MEDS: METOPROLOL SUCCINATE 25 MG TAB.SR.24H PO SCH ×2 (10:01→17:39)
[2016-10-07] MEDS: DOCUSATE SODIUM 100 MG CAPSULE PO SCH ×2 (10:01→17:39)
[2016-10-07] MEDS: SPIRONOLACTONE 25 MG TABLET PO SCH (10:02)
[2016-10-07] MEDS: BUDESONIDE/FORMOTEROL 160-4.5 MCG 60 PUFF/6 GM MDI IH SCH ×2 (10:02→21:48)
[2016-10-07] MEDS: ASPIRIN 81 MG TABLET, CHEWABLE PO SCH (10:02)
[2016-10-07] MEDS: EZETIMIBE 10 MG TABLET PO SCH (10:02)
[2016-10-07 16:57] LABS: ANION GAP 9 (5-19); BLOOD UREA NITROGEN 26 mg/dL (7-20); CALCIUM 8.7 mg/dL (8.4-10.2); CARBON DIOXIDE 24 mmol/L (22-30); CHLORIDE 102 mmol/L (98-107); CREATININE RESULT 1.51 mg/dL (0.52-1.25); GLUCOSE 84 mg/dL (75-110); POTASSIUM 5.1 mmol/L (3.6-5.0); SODIUM 134.7 mmol/L (137-145)
[2016-10-07] MEDS: WARFARIN SODIUM 5 MG TABLET PO SCH (21:48)
[2016-10-07] MEDS: ESCITALOPRAM OXALATE 10 MG TABLET PO SCH (21:48)
[2016-10-08] MEDS: CLONAZEPAM 1 MG TABLET PO SCH ×2 (06:01→13:45)
[2016-10-08] MEDS: OXYCODONE-ACETAMINOPHEN 5-325 MG TABLET PO PRN ×3 (06:01→15:00)
[2016-10-08] MEDS: BUDESONIDE/FORMOTEROL 160-4.5 MCG 60 PUFF/6 GM MDI IH SCH (09:03)
[2016-10-08] MEDS: ASPIRIN 81 MG TABLET, CHEWABLE PO SCH (09:03)
[2016-10-08] MEDS: DOCUSATE SODIUM 100 MG CAPSULE PO SCH (09:04)
[2016-10-08] MEDS: METOPROLOL SUCCINATE 25 MG TAB.SR.24H PO SCH (09:04)
[2016-10-08] MEDS: EZETIMIBE 10 MG TABLET PO SCH (09:04)
[2016-10-08 09:45] LABS: ANION GAP 13 (5-19); BLOOD UREA NITROGEN 20 mg/dL (7-20); CALCIUM 9.4 mg/dL (8.4-10.2); CARBON DIOXIDE 24 mmol/L (22-30); CHLORIDE 102 mmol/L (98-107); CREATININE RESULT 1.36 mg/dL (0.52-1.25); GLUCOSE 88 mg/dL (75-110); SODIUM 138.9 mmol/L (137-145)
[2016-10-08 13:35] VITALS: BP 130/48
--- NOTE | 2016-10-09 20:40 | PDOC PROGRESS REPORT ---
Subjective Progress Note for:: 10/07/16 Subjective:: Reports she is feeling poorly today. Overnight, patient had an increase in her creatinine. Denies chest pain, shortness of breath, nausea, vomiting, fever, chills. Patient is having diarrhea from Kayexalate. Physical Exam Vital Signs: Temp Pulse Resp BP Pulse Ox 98.2 F 71 17 131/50 H 95 10/08/16 03:23 10/08/16 03:23 10/08/16 03:23 10/08/16 03:23 10/08/16 03:23 Intake & Output 10/07/16 10/08/16 10/09/16 06:59 06:59 06:59 Intake Total 2420 5899 Output Total 2400 Balance 20 5899 Weight 86.9 kg Exam: GENERAL: No acute distress HEENT: Conjunctiva clear, nonicteric, moist mucous membranes, no JVD, midline trachea RESPIRATORY: Clear to auscultation bilaterally, no wheezes, no rhonchi CARDIAC: Regular rate and rhythm, mechanical click, no murmur ABDOMEN: Soft, nondistended, nontender, positive bowel sounds, no rebound, no guarding EXTREMETIES: No edema, cyanosis, clubbing NEUROLOGIC: Alert, oriented to person/place/time, CN's grossly intact, no focal deficits SKIN: Sternal incision healing well. Left upper chest wall incision at pacemaker site healing well. PSYCH: Normal mood, normal affect Results Laboratory Results: 10/07/16 04:26 10/07/16 16:05 10/07/16 16:05 Sodium 134.7 L Potassium 5.1 H Chloride 102 Carbon Dioxide 24 Anion Gap 9 BUN 26 H Creatinine 1.51 H Est GFR ( Amer) 43 L Est GFR (Non-Af Amer) 35 L Glucose 84 Calcium 8.7 Impressions: Chest X-Ray 10/01/16 15:09 IMPRESSION: Borderline cardiomegaly with small pleural effusions and no blessing CHF. Chest/Abdomen CTA 10/01/16 15:09 IMPRESSION: No pulmonary emboli Small right pleural effusion small to moderate left pleural effusion with left basilar atelectasis. Assessment & Plan - Diagnosis (1) Hyperkalemia Is this a current diagnosis for this admission?: YesPlan: Held patient's spironolactone and potassium. Kayexalate 1 (2) Acute renal failure Qualifiers: Acute renal failure type: unspecified Qualified Code(s): N17.9 - Acute kidney failure, unspecified Is this a current diagnosis for this admission?: YesPlan: This is secondary to overdiuresis and Bactrim usage. Stop Bactrim and begin hydration. Recheck creatinine in the a.m. (3) Subtherapeutic international normalized ratio (INR) Is this a current diagnosis for this admission?: YesPlan: INR is now therapeutic. (4) UTI (urinary tract infection) Qualifiers: Urinary tract infection type: acute cystitis Hematuria presence: without hematuria Qualified Code(s): N30.00 - Acute cystitis without hematuria Is this a current diagnosis for this admission?: YesPlan: Increase patient's creatinine significantly. Patient has completed 3 full days including Rocephin. Stop antibiotics (5) Anemia Qualifiers: Anemia type: unspecified type Qualified Code(s): D64.9 - Anemia, unspecified Is this a current diagnosis for this admission?: Yes (6) Coronary artery disease Qualifiers: Coronary Disease-Associated Artery/Lesion type: unspecified vessel or lesion type Associated angina: angina presence unspecified Is this a current diagnosis for this admission?: Yes (7) Gastroesophageal reflux disease Qualifiers: Esophagitis presence: esophagitis presence not specified Qualified Code(s): K21.9 - Gastro-esophageal reflux disease without esophagitis Is this a current diagnosis for this admission?: Yes (8) H/O mitral valve repair Is this a current diagnosis for this admission?: Yes (9) Troponin leak Is this a current diagnosis for this admission?: Yes (10) Bilateral flank pain Is this a current diagnosis for this admission?: Yes (11) COPD (chronic obstructive pulmonary disease) Qualifiers: Emphysema type: unspecified Is this a current diagnosis for this admission?: Yes (12) Chronic congestive heart failure with left ventricular diastolic dysfunction Is this a current diagnosis for this admission?: Yes (13) Obesity (BMI 30-39.9) Qualifiers: Obesity type: with alveolar hypoventilation Is this a current diagnosis for this admission?: Yes - Time Time Spent with patient: 25-34 minutes Medications reviewed and adjusted accordingly: Yes Anticipated discharge: Home Within: within 24 hours
--- NOTE | 2016-10-09 20:44 | PDOC DISCHARGE SUMMARY ---
General - Admit/Disc Date/PCP Admission Date/Primary Care Provider: 10/03/16 13:06 Discharge Date: 10/08/16 - Discharge Diagnosis (1) Subtherapeutic international normalized ratio (INR) Is this a current diagnosis for this admission?: Yes (2) Hyperkalemia Is this a current diagnosis for this admission?: Yes (3) Acute renal failure Is this a current diagnosis for this admission?: Yes (4) UTI (urinary tract infection) Is this a current diagnosis for this admission?: Yes (5) Anemia Is this a current diagnosis for this admission?: Yes (6) Coronary artery disease Is this a current diagnosis for this admission?: Yes (7) Gastroesophageal reflux disease Is this a current diagnosis for this admission?: Yes (8) H/O mitral valve repair Is this a current diagnosis for this admission?: Yes (9) Troponin leak Is this a current diagnosis for this admission?: Yes (10) Bilateral flank pain Is this a current diagnosis for this admission?: Yes (11) COPD (chronic obstructive pulmonary disease) Is this a current diagnosis for this admission?: Yes (12) Chronic congestive heart failure with left ventricular diastolic dysfunction Is this a current diagnosis for this admission?: Yes (13) Obesity (BMI 30-39.9) Is this a current diagnosis for this admission?: Yes - Additional Information Resuscitation Status: Full Code Discharge Diet: Cardiac Discharge Activity: Walk Frequently, Weigh Daily Home Medications: Albuterol Sulfate [Albuterol Sulfate 2.5mg/3 mL] 1 vial NEB Q6HP PRN 10/01/16 Albuterol Sulfate [Ventolin Hfa] 2 puff IH Q6HP PRN 10/01/16 Aspirin [Aspirin 81 mg Chewable Tablet] 81 mg PO DAILY 10/01/16 Budesonide/Formoterol Fumarate [Symbicort HFA 160-4.5 mcg Inhaler 6 gm] 2 puff IH Q12 10/01/16 Clonazepam [Klonopin] 0.5 mg PO TID 10/01/16 Escitalopram Oxalate [Lexapro 10 mg Tablet] 10 mg PO QHS 10/01/16 Ezetimibe [Zetia 10 mg Tablet] 10 mg PO DAILY 10/01/16 Furosemide [Lasix] 40 mg PO BID 10/01/16 Metoprolol Succinate [Toprol Xl 25 mg Tab.sr] 25 mg PO BID 10/01/16 Nitroglycerin [Nitrostat] 0.4 mg SL Q5M 10/01/16 Potassium Chloride [Klor-Con 10 Meq Tablet.sa] 20 meq PO DAILY 10/01/16 Spironolactone [Aldactone 25 mg Tablet] 25 mg PO DAILY 10/01/16 Docusate Sodium [Colace 100 mg Capsule] 100 mg PO BID #60 capsule 10/07/16 Warfarin Sodium [Coumadin 5 mg Tablet] 5 mg PO QHS #60 tablet 10/07/16 Oxycodone HCl/Acetaminophen [Percocet 5-325 mg Tablet] 1 tab PO Q4HP PRN #10 tablet 10/08/16 History of Present Illness History of Present Illness: See H&P for full HPI Hospital Course Hospital Course: Found to have mild UTI, but was admitted because she had a subtherapeutic INR with a mechanical valve. Patient also had very mild volume overload. Patient was seen by cardiology for mildly elevated troponin which is felt to be secondary to her surgery. Patient was started on heparin drip and Coumadin. Coumadin education was provided for this patient. Patient incidentally was found to have a urinary tract infection with pansensitive E. coli and transitioned to Bactrim. Patient's creatinine increased and her diuretics and Bactrim were stopped. Patient was given gentle hydration with an improvement of her creatinine. Patient's INR prior to discharge was 2.78. Patient was given prescription for her INR to be checked on 10/11/[address] Palencia her primary care physician and she has follow-up with her within the next 7 days. Patient complained of generalized pain and had been previously given oral Dilaudid. This was de-escalated to Percocet with improvement of her symptoms. On day of discharge patient was feeling improved. Physical Exam Vital Signs: Temp Pulse Resp BP Pulse Ox 97.3 F 88 16 130/48 H 98 10/08/16 15:26 10/08/16 15:26 10/08/16 15:26 10/08/16 15:26 10/08/16 15:26 Intake & Output 10/08/16 10/09/16 10/10/16 06:59 06:59 06:59 Intake Total 5899 Balance 5899 Weight 86.9 kg Exam: GENERAL: No acute distress HEENT: Conjunctiva clear, nonicteric, moist mucous membranes, no JVD, midline trachea RESPIRATORY: Clear to auscultation bilaterally, no wheezes, no rhonchi CARDIAC: Regular rate and rhythm, mechanical click, no murmur ABDOMEN: Soft, nondistended, nontender, positive bowel sounds, no rebound, no guarding EXTREMETIES: No edema, cyanosis, clubbing NEUROLOGIC: Alert, oriented to person/place/time, CN's grossly intact, no focal deficits SKIN: Sternal incision healing well. Left upper chest wall incision at pacemaker site healing well. PSYCH: Normal mood, normal affect Results Laboratory Results: 10/07/16 04:26 10/08/16 08:54 Impressions: Chest X-Ray 10/01/16 15:09 IMPRESSION: Borderline cardiomegaly with small pleural effusions and no blessing CHF. Chest/Abdomen CTA 10/01/16 15:09 IMPRESSION: No pulmonary emboli Small right pleural effusion small to moderate left pleural effusion with left basilar atelectasis. Qualifiers PATEINT BEING DISCHARGED WITH ANY OF THE FOLLOWING DIAGNOSIS?: Heart Failure HF Pt being discharged on ACEI for LVEF less than 40%?: No Reason(s) for not prescribing ACEI:: Not indicated - Greater than 65 HF Pt being discharged on ARBS for LVEF less than 40%?: No Reason(s) for not prescribing ARBS:: Not indicated - Ejection fraction greater than 40 HF Pt with Afib discharged with Warfarin?: Yes HF Pt discharged on evidence-based Beta Jolene:: Yes Plan Time Spent: Less than 30 Minutes
== END 2016-10-08 17:26 | disposition home or self-care (01) | DRG 948 ==
LOC: ER 13:50 → UNDOADMOB 19:59 → EH 19:59 → 4S 22:32 → EH 22:32 → OBSVTOIN 10-03 13:06
PROVIDERS: ADMIT Family Medicine; ATTEND Family Medicine
DX: R79.1 Abnormal coagulation profile (principal); N17.9 Acute kidney failure, unspecified; I50.32 Chronic diastolic (congestive) heart failure; N30.00 Acute cystitis without hematuria; R07.89 Other chest pain; B96.20 Unspecified Escherichia coli [E. coli] as the cause of diseases classified elsewhere; E87.5 Hyperkalemia; D64.9 Anemia, unspecified; I25.10 Atherosclerotic heart disease of native coronary artery without angina pectoris; K21.9 Gastro-esophageal reflux disease without esophagitis; R10.9 Unspecified abdominal pain; J44.9 Chronic obstructive pulmonary disease, unspecified; E66.9 Obesity, unspecified; Z68.36 Body mass index [BMI] 36.0-36.9, adult; M19.90 Unspecified osteoarthritis, unspecified site; F41.1 Generalized anxiety disorder; Z90.49 Acquired absence of other specified parts of digestive tract; Z86.73 Personal history of transient ischemic attack (TIA), and cerebral infarction without residual deficits; Z95.1 Presence of aortocoronary bypass graft; Z95.0 Presence of cardiac pacemaker; Z95.2 Presence of prosthetic heart valve; Z79.899 Other long term (current) drug therapy; Z79.82 Long term (current) use of aspirin; Z79.01 Long term (current) use of anticoagulants; Z88.1 Allergy status to other antibiotic agents; Z88.8 Allergy status to other drugs, medicaments and biological substances
CPT/HCPCS: 36415; 71010; 71275; 80048; 80053; 81001; 82272; 82550; 82553; 83735; 83880; 84484; 85025; 85027; 85610; 85730; 87086; 87088; 87186; 93005; 93010; 94640; 96374; 96376; 99285; G0378; J1170; J1644; J1885; J3490; J7030; J7620

== ENCOUNTER → 2016-10-01 | Outpatient (CLI) | payer MEDICARE ==
[2016-10-01 11:20] LABS: PROTHROMBIN TIME 15.9 SEC (11.4-15.4)
== END ==
LOC: OD 09:37
PROVIDERS: ATTEND Internal Medicine
DX: Z95.4 Presence of other heart-valve replacement (principal)
CPT/HCPCS: 36415; 85610

== ENCOUNTER → 2016-10-11 | Outpatient (CLI) | payer MEDICARE ==
[2016-10-11 08:57] LABS: PROTHROMBIN TIME 39.2 SEC (11.4-15.4)
== END ==
LOC: LAB 08:25
PROVIDERS: ATTEND Family Medicine
DX: Z51.81 Encounter for therapeutic drug level monitoring (principal); Z79.01 Long term (current) use of anticoagulants
CPT/HCPCS: 36415; 85610

== ENCOUNTER → 2016-10-14 | Outpatient (CLI) | payer MEDICARE ==
[2016-10-14 10:49] LABS: PROTHROMBIN TIME 21.9 SEC (11.4-15.4)
== END ==
LOC: OD 09:57
PROVIDERS: ATTEND Internal Medicine
DX: Z95.4 Presence of other heart-valve replacement (principal)
CPT/HCPCS: 36415; 85610

== ENCOUNTER → 2016-10-18 | Outpatient (CLI) | payer MEDICARE ==
[2016-10-18 13:41] LABS: PROTHROMBIN TIME 26.8 SEC (11.4-15.4)
== END ==
LOC: OD 12:19
PROVIDERS: ATTEND Internal Medicine
DX: Z98.890 Other specified postprocedural states (principal)
CPT/HCPCS: 36415; 85610

== ENCOUNTER 2016-10-23 11:21 | Emergency (ER) | payer MEDICARE ==
--- NOTE | 2016-10-23 11:58 | ER Document Report ---
ED Headache - General Mode of Arrival: Wheelchair Information source: Patient TRAVEL OUTSIDE OF THE [place] IN LAST 30 DAYS: No - General Chief Complaint: Headache Stated Complaint: HEADACHE Time Seen by Provider: 10/23/16 11:37 Notes: Patient is a 61 year old female presenting to the ED for headache and blurry vision. Patient recently had a mitral valve repair on 09/03/16 and a pacemaker placement. Patient is concerned she is having an adverse reaction to Lyrica. Patient is has this headache for 5 days and denies any trauma or recent injury. Patient's sister had an aneurysm. Patient states after taking lyrica she "slammed into a wall" with her head and chest because shefelt out of it. Patient states she felt "high." Patient's last dose of Lyrica was on Tuesday. Patient states her headache is located in her frontal lobe and has pressure behind her eyes. Patient denies any dizziness or neck pain. Patient does have some pain on her chest where her pacemaker was placed. Patient has a home health nurse. Patient was given dilaudid at discharge after her surgery and was taken off dilaudid and given oxycodone. Patient has an appointment with pain management this week. (ANTELMO HERMAN) - Related Data Allergies/Adverse Reactions: erythromycin base [Erythromycin Base] Allergy (Verified 05/27/16 13:02) ondansetron [From Zofran (as hydrochloride)] Allergy (Verified 05/27/16 13:02) prednisone Adverse Reaction (Intermediate, Verified 10/01/16 22:19) GI upset Past Medical History - General Information source: Patient, Relative - spouse - Social History Smoking Status: Never Smoker Cigarette use (# per day): No Chew tobacco use (# tins/day): No Smoking Education Provided: No Frequency of alcohol use: None Drug Abuse: None Family History: None Patient has suicidal ideation: No Patient has homicidal ideation: No - Past Medical History Cardiac Medical History: Reports: Hx Congestive Heart Failure - History of heart Failure, Hx Coronary Artery Disease, Hx Heart Attack, Hx Hypercholesterolemia, Hx Hypertension Pulmonary Medical History: Reports: Hx Asthma, Hx Pneumonia Renal/ Medical History: Reports: Hx Kidney Stones, Hx Renal Insufficiency Musculoskeltal Medical History: Reports Hx Arthritis Psychiatric Medical History: Reports: Hx Anxiety Past Surgical History: Reports: Hx Appendectomy, Hx Cardiac Catheterization, Hx Cardiac Surgery - stent in 08 and open heart in 02, Hx Carotid Endarterectomy - LEFT, Hx Section - x2, Hx Cholecystectomy, Hx Coronary Artery Bypass Graft - September 2016, Hx Coronary Stent - 2008, Hx Hysterectomy, Hx Pacemaker - September 2016, Hx Valve Replacement - Mitral valve, September 2016, Hx Vascular Surgery - Left Carotidendarterectomy - Immunizations Hx Diphtheria, Pertussis, Tetanus Vaccination: Yes Hx Pneumococcal Vaccination: 04/04/14 Review of Systems - Review of Systems Constitutional: No symptoms reported EENT: No symptoms reported Cardiovascular: No symptoms reported Respiratory: No symptoms reported Gastrointestinal: No symptoms reported Genitourinary: No symptoms reported Female Genitourinary: No symptoms reported Musculoskeletal: See HPI Skin: No symptoms reported Hematologic/Lymphatic: No symptoms reported Neurological/Psychological: See HPI, Headaches -: Yes All other systems reviewed and negative Physical Exam - Vital signs Interpretation: Normal - Vital signs Vitals: Temp Pulse Resp BP Pulse Ox 98.3 F 76 16 135/64 H 99 10/23/16 11:28 10/23/16 11:28 10/23/16 11:28 10/23/16 11:28 10/23/16 11:28 - Notes Notes: GENERAL: Alert, interacts well. No acute distress. HEAD: Normocephalic, atraumatic. EYES: Appear normal. Pupils equal, round, and reactive to light. ENT: Moist mucus membranes, tongue midline. Nares patent, TM's intacts. NECK: Full range of motion. Supple. Trachea midline. LUNGS: Clear to auscultation bilaterally, no wheezes, rales, or rhonchi. No respiratory distress. Mild tenderness to the left chest wall consistent with injury. HEART: Regular rate and rhythm. No murmurs, gallops, or rubs. ABDOMEN: Soft, non-tender. Non-distended. Normal bowel sounds. EXTREMITIES: Moves all 4 extremities spontaneously. Normal strength. No edema. Normal radial and dorsalis pedis pulses bilaterally. NEUROLOGICAL: Alert and oriented x3. Normal speech. No focal neurological deficits. GSC 15. PSYCH: Normal affect, normal mood. SKIN: Warm, dry, normal turgor. No rashes or lesions noted. (ANTELMO HERMAN) Course - Re-evaluation Re-evalutation: 10/23/16 13:03 Patient presents emergency department with a chief complaint of headache that has been going on for approximately 5 days gradual onset persistent occasional blurred vision no history of trauma or fall is on Coumadin since she had a mitral valve repair on September 03 and pacemaker placement. She states it is not the worst headache of her life she did have a sister of some sort of bleeding into the brain. She has no known aneurysms. She denies any dizziness neck pain follow strokelike symptoms or inability to ambulate. On physical exam blood pressure stable she is not tachycardic she is afebrile GCS of 15 and no neurological deficits. CT of head is negative for acute pathology. She also complained that she bumped into the wall after taking Lyrica a few days ago where her incision site is for mitral valve and a pacemaker I did a chest x- ray on that area is negative acute with resolving pleural effusion. She is not in any respiratory distress. At this time she discussed with me that she is going to be following up with pain management and so that she can get through her physical therapy for status post open heart surgery. At this time went ahead and give her IM injections to control the headache blood pressure is stable she be discharged follow-up in 2 days with primary care physician Tuesday pain management and discuss specific reasons for ED return sooner 10/23/16 14:27 That the medication patient says headache is nearly resolved she is awake alert pleasant and thankful for the care she will follow primary care physician on Tuesday her Coumadin was subtherapeutic with mechanical valves I told her to double the dose for the next 2 days and he can recheck it on Tuesday and discussed reasons for ED return sooner (ROSEMARIE BAUTISTA) - Vital Signs Vital signs: Temp Pulse Resp BP Pulse Ox 98.3 F 75 16 159/75 H 98 10/23/16 14:36 10/23/16 14:36 10/23/16 14:36 10/23/16 14:36 10/23/16 14:36 - Laboratory Laboratory results interpreted by me: 10/23/16 12:30 PT 22.8 H Discharge - Discharge Clinical Impression: chest wall contusion Cephalgia Qualifiers: Headache type: unspecified Headache chronicity pattern: acute headache Intractability: not intractable Qualified Code(s): R51 - Headache Condition: Stable Disposition: HOME, SELF-CARE Referrals: LYSSA WREN MD [Primary Care Provider] - (in 1-2 days return to er sooner for increasing worsening or new symptoms) Scribe Attestation: 10/23/16 14:27 I personally performed the services described in the documentation reviewed the documentation recorded by my scribe in my presence and it accurately and completely records my words and actions (ROSEMARIE BAUTISTA) Scribe Documentation - Scribe Written by Scribe:: Katy Ashton 10/23/16 21:50 acting as scribe for :: Daniel
--- NOTE | 2016-10-23 12:31 | RADIOLOGY REPORT (SQ) ---
EXAM DESCRIPTION: CHEST PA/LAT COMPLETED DATE/TIME: 10/23/2016 12:13 pm REASON FOR STUDY: hit chest recent mitral valve repair COMPARISON: 10/01/2016 EXAM PARAMETERS: NUMBER OF VIEWS: two views TECHNIQUE: Digital Frontal and Lateral radiographic views of the chest acquired. RADIATION DOSE: NA LIMITATIONS: none FINDINGS: LUNGS AND PLEURA: Stable chronic lung change without new airspace disease, masses or pneum othorax. No pleural effusion. MEDIASTINUM AND HILAR STRUCTURES: No masses or contour abnormalities. HEART AND VASCULAR STRUCTURES: Heart normal size. No evidence for failure. BONES: No acute findings. HARDWARE: Stable. OTHER: No other significant finding. IMPRESSION: NO ACUTE CARDIOPULMONARY PROCESS. Interval resolution left pleural effusion. TECHNICAL DOCUMENTATION: JOB ID: [id number] [employer]- All Rights Reserved
--- NOTE | 2016-10-23 12:45 | RADIOLOGY REPORT (SQ) ---
EXAM DESCRIPTION: CT HEAD WITHOUT COMPLETED DATE/TIME: 10/23/2016 12:36 pm REASON FOR STUDY: headache COMPARISON: 08/18/2015 TECHNIQUE: Axial images acquired through the brain without intravenous contrast. Images reviewed wi th bone, brain and subdural windows. Images stored on PACS. All CT scanners at this facility use dose modulation, iterative reconstruction, and/or weight based d osing when appropriate to reduce radiation dose to as low as reasonably achievable (ALARA). [facility]: Dose Right [facility]: CareDose [facility]: Dose Right [facility]: Teradose 4D [facility]: Smart Mendix RADIATION DOSE: Up-to-date CT equipment and radiation dose reduction techniques were employed. CTDIv ol: 64.6 mGy. DLP: 1163 mGy-cm. mGy. LIMITATIONS: None. FINDINGS: VENTRICLES: Prominent. CEREBRUM: No masses. No hemorrhage. No midline shift. Areas of low density in the white matter mos t likely due to chronic micro-vascular ischemic change. No evidence for acute infarction. CEREBELLUM: No masses. No hemorrhage. No alteration of density. No evidence for acute infarction. EXTRAAXIAL SPACES: Mild age-related involutional change. No fluid collections. No masses. ORBITS AND GLOBE: No intra- or extraconal masses. Normal contour of globe without masses. CALVARIUM: No fracture. PARANASAL SINUSES: No fluid or mucosal thickening. SOFT TISSUES: No mass or hematoma. OTHER: No other significant finding. IMPRESSION: NO ACUTE INTRACRANIAL PROCESS. NO SIGNIFICANT CHANGE FROM PRIOR STUDY. TECHNICAL DOCUMENTATION: JOB ID: [id number] Quality ID # [id number]: Final reports with documentation of one or more dose reduction techniques (e.g., Au tomated exposure control, adjustment of the mA and/or kV according to patient size, use of iterative reconstruction technique) 2010 [employer]- All Rights Reserved
[2016-10-23] MEDS ORDERED: METOCLOPRAMIDE HCL INJ/PF 10 MG/2 ML SDV IM ONE (13:03)
[2016-10-23] MEDS ORDERED: DIPHENHYDRAMINE HCL 50 MG/ML VIAL IM ONE (13:03)
[2016-10-23 13:11] LABS: PROTHROMBIN TIME 22.8 SEC (11.4-15.4)
[2016-10-23 14:36] VITALS: BP 159/75
== END 2016-10-23 14:36 | disposition home or self-care (01) ==
LOC: ER 11:21
DX: R51 Headache (principal); S20.219A Contusion of unspecified front wall of thorax, initial encounter; W22.01XA Walked into wall, initial encounter; H53.8 Other visual disturbances; R07.9 Chest pain, unspecified; I25.10 Atherosclerotic heart disease of native coronary artery without angina pectoris; I25.2 Old myocardial infarction; I10 Essential (primary) hypertension; J45.909 Unspecified asthma, uncomplicated; Z95.2 Presence of prosthetic heart valve; Z79.01 Long term (current) use of anticoagulants; Z95.0 Presence of cardiac pacemaker; Z95.1 Presence of aortocoronary bypass graft; Z98.51 Tubal ligation status; Z79.891 Long term (current) use of opiate analgesic; Z88.1 Allergy status to other antibiotic agents; Z88.8 Allergy status to other drugs, medicaments and biological substances; Z82.49 Family history of ischemic heart disease and other diseases of the circulatory system
CPT/HCPCS: 99284; 96372; 36415; 85610; 71020; 70450; J1200; J2765

== ENCOUNTER → 2016-11-02 | Outpatient (CLI) | payer MEDICARE ==
[2016-11-02 13:23] LABS: PROTHROMBIN TIME 30.2 SEC (11.4-15.4)
== END ==
LOC: OD 12:26
PROVIDERS: ATTEND Internal Medicine
DX: I25.119 Atherosclerotic heart disease of native coronary artery with unspecified angina pectoris (principal); Z94.5 Skin transplant status
CPT/HCPCS: 36415; 85610

== ENCOUNTER → 2016-11-10 | Outpatient (CLI) | payer MEDICARE | LOC: OD 08:04 | PROVIDERS: ATTEND Internal Medicine | DX: Z79.01 Long term (current) use of anticoagulants (principal); Z51.81 Encounter for therapeutic drug level monitoring | CPT/HCPCS: 36415; 85610 ==

== ENCOUNTER 2016-11-17 11:40 | Emergency (ER) | payer MEDICARE ==
[2016-11-17 12:13] LABS: ABSOLUTE BASOPHILS # (AUTO) 0.1 10^3/uL (0.0-0.2); ABSOLUTE EOSINOPHILS # (AUTO) 0.3 10^3/uL (0.0-0.6); ABSOLUTE LYMPHOCYTES (AUTO) 1.7 10^3/uL (0.5-4.7); ABSOLUTE MONOCYTES (AUTO) 0.5 10^3/uL (0.1-1.4); EOSINOPHILS % (AUTO) 3.8 % (0-6); HEMATOCRIT 37.2 % (36.0-47.0); HEMOGLOBIN 12.2 g/dL (12.0-15.5); HGB HCT DIFFERENCE -0.6; LYMPHOCYTES % (AUTO) 26.4 % (13-45); MEAN CORPUSCULAR HEMOGLOBIN 29.8 pg (27.0-33.4); MEAN CORPUSCULAR HGB CONC 32.9 g/dL (32.0-36.0); MEAN CORPUSCULAR VOLUME 91 fl (80-97); MONOCYTES % (AUTO) 7.6 % (3-13); RED BLOOD COUNT 4.11 10^6/uL (3.72-5.28); RED CELL DISTRIBUTION WIDTH 16.1 % (11.5-14.0); SEGMENTED NEUTROPHILS % (AUTO) 61.2 % (42-78); WHITE BLOOD COUNT 6.6 10^3/uL (4.0-10.5)
--- NOTE | 2016-11-17 12:20 | ER Document Report ---
ED Cardiac - General Information source: Patient TRAVEL OUTSIDE OF THE [place] IN LAST 30 DAYS: No - HPI Patient complains to provider of: Chest pain, Palpitations, Shortness of breath Associated symptoms: Other - see above <RHINA MARCELO - Last Filed: 11/17/16 12:14> <ALESHA PETER - Last Filed: 11/17/16 16:50> <KARTIK BRUNNER - Last Filed: 11/17/16 17:42> - General Chief Complaint: Chest Pain Stated Complaint: CHEST PAIN Time Seen by Provider: 11/17/16 11:54 Notes: Patient is a 61 year old female who presents to the ED with complaints of her heart fluttering intermittently since this morning accompanied by chest pain and SOB. Patient also states she had an episode of dizziness and near syncope. Patient also had an elevated blood pressure which she states is unusual for her. Patient had a mechanical valve in September 2016 and pacemaker placed in September 2016. (RHINA MARCELO) - Related Data Allergies/Adverse Reactions: erythromycin base [Erythromycin Base] Allergy (Verified 05/27/16 13:02) ondansetron [From Zofran (as hydrochloride)] Allergy (Verified 05/27/16 13:02) prednisone Adverse Reaction (Intermediate, Verified 10/01/16 22:19) GI upset Past Medical History - General Information source: Patient - Social History Smoking Status: Former Smoker Family History: None - Past Medical History Cardiac Medical History: Reports: Hx Congestive Heart Failure - History of heart Failure, Hx Coronary Artery Disease, Hx Heart Attack, Hx Hypercholesterolemia, Hx Hypertension Pulmonary Medical History: Reports: Hx Asthma, Hx COPD, Hx Pneumonia Renal/ Medical History: Reports: Hx Kidney Stones, Hx Renal Insufficiency. Denies: Hx Peritoneal Dialysis Musculoskeltal Medical History: Reports Hx Arthritis Psychiatric Medical History: Reports: Hx Anxiety Infectious Medical History: Denies: Hx C-Diff, Hx Hepatitis, Hx MRSA Past Surgical History: Reports: Hx Appendectomy, Hx Cardiac Catheterization, Hx Cardiac Surgery - stent in and open heart in , Hx Carotid Endarterectomy - LEFT, Hx Section - x2, Hx Cholecystectomy, Hx Coronary Artery Bypass Graft - September 2016, Hx Coronary Stent - 2007, Hx Hysterectomy, Hx Pacemaker - September 2016, Hx Valve Replacement - Mitral valve, September 2016, Hx Vascular Surgery - Left Carotidendarterectomy - Immunizations Hx Diphtheria, Pertussis, Tetanus Vaccination: Yes Hx Pneumococcal Vaccination: 04/04/14 <RHINA MARCELO - Last Filed: 11/17/16 12:14> Review of Systems - Review of Systems Constitutional: No symptoms reported EENT: No symptoms reported Cardiovascular: No symptoms reported, Chest pain, Palpitations, Dyspnea, Dizziness Respiratory: See HPI, Short of breath Gastrointestinal: No symptoms reported Genitourinary: No symptoms reported Female Genitourinary: No symptoms reported Musculoskeletal: No symptoms reported Skin: No symptoms reported Hematologic/Lymphatic: No symptoms reported Neurological/Psychological: No symptoms reported <RHINA MARCELO - Last Filed: 11/17/16 12:14> Physical Exam - General General appearance: Appears well, Alert In distress: None - HEENT Head: Normocephalic, Atraumatic Eyes: Normal Extraocular movements intact: Yes Pupils: PERRL - Respiratory Respiratory status: No respiratory distress Breath sounds: Normal - Cardiovascular Rhythm: Regular, Other - claims to feel fluttering even though she is regular paced rhythm Heart sounds: Normal auscultation Murmur: No - Abdominal Inspection: Normal Distension: No distension Tenderness: Nontender - Back Back: Normal - Extremities General upper extremity: Normal inspection, Normal ROM General lower extremity: Normal inspection, Normal ROM. No: Edema - Neurological Neuro grossly intact: Yes - Psychological Associated symptoms: Anxious - Skin Skin Temperature: Warm - anerior chest has fresh healing mediastinotomy wound with some surrounding bruising that is very tender Skin Moisture: Dry Skin Color: Normal <RHINA MARCELO - Last Filed: 11/17/16 12:14> - Vital signs Vitals: Resp BP Pulse Ox 16 152/69 H 96 11/17/16 12:01 11/17/16 12:01 11/17/16 12:01 Course - Laboratory Result Diagrams: 11/17/16 12:00 11/17/16 12:00 <RHINA MARCELO - Last Filed: 11/17/16 12:14> - Laboratory Result Diagrams: 11/17/16 12:00 11/17/16 12:00 - Diagnostic Test Radiology reviewed: Image reviewed, Reports reviewed - Chest x-ray does not show acute changes. - EKG Interpretation by [place] EKG shows normal: [place], Intervals, QRS Complexes, ST-T Waves. abnormal: Sinus rhythm Rhythm: Other - Atrial paced rhythm [place]/QRS: LBBB - Incomplete left bundle branch block Voltage: Consistant with LVH When compared to previous EKG there are: No significant change - Transfer of Care Care transferred to following provider: Dr. Brunner <ALESHA PETER - Last Filed: 11/17/16 16:50> - Laboratory Result Diagrams: 11/17/16 12:00 11/17/16 12:00 <KARTIK BRUNNER - Last Filed: 11/17/16 17:42> - Re-evaluation Re-evalutation: 11/17/16 16:34 Have been trying to get the pacemaker interrogated for approximately 4 hours without success. The nurse reports that her Internet connection seems to be quite slow and it takes a long time to download. She then was unable to confirm it was ever received anywhere and was placed on hold in excess of 10 minutes trying to call the numbers provided to talk to someone. (ALESHA PETER) 11/17/16 17:41 [employer] transmission received without any evidence of prolonged arrhythmia episodes. Patient instructed to double her Coumadin dose for subtherapeutic INR and follow-up with her meter mechanic tomorrow. She understands. (KARTIK BRUNNER) - Vital Signs Vital signs: Temp Pulse Resp BP Pulse Ox 10 L 127/48 H 95 11/17/16 15:01 11/17/16 15:01 11/17/16 15:01 - Laboratory Laboratory results interpreted by me: 11/17/16 11/17/16 12:00 12:00 RDW 16.1 H Alkaline Phosphatase 131 H - Transfer of Care Notes: 11/17/16 16:54 We are awaiting to have the pacemaker interrogated. If there is no abnormality seen, the patient can be discharged to home and follow-up with her doctors. ( ALESHA PETER) Discharge <RHINA MARCELO - Last Filed: 11/17/16 12:14> <ALESHA PETER - Last Filed: 11/17/16 16:50> <KARTIK BRUNNER - Last Filed: 11/17/16 17:42> - Discharge Clinical Impression: Palpitations, Chest wall pain following surgery Chronic pain Qualifiers: Chronic pain type: chronic pain syndrome Qualified Code(s): G89.4 - Chronic pain syndrome Condition: Stable Disposition: HOME, SELF-CARE Additional Instructions: CHEST PAIN OF UNCLEAR CAUSE: The exact cause of your chest pain isn't clear. Fortunately, there is no evidence of a dangerous medical condition. Further testing may be required to find the source of the pain. Most often, we find that this pain is coming from the chest wall -- the muscles or rib joints in the chest. But chest pain can come from the lung and lung lining, the esophagus, the heart valves or heart lining, and even the stomach or gallbladder. Rest. Eat lightly until the pain is gone. We may prescribe medicine for pain and inflammation. You should call the physician immediately if the pain radiates to the shoulder, jaw or arms; if you start to run a fever or develop a cough; or if you develop shortness of breath, or other new or alarming symptoms. NORMAL EXAM AND WORKUP: At this time, your examination and workup show no significant abnormality. No significant abnormal physical findings were noted. All laboratory, EKG, and imaging (x-ray, CT scans, ultrasound) studies that were ordered show no significant abnormality. Although your examination and all studies that were ordered showed no significant abnormal finding, there are no examinations and no studies that are 100% accurate. There is always the possibility that some abnormality could exist and not be detected with physical examination or within the limits and capabilities of laboratory and other studies. You should return or follow up as you were instructed on your visit today for further evaluation if your symptoms do not resolve. CHEST WALL PAIN: Your chest pain may be coming from the chest wall. This is often caused by straining the muscles or joints in the chest during physical activity, direct trauma, coughing, or vigorous vomiting. Persons with arthritis are especially prone to this type of pain, due to inflammation of the cartilage joints near the breast bone. Occasionally, no cause can be found. Rest from strenuous physical activity. This kind of chest pain is usually made worse by movement of the chest. Depending on the symptoms, we may prescribe medicine for pain, muscle relaxation, and antiinflammatory effects. If the pain is new, and seems to be due to muscle strain, cold packs can help. Otherwise, apply gentle warmth to the painful area for 15 minutes every hour or two. You should call contact the doctor immediately if things change. Further evaluation is needed if you develop a fever or cough, if the nature of the pain changes, or if you become short of breath. ANGINA EPISODE: Your physician has diagnosed the pain you experienced as an episode of angina. Angina occurs when a portion of the heart muscle temporarily lacks oxygen. It does not cause any permanent heart damage, but serves as a warning. Hospitalization is not necessary now. Evaluation of your cardiac condition , and medical therapy for angina will be necessary. It's important you be sure to keep all appointments and take medication exactly as prescribed. Angina is usually treated with a type of "nitrate" medication. This is available as ointment, pills, or sublingual (under the tongue) tablets. Depending on your clinical situation, other medications may be added to help control angina. These may include beta blockers or calcium blockers. If episodes of angina are occurring with increased frequency, or if chest pain lasts longer than 15 minutes or does not respond to nitroglycerin, you must seek emergency medical care immediately. FOLLOW-UP CARE: If you have been referred to a physician for follow-up care, call the physician s office for an appointment as you were instructed or within the next two days. If you experience worsening or a significant change in your symptoms, notify the physician immediately or return to the Emergency Department at any time for re-evaluation. Referrals: LYSSA WREN MD [Primary Care Provider] - Follow up as needed Scribe Documentation - Scribe Written by Esther:: esther Pillai, 11/17/2016, 1227 acting as scribe for :: Macy <RHINA MARCELO - Last Filed: 11/17/16 12:14>
[2016-11-17 12:30] LABS: ALANINE AMINOTRANSFERASE 25 U/L (9-52); ALBUMIN 4.2 g/dL (3.5-5.0); ALKALINE PHOSPHATASE 131 U/L (38-126); ANION GAP 11 (5-19); ASPARTATE AMINO TRANSFERASE 22 U/L (14-36); BILIRUBIN,DIRECT 0.4 mg/dL (0.0-0.4); BILIRUBIN,TOTAL 0.4 mg/dL (0.2-1.3); BLOOD UREA NITROGEN 17 mg/dL (7-20); CALCIUM 9.7 mg/dL (8.4-10.2); CARBON DIOXIDE 24 mmol/L (22-30); CHLORIDE 106 mmol/L (98-107); CREATINE KINASE 54 U/L (30-135); CREATININE RESULT 0.94 mg/dL (0.52-1.25); GLUCOSE 90 mg/dL (75-110); POTASSIUM 4.3 mmol/L (3.6-5.0); TOTAL PROTEIN 7.2 g/dL (6.3-8.2)
--- NOTE | 2016-11-17 12:42 | RADIOLOGY REPORT (SQ) ---
EXAM DESCRIPTION: CHEST SINGLE VIEW COMPLETED DATE/TIME: 11/17/2016 12:30 pm REASON FOR STUDY: bed 14 cp COMPARISON: CT chest 10/01/2016 LS films 10/23/2016 EXAM PARAMETERS: NUMBER OF VIEWS: One view. TECHNIQUE: Single frontal radiographic view of the chest acquired. RADIATION DOSE: NA LIMITATIONS: None. FINDINGS: LUNGS AND PLEURA: No opacities, masses or pneumothorax. No pleural effusion. MEDIASTINUM AND HILAR STRUCTURES: No masses. Contour normal. HEART AND VASCULAR STRUCTURES: Post sternotomy with CABG and mitral valve replacement. Stable mild c ardiomegaly BONES: No acute findings. HARDWARE: Left-sided dual lead pacemaker OTHER: No other significant finding. IMPRESSION: No acute changes TECHNICAL DOCUMENTATION: JOB ID: [id number]
[2016-11-17 13:09] LABS: CREATINE KINASE MB 0.76 ng/mL (<4.55)
[2016-11-17 13:17] LABS: TROPONIN I < 0.012 ng/mL
[2016-11-17] MEDS ORDERED: OXYCODONE-ACETAMINOPHEN 5-325 MG TABLET PO ONE (13:53)
[2016-11-17] MEDS ORDERED: HYDROMORPHONE HCL INJ/PF 2 MG/ML AMPULE IV ONE (16:34)
[2016-11-17 17:54] VITALS: BP 139/51
--- NOTE | 2016-11-17 17:56 | EKG REPORT ---
SEVERITY:- ABNORMAL ECG - ATRIAL-PACED RHYTHM INCOMPLETE LEFT BUNDLE BRANCH BLOCK LVH WITH SECONDARY REPOLARIZATION ABNORMALITY : Confirmed by: Gilberto Streeter MD 17-Nov-2016 17:55:40
== END 2016-11-17 17:59 | disposition home or self-care (01) ==
LOC: ER 11:40
DX: G89.18 Other acute postprocedural pain (principal); R07.89 Other chest pain; G89.4 Chronic pain syndrome; I44.7 Left bundle-branch block, unspecified; I25.10 Atherosclerotic heart disease of native coronary artery without angina pectoris; I25.2 Old myocardial infarction; I10 Essential (primary) hypertension; R55 Syncope and collapse; R00.2 Palpitations; J44.9 Chronic obstructive pulmonary disease, unspecified; R06.02 Shortness of breath; Z95.0 Presence of cardiac pacemaker; Z95.2 Presence of prosthetic heart valve; Z79.01 Long term (current) use of anticoagulants; Z88.1 Allergy status to other antibiotic agents; Z88.8 Allergy status to other drugs, medicaments and biological substances; Z87.891 Personal history of nicotine dependence; Z98.61 Coronary angioplasty status; Z95.1 Presence of aortocoronary bypass graft
CPT/HCPCS: 93005; 99285; 96374; 36415; 82553; 82550; 85025; 85610; 80053; 84484; 71010; 93010; A9270; J1170

== ENCOUNTER → 2016-11-17 | Outpatient (CLI) | payer MEDICARE ==
[2016-11-17 09:00] LABS: PROTHROMBIN TIME 22.8 SEC (11.4-15.4)
== END ==
LOC: OD 08:25
PROVIDERS: ATTEND Internal Medicine
DX: Z51.81 Encounter for therapeutic drug level monitoring (principal)
CPT/HCPCS: 36415; 85610

== ENCOUNTER → 2016-11-24 | Outpatient (CLI) | payer MEDICARE | LOC: OD 09:26 | PROVIDERS: ATTEND Internal Medicine | DX: Z79.01 Long term (current) use of anticoagulants (principal); Z51.81 Encounter for therapeutic drug level monitoring | CPT/HCPCS: 36415; 85610 ==

== ENCOUNTER → 2016-12-07 | Outpatient (CLI) | payer MEDICARE ==
[2016-12-07 10:58] LABS: ABSOLUTE BASOPHILS # (AUTO) 0.1 10^3/uL (0.0-0.2); ABSOLUTE EOSINOPHILS # (AUTO) 0.1 10^3/uL (0.0-0.6); ABSOLUTE LYMPHOCYTES (AUTO) 1.2 10^3/uL (0.5-4.7); ABSOLUTE MONOCYTES (AUTO) 0.6 10^3/uL (0.1-1.4); ABSOLUTE NEUT (AUTO) 6.8 10^3/uL (1.7-8.2); BASOPHILS % (AUTO) 0.7 % (0-2); EOSINOPHILS % (AUTO) 1.6 % (0-6); HEMATOCRIT 40.3 % (36.0-47.0); HEMOGLOBIN 13.4 g/dL (12.0-15.5); HGB HCT DIFFERENCE -0.1; LYMPHOCYTES % (AUTO) 13.8 % (13-45); MEAN CORPUSCULAR HEMOGLOBIN 29.8 pg (27.0-33.4); MEAN CORPUSCULAR HGB CONC 33.3 g/dL (32.0-36.0); MEAN CORPUSCULAR VOLUME 89 fl (80-97); MONOCYTES % (AUTO) 7.3 % (3-13); RED BLOOD COUNT 4.51 10^6/uL (3.72-5.28); RED CELL DISTRIBUTION WIDTH 16.6 % (11.5-14.0); SEGMENTED NEUTROPHILS % (AUTO) 76.6 % (42-78); WHITE BLOOD COUNT 8.8 10^3/uL (4.0-10.5)
[2016-12-07 11:03] LABS: PROTHROMBIN TIME 31.6 SEC (11.4-15.4)
[2016-12-07 11:20] LABS: ALANINE AMINOTRANSFERASE 32 U/L (9-52); ALBUMIN 4.4 g/dL (3.5-5.0); ALKALINE PHOSPHATASE 144 U/L (38-126); ANION GAP 11 (5-19); ASPARTATE AMINO TRANSFERASE 26 U/L (14-36); BILIRUBIN,DIRECT 0.5 mg/dL (0.0-0.4); BILIRUBIN,TOTAL 0.5 mg/dL (0.2-1.3); BLOOD UREA NITROGEN 21 mg/dL (7-20); CALCIUM 10.2 mg/dL (8.4-10.2); CARBON DIOXIDE 23 mmol/L (22-30); CHLORIDE 107 mmol/L (98-107); CREATININE RESULT 0.97 mg/dL (0.52-1.25); GLUCOSE 82 mg/dL (75-110); POTASSIUM 4.8 mmol/L (3.6-5.0); SODIUM 140.9 mmol/L (137-145); TOTAL PROTEIN 7.4 g/dL (6.3-8.2)
== END ==
LOC: OD 09:50
PROVIDERS: ATTEND Internal Medicine
DX: Z79.01 Long term (current) use of anticoagulants (principal); I25.10 Atherosclerotic heart disease of native coronary artery without angina pectoris
CPT/HCPCS: 36415; 80053; 85025; 85610

== ENCOUNTER → 2016-12-23 | Outpatient (CLI) | payer MEDICARE ==
[2016-12-23 10:29] LABS: PROTHROMBIN TIME 31.7 SEC (11.4-15.4)
== END ==
LOC: OD 09:35
PROVIDERS: ATTEND Internal Medicine
DX: Z51.81 Encounter for therapeutic drug level monitoring (principal); Z79.01 Long term (current) use of anticoagulants
CPT/HCPCS: 36415; 85610

== ENCOUNTER → 2017-01-06 | Outpatient (CLI) | payer MEDICARE ==
[2017-01-06 09:44] LABS: PROTHROMBIN TIME 35.8 SEC (11.4-15.4)
== END ==
LOC: OD 08:56
PROVIDERS: ATTEND Internal Medicine
DX: Z51.81 Encounter for therapeutic drug level monitoring (principal); Z79.899 Other long term (current) drug therapy
CPT/HCPCS: 36415; 85610

== ENCOUNTER 2017-01-13 06:33 | Emergency (ER) | payer MEDICARE ==
[2017-01-13] MEDS ORDERED: KETOROLAC TROMETHAMINE INJ/PF 30 MG/1 ML SDV IM ONE (07:25)
--- NOTE | 2017-01-13 07:43 | ER Document Report ---
ED General - General Chief Complaint: Pedal Edema Stated Complaint: FOOT SWELLING Time Seen by Provider: 01/13/17 07:08 TRAVEL OUTSIDE OF THE [place] IN LAST 30 DAYS: No - HPI Notes: Patient is a 61-year-old female who presents the ED complaining of right foot pain and bilateral lower extremity swelling intermittently 1-2 months. Patient states that the pain in her foot has been relatively constant over the last month. She was evaluated by her primary care provider was diagnosed with gout. Patient states that she had a shot of Toradol and was placed on some medication she cannot remember which did help with her pain, but the pain started to return about a week later. Patient states that the swelling in her legs goes away easily with elevation, but when she starts walking she starts noticing the buildup of edema again. She has not had any redness or swelling otherwise. Patient states that she did have the great saphenous vein of the right harvested for a bypass. Patient is taking Coumadin daily. Patient states that her pain in the right foot is located to the MTP joint primarily as well as the dorsal foot on occasion. Denies any headache, fever, URI, sore throat, chest pain, palpitations, syncope, cough, shortness of breath, wheeze, dyspnea, abdominal pain, nausea/vomiting/diarrhea, urinary retention, dysuria, hematuria, loss of control of bowel or bladder, numbness/tingling, saddle anesthesia, muscle paralysis/weakness, or rash. - Related Data Allergies/Adverse Reactions: erythromycin base [Erythromycin Base] Allergy (Verified 05/27/16 13:02) ondansetron [From Zofran (as hydrochloride)] Allergy (Verified 05/27/16 13:02) prednisone Adverse Reaction (Intermediate, Verified 10/01/16 22:19) GI upset Past Medical History - Social History Smoking Status: Unknown if Ever Smoked Family History: None Patient has suicidal ideation: No Patient has homicidal ideation: No - Past Medical History Cardiac Medical History: Reports: Hx Congestive Heart Failure - History of heart Failure, Hx Coronary Artery Disease, Hx Heart Attack, Hx Hypercholesterolemia, Hx Hypertension Denies: Hx DVT, Hx Pulmonary Embolism Pulmonary Medical History: Reports: Hx Asthma, Hx COPD, Hx Pneumonia Denies: Hx Sleep Apnea, Hx Tuberculosis Neurological Medical History: Denies: Hx Seizures Endocrine Medical History: Denies: Hx Diabetes Mellitus Type 1, Hx Diabetes Mellitus Type 2, Hx Hyperthyroidism, Hx Hypothyroidism Renal/ Medical History: Reports: Hx Kidney Stones, Hx Renal Insufficiency. Denies: Hx Peritoneal Dialysis GI Medical History: Denies: Hx Cirrhosis, Hx Gastroesophageal Reflux Disease, Hx Hepatitis Musculoskeltal Medical History: Reports Hx Arthritis Psychiatric Medical History: Reports: Hx Anxiety Denies: Hx Depression Infectious Medical History: Denies: Hx C-Diff, Hx Hepatitis, Hx MRSA Past Surgical History: Reports: Hx Appendectomy, Hx Cardiac Catheterization, Hx Cardiac Surgery - stent in 08 and open heart in , Hx Carotid Endarterectomy - LEFT, Hx Section - x2, Hx Cholecystectomy, Hx Coronary Artery Bypass Graft - September 2016, Hx Coronary Stent - 2007, Hx Hysterectomy, Hx Pacemaker - September 2016, Hx Valve Replacement - Mitral valve, September 2016, Hx Vascular Surgery - Left Carotidendarterectomy - Immunizations Hx Diphtheria, Pertussis, Tetanus Vaccination: Yes Hx Pneumococcal Vaccination: 04/04/14 Review of Systems - Review of Systems Notes: REVIEW OF SYSTEMS: CONSTITUTIONAL : Denies fever, chills, or sweats. Denies recent illness. EENT: Denies eye, ear, throat, or mouth pain or symptoms. Denies nasal or sinus congestion or discharge. Denies throat, tongue, or mouth swelling or difficulty swallowing. CARDIOVASCULAR: Denies chest pain. Denies palpitations or racing or irregular heart beat. Denies ankle edema. RESPIRATORY: Denies cough, cold, or chest congestion. Denies shortness of breath, difficulty breathing, or wheezing. GASTROINTESTINAL: Denies abdominal pain or distention. Denies nausea, vomiting , or diarrhea. Denies blood in vomitus, stools, or per rectum. Denies black, tarry stools. Denies constipation. GENITOURINARY: Denies difficulty urinating, painful urination, burning, frequency, blood in urine, or discharge. MUSCULOSKELETAL: see hpi SKIN: Denies rash, lesions or sores. NEUROLOGICAL: Denies confusion or altered mental status. Denies passing out or loss of consciousness. Denies dizziness or lightheadedness. Denies headache. Denies weakness or paralysis or loss of use of either side. Denies problems with gait or speech. Denies sensory loss, numbness, or tingling. ALL OTHER SYSTEMS REVIEWED AND NEGATIVE. Dictation was performed using [employer] recognition software Physical Exam - Vital signs Vitals: Temp Pulse Resp BP Pulse Ox 98.7 F 71 16 168/63 H 96 01/13/17 06:37 01/13/17 06:37 01/13/17 06:37 01/13/17 06:37 01/13/17 06:37 Notes: PHYSICAL EXAMINATION: GENERAL: Well-appearing, well-nourished and in no acute distress. LUNGS: Breath sounds clear to auscultation bilaterally and equal. No wheezes rales or rhonchi. HEART: Regular rate and rhythm without murmurs, rubs, gallops. ABDOMEN: Soft, nontender, nondistended abdomen. No guarding, no rebound. No masses appreciated. Normal bowel sounds present. No CVA tenderness bilaterally. Musculoskeletal: Rt foot: FROM to passive/active. Strength 5+/5. + tenderness to the MTP joint. Janae neg. No calf tenderness. Extremities: Trace edema b/l LE's, excluding the feet. Peripheral pulses 2+. Capillary refill less than 3 seconds. NEUROLOGICAL: Cranial nerves grossly intact. Normal speech, normal gait. Normal sensory, motor exams PSYCH: Normal mood, normal affect. SKIN: Warm, Dry, normal turgor, no rashes or lesions noted. Course - Re-evaluation Re-evalutation: 01/13/17 08:30 Patient is an afebrile, well-hydrated, 61-year-old female who presents the ED with right foot pain, suspect gout and bilateral lower extremity trace pitting edema which is suspected to be venous insufficiency. Vitals are stable. PE is otherwise unremarkable. No imaging warranted at this time as patient had an x- ray 1 month ago. X-ray report showed osteo process, bone spurs. Low suspicion/ risk for any DVT, septic joint, osteomyelitis, fracture, dislocation, tendon/ ligament rupture. Patient is aware that her condition can change from initial presentation and she needs to monitor symptoms closely and seek medical attention with any acute changes. Patient states that she is not allergic to prednisone and that she has had a Medrol Dosepak without any difficulties. Toradol 15 mg given IM today. I will send her home with a steroids for 4 days. Patient to follow-up with PCM in 2-3 days for recheck/recheck of INR. Risks and benefits are understood the medications given today. Return to the ED with any worsening/concerning symptoms otherwise as reviewed discharge. Patient is in agreement. - Vital Signs Vital signs: Temp Pulse Resp BP Pulse Ox 98.7 F 71 16 168/63 H 96 01/13/17 06:37 01/13/17 06:37 01/13/17 06:37 01/13/17 06:37 01/13/17 06:37 Discharge - Discharge Clinical Impression: Foot pain, right Condition: Stable Disposition: HOME, SELF-CARE Instructions: Gout ([facility]), Gout Diet ([facility]) Additional Instructions: Rest, Ice, Compression, Elevation Use carole-wrap/compression stockings as reviewed Tylenol as needed Light stretches daily Strength exercises as able Moist heat and massage may help Epsom salt soaks may help F/u with your PCP in 2-3 days for a recheck and recheck of your INR Consider consult(s) with Orthopedics/phy sical therapy/Podiatry for ongoing/ worsening symptoms Return to the ED with any worsening symptoms and/or development of fever, headache, chest pain, palpitations, syncope, shortness of breath, trouble breathing, abdominal pain, n/v/d, muscle weakness/paralysis, numbness/tingling, swelling, redness, or other worsening symptoms that are concerning to you. Prescriptions: Diclofenac Sodium [Voltaren] 4 gm TP QID PRN #100 gel..gm. PRN Reason: Prednisone [Deltasone 10 mg Tablet] 10 mg PO ASDIR PRN #21 tablet PRN Reason: Forms: Elevated Blood Pressure Referrals: [facility] [Provider Group] - Follow up as needed [facility] [Provider Group] - Follow up as needed [facility] [Provider Group] - 01/15/17
[2017-01-13 09:04] VITALS: BP 115/77
== END 2017-01-13 09:05 | disposition home or self-care (01) ==
LOC: ER 06:33
DX: M25.571 Pain in right ankle and joints of right foot (principal); M79.671 Pain in right foot; R60.0 Localized edema; M77.9 Enthesopathy, unspecified; I25.10 Atherosclerotic heart disease of native coronary artery without angina pectoris; I25.2 Old myocardial infarction; I10 Essential (primary) hypertension; J44.9 Chronic obstructive pulmonary disease, unspecified; Z79.01 Long term (current) use of anticoagulants; Z95.1 Presence of aortocoronary bypass graft; Z95.5 Presence of coronary angioplasty implant and graft; Z95.2 Presence of prosthetic heart valve; Z88.1 Allergy status to other antibiotic agents; Z88.8 Allergy status to other drugs, medicaments and biological substances
CPT/HCPCS: 99283; 96372; J1885

== ENCOUNTER → 2017-01-19 | Outpatient (CLI) | payer MEDICARE ==
[2017-01-19 17:56] LABS: PROTHROMBIN TIME 32.7 SEC (11.4-15.4)
== END ==
LOC: OD 17:04
PROVIDERS: ATTEND Family Medicine Geriatric Medicine
DX: I25.10 Atherosclerotic heart disease of native coronary artery without angina pectoris (principal); I05.9 Rheumatic mitral valve disease, unspecified
CPT/HCPCS: 36415; 85610

== ENCOUNTER 2017-04-23 09:30 | Emergency (ER) | payer MEDICARE ==
--- NOTE | 2017-04-23 09:58 | ER Document Report ---
ED Medical Screen (RME) - General Mode of Arrival: Ambulatory Information source: Patient TRAVEL OUTSIDE OF THE [place] IN LAST 30 DAYS: No <MARY TYLER - Last Filed: 04/23/17 10:08> <RICH BENAVIDES - Last Filed: 04/23/17 14:36> - General Chief Complaint: Abnormal Lab Results Stated Complaint: ABNORMAL LABS Time Seen by Provider: 04/23/17 09:53 Notes: 62-year-old female presenting with complaints of elevated INR. Patient had blood drawn yesterday and was found to have an INR of 5.5. Patient is on blood thinners secondary to mechanical mitral valve. Patient mentions she has had difficulty with word finding and intermittent headaches for the last few weeks. (MARY TYLER) - Related Data Allergies/Adverse Reactions: erythromycin base [Erythromycin Base] Allergy (Verified 05/27/16 13:02) ondansetron [From Zofran (as hydrochloride)] Allergy (Verified 05/27/16 13:02) prednisone Adverse Reaction (Intermediate, Verified 10/01/16 22:19) GI upset Past Medical History - General Information source: [facility] Records - Social History Chew tobacco use (# tins/day): No Frequency of alcohol use: None Drug Abuse: None - Past Medical History Cardiac Medical History: Reports: Hx Congestive Heart Failure - History of heart Failure, Hx Coronary Artery Disease, Hx Heart Attack, Hx Hypercholesterolemia, Hx Hypertension Pulmonary Medical History: Reports: Hx Asthma, Hx COPD, Hx Pneumonia Neurological Medical History: Denies: Hx Seizures Renal/ Medical History: Reports: Hx Kidney Stones, Hx Renal Insufficiency Musculoskeltal Medical History: Reports Hx Arthritis Psychiatric Medical History: Reports: Hx Anxiety Past Surgical History: Reports: Hx Appendectomy, Hx Cardiac Catheterization, Hx Cardiac Surgery - stent in and open heart in , Hx Carotid Endarterectomy - LEFT, Hx Section - x2, Hx Cholecystectomy, Hx Coronary Artery Bypass Graft - September 2016, Hx Coronary Stent - 2007, Hx Hysterectomy, Hx Pacemaker - September 2016, Hx Valve Replacement - Mitral valve, September 2016, Hx Vascular Surgery - Left Carotidendarterectomy - Immunizations Hx Diphtheria, Pertussis, Tetanus Vaccination: Yes <MARY TYLER - Last Filed: 04/23/17 10:08> Review of Systems - Review of Systems Constitutional: See HPI, Other - elevated INR Neurological/Psychological: See HPI, Headaches <MARY TYLER - Last Filed: 04/23/17 10:08> Physical Exam - Respiratory Respiratory status: No respiratory distress Chest status: Nontender Breath sounds: Normal Chest palpation: Normal - Cardiovascular Rhythm: Regular Heart sounds: Normal auscultation Murmur: No <MARY TYLER - Last Filed: 04/23/17 10:08> - Vital signs Vitals: Temp Pulse Resp BP Pulse Ox 98.4 F 82 12 110/69 97 04/23/17 09:39 04/23/17 09:39 04/23/17 09:39 04/23/17 09:39 04/23/17 09:39 Course - Laboratory Result Diagrams: 04/23/17 10:30 04/23/17 12:40 - Diagnostic Test Radiology reviewed: Image reviewed, Reports reviewed - CT of the patient's brain is normal. - EKG Interpretation by Me Rate: Normal - Patient has an atrioventricular dual paced rhythm at 72 bpm. <RICH BENAVIDES - Last Filed: 04/23/17 14:36> - Vital Signs Vital signs: Temp Pulse Resp BP Pulse Ox 98.4 F 82 12 110/69 97 04/23/17 09:39 04/23/17 09:39 04/23/17 09:39 04/23/17 09:39 04/23/17 09:39 - Laboratory Laboratory results interpreted by me: 04/23/17 04/23/17 04/23/17 10:30 11:17 12:40 RDW 14.7 H PT 42.2 H Est GFR (Non-Af Amer) 53 L Scribe Documentation - Scribe Written by Scribe:: Katy Anna, 04/23/2017 [id number] acting as scribe for :: Alberto <MARY TYLER - Last Filed: 04/23/17 10:08>
--- NOTE | 2017-04-23 10:57 | RADIOLOGY REPORT (SQ) ---
EXAM DESCRIPTION: CT HEAD WITHOUT COMPLETED DATE/TIME: 04/23/2017 10:46 am REASON FOR STUDY: VAIL COMPARISON: 10/23/2016 TECHNIQUE: Axial images acquired through the brain without intravenous contrast. Images reviewed wi th bone, brain and subdural windows. Images stored on PACS. All CT scanners at this facility use dose modulation, iterative reconstruction, and/or weight based d osing when appropriate to reduce radiation dose to as low as reasonably achievable (ALARA). [facility]: Dose Right [facility]: CareDose [facility]: Dose Right [facility]: Teradose 4D [facility]: Smart Q-Bot RADIATION DOSE: CT Rad equipment meets quality standard of care and radiation dose reduction techniq ues were employed. CTDIvol: 64.6 mGy. DLP: 1034 mGy-cm. mGy. LIMITATIONS: None. FINDINGS: VENTRICLES: Prominent. CEREBRUM: No masses. No hemorrhage. No midline shift. Areas of low density in the white matter mos t likely due to chronic micro-vascular ischemic change. No evidence for acute infarction. CEREBELLUM: No masses. No hemorrhage. No alteration of density. No evidence for acute infarction. EXTRAAXIAL SPACES: Mild age-related involutional change. No fluid collections. No masses. ORBITS AND GLOBE: No intra- or extraconal masses. Normal contour of globe without masses. CALVARIUM: No fracture. PARANASAL SINUSES: No fluid or mucosal thickening. SOFT TISSUES: No mass or hematoma. OTHER: No other significant finding. IMPRESSION: NO ACUTE INTRACRANIAL PROCESS. NO SIGNIFICANT CHANGE FROM PRIOR STUDY. EVIDENCE OF ACUTE STROKE: NO. TECHNICAL DOCUMENTATION: JOB ID: [id number] Quality ID # [id number]: Final reports with documentation of one or more dose reduction techniques (e.g., Au tomated exposure control, adjustment of the mA and/or kV according to patient size, use of iterative reconstruction technique) 2010 [employer]- All Rights Reserved
[2017-04-23 11:00] LABS: ABSOLUTE BASOPHILS # (AUTO) 0.1 10^3/uL (0.0-0.2); ABSOLUTE EOSINOPHILS # (AUTO) 0.2 10^3/uL (0.0-0.6); ABSOLUTE LYMPHOCYTES (AUTO) 2.1 10^3/uL (0.5-4.7); ABSOLUTE MONOCYTES (AUTO) 0.7 10^3/uL (0.1-1.4); ABSOLUTE NEUT (AUTO) 5.1 10^3/uL (1.7-8.2); EOSINOPHILS % (AUTO) 2.4 % (0-6); HEMATOCRIT 41.3 % (36.0-47.0); LYMPHOCYTES % (AUTO) 25.4 % (13-45); MEAN CORPUSCULAR HEMOGLOBIN 31.8 pg (27.0-33.4); MEAN CORPUSCULAR HGB CONC 33.9 g/dL (32.0-36.0); MEAN CORPUSCULAR VOLUME 94 fl (80-97); MONOCYTES % (AUTO) 8.1 % (3-13); PLATELET COUNT 322 10^3/uL (150-450); RED CELL DISTRIBUTION WIDTH 14.7 % (11.5-14.0); SEGMENTED NEUTROPHILS % (AUTO) 63.1 % (42-78); TOTAL CELLS COUNTED % (AUTO) 100 %; WHITE BLOOD COUNT 8.1 10^3/uL (4.0-10.5)
[2017-04-23 11:54] LABS: INTERNATIONAL RATION (INR) 4.19; PROTHROMBIN TIME 42.2 SEC (11.4-15.4)
[2017-04-23] MEDS ORDERED: TRAMADOL HCL 50 MG TABLET PO ONE (12:25)
[2017-04-23 13:25] LABS: ANION GAP 7 (5-19); BLOOD UREA NITROGEN 16 mg/dL (7-20); CALCIUM 9.7 mg/dL (8.4-10.2); CARBON DIOXIDE 30 mmol/L (22-30); CHLORIDE 102 mmol/L (98-107); GLUCOSE 95 mg/dL (75-110); POTASSIUM 4.4 mmol/L (3.6-5.0); SODIUM 138.5 mmol/L (137-145)
--- NOTE | 2017-04-23 14:41 | ER Document Report ---
ED General - General Chief Complaint: Abnormal Lab Results Stated Complaint: ABNORMAL LABS Time Seen by Provider: 04/23/17 09:53 Mode of Arrival: Ambulatory Notes: Patient has had a right-sided headache for the past couple of weeks. She has been experiencing episodes of confusion and difficulty with her speech. These episodes are happening about 1-3 times per day. She went to see her primary care physician yesterday who thought she might be having a TIA and wanted to get a CT of the patient's head. The patient is on Coumadin for a mechanical heart valve and they ankur an INR yesterday and it came back over 5 today so the office called and told her to come to the emergency room. Patient denies any other neurologic symptoms or deficits. TRAVEL OUTSIDE OF THE [place] IN LAST 30 DAYS: No - Related Data Allergies/Adverse Reactions: erythromycin base [Erythromycin Base] Allergy (Verified 05/27/16 13:02) ondansetron [From Zofran (as hydrochloride)] Allergy (Verified 05/27/16 13:02) prednisone Adverse Reaction (Intermediate, Verified 10/01/16 22:19) GI upset Past Medical History - General Information source: [facility] Records - Social History Smoking Status: Former Smoker Chew tobacco use (# tins/day): No Frequency of alcohol use: None Drug Abuse: None Family History: None, Reviewed & Not Pertinent Patient has suicidal ideation: No Patient has homicidal ideation: No - Past Medical History Cardiac Medical History: Reports: Hx Congestive Heart Failure - History of heart Failure, Hx Coronary Artery Disease, Hx Heart Attack, Hx Hypercholesterolemia, Hx Hypertension Pulmonary Medical History: Reports: Hx Asthma, Hx COPD, Hx Pneumonia Renal/ Medical History: Reports: Hx Kidney Stones, Hx Renal Insufficiency Musculoskeltal Medical History: Reports Hx Arthritis Psychiatric Medical History: Reports: Hx Anxiety Past Surgical History: Reports: Hx Appendectomy, Hx Cardiac Catheterization, Hx Cardiac Surgery - stent in 08 and open heart in , Hx Carotid Endarterectomy - LEFT, Hx Section - x2, Hx Cholecystectomy, Hx Coronary Artery Bypass Graft - September 2016, Hx Coronary Stent - 2007, Hx Hysterectomy, Hx Pacemaker - September 2016, Hx Valve Replacement - Mitral valve, September 2016, Hx Vascular Surgery - Left Carotidendarterectomy - Immunizations Hx Diphtheria, Pertussis, Tetanus Vaccination: Yes Hx Pneumococcal Vaccination: 04/04/14 Review of Systems - Review of Systems Notes: REVIEW OF SYSTEMS: CONSTITUTIONAL : Denies fever. EENT: Denies eye, ear, nose or mouth or throat pain or other symptoms. CARDIOVASCULAR: Denies chest pain. RESPIRATORY: Denies cough, chest congestion, or shortness of breath. GASTROINTESTINAL: Denies abdominal pain or nausea, vomiting, or diarrhea. GENITOURINARY: Denies difficulty or painful urinating, urinary frequency, blood in urine. MUSCULOSKELETAL: Denies back or neck pain. Denies joint pain or swelling. SKIN: Denies rash or skin lesions. NEUROLOGICAL: Denies LOC or altered mental status. See HPI regarding headache. Denies sensory loss or motor deficits. ALL OTHER SYSTEMS REVIEWED AND NEGATIVE. Physical Exam - Vital signs Vitals: Temp Pulse Resp BP Pulse Ox 98.4 F 82 12 110/69 97 04/23/17 09:39 04/23/17 09:39 04/23/17 09:39 04/23/17 09:39 04/23/17 09:39 Interpretation: Normal - Notes Notes: PHYSICAL EXAMINATION: GENERAL: Well-appearing, in no acute distress. HEAD: Atraumatic, normocephalic. EYES: Pupils equal round and reactive to light, extraocular movements intact. ENT: oropharynx clear without exudates. Moist mucous membranes. NECK: Normal range of motion, supple. LUNGS: Breath sounds clear and equal bilaterally. HEART: Regular rate and rhythm without murmurs. ABDOMEN: Soft, nontender. No guarding or rebound. No masses. BACK: No tenderness throughout entire back. EXTREMITIES: Normal range of motion without pain. NEUROLOGICAL: Normal speech, normal gait. Normal sensory, motor, and reflex exams. Awake, alert, and oriented x3. Cranial nerves normal. SKIN: Warm, dry, no rashes. Course - Vital Signs Vital signs: Temp Pulse Resp BP Pulse Ox 98.3 F 81 18 143/65 H 98 04/23/17 14:54 04/23/17 14:54 04/23/17 14:54 04/23/17 14:54 04/23/17 14:54 - Laboratory Result Diagrams: 04/23/17 10:30 04/23/17 12:40 Laboratory results interpreted by me: 04/23/17 04/23/17 04/23/17 10:30 11:17 12:40 RDW 14.7 H PT 42.2 H Est GFR (Non-Af Amer) 53 L - Diagnostic Test Radiology reviewed: Image reviewed, Reports reviewed - CT scan of the brain is normal. - EKG Interpretation by Me Rate: Normal Additional EKG results interpreted by me: 04/23/17 21:50 Patient's EKG shows a paced cardiac rhythm. Discharge - Discharge Clinical Impression: Over-anticoagulated Condition: Stable Disposition: HOME, SELF-CARE Additional Instructions: Over anticoagulation with warfarin. Your INR level was 4.19. It should be below 3.5. If you skip 1 dose of your Coumadin, the value of the INR should return below 3.5 as desired. I advised you to hold her dose of warfarin tonight and then resume taking it like you have been tomorrow night. Follow-up with Dr. Charlton Tuesday or Tuesday for a repeat INR at that time. Otherwise, you had a NORMAL EXAM AND WORKUP: At this time, your examination and workup show no significant abnormality. No significant abnormal physical findings were noted. All laboratory, EKG, and imaging (x-ray, CT scans, ultrasound) studies that were ordered show no significant abnormality. Although your examination and all studies that were ordered showed no significant abnormal finding, there are no examinations and no studies that are 100% accurate. There is always the possibility that some abnormality could exist and not be detected with physical examination or within the limits and capabilities of laboratory and other studies. You should return or follow up as you were instructed on your visit today for further evaluation if your symptoms do not resolve. Your lab studies were essentially normal. Your CT scan of your brain was normal. Your EKG shows your pacemaker working fine. Referrals: MANOHAR CHARLTON MD [Primary Care Provider] - Follow up as needed
[2017-04-23 14:55] VITALS: BP 143/65
--- NOTE | 2017-04-23 22:13 | EKG REPORT ---
SEVERITY:- ABNORMAL ECG - ATRIAL-VENTRICULAR DUAL-PACED COMPLEXES : Confirmed by: Guanaco Foley 23-Apr-2017 22:12:53
== END 2017-04-23 14:57 | disposition home or self-care (01) ==
LOC: ER 09:30
DX: R79.1 Abnormal coagulation profile (principal); R41.0 Disorientation, unspecified; Z79.01 Long term (current) use of anticoagulants; Z87.891 Personal history of nicotine dependence
CPT/HCPCS: 93005; 99284; 36415; 85025; 85610; 80048; 70450; 93010; A9270

== ENCOUNTER 2017-04-29 16:13 | Emergency (ER) | payer MEDICARE ==
[2017-04-29] MEDS ORDERED: ACETAMINOPHEN 325 MG TABLET PO ONE (16:48)
[2017-04-29] MEDS ORDERED: DIPHENHYDRAMINE HCL 25 MG CAPSULE PO ONE (16:48)
[2017-04-29] MEDS ORDERED: PROCHLORPERAZINE MALEATE 5 MG TABLET PO ONE (16:48)
--- NOTE | 2017-04-29 16:52 | ER Document Report ---
ED Medical Screen (RME) - General Chief Complaint: Syncope Stated Complaint: HEADACHE Time Seen by Provider: 04/29/17 16:38 Notes: 62-year-old female patient brought to emergency room after what sounds like a seizure at home with postictal confusion, combative with EMS, and after "coming around", bad headache across the front of her head. She was witnessed to have shaking at home, followed by syncope. She states she does recall possibly having a phone and dial 911, she does not remember anything after that until after she "came around". She does have mechanical valve and is on Coumadin. She was seen here on 04/23/2017 complaining of right-sided headache, confusion and speech difficulty. She reports at that time she would get the headaches after an episode of being confused or not really recalling what was going on. Her INR on that day was 4.19 There is unlikely her symptoms were TIA or stroke related due to the high INR at that time, but given the complaints on that day and the history what occurred today, her history is quite suspicious for having seizures with postictal phase. At this time she is neurologically normal but is a little tearful and upset due to not knowing what happened at home today. There is no head injury reported. I have greeted and performed a rapid initial assessment of this patient. A comprehensive ED assessment and evaluation of the patient, analysis of test results and completion of the medical decision making process will be conducted by additional ED providers. TRAVEL OUTSIDE OF THE [place] IN LAST 30 DAYS: No - Related Data Allergies/Adverse Reactions: erythromycin base [Erythromycin Base] Allergy (Verified 04/29/17 16:19) ondansetron [From Zofran (as hydrochloride)] Allergy (Verified 04/29/17 16:19) prednisone Adverse Reaction (Intermediate, Verified 04/29/17 16:19) GI upset Past Medical History - Social History Frequency of alcohol use: None Drug Abuse: None - Past Medical History Cardiac Medical History: Reports: Hx Congestive Heart Failure - History of heart Failure, Hx Coronary Artery Disease, Hx Heart Attack, Hx Hypercholesterolemia, Hx Hypertension Denies: Hx DVT, Hx Pulmonary Embolism Pulmonary Medical History: Reports: Hx Asthma, Hx COPD, Hx Pneumonia Denies: Hx Sleep Apnea, Hx Tuberculosis Neurological Medical History: Denies: Hx Seizures Endocrine Medical History: Denies: Hx Diabetes Mellitus Type 1, Hx Diabetes Mellitus Type 2, Hx Hyperthyroidism, Hx Hypothyroidism Renal/ Medical History: Reports: Hx Kidney Stones, Hx Renal Insufficiency. Denies: Hx Peritoneal Dialysis GI Medical History: Denies: Hx Cirrhosis, Hx Gastroesophageal Reflux Disease, Hx Hepatitis Musculoskeltal Medical History: Reports Hx Arthritis Psychiatric Medical History: Reports: Hx Anxiety Denies: Hx Depression Infectious Medical History: Denies: Hx C-Diff, Hx Hepatitis, Hx MRSA Past Surgical History: Reports: Hx Appendectomy, Hx Cardiac Catheterization, Hx Cardiac Surgery - stent in and open heart in , Hx Carotid Endarterectomy - LEFT, Hx Section - x2, Hx Cholecystectomy, Hx Coronary Artery Bypass Graft - September 2016, Hx Coronary Stent - 2007, Hx Hysterectomy, Hx Pacemaker - September 2016, Hx Valve Replacement - Mitral valve, September 2016, Hx Vascular Surgery - Left Carotidendarterectomy - Immunizations Hx Diphtheria, Pertussis, Tetanus Vaccination: Yes Physical Exam - Vital signs Vitals: Temp Pulse BP Pulse Ox 97.8 F 78 168/66 H 98 04/29/17 16:33 04/29/17 16:33 04/29/17 16:33 04/29/17 16:33 Course - Vital Signs Vital signs: Temp Pulse Resp BP Pulse Ox 97.8 F 78 168/66 H 98 04/29/17 16:33 04/29/17 16:33 04/29/17 16:33 04/29/17 16:33
[2017-04-29 17:35] LABS: ALANINE AMINOTRANSFERASE 27 U/L (9-52); ALBUMIN 4.6 g/dL (3.5-5.0); ALKALINE PHOSPHATASE 129 U/L (38-126); ANION GAP 8 (5-19); ASPARTATE AMINO TRANSFERASE 22 U/L (14-36); BILIRUBIN,DIRECT 0.3 mg/dL (0.0-0.4); BILIRUBIN,TOTAL 0.4 mg/dL (0.2-1.3); BLOOD UREA NITROGEN 20 mg/dL (7-20); CALCIUM 10.3 mg/dL (8.4-10.2); CARBON DIOXIDE 26 mmol/L (22-30); CHLORIDE 102 mmol/L (98-107); GLUCOSE 87 mg/dL (75-110); POTASSIUM 4.3 mmol/L (3.6-5.0); SODIUM 135.5 mmol/L (137-145); TOTAL PROTEIN 7.3 g/dL (6.3-8.2)
[2017-04-29 17:40] LABS: INTERNATIONAL RATION (INR) 1.85; PROTHROMBIN TIME 22.4 SEC (11.4-15.4)
--- NOTE | 2017-04-29 18:53 | RADIOLOGY REPORT (SQ) ---
EXAM DESCRIPTION: CT HEAD WITHOUT COMPLETED DATE/TIME: 04/29/2017 6:39 pm REASON FOR STUDY: new onset seizure, headache COMPARISON: 04/23/2017 TECHNIQUE: Axial images acquired through the brain without intravenous contrast. Images reviewed wi th bone, brain and subdural windows. Images stored on PACS. All CT scanners at this facility use dose modulation, iterative reconstruction, and/or weight based d osing when appropriate to reduce radiation dose to as low as reasonably achievable (ALARA). [facility]: Dose Right [facility]: CareDose [facility]: Dose Right [facility]: Teradose 4D [facility]: Smart BioNova RADIATION DOSE: CT Rad equipment meets quality standard of care and radiation dose reduction techniq ues were employed. CTDIvol: 64.6 mGy. DLP: 1163 mGy-cm. mGy. LIMITATIONS: None. FINDINGS: VENTRICLES: Normal size and contour. CEREBRUM: No masses. No hemorrhage. No midline shift. No evidence for acute infarction. Minimal ch ronic small vessel ischemic disease. CEREBELLUM: No masses. No hemorrhage. No alteration of density. No evidence for acute infarction. EXTRAAXIAL SPACES: No fluid collections. No masses. ORBITS AND GLOBE: No intra- or extraconal masses. Normal contour of globe without masses. CALVARIUM: No fracture. PARANASAL SINUSES: No fluid or mucosal thickening. SOFT TISSUES: No mass or hematoma. OTHER: No other significant finding. IMPRESSION: 1. No evidence of acute event. 2. Minimal chronic small vessel ischemic disease involving the white matter. EVIDENCE OF ACUTE STROKE: NO. COMMENT: Quality ID # [id number]: Final reports with documentation of one or more dose reduction techniques (e.g., Automated exposure control, adjustment of the mA and/or kV according to patient size, use of iterative reconstruction technique) TECHNICAL DOCUMENTATION: JOB ID: [id number] [employer]- All Rights Reserved
[2017-04-29 19:13] LABS: ABSOLUTE BASOPHILS # (AUTO) 0.1 10^3/uL (0.0-0.2); ABSOLUTE EOSINOPHILS # (AUTO) 0.3 10^3/uL (0.0-0.6); ABSOLUTE LYMPHOCYTES (AUTO) 2.1 10^3/uL (0.5-4.7); ABSOLUTE MONOCYTES (AUTO) 0.7 10^3/uL (0.1-1.4); BASOPHILS % (AUTO) 0.9 % (0-2); EOSINOPHILS % (AUTO) 3.3 % (0-6); HEMATOCRIT 38.7 % (36.0-47.0); LYMPHOCYTES % (AUTO) 25.5 % (13-45); MEAN CORPUSCULAR HEMOGLOBIN 31.9 pg (27.0-33.4); MEAN CORPUSCULAR HGB CONC 33.5 g/dL (32.0-36.0); MEAN CORPUSCULAR VOLUME 95 fl (80-97); MONOCYTES % (AUTO) 8.2 % (3-13); PLATELET COUNT 263 10^3/uL (150-450); RED BLOOD COUNT 4.07 10^6/uL (3.72-5.28); RED CELL DISTRIBUTION WIDTH 14.9 % (11.5-14.0); SEGMENTED NEUTROPHILS % (AUTO) 62.1 % (42-78); TOTAL CELLS COUNTED % (AUTO) 100 %; WHITE BLOOD COUNT 8.1 10^3/uL (4.0-10.5)
[2017-04-29] MEDS ORDERED: PROCHLORPERAZINE EDISYLATE INJ 10 MG/2 ML VIAL IV ONE (20:20)
[2017-04-29] MEDS ORDERED: NORMAL SALINE 1000 ML 1,000 ML IV ONE (20:20)
--- NOTE | 2017-04-29 20:23 | ER Document Report ---
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 Patient reports that today when she was sitting on the couch she apparently became lightheaded and when her son walked into the room she appeared confused, disoriented and was apparently trying to dial 911. Patient denies any history of similar episodes in the past. She does remember the entirety of the events stating that she does remember feeling very shaky and feeling like she needed to call the paramedics to her home. Apparently after resolution of her shaking episode she developed a severe, constant bitemporal headache. Nothing improves or worsen the headache. She denies a history of similar headaches in the past. The patient reports that last evening she had an episode when she became lightheaded , diaphoretic felt nauseated and about to pass out. She states that she laid in bed after approximately 20 minutes her symptoms did resolve. Currently at time of my assessment the patient only complains of a mild headache as described above although she states that it has eased off quite a lot. She denies any chest pain, shortness of breath, limitations, abdominal pain, vomiting or diaphoresis. Her at the bedside states that she is now acting at her baseline. She has not contacted her primary care doctor or fan engine engineer regarding today's episode. TRAVEL OUTSIDE OF THE [place] IN LAST 30 DAYS: No - Related Data Allergies/Adverse Reactions: erythromycin base [Erythromycin Base] Allergy (Verified 04/29/17 16:19) ondansetron [From Zofran (as hydrochloride)] Allergy (Verified 04/29/17 16:19) prednisone Adverse Reaction (Intermediate, Verified 04/29/17 16:19) GI upset Past Medical History - General Information source: Patient - Social History Smoking Status: Former Smoker Frequency of alcohol use: None Drug Abuse: None Lives with: Spouse/Significant other Family History: None, Reviewed & Not Pertinent Patient has suicidal ideation: No Patient has homicidal ideation: No - Past Medical History Cardiac Medical History: Reports: Hx Congestive Heart Failure - History of heart Failure, Hx Coronary Artery Disease, Hx Heart Attack, Hx Hypercholesterolemia, Hx Hypertension Denies: Hx DVT, Hx Pulmonary Embolism Pulmonary Medical History: Reports: Hx Asthma, Hx COPD, Hx Pneumonia Denies: Hx Sleep Apnea, Hx Tuberculosis Neurological Medical History: Denies: Hx Seizures Endocrine Medical History: Denies: Hx Diabetes Mellitus Type 1, Hx Diabetes Mellitus Type 2, Hx Hyperthyroidism, Hx Hypothyroidism Renal/ Medical History: Reports: Hx Kidney Stones, Hx Renal Insufficiency. Denies: Hx Peritoneal Dialysis GI Medical History: Denies: Hx Cirrhosis, Hx Gastroesophageal Reflux Disease, Hx Hepatitis Musculoskeltal Medical History: Reports Hx Arthritis Psychiatric Medical History: Reports: Hx Anxiety Denies: Hx Depression Infectious Medical History: Denies: Hx C-Diff, Hx Hepatitis, Hx MRSA Past Surgical History: Reports: Hx Appendectomy, Hx Cardiac Catheterization, Hx Cardiac Surgery - stent in and open heart in , Hx Carotid Endarterectomy - LEFT, Hx Section - x2, Hx Cholecystectomy, Hx Coronary Artery Bypass Graft - September 2016, Hx Coronary Stent - 2007, Hx Hysterectomy, Hx Pacemaker - September 2016, Hx Valve Replacement - Mitral valve, September 2016, Hx Vascular Surgery - Left Carotidendarterectomy - Immunizations Hx Diphtheria, Pertussis, Tetanus Vaccination: Yes Hx Pneumococcal Vaccination: 04/04/14 Review of Systems - Review of Systems Notes: Constitutional: Negative for fever. HENT: Negative for sore throat. Eyes: Negative for visual changes. Cardiovascular: Negative for chest pain. Respiratory: Negative for shortness of breath. Gastrointestinal: Negative for abdominal pain, vomiting or diarrhea. Genitourinary: Negative for dysuria. Musculoskeletal: Negative for back pain. Skin: Negative for rash. Neurological: Positive for headache 10 point ROS negative except as marked above and in HPI. Physical Exam - Vital signs Vitals: Temp Pulse BP Pulse Ox 97.8 F 78 168/66 H 98 04/29/17 16:33 04/29/17 16:33 04/29/17 16:33 04/29/17 16:33 Interpretation: Hypertensive Notes: PHYSICAL EXAMINATION: GENERAL: Well-appearing, well-nourished and in no acute distress. HEAD: Atraumatic, normocephalic. EYES: Pupils equal round and reactive to light, extraocular movements intact, sclera anicteric, conjunctiva are normal. ENT: nares patent, oropharynx clear without exudates. Moderately dry mucous membranes. NECK: Normal range of motion, supple without lymphadenopathy LUNGS: Breath sounds clear to auscultation bilaterally and equal. No wheezes rales or rhonchi. HEART: Regular rate and rhythm, mechanical click present ABDOMEN: Soft, nontender, normoactive bowel sounds. No guarding, no rebound. No masses appreciated. EXTREMITIES: Normal range of motion, no pitting or edema. No cyanosis. NEUROLOGICAL: No focal neurological deficits. Moves all extremities spontaneously and on command. PSYCH: Normal mood, normal affect. SKIN: Warm, Dry, normal turgor, no rashes or lesions noted. Course - Re-evaluation Re-evalutation: 04/29/17 20:21 Patient presents with what appears most clinically consistent with an acute syncopal episode. Patient's clinical history is not consistent with a seizure. It sounds as though she had generalized jerking in all 4 extremities but was conscious during this episode, recalls trended down 911 and feeling very confused. By definition this cannot be a generalized seizure and patient does report symptoms on both sides of her body making a partial seizure likely highly improbable based on clinical history. A CT the head was immediately obtained as patient did have an acute onset of a headache afterwards. This was obtained within 6 hours of onset of the patient's headache to evaluate for possible acute subarachnoid hemorrhage or intracranial bleed. CT is unremarkable and no lumbar puncture will be required to further exclude an acute subarachnoid hemorrhage as a CT was obtained within 6 hours of the onset of her headache. My primary concern is that patient is having a dysrhythmia that is causing her syncopal episodes. Patient relates that she also had an episode last night in which she had a near syncope. She does have a [employer] pacer in place and given today's episode as well as the episode last night, I will interrogate the pacer to further evaluate for the rhythm during these episodes. Her EKG here shows an atrial paced rhythm. She denies any chest pain. She does report that over the last several days she has felt more short of breath, had less energy to do things she normally can do without difficulty. Is also rains's the concern for possible CHF picture but patient does not have any stigmata of this on examination. Likewise I do not suspect an acute stroke today as patient has no focal neurologic deficits on examination and this to be a highly unusual presentation of a stroke event. This is equally true for a TIA. Will obtain interrogation, treat patient's headache, obtained several additional labs and then plan to speak with the cardiology were patient had her pacemaker and mitral valve replacement completed. 04/29/17 23:24 Patient has had complete resolution of her headache. She states she feels much better. I did speak with the fan engine engineer on-call at [place], , and reviewed the patient's case with him. He agrees that the patient is appropriate for discharge given that the interrogation of her pacemaker did not show any concerning dysrhythmias and all of her remaining workup has remained unremarkable. Patient although initially had denied any medication changes, on reexamination now does note that she was restarted on losartan 3 weeks ago and she had forgot about this earlier. She also has had a notable increase in headaches fatigue and these syncopal episodes since restarting this medication. Of note the patient would normally be scheduled to take the medicine right now , and her current blood pressure is only 113 systolic. This may very well be the origin of the patient's symptoms. At this time I do not suspect any acute pathology as the etiology of today's presentation. I discussed at length with the and patient my diagnostic evaluation and they are very comfortable with discharge home. At this time will discharge with return precautions and follow-up recommendations. Verbal discharge instructions given a the bedside and opportunity for questions given. Medication warnings reviewed. Patient is in agreement with this plan and has verbalized understanding of return precautions and the need for primary care follow-up in the next 24-72 hours. - Vital Signs Vital signs: Temp Pulse Resp BP Pulse Ox 97.8 F 78 16 113/49 L 94 04/30/17 00:00 04/29/17 16:33 04/29/17 23:01 04/29/17 23:01 04/29/17 23:01 - Laboratory Result Diagrams: 04/29/17 19:00 04/29/17 17:00 Laboratory results interpreted by me: 04/29/17 04/29/17 04/29/17 17:00 17:00 19:00 RDW 14.9 H PT 22.4 H Sodium 135.5 L Est GFR (Non-Af Amer) 50 L Calcium 10.3 H Alkaline Phosphatase 129 H - Diagnostic Test Radiology reviewed: Image reviewed, Reports reviewed Radiology results interpreted by me: 04/29/17 23:26 CT head: No acute intracranial bleed Chest x-ray: No acute infiltrate or pneumothorax - EKG Interpretation by Me Additional EKG results interpreted by me: 04/29/17 23:26 Atrial sensed ventricular paced rhythm. Discharge - Discharge Clinical Impression: Valvular heart disease, Subtherapeutic international normalized ratio (INR) Syncope Qualifiers: Syncope type: unspecified Qualified Code(s): R55 - Syncope and collapse CHF (congestive heart failure) Qualifiers: Congestive heart failure type: unspecified Congestive heart failure chronicity : unspecified Qualified Code(s): I50.9 - Heart failure, unspecified Condition: Stable Disposition: HOME, SELF-CARE Additional Instructions: You were seen today after an episode of passing out. At this time, we do not feel that your episode of passing out was from any life-threatening cause. Please drink plenty of fluids over the next several days. The interrogation of your device is normal today does not show any concerning findings. The remainder of your labs, CT of her head, and chest x-ray are all reassuring. Return to emergency department if you have any further episodes of syncope, headache, weakness, numbness, chest pain, or shortness of breath. Please follow up closely with your primary care physician. Hold the losartan for at least the next 1 week and see if this improves your symptoms. Referrals: MANOHAR HINTON MD [Primary Care Provider] - Follow up as needed
--- NOTE | 2017-04-29 21:15 | RADIOLOGY REPORT (SQ) ---
EXAM DESCRIPTION: CHEST SINGLE VIEW COMPLETED DATE/TIME: 04/29/2017 8:42 pm REASON FOR STUDY: sob COMPARISON: 11/17/2016 EXAM PARAMETERS: NUMBER OF VIEWS: One view. TECHNIQUE: Single frontal radiographic view of the chest acquired. RADIATION DOSE: NA LIMITATIONS: None. FINDINGS: LUNGS AND PLEURA: No acute opacities, masses or pneumothorax. No pleural effusion. MEDIASTINUM AND HILAR STRUCTURES: Stable. HEART AND VASCULAR STRUCTURES: Stable. BONES: No acute findings. HARDWARE: Defibrillator. Sternotomy- AVR. OTHER: No other significant finding. IMPRESSION: NO ACUTE RADIOGRAPHIC FINDING IN THE CHEST. TECHNICAL DOCUMENTATION: JOB ID: [id number] [place]-72 2010 [employer]- All Rights Reserved
[2017-04-29 21:52] LABS: TROPONIN I 0.013 ng/mL
[2017-04-29 23:58] VITALS: BP 113/49
--- NOTE | 2017-05-01 11:55 | EKG REPORT ---
SEVERITY:- ABNORMAL ECG - ATRIAL-PACED COMPLEXES VENTRICULAR PREMATURE COMPLEX LEFT BUNDLE BRANCH BLOCK : Confirmed by: Cassie Darby MD 01-May-2017 11:54:39
== END 2017-04-30 00:10 | disposition home or self-care (01) ==
LOC: ER 16:13
DX: I25.10 Atherosclerotic heart disease of native coronary artery without angina pectoris (principal); R79.1 Abnormal coagulation profile; R55 Syncope and collapse; R51 Headache; I50.9 Heart failure, unspecified; E78.00 Pure hypercholesterolemia, unspecified; I11.0 Hypertensive heart disease with heart failure; J44.9 Chronic obstructive pulmonary disease, unspecified; Z95.2 Presence of prosthetic heart valve; Z79.02 Long term (current) use of antithrombotics/antiplatelets; Z88.3 Allergy status to other anti-infective agents; Z87.442 Personal history of urinary calculi; Z90.49 Acquired absence of other specified parts of digestive tract; Z90.710 Acquired absence of both cervix and uterus
CPT/HCPCS: 93005; 99285; 96361; 96374; 36415; 85025; 85610; 80053; 84484; 83880; 71045; 70450; 93010; A9270 ×2; J0780; J7030

== ENCOUNTER 2017-05-15 05:23 | Emergency (ER) | payer MEDICARE ==
--- NOTE | 2017-05-15 06:19 | ER Document Report ---
ED General - General Chief Complaint: Flu Symptoms Stated Complaint: FLU SYMPTOMS Time Seen by Provider: 05/15/17 06:08 Mode of Arrival: Ambulatory Information source: Patient Notes: 62-year-old female presents with URI symptoms. Patient notes that she was treated with Levaquin and Tamiflu for diagnosed pneumonia and influenza. Patient notes her INR has not been checked for 5 weeks because of her illnesses. She denies any fevers or chills admits to nonproductive cough which was initially brown in color but has significantly improved with antibiotics TRAVEL OUTSIDE OF THE [place] IN LAST 30 DAYS: No - HPI Onset: Other - 2-3 week duration Onset/Duration: Persistent, Better Quality of pain: Achy Severity: Mild Pain Level: 1 Associated symptoms: Body/muscle aches, Nonproductive cough, Shortness of breath Exacerbated by: Coughing Relieved by: Denies Similar symptoms previously: Yes Recently seen / treated by doctor: Yes - Related Data Allergies/Adverse Reactions: erythromycin base [Erythromycin Base] Allergy (Verified 04/29/17 16:19) ondansetron [From Zofran (as hydrochloride)] Allergy (Verified 04/29/17 16:19) prednisone Adverse Reaction (Intermediate, Verified 04/29/17 16:19) GI upset Past Medical History - Social History Smoking Status: Never Smoker Cigarette use (# per day): No Chew tobacco use (# tins/day): No Smoking Education Provided: No Family History: None, Reviewed & Not Pertinent - Past Medical History Cardiac Medical History: Reports: Hx Congestive Heart Failure - History of heart Failure, Hx Coronary Artery Disease, Hx Heart Attack, Hx Hypercholesterolemia, Hx Hypertension Denies: Hx DVT, Hx Pulmonary Embolism Pulmonary Medical History: Reports: Hx Asthma, Hx COPD, Hx Pneumonia Denies: Hx Sleep Apnea, Hx Tuberculosis Neurological Medical History: Denies: Hx Seizures Endocrine Medical History: Denies: Hx Diabetes Mellitus Type 1, Hx Diabetes Mellitus Type 2, Hx Hyperthyroidism, Hx Hypothyroidism Renal/ Medical History: Reports: Hx Kidney Stones, Hx Renal Insufficiency. Denies: Hx Peritoneal Dialysis GI Medical History: Denies: Hx Cirrhosis, Hx Gastroesophageal Reflux Disease, Hx Hepatitis Musculoskeltal Medical History: Reports Hx Arthritis Psychiatric Medical History: Reports: Hx Anxiety Denies: Hx Depression Infectious Medical History: Denies: Hx C-Diff, Hx Hepatitis, Hx MRSA Past Surgical History: Reports: Hx Appendectomy, Hx Cardiac Catheterization, Hx Cardiac Surgery - stent in 08 and open heart in 02, Hx Carotid Endarterectomy - LEFT, Hx Section - x2, Hx Cholecystectomy, Hx Coronary Artery Bypass Graft - September 2016, Hx Coronary Stent - 2008, Hx Hysterectomy, Hx Pacemaker - September 2016, Hx Valve Replacement - Mitral valve, September 2016, Hx Vascular Surgery - Left Carotidendarterectomy - Immunizations Hx Diphtheria, Pertussis, Tetanus Vaccination: Yes Hx Pneumococcal Vaccination: 04/04/14 Review of Systems - Review of Systems Notes: REVIEW OF SYSTEMS: CONSTITUTIONAL : Denies fever, chills, or sweats. Admits to recent illness EENT: Denies eye, ear, throat, or mouth pain or symptoms. Denies nasal or sinus congestion or discharge. Denies throat, tongue, or mouth swelling or difficulty swallowing. CARDIOVASCULAR: Denies chest pain. Denies palpitations or racing or irregular heart beat. Denies ankle edema. RESPIRATORY: Admits to cough congestion GASTROINTESTINAL: Denies abdominal pain or distention. Denies nausea, vomiting , or diarrhea. Denies blood in vomitus, stools, or per rectum. Denies black, tarry stools. Denies constipation. GENITOURINARY: Denies difficulty urinating, painful urination, burning, frequency, blood in urine, or discharge. FEMALE GENITOURINARY: Denies vaginal bleeding, heavy or abnormal periods, irregular periods. Denies vaginal discharge or odor. MUSCULOSKELETAL admits to body aches SKIN: Denies rash, lesions or sores. HEMATOLOGIC : Denies easy bruising or bleeding. LYMPHATIC: Denies swollen, enlarged glands. NEUROLOGICAL: Denies confusion or altered mental status. Denies passing out or loss of consciousness. Denies dizziness or lightheadedness. Denies headache. Denies weakness or paralysis or loss of use of either side. Denies problems with gait or speech. Denies sensory loss, numbness, or tingling. Denies seizures. PSYCHIATRIC: Denies anxiety or stress. Denies depression, suicidal ideation, or homicidal ideation. ALL OTHER SYSTEMS REVIEWED AND NEGATIVE. PHYSICAL EXAMINATION: GENERAL: Well-appearing, well-nourished and in no acute distress. HEAD: Atraumatic, normocephalic. EYES: Pupils equal round and reactive to light, extraocular movements intact, conjunctiva are normal. ENT: Nares patent, oropharynx clear without exudates. Moist mucous membranes. NECK: Normal range of motion, supple without lymphadenopathy LUNGS: Breath sounds clear to auscultation bilaterally and equal. No wheezes rales or rhonchi. HEART: Regular rate and rhythm without murmurs valve pacer ABDOMEN: Soft, nontender, nondistended abdomen. No guarding, no rebound. No masses appreciated. Female : deferred Musculoskeletal: Normal range of motion, no pitting or edema. No cyanosis. NEUROLOGICAL: Cranial nerves grossly intact. Normal speech, normal gait. Normal sensory, motor exams PSYCH: Normal mood, normal affect. SKIN: Warm, Dry, normal turgor, no rashes or lesions noted. Dictation was performed using [employer] voice recognition software Physical Exam - Vital signs Vitals: Temp Pulse Resp BP Pulse Ox 98.0 F 79 17 178/74 H 98 05/15/17 05:32 05/15/17 05:32 05/15/17 05:32 05/15/17 05:32 05/15/17 05:32 Course - Re-evaluation Re-evalutation: 05/15/17 15:45 Patient's lab work examination was quite benign, her INR is noted to be 2.4. Results have been provided to the patient. She denies any fevers or chills notes improvement with treatment here. Therefore I will discharge her home with very close follow-up. Patient is happy with this plan After performing a Medical Screening Examination, I estimate there is LOW risk for ACUTE CORONARY SYNDROME, PULMONARY EMBOLI, RESPIRATORY FAILURE, SEPSIS OR MENINGITIS, thus I consider the discharge disposition reasonable. I have reevaluated this patient multiple times and no significant life threatening changes are noted. The patient and I have discussed the diagnosis and risks, and we agree with discharging home with close follow-up. We also discussed returning to the Emergency Department immediately if new or worsening symptoms occur. We have discussed the symptoms which are most concerning (e.g., changing or worsening pain, trouble swallowing or breathing, neck stiffness, fever) that necessitate immediate return. - Vital Signs Vital signs: Temp Pulse Resp BP Pulse Ox 98.0 F 79 16 142/58 H 95 05/15/17 05:32 05/15/17 05:32 05/15/17 08:01 05/15/17 08:00 05/15/17 08:01 - Laboratory Result Diagrams: 05/15/17 06:25 05/15/17 06:25 Laboratory results interpreted by me: 05/15/17 05/15/17 05/15/17 06:25 06:25 06:25 RDW 14.1 H Eosinophils % 8.4 H Absolute Eosinophils 0.8 H PT 27.4 H Glucose 120 H - Diagnostic Test Radiology reviewed: Image reviewed, Reports reviewed Discharge - Discharge Clinical Impression: Anticoagulated, H/O mitral valve repair URI (upper respiratory infection) Qualifiers: URI type: unspecified viral URI Qualified Code(s): J06.9 - Acute upper respiratory infection, unspecified Hypertension Qualifiers: Hypertension type: essential hypertension Qualified Code(s): I10 - Essential ( primary) hypertension Condition: Stable Disposition: HOME, SELF-CARE Instructions: Upper Respiratory Illness ([facility]) Additional Instructions: Follow up with your physician tomorrow for further care or return to the ED IMMEDIATELY if symptoms worsen or new concerns occur. If you cannot afford to follow up with your primary care physician a list of low cost clinics have been provided at the end of your discharge papers as well. Prescriptions: Hydrocodone Bit/Homatropine [Hycodan Syrup 5-1.5 mg/5 ml Ud Cup] 5 ml PO Q4HP PRN #120 ml PRN Reason:
[2017-05-15 06:40] LABS: ABSOLUTE EOSINOPHILS # (AUTO) 0.8 10^3/uL (0.0-0.6); ABSOLUTE LYMPHOCYTES (AUTO) 1.6 10^3/uL (0.5-4.7); ABSOLUTE MONOCYTES (AUTO) 0.7 10^3/uL (0.1-1.4); ABSOLUTE NEUT (AUTO) 6.7 10^3/uL (1.7-8.2); BASOPHILS % (AUTO) 0.2 % (0-2); EOSINOPHILS % (AUTO) 8.4 % (0-6); HEMATOCRIT 36.6 % (36.0-47.0); HEMOGLOBIN 12.4 g/dL (12.0-15.5); LYMPHOCYTES % (AUTO) 16.7 % (13-45); MEAN CORPUSCULAR HGB CONC 33.8 g/dL (32.0-36.0); MEAN CORPUSCULAR VOLUME 95 fl (80-97); MONOCYTES % (AUTO) 6.8 % (3-13); PLATELET COUNT 313 10^3/uL (150-450); RED BLOOD COUNT 3.87 10^6/uL (3.72-5.28); RED CELL DISTRIBUTION WIDTH 14.1 % (11.5-14.0); SEGMENTED NEUTROPHILS % (AUTO) 67.9 % (42-78); TOTAL CELLS COUNTED % (AUTO) 100 %; WHITE BLOOD COUNT 9.8 10^3/uL (4.0-10.5)
[2017-05-15 06:41] LABS: VENOUS BLOOD BASE EXCESS 0.3 mmol/L; VENOUS BLOOD HCO3 25.3 mmol/L (20-32); VENOUS BLOOD PH 7.4 (7.30-7.42)
[2017-05-15 07:01] LABS: ALANINE AMINOTRANSFERASE 16 U/L (9-52); ALBUMIN 4.1 g/dL (3.5-5.0); ALKALINE PHOSPHATASE 110 U/L (38-126); ANION GAP 7 (5-19); ASPARTATE AMINO TRANSFERASE 27 U/L (14-36); BILIRUBIN,DIRECT 0.3 mg/dL (0.0-0.4); BILIRUBIN,TOTAL 0.3 mg/dL (0.2-1.3); BLOOD UREA NITROGEN 16 mg/dL (7-20); CALCIUM 9.8 mg/dL (8.4-10.2); CARBON DIOXIDE 27 mmol/L (22-30); CHLORIDE 104 mmol/L (98-107); GLUCOSE 120 mg/dL (75-110); POTASSIUM 4.5 mmol/L (3.6-5.0); SODIUM 138.2 mmol/L (137-145); TOTAL PROTEIN 7.2 g/dL (6.3-8.2)
[2017-05-15 07:24] LABS: PROTHROMBIN TIME 27.4 SEC (11.4-15.4)
--- NOTE | 2017-05-15 08:11 | RADIOLOGY REPORT (SQ) ---
EXAM DESCRIPTION: CHEST PA/LAT COMPLETED DATE/TIME: 05/15/2017 6:55 am REASON FOR STUDY: recent flu pneumonia COMPARISON: 04/29/2017. EXAM PARAMETERS: NUMBER OF VIEWS: two views TECHNIQUE: Digital Frontal and Lateral radiographic views of the chest acquired. RADIATION DOSE: NA LIMITATIONS: none FINDINGS: LUNGS AND PLEURA: No opacities, masses or pneumothorax. No pleural effusion. MEDIASTINUM AND HILAR STRUCTURES: No masses or contour abnormalities. HEART AND VASCULAR STRUCTURES: Heart normal size. No evidence for failure. BONES: No acute findings. HARDWARE: Pacemaker, sternotomy wires, coronary bypass markers and valvular prosthesis. Clips in the upper abdomen. OTHER: No other significant finding. IMPRESSION: NO SIGNIFICANT RADIOGRAPHIC FINDING IN THE CHEST. TECHNICAL DOCUMENTATION: JOB ID: [id number] [employer]- All Rights Reserved
[2017-05-15 08:33] VITALS: BP 142/58
--- NOTE | 2017-05-15 09:00 | EKG REPORT ---
SEVERITY:- ABNORMAL ECG - ATRIAL-PACED RHYTHM LEFT BUNDLE BRANCH BLOCK : Confirmed by: Guanaco Foley 15-May-2017 09:00:09
== END 2017-05-15 08:28 | disposition home or self-care (01) ==
LOC: ER 05:23
DX: J06.9 Acute upper respiratory infection, unspecified (principal); J44.9 Chronic obstructive pulmonary disease, unspecified; I10 Essential (primary) hypertension; I25.10 Atherosclerotic heart disease of native coronary artery without angina pectoris; I25.2 Old myocardial infarction; R05 Cough; M79.1 Myalgia; R06.02 Shortness of breath; Z95.2 Presence of prosthetic heart valve; Z95.5 Presence of coronary angioplasty implant and graft; Z95.1 Presence of aortocoronary bypass graft; Z87.01 Personal history of pneumonia (recurrent); Z88.1 Allergy status to other antibiotic agents; Z88.8 Allergy status to other drugs, medicaments and biological substances
CPT/HCPCS: 36415; 71046; 80053; 82803; 83605; 85025; 85610; 93005; 93010; 99284

== ENCOUNTER 2017-10-16 11:58 | Emergency (ER) | payer MEDICARE ==
--- NOTE | 2017-10-16 12:22 | ER Document Report ---
ED Medical Screen (RME) - General Chief Complaint: Abdominal Pain Stated Complaint: ABDOMINAL PAIN, DIARRHEA, NAUSEA Time Seen by Provider: 10/16/17 12:20 Mode of Arrival: Ambulatory Information source: Patient, Relative Notes: 62-year-old female with coronary artery disease, hypertension, hyperlipidemia presents with complaint of 3 days of left upper quadrant pain. Patient has had associated nausea without had diarrhea that she describes as continuous, nonbloody. Patient was recently seen at [facility] where she had routine laboratory work which showed some elevation in her LFTs. She denies any recent antibiotic use, recent hospitalizations. I have greeted and performed a rapid initial assessment of this patient. A comprehensive ED assessment and evaluation of the patient including analysis of labs and imaging ( if obtained) and completion of medical decision making will be conducted by an additional ED provider. PHYSICAL EXAMINATION: GENERAL: Well-appearing, well-nourished and in no acute distress. HEAD: Atraumatic, normocephalic. EYES: Pupils equal round extraocular movements intact, conjunctiva are normal. ENT: Nares patent NECK: Normal range of motion LUNGS: No respiratory distress Musculoskeletal: Normal range of motion NEUROLOGICAL: Normal speech, normal gait. PSYCH: Normal mood, normal affect. SKIN: Warm, Dry, normal turgor, no rashes or lesions noted. TRAVEL OUTSIDE OF THE [place] IN LAST 30 DAYS: No - Related Data Allergies/Adverse Reactions: erythromycin base [Erythromycin Base] Allergy (Verified 10/16/17 12:21) ondansetron [From Zofran (as hydrochloride)] Allergy (Verified 10/16/17 12:21) prednisone Adverse Reaction (Intermediate, Verified 10/16/17 12:21) GI upset Past Medical History - Social History Chew tobacco use (# tins/day): No Frequency of alcohol use: None Drug Abuse: None - Past Medical History Cardiac Medical History: Reports: Hx Congestive Heart Failure - History of heart Failure, Hx Coronary Artery Disease, Hx Heart Attack, Hx Hypercholesterolemia, Hx Hypertension Denies: Hx DVT, Hx Pulmonary Embolism Pulmonary Medical History: Reports: Hx Asthma, Hx COPD, Hx Pneumonia Denies: Hx Sleep Apnea, Hx Tuberculosis Neurological Medical History: Denies: Hx Seizures Endocrine Medical History: Denies: Hx Diabetes Mellitus Type 1, Hx Diabetes Mellitus Type 2, Hx Hyperthyroidism, Hx Hypothyroidism Renal/ Medical History: Reports: Hx Kidney Stones, Hx Renal Insufficiency. Denies: Hx Peritoneal Dialysis GI Medical History: Denies: Hx Cirrhosis, Hx Gastroesophageal Reflux Disease, Hx Hepatitis Musculoskeltal Medical History: Reports Hx Arthritis Psychiatric Medical History: Reports: Hx Anxiety Denies: Hx Depression Infectious Medical History: Denies: Hx C-Diff, Hx Hepatitis, Hx MRSA Past Surgical History: Reports: Hx Appendectomy, Hx Cardiac Catheterization, Hx Cardiac Surgery - stent in 08 and open heart in , Hx Carotid Endarterectomy - LEFT, Hx Section - x2, Hx Cholecystectomy, Hx Coronary Artery Bypass Graft - September 2016, Hx Coronary Stent - 2007, Hx Hysterectomy, Hx Pacemaker - September 2016, Hx Valve Replacement - Mitral valve, September 2016, Hx Vascular Surgery - Left Carotidendarterectomy - Immunizations Hx Diphtheria, Pertussis, Tetanus Vaccination: Yes Physical Exam - Vital signs Vitals: Temp Pulse Resp BP Pulse Ox 98.0 F 67 21 H 151/60 H 100 10/16/17 12:10 10/16/17 12:10 10/16/17 12:10 10/16/17 12:10 10/16/17 12:10 Course - Vital Signs Vital signs: Temp Pulse Resp BP Pulse Ox 98.0 F 67 21 H 151/60 H 100 10/16/17 12:10 10/16/17 12:10 10/16/17 12:10 10/16/17 12:10 10/16/17 12:10 Doctor's Discharge - Discharge Referrals: MANOHAR HINTON MD [Primary Care Provider] - Follow up as needed
[2017-10-16 13:05] LABS: APPEARANCE,URINE CLEAR; BILIRUBIN,URINE NEGATIVE (NEGATIVE); COLOR,URINE YELLOW; GLUCOSE, URINE NEGATIVE (NEGATIVE); KETONES,URINE NEGATIVE (NEGATIVE); LEUKOCYTE ESTERASE,URINE NEGATIVE (NEGATIVE); NITRITE,URINE NEGATIVE (NEGATIVE); PROTEIN,URINE NEGATIVE (NEGATIVE); URINE SPECIFIC GRAVITY 1.008; UROBILINOGEN,URINE NEGATIVE mg/dL (<2.0)
[2017-10-16] MEDS ORDERED: LIDOCAINE 2% VISCOUS SOLN 20 ML UDCUP PO ONE (13:55)
[2017-10-16] MEDS ORDERED: MAG HYDROX/AL HYDROX/SIMETH SUSP 30 ML UDCUP PO ONE (13:55)
--- NOTE | 2017-10-16 13:57 | ER Document Report ---
ED GI/ - General Chief Complaint: Abdominal Pain Stated Complaint: ABDOMINAL PAIN, DIARRHEA, NAUSEA Time Seen by Provider: 10/16/17 12:20 Mode of Arrival: Ambulatory Information source: Patient Notes: Patient presents with epigastric and left upper quadrant abdominal pain that started 3 days ago. Patient states she has had nausea with diarrhea for the past 3 days. Patient denies any vomiting. Patient states pain wraps around to her back area. Patient denies any chest pain or cough. Patient reports low- grade fever at home of 99 8. TRAVEL OUTSIDE OF THE [place] IN LAST 30 DAYS: No - HPI Patient complains to provider of: Abdominal pain Onset: Other - 3 days Timing/Duration: Persistent Quality of pain: Achy Pain Level: 4 Location: LUQ Vaginal bleeding (Compared to normal period): None Associated symptoms: Diarrhea, Nausea. denies: Urinary hesitancy, Urinary frequency, Urinary retention, Urinary urgency, Vomiting Exacerbated by: Denies Relieved by: Denies Similar symptoms previously: No Recently seen / treated by doctor: Yes - Related Data Allergies/Adverse Reactions: erythromycin base [Erythromycin Base] Allergy (Verified 10/16/17 12:21) ondansetron [From Zofran (as hydrochloride)] Allergy (Verified 10/16/17 12:21) prednisone Adverse Reaction (Intermediate, Verified 10/16/17 12:21) GI upset Past Medical History - General Information source: Patient, Relative - Social History Smoking Status: Never Smoker Chew tobacco use (# tins/day): No Frequency of alcohol use: None Drug Abuse: None Lives with: Spouse/Significant other Family History: None, Reviewed & Not Pertinent Patient has suicidal ideation: No Patient has homicidal ideation: No - Past Medical History Cardiac Medical History: Reports: Hx Congestive Heart Failure - History of heart Failure, Hx Coronary Artery Disease, Hx Heart Attack, Hx Hypercholesterolemia, Hx Hypertension Denies: Hx DVT, Hx Pulmonary Embolism Pulmonary Medical History: Reports: Hx Asthma, Hx COPD, Hx Pneumonia Denies: Hx Sleep Apnea, Hx Tuberculosis Neurological Medical History: Denies: Hx Seizures Endocrine Medical History: Denies: Hx Diabetes Mellitus Type 1, Hx Diabetes Mellitus Type 2, Hx Hyperthyroidism, Hx Hypothyroidism Renal/ Medical History: Reports: Hx Kidney Stones, Hx Renal Insufficiency. Denies: Hx Peritoneal Dialysis GI Medical History: Denies: Hx Cirrhosis, Hx Gastroesophageal Reflux Disease, Hx Hepatitis Musculoskeletal Medical History: Reports Hx Arthritis Psychiatric Medical History: Reports: Hx Anxiety Denies: Hx Depression Infectious Medical History: Denies: Hx C-Diff, Hx Hepatitis, Hx MRSA Past Surgical History: Reports: Hx Appendectomy, Hx Cardiac Catheterization, Hx Cardiac Surgery - stent in 08 and open heart in , Hx Carotid Endarterectomy - LEFT, Hx Section - x2, Hx Cholecystectomy, Hx Coronary Artery Bypass Graft - September 2016, Hx Coronary Stent - 2008, Hx Hysterectomy, Hx Pacemaker - September 2016, Hx Valve Replacement - Mitral valve, September 2016, Hx Vascular Surgery - Left Carotidendarterectomy - Immunizations Hx Diphtheria, Pertussis, Tetanus Vaccination: Yes Hx Pneumococcal Vaccination: 04/04/14 Review of Systems - Review of Systems Constitutional: Fever EENT: No symptoms reported Cardiovascular: denies: Chest pain, Dizziness Respiratory: No symptoms reported. denies: Cough, Short of breath Gastrointestinal: Abdominal pain, Diarrhea, Nausea. denies: Vomiting Genitourinary: No symptoms reported. denies: Dysuria, Flank pain Female Genitourinary: No symptoms reported Musculoskeletal: Back pain Skin: No symptoms reported Hematologic/Lymphatic: No symptoms reported Neurological/Psychological: No symptoms reported. denies: Headaches Physical Exam - Vital signs Vitals: Temp Pulse Resp BP Pulse Ox 98.0 F 67 21 H 151/60 H 100 10/16/17 12:10 10/16/17 12:10 10/16/17 12:10 10/16/17 12:10 10/16/17 12:10 - General General appearance: Alert, Anxious In distress: None - HEENT Head: Normocephalic, Atraumatic Eyes: Normal Conjunctiva: Normal Sinus: Normal Nasal: Normal Mouth/Lips: Other - missing, decayed teeth Neck: Normal, Supple. No: Lymphadenopathy - Respiratory Respiratory status: No respiratory distress Chest status: Nontender Breath sounds: Normal Chest palpation: Normal - Cardiovascular Rhythm: Regular Heart sounds: S1 appreciated, S2 appreciated - Abdominal Inspection: Obese Distension: No distension Bowel sounds: Normal Tenderness: Tender, McBurney's point - epigastric, LUQ, Guarding Organomegaly: No organomegaly - Back Back: Normal, Nontender. No: CVA tenderness - Extremities General upper extremity: Normal inspection, Normal ROM General lower extremity: Normal inspection, Normal ROM - Neurological Neuro grossly intact: Yes Cognition: Normal [place] Coma Scale Eye Opening: Spontaneous Luis Coma Scale Verbal: Oriented Luis Coma Scale Motor: Obeys Commands Luis Coma Scale Total: 15 - Psychological Associated symptoms: Anxious - Skin Skin Temperature: Warm Skin Moisture: Dry Skin Color: Normal Course - Re-evaluation Re-evalutation: 10/16/17 15:43 Patient denies any pain relief after GI cocktail, additional medications ordered. 10/16/17 18:09 Patient at bedside complaining of continued abdominal pain. Patient should be going to CT scan at this time. Patient does complain of nausea. 10/16/17 19:[address] Moralez regarding patient presentation. Reviewed diagnostic test results. Recommends obtaining a repeat troponin given patient' s previous medical history. Pending a negative troponin test agrees with discharge plan of care. Bedside report and handoff given to Brigida Kerns NP - Vital Signs Vital signs: Temp Pulse Resp BP Pulse Ox 98.0 F 67 11 L 154/51 H 97 10/16/17 12:10 10/16/17 12:10 10/16/17 19:01 10/16/17 19:01 10/16/17 19:01 - Laboratory Result Diagrams: 10/16/17 13:42 10/16/17 14:50 Laboratory results interpreted by me: 10/16/17 10/16/17 10/16/17 12:35 13:42 13:42 WBC 11.2 H RDW 14.2 H Absolute Neutrophils 8.5 H PT 28.3 H APTT 61.6 H Magnesium Alkaline Phosphatase Urine Blood SMALL H 10/16/17 14:50 WBC RDW Absolute Neutrophils PT APTT Magnesium 2.6 H Alkaline Phosphatase 192 H Urine Blood Discharge - Discharge Clinical Impression: Abdominal pain Qualifiers: Abdominal location: left upper quadrant Qualified Code(s): R10.12 - Left upper quadrant pain Gastritis Qualifiers: Gastritis type: unspecified gastritis Chronicity: unspecified Gastritis bleeding: presence of bleeding unspecified Qualified Code(s): K29.70 - Gastritis , unspecified, without bleeding Instructions: Abdominal Pain ([facility]), Antinausea Medication ([facility]), Gastritis ([facility] ) Additional Instructions: Return immediately for any new or worsening symptoms Followup with your primary care provider, call tomorrow to make a followup appointment Follow-up with your bite block maker for recheck, call tomorrow for an appointment Prescriptions: Omeprazole Magnesium [Prilosec Otc] 20 mg PO DAILY #15 tablet. Sucralfate [Carafate 1 gm Tablet] 1 gm PO ACHS PRN #40 tablet PRN Reason: Referrals: MANOHAR HINTON MD [Primary Care Provider] - Follow up tomorrow JEANETTE BAEZA MD [ACTIVE STAFF] - Follow up tomorrow
[2017-10-16 14:05] LABS: ABSOLUTE BASOPHILS # (AUTO) 0.1 10^3/uL (0.0-0.2); ABSOLUTE EOSINOPHILS # (AUTO) 0.1 10^3/uL (0.0-0.6); ABSOLUTE LYMPHOCYTES (AUTO) 1.7 10^3/uL (0.5-4.7); ABSOLUTE MONOCYTES (AUTO) 0.7 10^3/uL (0.1-1.4); ABSOLUTE NEUT (AUTO) 8.5 10^3/uL (1.7-8.2); BASOPHILS % (AUTO) 1.1 % (0-2); EOSINOPHILS % (AUTO) 1.2 % (0-6); HEMATOCRIT 38.6 % (36.0-47.0); HEMOGLOBIN 13.2 g/dL (12.0-15.5); LYMPHOCYTES % (AUTO) 14.9 % (13-45); MEAN CORPUSCULAR HGB CONC 34.3 g/dL (32.0-36.0); MEAN CORPUSCULAR VOLUME 96 fl (80-97); MONOCYTES % (AUTO) 6.6 % (3-13); PLATELET COUNT 359 10^3/uL (150-450); RED BLOOD COUNT 4.02 10^6/uL (3.72-5.28); RED CELL DISTRIBUTION WIDTH 14.2 % (11.5-14.0); SEGMENTED NEUTROPHILS % (AUTO) 76.2 % (42-78); TOTAL CELLS COUNTED % (AUTO) 100 %; WHITE BLOOD COUNT 11.2 10^3/uL (4.0-10.5)
[2017-10-16 14:11] LABS: INTERNATIONAL RATION (INR) 2.51; PROTHROMBIN TIME 28.3 SEC (11.4-15.4)
[2017-10-16 14:12] LABS: PARTIAL THROMBOPLASTIN TIME 61.6 SEC (23.5-35.8)
--- NOTE | 2017-10-16 15:09 | RADIOLOGY REPORT (SQ) ---
EXAM DESCRIPTION: ACUTE ABDOMEN SERIES COMPLETED DATE/TIME: 10/16/2017 2:38 pm REASON FOR STUDY: LUQ pain COMPARISON: 05/15/2017 NUMBER OF VIEWS: Three views. TECHNIQUE: Frontal chest, supine abdomen and upright/decubitus abdomen radiographic images acquired. LIMITATIONS: None. FINDINGS: CHEST: No focal consolidation, pleural effusion, or pneumothorax. Midline surgical change s and transvenous pacer, stable. FREE AIR: None. No abnormal gas collections. BOWEL GAS PATTERN: Nonspecific, nonobstructed bowel gas pattern. CALCIFICATIONS: No suspicious calcifications. HARDWARE: Surgical clips within the right upper quadrant. SOFT TISSUES: No gross mass or suggestion of organomegaly. BONES: No acute fracture. No worrisome bone lesions. OTHER: No other significant finding. IMPRESSION: NO RADIOGRAPHIC EVIDENCE FOR ACUTE ABDOMINAL DISEASE. TECHNICAL DOCUMENTATION: JOB ID: [id number] [employer]- All Rights Reserved Reading location - IP/workstation name: [email or web address]
[2017-10-16 15:19] LABS: ALANINE AMINOTRANSFERASE 52 U/L (9-52); ALBUMIN 4.2 g/dL (3.5-5.0); ALKALINE PHOSPHATASE 192 U/L (38-126); ANION GAP 8 (5-19); ASPARTATE AMINO TRANSFERASE 33 U/L (14-36); BILIRUBIN,DIRECT 0.3 mg/dL (0.0-0.4); BILIRUBIN,TOTAL 0.5 mg/dL (0.2-1.3); BLOOD UREA NITROGEN 10 mg/dL (7-20); CALCIUM 9.3 mg/dL (8.4-10.2); CARBON DIOXIDE 28 mmol/L (22-30); CHLORIDE 107 mmol/L (98-107); CREATINE KINASE 38 U/L (30-135); GLUCOSE 102 mg/dL (75-110); LIPASE 221.5 U/L (23-300); POTASSIUM 4.4 mmol/L (3.6-5.0); SODIUM 143.1 mmol/L (137-145); TOTAL PROTEIN 7.2 g/dL (6.3-8.2)
[2017-10-16 15:31] LABS: CREATINE KINASE MB 0.35 ng/mL (<4.55)
[2017-10-16 15:33] LABS: TROPONIN I < 0.012 ng/mL
[2017-10-16] MEDS ORDERED: FENTANYL CITRATE INJ/PF 100 MCG/2 ML AMPUL IV ONE ×2 (15:41→18:08)
--- NOTE | 2017-10-16 18:50 | RADIOLOGY REPORT (SQ) ---
EXAM DESCRIPTION: CT ABD/PELVIS WITH IV ORAL COMPLETED DATE/TIME: 10/16/2017 6:32 pm REASON FOR STUDY: LUQ pain COMPARISON: 06/25/2014 TECHNIQUE: CT scan of the abdomen and pelvis performed using helical scanning technique with dynamic intravenous contrast injection. No oral contrast. Images reviewed with lung, soft tissue, and bone windows. Reconstructed coronal and sagittal MPR images reviewed. Delayed images for evaluation of the urinary system also acquired. All images stored on PACS. All CT scanners at this facility use dose modulation, iterative reconstruction, and/or weight based d osing when appropriate to reduce radiation dose to as low as reasonably achievable (ALARA). [facility]: Dose Right [facility]: CareDose [facility]: Dose Right [facility]: Teradose 4D [facility]: Glisten CONTRAST TYPE AND DOSE: contrast/concentration: Isovue 370.00 mg/ml; Total Contrast Delivered: 95.0 ml; Total Saline Delivered: 67.7 ml RENAL FUNCTION: GFR > 60. RADIATION DOSE: CT Rad equipment meets quality standard of care and radiation dose reduction techniq ues were employed. CTDIvol: 17.5 - 18.8 mGy. DLP: 1906 mGy-cm.. LIMITATIONS: None. FINDINGS: LOWER CHEST: No significant findings. No nodules or infiltrates. LIVER: Normal size. No masses. No dilated ducts. SPLEEN: Normal size. No focal lesions. PANCREAS: No masses. No significant calcifications. No adjacent inflammation or peripancreatic fluid collections. Pancreatic duct not dilated. GALLBLADDER: Surgically absent. ADRENAL GLANDS: Similar nodularity. RIGHT KIDNEY AND URETER: No solid masses. No significant calcifications. No hydronephrosis or hyd roureter. LEFT KIDNEY AND URETER: No solid masses. No significant calcifications. No hydronephrosis or hydr oureter. AORTA AND VESSELS: No aneurysm. No dissection. Renal arteries, SMA, celiac without stenosis. RETROPERITONEUM: No retroperitoneal adenopathy, hemorrhage or masses. BOWEL AND PERITONEAL CAVITY: Diverticulosis. No masses or inflammatory changes. No free fluid or per itoneal masses. APPENDIX: Normal. PELVIS: Prior hysterectomy. No free fluid. Normal bladder. ABDOMINAL WALL: No masses. No hernias. BONES: No acute findings. OTHER: No other significant finding. IMPRESSION: NO ACUTE FINDING IN THE ABDOMEN OR PELVIS ON CT SCAN WITH IV CONTRAST. TECHNICAL DOCUMENTATION: JOB ID: [id number] [id number] Quality ID # [id number]: Final reports with documentation of one or more dose reduction techniques (e.g., Au tomated exposure control, adjustment of the mA and/or kV according to patient size, use of iterative reconstruction technique) 2010 [employer]- All Rights Reserved Reading location - IP/workstation name: [email or web address]
[2017-10-16 20:59] VITALS: BP 149/76
--- NOTE | 2017-10-17 00:51 | EKG REPORT ---
SEVERITY:- ABNORMAL ECG - ATRIAL-PACED COMPLEXES SINUS PAUSE/ARREST WITH ATRIAL ESCAPE FIRST DEGREE AV BLOCK PROMINENT P WAVES, NONDIAGNOSTIC LEFT BUNDLE BRANCH BLOCK : Confirmed by: Cassie Darby MD 17-Oct-2017 00:50:02
--- NOTE | 2017-10-17 00:51 | EKG REPORT ---
SEVERITY:- ABNORMAL ECG - ATRIAL-PACED COMPLEXES PROBABLE LEFT ATRIAL ABNORMALITY LEFT BUNDLE BRANCH BLOCK : Confirmed by: Cassie Darby MD 17-Oct-2017 00:49:53
== END 2017-10-16 21:01 | disposition home or self-care (01) ==
LOC: ER 11:58
DX: K29.70 Gastritis, unspecified, without bleeding (principal); R10.12 Left upper quadrant pain; R10.13 Epigastric pain; R11.0 Nausea; R19.7 Diarrhea, unspecified; M54.9 Dorsalgia, unspecified; I25.10 Atherosclerotic heart disease of native coronary artery without angina pectoris; I10 Essential (primary) hypertension; J44.9 Chronic obstructive pulmonary disease, unspecified
CPT/HCPCS: 93005; 96376; 99285; 96374; 36415; 82553; 82550; 83690; 83735; 85025; 85610; 85730; 80053; 81001; 84484; 74022; 74177; 93010; J3010; J3490

== ENCOUNTER 2017-11-10 05:09 | Emergency (ER) | payer MEDICARE ==
--- NOTE | 2017-11-10 06:34 | RADIOLOGY REPORT (SQ) ---
EXAM DESCRIPTION: XR CHEST 2 VIEWS COMPLETED DATE/TME: 11/10/2017 00:00 CLINICAL HISTORY: 62 years Female, diff breathing COMPARISON: 2.11.18 FINDINGS: Increased emphysematous lung volume, moderate chronic interstitial markings, normal cardiac silhouette left cardiac stimulator with leads, sternotomy, cardiac valve prosthesis, right upper abdominal clips, and grossly intact bony thorax. IMPRESSION: No acute cardiopulmonary findings. Moderate chronic interstitial lung disease.
--- NOTE | 2017-11-10 07:52 | ER Document Report ---
ED Respiratory Problem - General Mode of Arrival: Ambulatory Information source: Patient TRAVEL OUTSIDE OF THE [place] IN LAST 30 DAYS: No <MARY TYLER - Last Filed: 11/10/17 09:54> <ALESHA PETER - Last Filed: 11/10/17 14:24> - General Chief Complaint: Breathing Difficulty Stated Complaint: BREATHING DIFFICULTY Time Seen by Provider: 11/10/17 07:42 Notes: 62-year-old female who presents to the emergency department today with complaints of shortness of breath. Patient states since moving into a new house about 3 months ago her breathing has gotten much worse and they have taken out multiple watts of mold in this new house. Patient states has recently began bringing up brown sputum. Patient complains of being diaphoretic and has a headache. (MARY TYLER) The patient is prescribed Tylenol 3 on a regular basis to take for her headaches. She states she usually has to take 2 tablets when she gets a bad headache. She receives approximately 30 tablets per month. (ALESHA PETER) - Related Data Allergies/Adverse Reactions: erythromycin base [Erythromycin Base] Allergy (Verified 11/10/17 06:32) ondansetron [From Zofran (as hydrochloride)] Allergy (Verified 11/10/17 06:32) prednisone Adverse Reaction (Intermediate, Verified 11/10/17 06:32) GI upset Past Medical History - General Information source: Patient - Social History Smoking Status: Former Smoker Cigarette use (# per day): No Chew tobacco use (# tins/day): No Frequency of alcohol use: None Drug Abuse: None Lives with: Spouse/Significant other Family History: None, Reviewed & Not Pertinent Patient has suicidal ideation: No Patient has homicidal ideation: No - Past Medical History Cardiac Medical History: Reports: Hx Congestive Heart Failure, Hx Coronary Artery Disease, Hx Heart Attack, Hx Hypercholesterolemia, Hx Hypertension Pulmonary Medical History: Reports: Hx Asthma, Hx COPD, Hx Pneumonia Renal/ Medical History: Reports: Hx Kidney Stones, Hx Renal Insufficiency Musculoskeletal Medical History: Reports Hx Arthritis Psychiatric Medical History: Reports: Hx Anxiety Past Surgical History: Reports: Hx Appendectomy, Hx Cardiac Catheterization, Hx Cardiac Surgery - 2001 Mitral valve repair., Hx Carotid Endarterectomy - LEFT, Hx Section - x2, Hx Cholecystectomy, Hx Coronary Stent - 2007, Hx Hysterectomy, Hx Pacemaker - September 2016, Hx Valve Replacement - Mitral valve replaced September 2016 - Immunizations Hx Diphtheria, Pertussis, Tetanus Vaccination: Yes Hx Pneumococcal Vaccination: 04/04/14 <MARY TYLER - Last Filed: 11/10/17 09:54> Review of Systems - Review of Systems Constitutional: See HPI, Diaphoresis EENT: No symptoms reported Cardiovascular: No symptoms reported Respiratory: See HPI, Cough, Short of breath, Sputum, Wheezing Gastrointestinal: No symptoms reported Genitourinary: No symptoms reported Female Genitourinary: No symptoms reported Musculoskeletal: No symptoms reported Skin: No symptoms reported Hematologic/Lymphatic: No symptoms reported Neurological/Psychological: See HPI, Headaches -: Yes All other systems reviewed and negative <MARY TYLER - Last Filed: 11/10/17 09:54> Physical Exam <MARY TYLER - Last Filed: 11/10/17 09:54> <ALESHA PETER - Last Filed: 11/10/17 14:24> - Vital signs Vitals: Temp Pulse Resp BP Pulse Ox 98.4 F 82 22 H 129/56 H 99 11/10/17 05:17 11/10/17 05:17 11/10/17 05:17 11/10/17 05:17 11/10/17 05:17 - Notes Notes: Physical Exam: General: Alert. HEENT: Normocephalic. Atraumatic. PERRL. Extraocular movements intact. Oropharynx clear. Neck: Supple. Non-tender. Respiratory: Audible wheezing. Inspiratory and expiratory wheezing bilaterally throughout. Prolonged expiratory phase. Cardiovascular: Regular rate and rhythm. Abdominal: Normal Inspection. Non-tender. No distension. Normal Bowel Sounds. Back: Non-tender. No deformity or step off. Extremities: Moves all four extremities. Upper extremities: Normal inspection. Normal ROM. Lower extremities: Normal inspection. No edema. Normal ROM. Neurological: Normal cognition. AAOx4. Normal speech. Psychological: Normal affect. Normal Mood. Skin: Warm. Dry. Normal color. (MARY TYLER) Course - Laboratory Result Diagrams: 11/10/17 08:45 11/10/17 08:45 <MARY TYLER - Last Filed: 11/10/17 09:54> - Laboratory Result Diagrams: 11/10/17 08:45 11/10/17 10:10 - Diagnostic Test Radiology reviewed: Image reviewed, Reports reviewed - Moderate chronic interstitial lung disease, no acute changes. - EKG Interpretation by Me EKG shows normal: Sinus rhythm, [place], Intervals, QRS Complexes, ST-T Waves Rate: Normal - 74 Rhythm: Other - Atrial paced rhythm Rockholds/QRS: LBBB When compared to previous EKG there are: No significant change <ALESHA PETER - Last Filed: 11/10/17 14:24> - Re-evaluation Re-evalutation: 11/10/17 10:41 Patient states she still has a bad headache, just when I learned that she generally takes 2 Tylenol 3's for her headaches when she gets them like this. She does have some faint expiratory wheezes now but is much better than earlier. Her pulse ox is 100% on room air. She is quite anxious and possibly little hyperventilating. She does normally take clonazepam on a regular basis. We will give her an additional Tylenol 3 and a dose of Ativan now and reevaluate in a little while. 11/10/17 14:22 Patient has been sleeping, lungs sound clear. She was awakened for reexam, she is smiling states her breathing feels back to normal and she is ready to go home. (ALESHA PETER) - Vital Signs Vital signs: Temp Pulse Resp BP Pulse Ox 98.4 F 82 21 H 105/91 H 93 11/10/17 05:17 11/10/17 05:17 11/10/17 13:03 11/10/17 12:31 11/10/17 13:03 - Laboratory Laboratory results interpreted by me: 11/10/17 11/10/17 11/10/17 08:45 08:45 08:45 WBC 10.7 H Hct 35.7 L RDW 14.6 H Seg Neutrophils % 79.6 H Absolute Neutrophils 8.5 H PT 23.1 H Potassium Glucose Alkaline Phosphatase NT-Pro-B Natriuret Pep 2600 H 11/10/17 10:10 WBC Hct RDW Seg Neutrophils % Absolute Neutrophils PT Potassium 3.4 L Glucose 127 H Alkaline Phosphatase 176 H NT-Pro-B Natriuret Pep Discharge <MARY TYLER - Last Filed: 11/10/17 09:54> <ALESHA PETER - Last Filed: 11/10/17 14:24> - Discharge Clinical Impression: Acute severe exacerbation of asthma Condition: Stable Disposition: HOME, SELF-CARE Additional Instructions: Continue your regular medications. Take the Medrol Dosepak as prescribed. Follow-up with your doctor tomorrow if not improving. RETURN TO THE EMERGENCY ROOM IF ANY NEW OR WORSENING SYMPTOMS. Prescriptions: Methylprednisolone [Medrol Dosepack (4 mg/Tab) 21 Tab/Dosepak] 4 mg PO ASDIR # 21 [id number] Referrals: MANOHAR HINTON MD [Primary Care Provider] - Follow up as needed Scribe Attestation: 11/10/17 08:14 I personally performed the services described in the documentation, reviewed and edited the documentation which was dictated to the scribe in my presence, and it accurately records my words and actions. (MARY TYLER) Scribe Documentation - Scribe Written by Scribe:: Katy Anna, 11/10/2017 0815 acting as scribe for :: Macy <MARY TYLER - Last Filed: 11/10/17 09:54>
[2017-11-10] MEDS ORDERED: IPRATROPIUM/ALBUTEROL 0.5-2.5 MG/3 ML AMPUL NEB ONE ×2 (07:53→11:58)
[2017-11-10] MEDS ORDERED: ACETAMINOPHEN WITH CODEINE #3 TABLET PO ONE ×2 (07:53→10:40)
[2017-11-10] MEDS ORDERED: MAGNESIUM SULFATE/D5W 1 GM/100 ML RTUPB IV ONE (07:54)
[2017-11-10] MEDS ORDERED: METHYLPREDNISOLONE INJ 125 MG/2 ML SDV IV ONE (07:55)
[2017-11-10] MEDS ORDERED: ALBUTEROL SULFATE 0.083% NEB 2.5 MG/3 ML AMPUL NEB ONE (08:35)
[2017-11-10 09:05] LABS: ABSOLUTE LYMPHOCYTES (AUTO) 1.5 10^3/uL (0.5-4.7); ABSOLUTE MONOCYTES (AUTO) 0.7 10^3/uL (0.1-1.4); ABSOLUTE NEUT (AUTO) 8.5 10^3/uL (1.7-8.2); BASOPHILS % (AUTO) 0.2 % (0-2); EOSINOPHILS % (AUTO) 0.4 % (0-6); HEMATOCRIT 35.7 % (36.0-47.0); HEMOGLOBIN 12.1 g/dL (12.0-15.5); LYMPHOCYTES % (AUTO) 13.6 % (13-45); MEAN CORPUSCULAR HEMOGLOBIN 32.5 pg (27.0-33.4); MEAN CORPUSCULAR HGB CONC 33.9 g/dL (32.0-36.0); MEAN CORPUSCULAR VOLUME 96 fl (80-97); MONOCYTES % (AUTO) 6.2 % (3-13); PLATELET COUNT 327 10^3/uL (150-450); RED BLOOD COUNT 3.73 10^6/uL (3.72-5.28); RED CELL DISTRIBUTION WIDTH 14.6 % (11.5-14.0); SEGMENTED NEUTROPHILS % (AUTO) 79.6 % (42-78); TOTAL CELLS COUNTED % (AUTO) 100 %; WHITE BLOOD COUNT 10.7 10^3/uL (4.0-10.5)
[2017-11-10 09:44] LABS: NT PRO BNP 2600 pg/mL (5-900)
[2017-11-10 09:46] LABS: INTERNATIONAL RATION (INR) 1.94; PROTHROMBIN TIME 23.1 SEC (11.4-15.4)
[2017-11-10 09:54] LABS: TROPONIN I < 0.012 ng/mL
[2017-11-10] MEDS ORDERED: LORAZEPAM 1 MG TABLET PO ONE (10:40)
[2017-11-10 11:01] LABS: ALANINE AMINOTRANSFERASE 26 U/L (9-52); ALBUMIN 3.8 g/dL (3.5-5.0); ALKALINE PHOSPHATASE 176 U/L (38-126); ANION GAP 11 (5-19); ASPARTATE AMINO TRANSFERASE 16 U/L (14-36); BILIRUBIN,DIRECT 0.3 mg/dL (0.0-0.4); BILIRUBIN,TOTAL 0.9 mg/dL (0.2-1.3); BLOOD UREA NITROGEN 13 mg/dL (7-20); CALCIUM 8.9 mg/dL (8.4-10.2); CARBON DIOXIDE 27 mmol/L (22-30); CHLORIDE 106 mmol/L (98-107); CREATINE KINASE 45 U/L (30-135); GLUCOSE 127 mg/dL (75-110); POTASSIUM 3.4 mmol/L (3.6-5.0); SODIUM 143.5 mmol/L (137-145); TOTAL PROTEIN 6.6 g/dL (6.3-8.2)
--- NOTE | 2017-11-10 11:36 | EKG REPORT ---
SEVERITY:- ABNORMAL ECG - ATRIAL-PACED RHYTHM LEFT BUNDLE BRANCH BLOCK : Confirmed by: Cassie Darby MD 10-Nov-2017 11:35:01
[2017-11-10 14:32] VITALS: BP 113/59
== END 2017-11-10 14:53 | disposition home or self-care (01) ==
LOC: ER 05:09
DX: J45.901 Unspecified asthma with (acute) exacerbation (principal); R51 Headache; Z88.3 Allergy status to other anti-infective agents; Z87.891 Personal history of nicotine dependence; Z87.442 Personal history of urinary calculi; Z90.49 Acquired absence of other specified parts of digestive tract; Z90.710 Acquired absence of both cervix and uterus; Z95.0 Presence of cardiac pacemaker; Z95.2 Presence of prosthetic heart valve
CPT/HCPCS: 93005; 94640 ×2; 99285; 96375; 96365; 36415; 82550; 85025; 85610; 80053; 84484; 83880; 71046; 93010; A9270 ×4; J2930; J3475; J7620

== ENCOUNTER 2018-01-12 12:21 | Emergency (ER) | payer MEDICARE ==
[2018-01-12] MEDS ORDERED: ASPIRIN 81 MG TABLET, CHEWABLE PO ONE (12:51)
[2018-01-12] MEDS ORDERED: FUROSEMIDE INJ/PF 40 MG/4 ML SDV IV ONE (12:52)
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
--- NOTE | 2018-01-12 14:13 | RADIOLOGY REPORT (SQ) ---
EXAM DESCRIPTION: CHEST SINGLE VIEW COMPLETED DATE/TIME: 01/12/2018 1:15 pm REASON FOR STUDY: SOB, heart failure COMPARISON: 11/10/2017 EXAM PARAMETERS: NUMBER OF VIEWS: One view. TECHNIQUE: Single frontal radiographic view of the chest acquired. RADIATION DOSE: NA LIMITATIONS: None. FINDINGS: LUNGS AND PLEURA: No opacities, masses or pneumothorax. No pleural effusion. MEDIASTINUM AND HILAR STRUCTURES: No masses. Contour normal. HEART AND VASCULAR STRUCTURES: Heart normal in size. Normal vasculature. BONES: No acute findings. HARDWARE: Unchanged. Battery pack and leads are in place along with sternotomy wires and valvular pr osthesis pre OTHER: No other significant finding. IMPRESSION: NO ACUTE RADIOGRAPHIC FINDING IN THE CHEST. TECHNICAL DOCUMENTATION: JOB ID: [id number] [employer]- All Rights Reserved Reading location - IP/workstation name: [email or web address]
[2018-01-12 14:18] LABS: ABSOLUTE BASOPHILS # (AUTO) 0.1 10^3/uL (0.0-0.2); ABSOLUTE EOSINOPHILS # (AUTO) 0.4 10^3/uL (0.0-0.6); ABSOLUTE LYMPHOCYTES (AUTO) 1.8 10^3/uL (0.5-4.7); ABSOLUTE MONOCYTES (AUTO) 0.6 10^3/uL (0.1-1.4); ABSOLUTE NEUT (AUTO) 5.1 10^3/uL (1.7-8.2); BASOPHILS % (AUTO) 0.8 % (0-2); EOSINOPHILS % (AUTO) 4.5 % (0-6); HEMATOCRIT 37.6 % (36.0-47.0); HEMOGLOBIN 12.5 g/dL (12.0-15.5); LYMPHOCYTES % (AUTO) 22.6 % (13-45); MEAN CORPUSCULAR HEMOGLOBIN 32.2 pg (27.0-33.4); MEAN CORPUSCULAR HGB CONC 33.2 g/dL (32.0-36.0); MEAN CORPUSCULAR VOLUME 97 fl (80-97); MONOCYTES % (AUTO) 7.3 % (3-13); PLATELET COUNT 263 10^3/uL (150-450); RED BLOOD COUNT 3.89 10^6/uL (3.72-5.28); RED CELL DISTRIBUTION WIDTH 14.2 % (11.5-14.0); SEGMENTED NEUTROPHILS % (AUTO) 64.8 % (42-78); TOTAL CELLS COUNTED % (AUTO) 100 %; WHITE BLOOD COUNT 7.9 10^3/uL (4.0-10.5)
[2018-01-12 14:26] LABS: INTERNATIONAL RATION (INR) 1.79; PROTHROMBIN TIME 21.7 SEC (11.4-15.4)
[2018-01-12 14:40] LABS: ALANINE AMINOTRANSFERASE 40 U/L (9-52); ALBUMIN 4.2 g/dL (3.5-5.0); ALKALINE PHOSPHATASE 175 U/L (38-126); ANION GAP 9 (5-19); ASPARTATE AMINO TRANSFERASE 34 U/L (14-36); BILIRUBIN,DIRECT 0.1 mg/dL (0.0-0.4); BILIRUBIN,TOTAL 0.4 mg/dL (0.2-1.3); BLOOD UREA NITROGEN 13 mg/dL (7-20); CALCIUM 9.3 mg/dL (8.4-10.2); CARBON DIOXIDE 30 mmol/L (22-30); CHLORIDE 103 mmol/L (98-107); CREATINE KINASE 73 U/L (30-135); GLUCOSE 103 mg/dL (75-110); POTASSIUM 3.7 mmol/L (3.6-5.0); TOTAL PROTEIN 7.4 g/dL (6.3-8.2)
[2018-01-12 14:56] LABS: CREATINE KINASE MB 0.84 ng/mL (<4.55); NT PRO BNP 649 pg/mL (5-900)
[2018-01-12] MEDS ORDERED: FENTANYL CITRATE INJ/PF 100 MCG/2 ML AMPUL IV ONE (14:56)
[2018-01-12 14:57] LABS: TROPONIN I < 0.012 ng/mL
[2018-01-12 15:00] LABS: APPEARANCE,URINE CLEAR; BILIRUBIN,URINE NEGATIVE (NEGATIVE); COLOR,URINE COLORLESS; GLUCOSE, URINE NEGATIVE (NEGATIVE); KETONES,URINE NEGATIVE (NEGATIVE); LEUKOCYTE ESTERASE,URINE NEGATIVE (NEGATIVE); NITRITE,URINE NEGATIVE (NEGATIVE); PROTEIN,URINE NEGATIVE (NEGATIVE); URINE SPECIFIC GRAVITY 1.003; UROBILINOGEN,URINE NEGATIVE mg/dL (<2.0)
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
--- NOTE | 2018-01-12 16:00 | RADIOLOGY REPORT (SQ) ---
EXAM DESCRIPTION: CT ABD/PELVIS NO ORAL OR IV COMPLETED DATE/TIME: 01/12/2018 3:44 pm REASON FOR STUDY: concern for stone on right COMPARISON: 10/16/2017 TECHNIQUE: CT scan of the abdomen and pelvis performed without intravenous or oral contrast. Images reviewed with lung, soft tissue, and bone windows. Reconstructed coronal and sagittal MPR images revi ewed. All images stored on PACS. All CT scanners at this facility use dose modulation, iterative reconstruction, and/or weight based d osing when appropriate to reduce radiation dose to as low as reasonably achievable (ALARA). [facility]: Dose Right [facility]: CareDose [facility]: Dose Right [facility]: Teradose 4D [facility]: [employer] RADIATION DOSE: CT Rad equipment meets quality standard of care and radiation dose reduction techniq ues were employed. CTDIvol: 16.6 mGy. DLP: 852 mGy-cm.mGy. LIMITATIONS: None. FINDINGS: LOWER CHEST: No significant findings. No nodules or infiltrates. NON-CONTRASTED LIVER, SPLEEN, ADRENALS: Liver and spleen are normal. There is a 19 mm low-density le ft adrenal nodule. This is stable. PANCREAS: No masses. No peripancreatic inflammatory changes. GALLBLADDER: Surgically absent. RIGHT KIDNEY AND URETER: No suspicious masses. Assessment limited by lack of IV contrast. No signif icant calcifications. No hydronephrosis or hydroureter. LEFT KIDNEY AND URETER: No suspicious masses. Assessment limited by lack of IV contrast. No signifi cant calcifications. No hydronephrosis or hydroureter. AORTA AND RETROPERITONEUM: No aneurysm. No retroperitoneal masses or adenopathy. BOWEL AND PERITONEAL CAVITY: Mild descending and sigmoid diverticulosis. No inflammation. No masses . APPENDIX: Surgically absent. PELVIS, BLADDER, AND ABDOMINAL WALL:Uterus is absent. Urinary bladder is normal. No abnormal pelvic masses or fluid collections. BONES: No significant findings. OTHER: No other significant finding. IMPRESSION: 1. Stable low-density left adrenal nodule. 2. Diverticulosis coli. 3. No acute findings in the abdomen or pelvis. COMMENT: Quality ID # [id number]: Final reports with documentation of one or more dose reduction techniques (e.g., Automated exposure control, adjustment of the mA and/or kV according to patient size, use of iterative reconstruction technique) TECHNICAL DOCUMENTATION: JOB ID: [id number] [employer]- All Rights Reserved Reading location - IP/workstation name: [email or web address]
[2018-01-12 19:10] VITALS: BP 150/52
[2018-01-12] MEDS ORDERED: FUROSEMIDE 20 MG TABLET PO ONE (19:11)
[2018-01-12] MEDS ORDERED: WARFARIN SODIUM 2 MG TABLET PO ONE (19:12)
--- NOTE | 2018-01-12 22:28 | EKG REPORT ---
SEVERITY:- ABNORMAL ECG - ATRIAL-PACED RHYTHM LEFT BUNDLE BRANCH BLOCK : Confirmed by: Cassie Darby MD 12-Jan-2018 22:27:24
== END 2018-01-12 19:31 | disposition home or self-care (01) ==
LOC: ER 12:21
DX: R10.9 Unspecified abdominal pain (principal); R79.1 Abnormal coagulation profile; R60.9 Edema, unspecified; R07.9 Chest pain, unspecified; R53.83 Other fatigue; F17.210 Nicotine dependence, cigarettes, uncomplicated; I25.10 Atherosclerotic heart disease of native coronary artery without angina pectoris; I10 Essential (primary) hypertension; J44.9 Chronic obstructive pulmonary disease, unspecified
CPT/HCPCS: 93005; 99285; 96374; 96375; 36415; 82553; 82550; 80307; 85025; 85610; 80053; 81001; 84484; 83880; 71045; 74176; 93010; A9270 ×3; J3010; J1940; J3490

== ENCOUNTER 2018-06-25 10:02 | Emergency (ER) | payer MEDICARE ==
[2018-06-25] MEDS ORDERED: IPRATROPIUM/ALBUTEROL 0.5-2.5 MG/3 ML AMPUL NEB ONE (10:29)
[2018-06-25] MEDS ORDERED: METHYLPREDNISOLONE INJ 125 MG/2 ML SDV IV ONE (10:29)
[2018-06-25] MEDS ORDERED: ALBUTEROL SULFATE 0.083% NEB 2.5 MG/3 ML AMPUL NEB ONE (10:29)
[2018-06-25] MEDS ORDERED: MORPHINE SULFATE 10 MG/ML INJ IV ONE (10:30)
--- NOTE | 2018-06-25 10:45 | ER Document Report ---
ED General - General Chief Complaint: Fall Injury Stated Complaint: RIB PAIN Time Seen by Provider: 06/25/18 10:08 Primary Care Provider: MANOHAR HINTON MD [ACTIVE STAFF] - Follow up as needed TRAVEL OUTSIDE OF THE [place] IN LAST 30 DAYS: No - HPI Notes: Patient is a 63-year-old female that presents to the emergency department for chief complaint of right rib pain. Patient reports on April 23, 2018 she had a mechanical fall in the shower and landed on her sternum and right side of her ribs. She was evaluated in the where the fall occurred and reported having normal x-rays. Patient had a reported large amount of bruising and is on Coumadin for history of mitral valve replacement. She states the bruising on her skin has decreased but she still having a sharp pain over her right ribs. She reports feeling a "lump" in the upper part of her abdomen that is very tender to palpation. She reports having a 20 pound weight loss in the last few months without trying. She denies any fevers, chills, nausea, vomiting and diarrhea. She states she has not had much of an appetite and the pain has caused her to eat less. She was taking oxycodone after the initial fall but has not had any pain medication recently. She states she did do a course of azithromycin in May for pneumonia acquired after her fall. She does have COPD and reports using her breathing treatments 2-3 times a day. She is also on Spiriva but denies any oral steroids. She does report feeling short of breath despite breathing treatments. She is denying chest pain and sternal pain Past Medical History: Hypertension, COPD Past Surgical History: Mitral valve replacement, pacemaker Social History: Denies tobacco or drug and alcohol use Family History: Reviewed and noncontributory for presenting illness Allergies: Reviewed, see documented allergy list. REVIEW OF SYSTEMS: CONSTITUTIONAL : No fever No chills No diaphoresis No recent illness EENT: No vision changes congestion No sore throat CARDIOVASCULAR: No chest pain No palpitations RESPIRATORY: shortness of breath cough No difficulty breathing GASTROINTESTINAL: abdominal pain No nausea No vomiting No diarrhea GENITOURINARY: No dysuria No hematuria No difficulty urinating MUSCULOSKELETAL: Right rib pain Oral hoping No back pain No leg pain No arm pain SKIN: No rashes No lesions LYMPHATIC: No swollen, enlarged glands. NEUROLOGICAL: No lightheadedness No headache No weakness No paresthesias PSYCHIATRIC: No anxiety No depression PHYSICAL EXAMINATION: Vital signs reviewed, nursing noted reviewed. GENERAL: Well-appearing, well-nourished and in no acute distress. HEAD: Atraumatic, normocephalic. EYES: Eyes appear normal, extraocular movements intact, sclera anicteric, conjunctiva are normal. ENT: nares patent, oropharynx clear without exudates. Moist mucous membranes. NECK: Normal range of motion, supple without lymphadenopathy LUNGS: No sternal tenderness or crepitus. Right inferior lateral rib tenderness with no flail segment or crepitus. Breath sounds clear to auscultation bilaterally and equal. No wheezes rales or rhonchi. HEART: Regular rate and rhythm without murmurs ABDOMEN: Soft, right upper quadrant tenderness, normoactive bowel sounds. No rebound, guarding, or rigidity. No masses appreciated. EXTREMITIES: Nontender, good range of motion, no pitting or edema. NEUROLOGICAL: No focal neurological deficits. Moves all extremities spontaneously Motor and sensory grossly intact on exam. PSYCH: Normal mood, normal affect. SKIN: Warm, Dry, normal turgor, no rashes or lesions noted on exposed skin - Related Data Allergies/Adverse Reactions: erythromycin base [Erythromycin Base] Allergy (Verified 06/25/18 10:03) ondansetron [From Zofran (as hydrochloride)] Allergy (Verified 06/25/18 10:03) prednisone Adverse Reaction (Intermediate, Verified 06/25/18 10:03) GI upset Past Medical History - Social History Smoking Status: Never Smoker Family History: None, Reviewed & Not Pertinent - Past Medical History Cardiac Medical History: Reports: Hx Congestive Heart Failure, Hx Coronary Artery Disease, Hx Heart Attack, Hx Hypercholesterolemia, Hx Hypertension Denies: Hx DVT, Hx Pulmonary Embolism Pulmonary Medical History: Reports: Hx Asthma, Hx COPD, Hx Pneumonia Denies: Hx Sleep Apnea, Hx Tuberculosis Neurological Medical History: Denies: Hx Seizures Endocrine Medical History: Denies: Hx Diabetes Mellitus Type 1, Hx Diabetes Mellitus Type 2, Hx Hyperthyroidism, Hx Hypothyroidism Renal/ Medical History: Reports: Hx Kidney Stones, Hx Renal Insufficiency. Denies: Hx Peritoneal Dialysis GI Medical History: Denies: Hx Cirrhosis, Hx Gastroesophageal Reflux Disease, Hx Hepatitis Musculoskeletal Medical History: Reports Hx Arthritis Psychiatric Medical History: Reports: Hx Anxiety Denies: Hx Depression Infectious Medical History: Denies: Hx C-Diff, Hx Hepatitis, Hx MRSA Past Surgical History: Reports: Hx Appendectomy, Hx Cardiac Catheterization, Hx Cardiac Surgery - 2001 Mitral valve repair., Hx Carotid Endarterectomy - LEFT, Hx Section - x2, Hx Cholecystectomy, Hx Coronary Artery Bypass Graft - September 2016, Hx Coronary Stent - 2007, Hx Hysterectomy, Hx Pacemaker - September 2016, Hx Valve Replacement - Mitral valve replaced September 2016, Hx Vascular Surgery - Left Carotidendarterectomy - Immunizations Hx Diphtheria, Pertussis, Tetanus Vaccination: Yes Hx Pneumococcal Vaccination: 04/04/14 Physical Exam - Vital signs Vitals: Temp Pulse Resp BP Pulse Ox 97.9 F 80 18 150/106 H 100 06/25/18 10:08 06/25/18 10:08 06/25/18 10:08 06/25/18 10:08 06/25/18 10:08 Course - Re-evaluation Re-evalutation: 06/25/18 10:45 Vitals reviewed. Nursing notes reviewed. Patient given morphine for pain. She has exquisite tenderness in her right upper quadrant and right lower rib cage. Patient is anticoagulated. I am concerned for possible underlying liver injury versus hematoma and occult fractures. CT scan will be obtained to evaluate further. 06/25/18 13:20 Patient reevaluated and is feeling better. She still has some tenderness over her lateral ribs. She was given a dose of Toradol for further pain management. Her CT scan showed no acute pathology. Her blood work shows a slightly reduced INR at 1.78 which she will follow tomorrow with her search optimization analyst on. Patient i nstructed to continue taking her Coumadin as already prescribed. Patient encouraged to increase her albuterol to every 4 hours as needed for shortness of breath. Laboratory 06/25/18 06/25/18 06/25/18 10:47 10:47 10:47 WBC 9.3 RBC 4.73 Hgb 14.5 Hct 43.6 MCV 92 MCH 30.7 MCHC 33.3 RDW 17.2 H Plt Count 276 Seg Neutrophils % 72.5 Lymphocytes % 18.1 Monocytes % 6.0 Eosinophils % 2.7 Basophils % 0.7 Absolute Neutrophils 6.8 Absolute Lymphocytes 1.7 Absolute Monocytes 0.6 Absolute Eosinophils 0.2 Absolute Basophils 0.1 PT 21.6 H INR 1.78 Sodium 139.3 Potassium 4.4 Chloride 102 Carbon Dioxide 27 Anion Gap 10 BUN 16 Creatinine 0.98 Est GFR ( Amer) > 60 Est GFR (Non-Af Amer) 58 L Glucose 87 Calcium 10.5 H Total Bilirubin 0.3 Direct Bilirubin 0.2 Neonat Total Bilirubin Not Reportable Neonat Direct Bilirubin Not Reportable Neonat Indirect Bili Not Reportable AST 27 ALT 31 Alkaline Phosphatase 164 H Troponin I Total Protein 9.1 H Albumin 5.1 H 06/25/18 10:47 WBC RBC Hgb Hct MCV MCH MCHC RDW Plt Count Seg Neutrophils % Lymphocytes % Monocytes % Eosinophils % Basophils % Absolute Neutrophils Absolute Lymphocytes Absolute Monocytes Absolute Eosinophils Absolute Basophils PT INR Sodium Potassium Chloride Carbon Dioxide Anion Gap BUN Creatinine Est GFR ( Amer) Est GFR (Non-Af Amer) Glucose Calcium Total Bilirubin Direct Bilirubin Neonat Total Bilirubin Neonat Direct Bilirubin Neonat Indirect Bili AST ALT Alkaline Phosphatase Troponin I < 0.012 Total Protein Albumin Abdomen/Pelvis CT 06/25/18 10:28 IMPRESSION: No acute findings. IMPRESSION: No acute findings. Chest/Abdomen CTA 06/25/18 10:28 IMPRESSION: No acute findings. IMPRESSION: No acute findings. She is otherwise hemodynamically stable for discharge. - Vital Signs Vital signs: Temp Pulse Resp BP Pulse Ox 97.9 F 80 19 125/74 100 06/25/18 10:08 06/25/18 10:08 06/25/18 10:59 06/25/18 10:59 06/25/18 10:59 - Laboratory Result Diagrams: 06/25/18 10:47 06/25/18 10:47 Laboratory results interpreted by me: 06/25/18 06/25/18 06/25/18 10:47 10:47 10:47 RDW 17.2 H PT 21.6 H Est GFR (Non-Af Amer) 58 L Calcium 10.5 H Alkaline Phosphatase 164 H Total Protein 9.1 H Albumin 5.1 H - EKG Interpretation by Me Additional EKG results interpreted by me: 06/25/18 10:59 Interpreted by myself 1055: Atrially paced, rate 71, normal axis, nonspecific ST changes compared to 01/12/2018 Discharge - Discharge Clinical Impression: COPD exacerbation, Subtherapeutic international normalized ratio (INR) Rib contusion Qualifiers: Encounter type: subsequent encounter Laterality: right Qualified Code(s): S20.211D - Contusion of right front wall of thorax, subsequent encounter Condition: Stable Disposition: HOME, SELF-CARE Instructions: Rib Contusion ([facility]) Additional Instructions: Please return to the emergency department if you have any worsening, or concern of your symptoms. Please return to the emergency department if you develop chest pain, difficulty breathing, severe abdominal pain, or ongoing vomiting. Please follow-up with your primary care physician in 2-3 days and any other recommended physicians. If prescribed, take all medications as directed. If you have any questions or concerns do not hesitate to return the emergency department for evaluation. Your INR level was low today, please follow-up with your primary care doctor to discuss her Coumadin dosing Referrals: MANOHAR HINTON MD [ACTIVE STAFF] - Follow up in 3-5 days
[2018-06-25 10:57] LABS: ABSOLUTE BASOPHILS # (AUTO) 0.1 10^3/uL (0.0-0.2); ABSOLUTE EOSINOPHILS # (AUTO) 0.2 10^3/uL (0.0-0.6); ABSOLUTE LYMPHOCYTES (AUTO) 1.7 10^3/uL (0.5-4.7); ABSOLUTE MONOCYTES (AUTO) 0.6 10^3/uL (0.1-1.4); ABSOLUTE NEUT (AUTO) 6.8 10^3/uL (1.7-8.2); BASOPHILS % (AUTO) 0.7 % (0-2); EOSINOPHILS % (AUTO) 2.7 % (0-6); HEMATOCRIT 43.6 % (36.0-47.0); HEMOGLOBIN 14.5 g/dL (12.0-15.5); LYMPHOCYTES % (AUTO) 18.1 % (13-45); MEAN CORPUSCULAR HEMOGLOBIN 30.7 pg (27.0-33.4); MEAN CORPUSCULAR HGB CONC 33.3 g/dL (32.0-36.0); MEAN CORPUSCULAR VOLUME 92 fl (80-97); PLATELET COUNT 276 10^3/uL (150-450); RED BLOOD COUNT 4.73 10^6/uL (3.72-5.28); RED CELL DISTRIBUTION WIDTH 17.2 % (11.5-14.0); SEGMENTED NEUTROPHILS % (AUTO) 72.5 % (42-78); TOTAL CELLS COUNTED % (AUTO) 100 %; WHITE BLOOD COUNT 9.3 10^3/uL (4.0-10.5)
[2018-06-25 11:02] LABS: INTERNATIONAL RATION (INR) 1.78; PROTHROMBIN TIME 21.6 SEC (11.4-15.4)
[2018-06-25 11:16] LABS: ALANINE AMINOTRANSFERASE 31 U/L (9-52); ALBUMIN 5.1 g/dL (3.5-5.0); ALKALINE PHOSPHATASE 164 U/L (38-126); ANION GAP 10 (5-19); ASPARTATE AMINO TRANSFERASE 27 U/L (14-36); BILIRUBIN,DIRECT 0.2 mg/dL (0.0-0.4); BILIRUBIN,TOTAL 0.3 mg/dL (0.2-1.3); BLOOD UREA NITROGEN 16 mg/dL (7-20); CALCIUM 10.5 mg/dL (8.4-10.2); CARBON DIOXIDE 27 mmol/L (22-30); CHLORIDE 102 mmol/L (98-107); GLUCOSE 87 mg/dL (75-110); POTASSIUM 4.4 mmol/L (3.6-5.0); SODIUM 139.3 mmol/L (137-145); TOTAL PROTEIN 9.1 g/dL (6.3-8.2)
[2018-06-25] MEDS ORDERED: KETOROLAC TROMETHAMINE INJ/PF 30 MG/1 ML SDV IV ONE (12:43)
--- NOTE | 2018-06-25 12:47 | RADIOLOGY REPORT (SQ) ---
EXAM DESCRIPTION: CTA CHEST; CT ABD/PELVIS WITH IV ONLY COMPLETED DATE/TIME: 06/25/2018 12:25 pm REASON FOR STUDY: trauma; trauma RUQ pain CONTRAST TYPE AND DOSE: contrast/concentration: Isovue 350.00 mg/ml; Total Contrast Delivered: 91.0 ml; Total Saline Delivered: 87.0 ml RENAL FUNCTION: GFR > 60. COMPARISON: 10/01/2016 TECHNIQUE: CT scan of the chest performed using helical scanning technique with dynamic intravenous contrast injection. Images reviewed with lung, soft tissue and bone windows. Reconstructed coronal a nd sagittal MPR images reviewed. All images stored on PACS. All CT scanners at this facility use dose modulation, iterative reconstruction, and/or weight based d osing when appropriate to reduce radiation dose to as low as reasonably achievable (ALARA). [facility]: Dose Right [facility]: CareDose [facility]: Dose Right [facility]: Teradose 4D [facility]: [employer] RADIATION DOSE: . LIMITATIONS: None. FINDINGS: AXILLAE: No adenopathy. CHEST WALL: No masses. No subcutaneous air. LUNGS: No consolidation. No pneumothorax. Scattered areas of subsegmental atelectasis and subpleura l chronic interstitial thickening. PLEURA: No effusions. No calcifications. THYROID: No masses or significant asymmetry. HILAR AND MEDIASTINAL STRUCTURES: Scattered small nodes. AORTA AND GREAT VESSELS: No aneurysm. No dissection. PULMONARY ARTERIES: No identified pulmonary emboli. Study not optimized for the pulmonary arteries. HEART: No pericardial effusion. HARDWARE AND LIFELINES: Prior sternotomy and mitral valve replacement. Cardiac pacer. BONES: No acute finding. The multiple old right rib fractures. OTHER: No other significant finding. IMPRESSION: No acute findings. COMPARISON: 01/12/2018 RADIATION DOSE: CT Rad equipment meets quality standard of care and radiation dose reduction techniq ues were employed. CTDIvol: 16.5 - 24.7 mGy. DLP: 3073 mGy-cm.mGy. TECHNIQUE: CT scan of the abdomen and pelvis performed with intravenous and oral contrast using nurys michelle scanning technique with dynamic intravenous contrast injection. Images reviewed with lung, soft tissue and bone windows. Reconstructed coronal and sagittal MPR images reviewed. Delayed images for evaluation of the urinary system also acquired and evaluated. All images stored on PACS. All CT scanners at this facility use dose modulation, iterative reconstruction, and/or weight based d osing when appropriate to reduce radiation dose to as low as reasonably achievable (ALARA). [facility]: Dose Right [facility]: [employer] [facility]: Dose Right [facility]: Teradose 4D [facility]: [employer] FINDINGS: LIVER: Normal size. No masses. No dilated ducts. SPLEEN: Normal size. No focal lesions. PANCREAS: No masses. No significant calcifications. No adjacent inflammation or peripancreatic flui d collections. Pancreatic duct not dilated. GALLBLADDER: Surgically absent. ADRENAL GLANDS: Similar left adrenal nodule. RIGHT KIDNEY AND URETER: No solid masses. No significant calcification. No hydronephrosis or hydroure ter. LEFT KIDNEY AND URETER: No solid masses. No significant calcification. No hydronephrosis or hydrouret er. AORTA AND VESSELS: No aneurysm. No dissection. Renal arteries, SMA, celiac without significant stenos is. RETROPERITONEUM: No retroperitoneal adenopathy, hemorrhage or masses. LARGE AND SMALL BOWEL: Colonic diverticulosis. No dilatation. No masses. No wall thickening. APPENDIX: Normal. ABDOMINAL WALL: No hernia or masses. PERITONEAL CAVITY: No free air. No free fluid. No peritoneal implants or masses. PELVIS: No free fluid. Prior hysterectomy. Normal bladder. BONES: No acute findings. OTHER: No other significant finding. IMPRESSION: No acute findings. TECHNICAL DOCUMENTATION: JOB ID: [id number] [place]-72 Quality ID # [id number]: Final reports with documentation of one or more dose reduction techniques (e.g., Au tomated exposure control, adjustment of the mA and/or kV according to patient size, use of iterative reconstruction technique) 2010 [employer]- All Rights Reserved Reading location - IP/workstation name: [email or web address]
[2018-06-25 13:28] VITALS: BP 136/84
--- NOTE | 2018-06-25 23:57 | EKG REPORT ---
SEVERITY:- ABNORMAL ECG - ATRIAL-PACED RHYTHM LEFT BUNDLE BRANCH BLOCK : Confirmed by: Guanaco Foley 25-Jun-2018 23:56:47
== END 2018-06-25 13:42 | disposition home or self-care (01) ==
LOC: ER 10:02
DX: S20.211D Contusion of right front wall of thorax, subsequent encounter (principal); W18.2XXA Fall in (into) shower or empty bathtub, initial encounter; J44.1 Chronic obstructive pulmonary disease with (acute) exacerbation; Z79.01 Long term (current) use of anticoagulants; R06.02 Shortness of breath; I10 Essential (primary) hypertension; I25.10 Atherosclerotic heart disease of native coronary artery without angina pectoris; R63.4 Abnormal weight loss; R63.0 Anorexia; R05 Cough; R10.811 Right upper quadrant abdominal tenderness; Z95.2 Presence of prosthetic heart valve; Z79.899 Other long term (current) drug therapy; Z87.01 Personal history of pneumonia (recurrent); Z95.0 Presence of cardiac pacemaker; Z88.1 Allergy status to other antibiotic agents; Z88.8 Allergy status to other drugs, medicaments and biological substances; Z95.1 Presence of aortocoronary bypass graft
CPT/HCPCS: 93005; 94640 ×2; 99284; 96374; 96375; 36415; 85025; 85610; 80053; 84484; 71275; 74177; 93010; J2930; J1885; J2270; A9270 ×2; J7620

== ENCOUNTER 2018-07-12 03:30 | Inpatient (IN) | payer MEDICARE ==
[2018-07-12] MEDS ORDERED: IPRATROPIUM/ALBUTEROL 0.5-2.5 MG/3 ML AMPUL NEB ONE (04:33)
[2018-07-12] MEDS ORDERED: ACETAMINOPHEN 325 MG TABLET PO ONE (04:36)
--- NOTE | 2018-07-12 05:13 | RADIOLOGY REPORT (SQ) ---
EXAM DESCRIPTION: XR CHEST 1 VIEW COMPLETED DATE/TME: 07/12/2018 04:34 CLINICAL HISTORY: 63 years, Female, Wheezing, green productive cough, fever, hypoxia COMPARISON: 01/12/2018 NUMBER OF VIEWS: One TECHNIQUE: AP view of the chest LIMITATIONS: None. FINDINGS: The lungs are clear. The heart is mildly enlarged with changes of valve replacement. A left chest wall pacemaker is in place. There is no pneumothorax or pleural effusion. Median sternotomy wires are noted. IMPRESSION: No acute cardiopulmonary abnormality copyright 2010 [employer]- All Rights Reserved
[2018-07-12 05:16] LABS: HEMATOCRIT 28.8 % (36.0-47.0); HEMOGLOBIN 9.9 g/dL (12.0-15.5); MEAN CORPUSCULAR HEMOGLOBIN 31.5 pg (27.0-33.4); MEAN CORPUSCULAR HGB CONC 34.2 g/dL (32.0-36.0); MEAN CORPUSCULAR VOLUME 92 fl (80-97); PLATELET COUNT 211 10^3/uL (150-450); RED BLOOD COUNT 3.14 10^6/uL (3.72-5.28); RED CELL DISTRIBUTION WIDTH 17.8 % (11.5-14.0); WHITE BLOOD COUNT 16.2 10^3/uL (4.0-10.5)
[2018-07-12 05:17] LABS: INTERNATIONAL RATION (INR) 2.82
[2018-07-12 05:30] LABS: ALANINE AMINOTRANSFERASE 39 U/L (9-52); ALBUMIN 3.7 g/dL (3.5-5.0); ALKALINE PHOSPHATASE 160 U/L (38-126); ANION GAP 10 (5-19); ASPARTATE AMINO TRANSFERASE 19 U/L (14-36); BILIRUBIN,DIRECT 0.5 mg/dL (0.0-0.4); BILIRUBIN,TOTAL 0.7 mg/dL (0.2-1.3); BLOOD UREA NITROGEN 20 mg/dL (7-20); CALCIUM 9.2 mg/dL (8.4-10.2); CARBON DIOXIDE 26 mmol/L (22-30); CHLORIDE 100 mmol/L (98-107); CREATINE KINASE 32 U/L (30-135); GLUCOSE 117 mg/dL (75-110); POTASSIUM 4.6 mmol/L (3.6-5.0); SODIUM 135.8 mmol/L (137-145); TOTAL PROTEIN 6.6 g/dL (6.3-8.2)
[2018-07-12 05:41] LABS: ABSOLUTE LYMPHOCYTES# (MANUAL) 0.6 10^3/uL (0.5-4.7); ABSOLUTE MONOCYTES # (MANUAL) 0.8 10^3/uL (0.1-1.4); ABSOLUTE NEUTROPHILS# (MANUAL) 14.7 10^3/uL (1.7-8.2); ANISOCYTOSIS 1+; BAND NEUTROPHILS % (MANUAL) 1 % (3-5); BASOPHILS % (MANUAL) 0 % (0-2); EOSINOPHILS % (MANUAL) 0 % (0-6); HYPOCHROMASIA 1+; LYMPHOCYTES % (MANUAL) 4 % (13-45); MONOCYTES % (MANUAL) 5 % (3-13); POIKILOCYTOSIS 1+; SEGMENTED NEUTROPHILS % (MAN) 90 % (42-78); STOMATOCYTES 1+; TOTAL CELLS COUNTED 100
[2018-07-12 05:42] LABS: APPEARANCE,URINE CLEAR; BILIRUBIN,URINE NEGATIVE (NEGATIVE); COLOR,URINE YELLOW; GLUCOSE, URINE NEGATIVE (NEGATIVE); KETONES,URINE NEGATIVE (NEGATIVE); LEUKOCYTE ESTERASE,URINE NEGATIVE (NEGATIVE); NITRITE,URINE NEGATIVE (NEGATIVE); PROTEIN,URINE NEGATIVE (NEGATIVE); URINE SPECIFIC GRAVITY 1.014; UROBILINOGEN,URINE NEGATIVE mg/dL (<2.0)
[2018-07-12 05:42] LABS: PLATELET COMMENT ADEQUATE
[2018-07-12] MEDS ORDERED: ALBUTEROL SULFATE 0.083% NEB 2.5 MG/3 ML AMPUL NEB ONE (05:55)
[2018-07-12] MEDS ORDERED: LORAZEPAM INJ 2 MG/1 ML VIAL IV ONE (06:01)
[2018-07-12] MEDS ORDERED: MORPHINE SULFATE 10 MG/ML INJ IV ONE (06:02)
[2018-07-12] MEDS ORDERED: METHYLPREDNISOLONE INJ 125 MG/2 ML SDV IV ONE (06:10)
[2018-07-12] MEDS ORDERED: CEFEPIME 1 GM/D5W RTU 1 GM/50 ML RTUPB IV ONE (06:30)
--- NOTE | 2018-07-12 06:32 | ER Document Report ---
Entered by ENZO RICHARDS SCRIBE 07/12/18 0449 Acting as scribe for:ALESHA PETER MD ED General - General Chief Complaint: Chest Pain Stated Complaint: CHEST PAIN Time Seen by Provider: 07/12/18 04:24 Primary Care Provider: PAIGE ALEJANDRO PA-C [Primary Care Provider] - Follow up as needed Mode of Arrival: Ambulatory Information source: Patient Notes: Patient is a 63 year old female with a mechanical mitral valve presents to the emergency department complaining of chest pain onset this morning. Patient states she has recently had an increase in a productive cough with green sputum as well as increased shortness of breath. She states this morning around 0200 she woke up with chest pain that is exacerbated with coughing. Patient is not normally on oxygen at home. Upon arrival to the emergency department, patient had a pulse of 92% and a respiration rate of 28. Of significance, patient reports having an appointment with her PCP today due to elevated INRs. On 07/10/18, patients INR was 5.59 on 07/11/18 her INR was 5.38. Patient recently had her Coumadin increased on 07/31/18. TRAVEL OUTSIDE OF THE [place] IN LAST 30 DAYS: No - Related Data Allergies/Adverse Reactions: erythromycin base [Erythromycin Base] Allergy (Verified 06/25/18 10:03) ondansetron [From Zofran (as hydrochloride)] Allergy (Verified 06/25/18 10:03) prednisone Adverse Reaction (Intermediate, Verified 06/25/18 10:03) GI upset Past Medical History - General Information source: Patient - Social History Smoking Status: Never Smoker Cigarette use (# per day): No Chew tobacco use (# tins/day): No Smoking Education Provided: No Frequency of alcohol use: None Family History: None, Reviewed & Not Pertinent - Past Medical History Cardiac Medical History: Reports: Hx Congestive Heart Failure, Hx Coronary Artery Disease, Hx Heart Attack, Hx Hypercholesterolemia, Hx Hypertension Pulmonary Medical History: Reports: Hx Asthma, Hx COPD, Hx Pneumonia Renal/ Medical History: Reports: Hx Kidney Stones, Hx Renal Insufficiency Musculoskeletal Medical History: Reports Hx Arthritis Psychiatric Medical History: Reports: Hx Anxiety Past Surgical History: Reports: Hx Appendectomy, Hx Cardiac Catheterization, Hx Cardiac Surgery - 2002 Mitral valve repair., Hx Carotid Endarterectomy - LEFT, Hx Section - x2, Hx Cholecystectomy, Hx Coronary Artery Bypass Graft - September 2016, Hx Coronary Stent - 2007, Hx Hysterectomy, Hx Pacemaker - September 2016, Hx Valve Replacement - Mitral valve replaced September 2016, Hx Vascular Surgery - Left Carotidendarterectomy - Immunizations Hx Diphtheria, Pertussis, Tetanus Vaccination: Yes Hx Pneumococcal Vaccination: 04/04/14 Review of Systems - Review of Systems Constitutional: No symptoms reported EENT: No symptoms reported Cardiovascular: See HPI, Chest pain Respiratory: Cough, Short of breath Gastrointestinal: No symptoms reported Genitourinary: No symptoms reported Female Genitourinary: No symptoms reported Musculoskeletal: No symptoms reported Skin: No symptoms reported Hematologic/Lymphatic: No symptoms reported Neurological/Psychological: No symptoms reported -: Yes All other systems reviewed and negative Physical Exam - Vital signs Vitals: Temp Pulse Resp BP Pulse Ox 100.5 F H 99 28 H 124/64 91 L 07/12/18 03:39 07/12/18 03:39 07/12/18 03:39 07/12/18 03:39 07/12/18 03:39 - Notes Notes: GENERAL: Alert, interacts well. No acute distress. HEAD: Normocephalic, atraumatic. EYES: Pupils equal, round, and reactive to light. Extraocular movements intact. ENT: Oral mucosa moist, tongue midline. NECK: Full range of motion. Supple. Trachea midline. LUNGS: Wheezes and rhonchi. HEART: Regular rate and rhythm. No murmurs, gallops, or rubs. ABDOMEN: Soft, non-tender. Non-distended. Bowel sounds present in all 4 quadrants. No guarding, rigidity, or rebound. EXTREMITIES: Moves all 4 extremities spontaneously. No edema. NEUROLOGICAL: Alert and oriented x3. Normal speech. PSYCH: Normal affect, normal mood. SKIN: Warm, dry, normal turgor. No rashes or lesions noted. Course - Vital Signs Vital signs: Temp Pulse Resp BP Pulse Ox 100.5 F H 99 27 H 166/55 H 100 07/12/18 03:39 07/12/18 03:39 07/12/18 05:00 07/12/18 05:09 07/12/18 05:09 - Laboratory Result Diagrams: 07/12/18 04:47 07/12/18 04:47 Laboratory results interpreted by me: 07/12/18 07/12/18 07/12/18 04:47 04:47 04:47 WBC 16.2 H RBC 3.14 L Hgb 9.9 L Hct 28.8 L RDW 17.8 H Seg Neuts % (Manual) 90 H Band Neutrophils % 1 L Lymphocytes % (Manual) 4 L Abs Neuts (Manual) 14.7 H PT 31.0 H Sodium 135.8 L Est GFR (Non-Af Amer) 55 L Glucose 117 H Direct Bilirubin 0.5 H Alkaline Phosphatase 160 H - Diagnostic Test Radiology reviewed: Image reviewed, Reports reviewed - Chest x-ray does not show infiltrate. There is borderline cardiac enlargement and evidence of prior mitral valve repair. - Consults Dr. Baptiste Time consulted: 06:03 Consulted provider: will come to ER Critical Care Note - Critical Care Note Total time excluding time spent on procedures (mins): 35 Discharge - Discharge Clinical Impression: Rib pain, Acute bronchitis with bronchospasm, COPD with exacerbation Leukocytosis Qualifiers: Leukocytosis type: unspecified Qualified Code(s): D72.829 - Elevated white blood cell count, unspecified Fever Qualifiers: Fever type: unspecified Qualified Code(s): R50.9 - Fever, unspecified Anemia Qualifiers: Anemia type: unspecified type Qualified Code(s): D64.9 - Anemia, unspecified Condition: Good Disposition: ADMITTED INPATIENT Admitting Provider: Emile (Hospitalist) Unit Admitted: Telemetry Referrals: PAIGE ALEJANDRO PA-C [Primary Care Provider] - Follow up as needed Scribe Attestation: 07/12/18 06:09 I personally performed the services described in the documentation, reviewed and edited the documentation which was dictated to the scribe in my presence, and it accurately records my words and actions. I personally performed the services described in the documentation, reviewed and edited the documentation which was dictated to the scribe in my presence, and it accurately records my words and actions.
[2018-07-12] MEDS ORDERED: IPRATROPIUM/ALBUTEROL 0.5-2.5 MG/3 ML AMPUL NEB PRN (06:44)
[2018-07-12] MEDS ORDERED: HYDRALAZINE HCL INJ/PF 20 MG/1 ML SDV IV PRN (06:44)
[2018-07-12] MEDS ORDERED: ACETAMINOPHEN 325 MG TABLET PO PRN ×2 (06:44)
--- NOTE | 2018-07-12 06:56 | PDOC H&P ---
History of Present Illness Admission Date/PCP: PAIGE ALEJANDRO PA-C Patient complains of: Cough and congestion History of Present Illness: DEAN VILLANUEVA is a 63 year old female with a past medical history of COPD, anxiety, mitral valve replacement on Coumadin. Patient presents with 24 hours of shortness of breath and a productive cough with yellow sputum developing paroxysms of cough and pain to the chest wall during deep breathing and coughing. She admits to rhinorrhea, denies sore throat. In the emergency room she is found to have fever of 100.5, hypoxia of 88% on room air, leukocytosis, but a chest x-ray unremarkable for infiltrate. She is treated empirically for pneumonia and referred to the hospitalist for admission. Past Medical History Cardiac Medical History: Reports: Congestive Heart Failure, Coronary Artery Disease, Myocardial Infarction, Hyperlipidema, Hypertension Denies: DVT, Pulmonary Embolism Pulmonary Medical History: Reports: Asthma, Chronic Obstructive Pulmonary Disease (COPD), Pneumonia Denies: Sleep Apnea, Tuberculosis Neurological Medical History: Denies: Seizures Endocrine Medical History: Denies: Diabetes Mellitus Type 1, Diabetes Mellitus Type 2, Hyperthyroidism, Hypothyroidism GI Medical History: Denies: Cirrhosis, Gastroesophageal Reflux Disease, Hepatitis Musculoskeltal Medical History: Reports: Arthritis Psychiatric Medical History: Reports: General Anxiety Disorder Denies: Depression Hematology: Reports: Anemia Infectious Medical History: Denies: Clostridium Difficile, Methicillin-Resistant Staph Aureus Past Surgical History Past Surgical History: Reports: Appendectomy, Cardiac Catheterization, Carotid Endarterectomy - LEFT, Section - x2, Cholecystectomy, Coronary Artery Bypass Graft - September 2016, Coronary Stent - 2007, Hysterectomy, Pacemaker - September 2016, Valve Replacement - Mitral valve replaced September 2016, Vascular Surgery - Left Carotidendarterectomy Social History Information Source: Patient, [facility] Records Smoking Status: Never Smoker Frequency of Alcohol Use: None Hx Recreational Drug Use: No Drugs: None Hx Prescription Drug Abuse: No - Advance Directive Resuscitation Status: Full Code Family History Family History: COPD Parental Family History Reviewed: Yes Children Family History Reviewed: Yes Sibling(s) Family History Reviewed.: Yes Medication/Allergy Home Medications: Clonazepam [Klonopin] 0.5 mg PO TID 10/01/16 Escitalopram Oxalate [Lexapro 10 mg Tablet] 10 mg PO QHS 10/01/16 Ezetimibe [Zetia 10 mg Tablet] 10 mg PO DAILY 10/01/16 Furosemide [Lasix] 40 mg PO BID 10/01/16 Metoprolol Succinate [Toprol Xl 25 mg Tab.sr] 25 mg PO BID 10/01/16 Nitroglycerin [Nitrostat] 0.4 mg SL Q5M 10/01/16 Spironolactone [Aldactone 25 mg Tablet] 25 mg PO DAILY 10/01/16 Warfarin Sodium [Coumadin 5 mg Tablet] 5 mg PO QHS #60 tablet 10/07/16 Oxycodone HCl/Acetaminophen [Percocet 5-325 mg Tablet] 1 tab PO Q4HP PRN #10 tablet 10/08/16 Diclofenac Sodium [Voltaren] 4 gm TP QID PRN #100 gel..gm. 01/13/17 Sucralfate [Carafate 1 gm Tablet] 1 gm PO ACHS PRN #40 tablet 10/16/17 Methylprednisolone [Medrol Dosepack (4 mg/Tab) 21 Tab/Dosepak] 4 mg PO ASDIR #21 tab.ds.pk 11/10/17 Furosemide 20 mg PO DAILY #3 tablet 01/12/18 Warfarin Sodium [Coumadin] 2 mg PO DAILY #2 tablet 01/12/18 Allergies/Adverse Reactions: erythromycin base [Erythromycin Base] Allergy (Verified 06/25/18 10:03) ondansetron [From Zofran (as hydrochloride)] Allergy (Verified 06/25/18 10:03) prednisone Adverse Reaction (Intermediate, Verified 06/25/18 10:03) GI upset Review of Systems Constitutional: PRESENT: as per HPI, anorexia, chills, fatigue, fever(s) Eyes: ABSENT: visual disturbances Ears: ABSENT: hearing changes Cardiovascular: PRESENT: chest pain - Chest wall, dyspnea on exertion. ABSENT: edema, orthropnea, palpitations Respiratory: PRESENT: as per HPI, cough, dyspnea, sputum Gastrointestinal: ABSENT: abdominal pain, constipation, diarrhea, hematemesis, hematochezia, nausea, vomiting Genitourinary: ABSENT: dysuria, hematuria Musculoskeletal: ABSENT: joint swelling Integumentary: ABSENT: rash, wounds Neurological: ABSENT: abnormal gait, abnormal speech, confusion, dizziness, focal weakness, syncope Psychiatric: ABSENT: anxiety, depression, homidical ideation, suicidal ideation Endocrine: ABSENT: cold intolerance, heat intolerance, polydipsia, polyuria Hematologic/Lymphatic: ABSENT: easy bleeding, easy bruising Physical Exam Vital Signs: Temp Pulse Resp BP Pulse Ox 100.5 F H 99 27 H 166/55 H 100 07/12/18 03:39 07/12/18 03:39 07/12/18 05:00 07/12/18 05:09 07/12/18 05:09 Intake & Output 07/10/18 07/11/18 07/12/18 11:59 11:59 11:59 Weight 87 kg General appearance: PRESENT: cooperative, mild distress. ABSENT: disheveled, hard of hearing Head exam: PRESENT: atraumatic, normocephalic Eye exam: PRESENT: conjunctival injection, EOMI, PERRLA. ABSENT: scleral icterus Ear exam: PRESENT: normal external ear exam Mouth exam: PRESENT: moist, tongue midline Neck exam: ABSENT: carotid bruit, JVD, lymphadenopathy, thyromegaly Respiratory exam: PRESENT: accessory muscle use, prolonged expiratory phas, retraction, rhonchi, symmetrical, tachypnea Cardiovascular exam: PRESENT: +S1, +S2, systolic murmur, tachycardia Pulses: PRESENT: normal dorsalis pedis pul Vascular exam: PRESENT: normal capillary refill GI/Abdominal exam: PRESENT: normal bowel sounds, soft. ABSENT: distended, guarding, mass, organolmegaly, rebound, tenderness Rectal exam: PRESENT: deferred Extremities exam: PRESENT: full ROM. ABSENT: calf tenderness, clubbing, pedal edema Neurological exam: PRESENT: alert, awake, oriented to person, oriented to place, oriented to time, oriented to situation, CN II-XII grossly intact. ABSENT: motor sensory deficit Psychiatric exam: PRESENT: appropriate affect, normal mood. ABSENT: homicidal ideation, suicidal ideation Skin exam: PRESENT: dry, intact, warm. ABSENT: cyanosis, rash Results Laboratory Results: 07/12/18 04:47 07/12/18 04:47 07/12/18 07/12/18 07/12/18 04:47 04:47 05:18 WBC 16.2 H RBC 3.14 L Hgb 9.9 L Hct 28.8 L MCV 92 MCH 31.5 MCHC 34.2 RDW 17.8 H Plt Count 211 Seg Neutrophils % Not Reportable Lymphocytes % Not Reportable Monocytes % Not Reportable Eosinophils % Not Reportable Basophils % Not Reportable Absolute Neutrophils Not Reportable Absolute Lymphocytes Not Reportable Absolute Monocytes Not Reportable Absolute Eosinophils Not Reportable Absolute Basophils Not Reportable Sodium 135.8 L Potassium 4.6 Chloride 100 Carbon Dioxide 26 Anion Gap 10 BUN 20 Creatinine 1.02 Est GFR ( Amer) > 60 Est GFR (Non-Af Amer) 55 L Glucose 117 H Calcium 9.2 Total Bilirubin 0.7 AST 19 ALT 39 Alkaline Phosphatase 160 H Total Protein 6.6 Albumin 3.7 Urine Color YELLOW Urine Appearance CLEAR Urine pH 8.0 Ur Specific [place] 1.014 Urine Protein NEGATIVE Urine Glucose (UA) NEGATIVE Urine Ketones NEGATIVE Urine Blood NEGATIVE Urine Nitrite NEGATIVE Ur Leukocyte Esterase NEGATIVE Urine RBC (Auto) 2 07/12/18 07/12/18 04:47 04:47 Creatine Kinase 32 Troponin I 0.022 Impressions: Chest X-Ray 07/12/18 04:34 IMPRESSION: No acute cardiopulmonary abnormality copyright 2011 [employer]- All Rights Reserved Assessment and Plan - Diagnosis (1) Acute bronchitis with bronchospasm Is this a current diagnosis for this admission?: Yes Plan: Empiric antibiotics, chlorpheniramine, Flonase, albuterol and Atrovent, incentive spirometry and flutter valve. (2) Anemia Qualifiers: Anemia type: unspecified type Qualified Code(s): D64.9 - Anemia, unspecified Is this a current diagnosis for this admission?: Yes Plan: Appears microcytic, concerning for supratherapeutic INR. Follow-up labs ordered. (3) Acute and chronic respiratory failure ([id number]) Qualifiers: Is this a current diagnosis for this admission?: Yes Plan: Supplemental oxygen, flutter valve. (4) Anxiety Is this a current diagnosis for this admission?: Yes Plan: Klonopin as needed (5) H/O mitral valve repair Is this a current diagnosis for this admission?: Yes Plan: Continue Coumadin goal INR 2-3. - Time Time Spent with patient: 35 or more minutes
[2018-07-12] MEDS: IPRATROPIUM/ALBUTEROL 0.5-2.5 MG/3 ML AMPUL NEB SCH ×3 (07:30→20:58)
[2018-07-12 07:56] LABS: INTERNATIONAL RATION (INR) 2.67; PROTHROMBIN TIME 29.7 SEC (11.4-15.4)
[2018-07-12] MEDS: CLONAZEPAM 1 MG TABLET PO SCH ×2 (09:06→19:16)
[2018-07-12] MEDS: SPIRONOLACTONE 25 MG TABLET PO SCH (09:07)
[2018-07-12] MEDS: FUROSEMIDE 20 MG TABLET PO SCH (09:07)
[2018-07-12] MEDS: METOPROLOL SUCCINATE 25 MG TAB.SR.24H PO SCH ×2 (09:08→19:14)
[2018-07-12] MEDS: CHLORPHENIRAMINE MALEATE 4 MG TABLET PO SCH ×3 (09:14→21:20)
[2018-07-12] MEDS: GUAIFENESIN SYRP 200 MG/10 ML UDC PO PRN ×2 (09:58→23:13)
[2018-07-12] MEDS ORDERED: (PENDING PHARMACY ID) (Clonazepam [Klonopin] 0.5 MG) PO SCH (10:00)
[2018-07-12] MEDS: OXYCODONE-ACETAMINOPHEN 5-325 MG TABLET PO PRN ×3 (14:29→23:13)
[2018-07-12] MEDS: EZETIMIBE 10 MG TABLET PO SCH (14:30)
[2018-07-12] MEDS: CEFEPIME 2 GM/D5W RTU 2 GM/50 ML RTUPB IV SCH ×2 (14:30→23:13)
[2018-07-12] MEDS: FLUTICASONE NASAL SPRAY 50 MCG/SPRY 120 SPRAY/16 GM NASL SCH ×2 (14:30→22:25)
--- NOTE | 2018-07-12 16:43 | Progress Note ---
Provider Note Provider Note: This is 63 years old female patient with multiple comorbidities including COPD, anxiety disorder, mitral valve replacement, CHF, coronary artery disease, hyperlipidemia, hypertension and obesity presented with 1 day history of cough productive of yellowish sputum congestion and due to the cough started to have chest wall pain. Her chest x-ray reported as no infiltrates. She has leukocytosis of 16,000 and BNP of 3200. Patient is being treated with cefepime as a case of pneumonia empirically. I seen patient propped up in bed. She is awake alert and oriented. Accept this patient.
[2018-07-12] MEDS ORDERED: (PENDING PHARMACY ID) (Warfarin Sodium 7.5 MG) PO SCH (16:45)
[2018-07-12] MEDS: LORAZEPAM 1 MG TABLET PO SCH (19:13)
[2018-07-12] MEDS ORDERED: ESCITALOPRAM OXALATE 10 MG TABLET PO SCH (22:00)
[2018-07-12] MEDS: WARFARIN SODIUM 7.5 MG TABLET PO SCH (22:19)
[2018-07-12] MEDS: ESCITALOPRAM OXALATE 10 MG TABLET PO SCH (22:23)
[2018-07-12] MEDS: METOPROLOL TARTRATE 25 MG TABLET PO SCH (22:23)
[2018-07-12] MEDS: ATORVASTATIN CALCIUM 40 MG TABLET PO SCH (22:23)
[2018-07-12] MEDS: WARFARIN SODIUM 5 MG TABLET PO SCH (22:24)
[2018-07-12] MEDS ORDERED: CEFEPIME 2 GM/D5W RTU 2 GM/50 ML RTUPB IV ONE (22:45)
[2018-07-13] MEDS: CHLORPHENIRAMINE MALEATE 4 MG TABLET PO SCH (00:28)
[2018-07-13] MEDS: IPRATROPIUM/ALBUTEROL 0.5-2.5 MG/3 ML AMPUL NEB SCH ×5 (02:02→23:53)
[2018-07-13] MEDS: OXYCODONE-ACETAMINOPHEN 5-325 MG TABLET PO PRN ×4 (04:42→21:32)
[2018-07-13] MEDS: GUAIFENESIN SYRP 200 MG/10 ML UDC PO PRN ×2 (04:42→09:51)
[2018-07-13 05:02] LABS: ABSOLUTE LYMPHOCYTES (AUTO) 0.6 10^3/uL (0.5-4.7); ABSOLUTE MONOCYTES (AUTO) 0.5 10^3/uL (0.1-1.4); ABSOLUTE NEUT (AUTO) 9.7 10^3/uL (1.7-8.2); ABSOLUTE RETICS # 0.065 10^6/uL (0.028-0.122); BASOPHILS % (AUTO) 0.3 % (0-2); HEMATOCRIT 26.4 % (36.0-47.0); LYMPHOCYTES % (AUTO) 5.3 % (13-45); MEAN CORPUSCULAR HEMOGLOBIN 31.2 pg (27.0-33.4); MEAN CORPUSCULAR HGB CONC 34.2 g/dL (32.0-36.0); MEAN CORPUSCULAR VOLUME 91 fl (80-97); MONOCYTES % (AUTO) 5.1 % (3-13); PLATELET COUNT 205 10^3/uL (150-450); RED BLOOD COUNT 2.89 10^6/uL (3.72-5.28); RED CELL DISTRIBUTION WIDTH 17.4 % (11.5-14.0); RETICULOCYTE COUNT (AUTO) 2.26 % (0.66-2.85); SEGMENTED NEUTROPHILS % (AUTO) 89.3 % (42-78); TOTAL CELLS COUNTED % (AUTO) 100 %; WHITE BLOOD COUNT 10.8 10^3/uL (4.0-10.5)
[2018-07-13 05:18] LABS: BLOOD UREA NITROGEN 25 mg/dL (7-20); CALCIUM 9.2 mg/dL (8.4-10.2); GLUCOSE 125 mg/dL (75-110)
[2018-07-13 05:19] LABS: ANION GAP 6 (5-19); CARBON DIOXIDE 25 mmol/L (22-30); CHLORIDE 102 mmol/L (98-107); IRON(TIBC) 41.5 ug/dL (37-170); POTASSIUM 4.8 mmol/L (3.6-5.0); SODIUM 133.1 mmol/L (137-145)
[2018-07-13 06:26] LABS: FOLATE 6.76 ng/mL (>2.76)
[2018-07-13] MEDS: SPIRONOLACTONE 25 MG TABLET PO SCH (09:47)
[2018-07-13] MEDS: LORAZEPAM 1 MG TABLET PO SCH ×2 (09:47→17:28)
[2018-07-13] MEDS: FLUTICASONE/VILANTEROL 200-25 MCG/DOSE IH SCH (09:48)
[2018-07-13] MEDS: LOSARTAN POTASSIUM 50 MG TABLET PO SCH (09:48)
[2018-07-13] MEDS: FUROSEMIDE 20 MG TABLET PO SCH (09:49)
[2018-07-13] MEDS: METOPROLOL TARTRATE 25 MG TABLET PO SCH ×2 (09:49→21:30)
[2018-07-13] MEDS: FLUTICASONE NASAL SPRAY 50 MCG/SPRY 120 SPRAY/16 GM NASL SCH ×2 (09:49→21:37)
[2018-07-13] MEDS: CEFEPIME HCL 2 GM in DEXTROSE 5%-WATER 50 ML IV SCH ×2 (09:49→21:38)
[2018-07-13] MEDS: EZETIMIBE 10 MG TABLET PO SCH (09:51)
[2018-07-13] MEDS: TIOTROPIUM BROMIDE DPI 5 CAP/KIT (18 MCG/CAP) IH SCH (09:51)
[2018-07-13] MEDS ORDERED: (PENDING PHARMACY ID) (Warfarin Sodium 5 MG) PO SCH (10:00)
[2018-07-13] MEDS: CLONAZEPAM 1 MG TABLET PO SCH (10:00)
[2018-07-13] MEDS ORDERED: (PENDING PHARMACY ID) (Tiotropium Bromide [Spiriva Respimat] 2 PUFF) IH SCH (10:00)
[2018-07-13] MEDS ORDERED: METOPROLOL SUCCINATE 25 MG TAB.SR.24H PO SCH (10:00)
--- NOTE | 2018-07-13 10:59 | EKG REPORT ---
SEVERITY:- ABNORMAL ECG - SINUS RHYTHM FIRST DEGREE AV BLOCK LEFT BUNDLE BRANCH BLOCK : Confirmed by: Guanaco Foley 13-Jul-2018 10:58:01
[2018-07-13] MEDS: METHYLPREDNISOLONE INJ 125 MG/2 ML SDV IV SCH ×2 (14:11→21:33)
[2018-07-13] MEDS: BENZONATATE 100 MG CAPSULE PO SCH ×2 (14:11→21:31)
--- NOTE | 2018-07-13 14:19 | PDOC PROGRESS REPORT ---
Subjective Progress Note for:: 07/13/18 Subjective:: This is 63 years old female patient with multiple comorbidities including COPD, anxiety disorder, mitral valve replacement, CHF, coronary artery disease, hyperlipidemia, hypertension and obesity presented with 1 day history of cough productive of yellowish sputum congestion and due to the cough started to have chest wall pain. Her chest x-ray reported as no infiltrates. She has leukocytosis of 16,000 and BNP of 3200. Today her leukocytosis has subsided from 16.2-10.8. Patient has been on cefepime. I seen patient propped up in bed. States she complaining of some shortness of breath and back pain. When I listen to her chest she has bilateral diffuse wheezing. I added Solu-Medrol to her regimen and increase the frequency of her DuoNeb from every 6 to every 4 hours. For her cough has added Tessalon Perles on top of Mucinex. Reason For Visit: COPD EXACERBATION,PNEUMONIA Physical Exam Vital Signs: Temp Pulse Resp BP Pulse Ox 97.3 F 74 19 141/83 H 98 07/13/18 12:00 07/13/18 12:00 07/13/18 12:00 07/13/18 12:00 07/13/18 12:00 Intake & Output 07/12/18 07/13/18 07/14/18 06:59 06:59 06:59 Intake Total 300 50 Balance 300 50 Weight 87 kg 84.4 kg General appearance: PRESENT: obese Head exam: PRESENT: atraumatic Eye exam: PRESENT: conjunctiva pink Teeth exam: PRESENT: poor dentation Neck exam: ABSENT: carotid bruit, JVD, lymphadenopathy, thyromegaly Respiratory exam: PRESENT: wheezes Cardiovascular exam: PRESENT: RRR. ABSENT: diastolic murmur, rubs, systolic murmur GI/Abdominal exam: PRESENT: normal bowel sounds, soft. ABSENT: distended, guarding, mass, organolmegaly, rebound, tenderness Neurological exam: PRESENT: alert, awake, oriented to time, oriented to situation Results Laboratory Results: 07/13/18 04:02 07/13/18 04:02 07/13/18 07/13/18 04:02 04:02 WBC 10.8 H RBC 2.89 L Hgb 9.0 L Hct 26.4 L MCV 91 MCH 31.2 MCHC 34.2 RDW 17.4 H Plt Count 205 Seg Neutrophils % 89.3 H Lymphocytes % 5.3 L Monocytes % 5.1 Eosinophils % 0.0 Basophils % 0.3 Absolute Neutrophils 9.7 H Absolute Lymphocytes 0.6 Absolute Monocytes 0.5 Absolute Eosinophils 0.0 Absolute Basophils 0.0 Retic Count (auto) 2.26 Absolute Retic 0.065 Sodium 133.1 L Potassium 4.8 Chloride 102 Carbon Dioxide 25 Anion Gap 6 BUN 25 H Creatinine 0.92 Est GFR ( Amer) > 60 Est GFR (Non-Af Amer) > 60 Glucose 125 H Calcium 9.2 Iron 41.5 TIBC 283 % Saturation 15 Ferritin 155.00 Vitamin B12 272.0 Folate 6.76 07/12/18 07/12/18 07/12/18 04:47 04:47 04:47 Creatine Kinase 32 Troponin I 0.022 NT-Pro-B Natriuret Pep 3290 H Impressions: Chest X-Ray 07/12/18 04:34 IMPRESSION: No acute cardiopulmonary abnormality copyright 2011 [employer]- All Rights Reserved Assessment and Plan - Diagnosis (1) Acute on chronic respiratory failure with hypoxemia Is this a current diagnosis for this admission?: Yes Plan: Continue supplemental oxygen. (2) COPD exacerbation Is this a current diagnosis for this admission?: Yes Plan: Continue bronchodilators, supplemental oxygen and Solu-Medrol. (3) Acute bronchitis Qualifiers: Bronchitis organism: unspecified organism Qualified Code(s): J20.9 - Acute bronchitis, unspecified Is this a current diagnosis for this admission?: Yes Plan: Continue cefepime. (4) Leukocytosis Qualifiers: Leukocytosis type: unspecified Qualified Code(s): D72.829 - Elevated white blood cell count, unspecified Is this a current diagnosis for this admission?: Yes Plan: Resolving (5) Chronic normocytic anemia Is this a current diagnosis for this admission?: Yes Plan: Her H&H stable and stool for occult blood is negative. (6) History of mitral valve replacement Is this a current diagnosis for this admission?: Yes Plan: Patient has been on Coumadin for anticoagulation. Her INR is therapeutic. (7) Obesity (BMI 35.0-39.9 without comorbidity) Is this a current diagnosis for this admission?: Yes Plan: Lifestyle modification advised.
[2018-07-13] MEDS: CLONAZEPAM 1 MG TABLET PO PRN (14:37)
[2018-07-13] MEDS: FUROSEMIDE INJ/PF 20 MG/2 ML SDV IV SCH (15:58)
[2018-07-13] MEDS: ATORVASTATIN CALCIUM 40 MG TABLET PO SCH (21:30)
[2018-07-13] MEDS: WARFARIN SODIUM 5 MG TABLET PO SCH (21:30)
[2018-07-13] MEDS: ESCITALOPRAM OXALATE 10 MG TABLET PO SCH (21:30)
[2018-07-14] MEDS: IPRATROPIUM/ALBUTEROL 0.5-2.5 MG/3 ML AMPUL NEB SCH ×6 (03:25→23:44)
[2018-07-14] MEDS: OXYCODONE-ACETAMINOPHEN 5-325 MG TABLET PO PRN ×3 (03:44→19:52)
[2018-07-14] MEDS: GUAIFENESIN SYRP 200 MG/10 ML UDC PO PRN (03:44)
[2018-07-14] MEDS: CLONAZEPAM 1 MG TABLET PO PRN (03:50)
[2018-07-14] MEDS: METHYLPREDNISOLONE INJ 125 MG/2 ML SDV IV SCH ×3 (05:55→21:30)
[2018-07-14] MEDS: BENZONATATE 100 MG CAPSULE PO SCH ×3 (05:55→21:32)
[2018-07-14 06:47] LABS: INTERNATIONAL RATION (INR) 2.06; PROTHROMBIN TIME 24.2 SEC (11.4-15.4)
[2018-07-14] MEDS: LORAZEPAM 1 MG TABLET PO SCH ×2 (10:05→18:43)
[2018-07-14] MEDS: SPIRONOLACTONE 25 MG TABLET PO SCH (10:05)
[2018-07-14] MEDS: LOSARTAN POTASSIUM 50 MG TABLET PO SCH (10:05)
[2018-07-14] MEDS: FLUTICASONE/VILANTEROL 200-25 MCG/DOSE IH SCH (10:05)
[2018-07-14] MEDS: EZETIMIBE 10 MG TABLET PO SCH (10:05)
[2018-07-14] MEDS: METOPROLOL TARTRATE 25 MG TABLET PO SCH ×2 (10:06→21:32)
[2018-07-14] MEDS: FUROSEMIDE INJ/PF 20 MG/2 ML SDV IV SCH (10:06)
[2018-07-14] MEDS: FLUTICASONE NASAL SPRAY 50 MCG/SPRY 120 SPRAY/16 GM NASL SCH ×2 (10:06→21:32)
[2018-07-14] MEDS: CEFEPIME HCL 2 GM in DEXTROSE 5%-WATER 50 ML IV SCH ×2 (10:16→21:32)
[2018-07-14] MEDS: TIOTROPIUM BROMIDE DPI 5 CAP/KIT (18 MCG/CAP) IH SCH (10:17)
--- NOTE | 2018-07-14 16:20 | PDOC PROGRESS REPORT ---
Subjective Progress Note for:: 07/14/18 Subjective:: Patient seen propped up in bed. She states her cough and shortness of breath has been improving. Reason For Visit: COPD EXACERBATION,PNEUMONIA Physical Exam Vital Signs: Temp Pulse Resp BP Pulse Ox 98.0 F 74 14 122/51 L 96 07/14/18 10:50 07/14/18 11:46 07/14/18 11:46 07/14/18 10:50 07/14/18 11:46 Intake & Output 07/13/18 07/14/18 07/15/18 06:59 06:59 06:59 Intake Total 300 2575 50 Balance 300 2575 50 Weight 84.4 kg 84.1 kg General appearance: PRESENT: no acute distress Head exam: PRESENT: atraumatic Mouth exam: PRESENT: moist Neck exam: ABSENT: carotid bruit, JVD, lymphadenopathy, thyromegaly Respiratory exam: PRESENT: wheezes Cardiovascular exam: PRESENT: RRR. ABSENT: diastolic murmur, rubs, systolic murmur Neurological exam: PRESENT: alert, awake, oriented to time, oriented to situation Results Laboratory Results: 07/13/18 04:02 07/13/18 04:02 07/12/18 04:47 Sputum Gram Stain - Final 07/12/18 07/12/18 07/12/18 04:47 04:47 04:47 Creatine Kinase 32 Troponin I 0.022 NT-Pro-B Natriuret Pep 3290 H Impressions: Chest X-Ray 07/12/18 04:34 IMPRESSION: No acute cardiopulmonary abnormality copyright 2011 [email or web address]- All Rights Reserved Assessment and Plan - Diagnosis (1) Acute on chronic respiratory failure with hypoxemia Is this a current diagnosis for this admission?: Yes Plan: Continue supplemental oxygen. (2) COPD exacerbation Is this a current diagnosis for this admission?: Yes Plan: Continue bronchodilators, supplemental oxygen and Solu-Medrol. (3) Acute bronchitis Qualifiers: Bronchitis organism: unspecified organism Qualified Code(s): J20.9 - Acute bronchitis, unspecified Is this a current diagnosis for this admission?: Yes Plan: Continue cefepime. (4) Leukocytosis Qualifiers: Leukocytosis type: unspecified Qualified Code(s): D72.829 - Elevated white blood cell count, unspecified Is this a current diagnosis for this admission?: Yes Plan: Resolving (5) Chronic normocytic anemia Is this a current diagnosis for this admission?: Yes Plan: Her H&H stable and stool for occult blood is negative. (6) History of mitral valve replacement Is this a current diagnosis for this admission?: Yes Plan: Patient has been on Coumadin for anticoagulation. Her INR is therapeutic. (7) Obesity (BMI 35.0-39.9 without comorbidity) Is this a current diagnosis for this admission?: Yes Plan: Lifestyle modification advised.
[2018-07-14] MEDS: WARFARIN SODIUM 7.5 MG TABLET PO SCH (21:30)
[2018-07-14] MEDS: WARFARIN SODIUM 5 MG TABLET PO SCH (21:30)
[2018-07-14] MEDS: ESCITALOPRAM OXALATE 10 MG TABLET PO SCH (21:32)
[2018-07-14] MEDS: ATORVASTATIN CALCIUM 40 MG TABLET PO SCH (21:32)
[2018-07-15] MEDS: OXYCODONE-ACETAMINOPHEN 5-325 MG TABLET PO PRN ×4 (04:42→21:48)
[2018-07-15] MEDS: METHYLPREDNISOLONE INJ 125 MG/2 ML SDV IV SCH ×3 (05:23→21:46)
[2018-07-15] MEDS: BENZONATATE 100 MG CAPSULE PO SCH ×3 (05:23→21:47)
[2018-07-15] MEDS: IPRATROPIUM/ALBUTEROL 0.5-2.5 MG/3 ML AMPUL NEB SCH ×5 (06:10→21:14)
[2018-07-15 09:05] LABS: APPEARANCE,URINE CLEAR; BILIRUBIN,URINE NEGATIVE (NEGATIVE); COLOR,URINE YELLOW; GLUCOSE, URINE NEGATIVE (NEGATIVE); KETONES,URINE NEGATIVE (NEGATIVE); LEUKOCYTE ESTERASE,URINE NEGATIVE (NEGATIVE); NITRITE,URINE NEGATIVE (NEGATIVE); PROTEIN,URINE NEGATIVE (NEGATIVE); URINE SPECIFIC GRAVITY 1.012; UROBILINOGEN,URINE NEGATIVE mg/dL (<2.0)
[2018-07-15] MEDS: FLUTICASONE/VILANTEROL 200-25 MCG/DOSE IH SCH (11:36)
[2018-07-15] MEDS: SPIRONOLACTONE 25 MG TABLET PO SCH (11:44)
[2018-07-15] MEDS: FUROSEMIDE INJ/PF 20 MG/2 ML SDV IV SCH (11:45)
[2018-07-15] MEDS: LOSARTAN POTASSIUM 50 MG TABLET PO SCH (11:45)
[2018-07-15] MEDS: LORAZEPAM 1 MG TABLET PO SCH ×2 (11:45→18:14)
[2018-07-15] MEDS: METOPROLOL TARTRATE 25 MG TABLET PO SCH ×2 (11:46→21:47)
[2018-07-15] MEDS: EZETIMIBE 10 MG TABLET PO SCH (11:47)
[2018-07-15] MEDS: FLUTICASONE NASAL SPRAY 50 MCG/SPRY 120 SPRAY/16 GM NASL SCH ×2 (11:48→21:46)
[2018-07-15] MEDS: TIOTROPIUM BROMIDE DPI 5 CAP/KIT (18 MCG/CAP) IH SCH (11:48)
[2018-07-15] MEDS: CEFEPIME HCL 2 GM in DEXTROSE 5%-WATER 50 ML IV SCH ×2 (12:33→21:47)
--- NOTE | 2018-07-15 14:47 | PDOC PROGRESS REPORT ---
Subjective Progress Note for:: 07/15/18 Subjective:: Patient is seen while sitting on bedside. She reports flank pain. We did urine analysis and urinalysis negative. Patient suspect that she has pain due to kidney stone. Ultrasound of the kidney requested Reason For Visit: COPD EXACERBATION,PNEUMONIA Physical Exam Vital Signs: Temp Pulse Resp BP Pulse Ox 98.4 F 75 16 146/82 H 96 07/15/18 08:00 07/15/18 12:31 07/15/18 12:31 07/15/18 08:00 07/15/18 12:31 Intake & Output 07/14/18 07/15/18 07/16/18 06:59 06:59 06:59 Intake Total 2575 100 Balance 2575 100 Weight 84.1 kg 83.2 kg General appearance: PRESENT: no acute distress Head exam: PRESENT: atraumatic Eye exam: PRESENT: conjunctiva pink Neck exam: ABSENT: carotid bruit, JVD, lymphadenopathy, thyromegaly Respiratory exam: PRESENT: clear to auscultation blas. ABSENT: rales, rhonchi, wheezes Cardiovascular exam: PRESENT: RRR. ABSENT: diastolic murmur, rubs, systolic murmur GI/Abdominal exam: PRESENT: normal bowel sounds, soft. ABSENT: distended, guarding, mass, organolmegaly, rebound, tenderness Neurological exam: PRESENT: alert, awake, oriented to person, oriented to place, oriented to time, oriented to situation Results Laboratory Results: 07/13/18 04:02 07/13/18 04:02 07/15/18 08:38 Urine Color YELLOW Urine Appearance CLEAR Urine pH 6.0 Ur Specific [place] 1.012 Urine Protein NEGATIVE Urine Glucose (UA) NEGATIVE Urine Ketones NEGATIVE Urine Blood NEGATIVE Urine Nitrite NEGATIVE Ur Leukocyte Esterase NEGATIVE Urine WBC (Auto) 1 07/12/18 04:47 Sputum Gram Stain - Final 07/12/18 04:47 Sputum Sputum Culture - Final Staphylococcus Aureus Normal Gunjan 07/12/18 07/12/18 07/12/18 04:47 04:47 04:47 Creatine Kinase 32 Troponin I 0.022 NT-Pro-B Natriuret Pep 3290 H Impressions: Chest X-Ray 07/12/18 04:34 IMPRESSION: No acute cardiopulmonary abnormality copyright 2011 [employer]- All Rights Reserved Assessment and Plan - Diagnosis (1) Acute on chronic respiratory failure with hypoxemia Is this a current diagnosis for this admission?: Yes Plan: Continue supplemental oxygen. (2) COPD exacerbation Is this a current diagnosis for this admission?: Yes Plan: Continue bronchodilators, supplemental oxygen and Solu-Medrol. (3) Acute bronchitis Qualifiers: Bronchitis organism: unspecified organism Qualified Code(s): J20.9 - Acute bronchitis, unspecified Is this a current diagnosis for this admission?: Yes Plan: Continue cefepime. (4) Leukocytosis Qualifiers: Leukocytosis type: unspecified Qualified Code(s): D72.829 - Elevated white blood cell count, unspecified Is this a current diagnosis for this admission?: Yes Plan: Resolving (5) Chronic normocytic anemia Is this a current diagnosis for this admission?: Yes Plan: Her H&H stable and stool for occult blood is negative. (6) History of mitral valve replacement Is this a current diagnosis for this admission?: Yes Plan: Patient has been on Coumadin for anticoagulation. Her INR is therapeutic. (7) Obesity (BMI 35.0-39.9 without comorbidity) Is this a current diagnosis for this admission?: Yes Plan: Lifestyle modification advised.
[2018-07-15] MEDS: ESCITALOPRAM OXALATE 10 MG TABLET PO SCH (21:47)
[2018-07-15] MEDS: ATORVASTATIN CALCIUM 40 MG TABLET PO SCH (21:48)
[2018-07-15] MEDS: WARFARIN SODIUM 5 MG TABLET PO SCH (21:49)
[2018-07-15] MEDS: CLONAZEPAM 1 MG TABLET PO PRN (21:55)
[2018-07-16] MEDS: IPRATROPIUM/ALBUTEROL 0.5-2.5 MG/3 ML AMPUL NEB SCH ×3 (01:30→07:59)
[2018-07-16] MEDS: METHYLPREDNISOLONE INJ 125 MG/2 ML SDV IV SCH (05:02)
[2018-07-16] MEDS: BENZONATATE 100 MG CAPSULE PO SCH (05:02)
[2018-07-16] MEDS: OXYCODONE-ACETAMINOPHEN 5-325 MG TABLET PO PRN ×2 (05:03→09:28)
[2018-07-16] MEDS: SPIRONOLACTONE 25 MG TABLET PO SCH (09:28)
[2018-07-16] MEDS: FUROSEMIDE INJ/PF 20 MG/2 ML SDV IV SCH (09:28)
[2018-07-16] MEDS: EZETIMIBE 10 MG TABLET PO SCH (09:28)
[2018-07-16] MEDS: LOSARTAN POTASSIUM 50 MG TABLET PO SCH (09:28)
[2018-07-16] MEDS: LORAZEPAM 1 MG TABLET PO SCH (09:28)
[2018-07-16] MEDS: METOPROLOL TARTRATE 25 MG TABLET PO SCH (09:28)
[2018-07-16] MEDS: FLUTICASONE NASAL SPRAY 50 MCG/SPRY 120 SPRAY/16 GM NASL SCH (09:30)
[2018-07-16] MEDS: TIOTROPIUM BROMIDE DPI 5 CAP/KIT (18 MCG/CAP) IH SCH (09:30)
[2018-07-16] MEDS: FLUTICASONE/VILANTEROL 200-25 MCG/DOSE IH SCH (09:31)
--- NOTE | 2018-07-16 09:33 | PDOC DISCHARGE SUMMARY ---
General - Admit/Disc Date/PCP Admission Date/Primary Care Provider: 07/12/18 06:50 PAIGE ALEJANDRO PA-C Discharge Date: 07/16/18 - Discharge Diagnosis (1) Acute on chronic respiratory failure with hypoxemia Is this a current diagnosis for this admission?: Yes (2) COPD exacerbation Is this a current diagnosis for this admission?: Yes (3) Acute bronchitis Is this a current diagnosis for this admission?: Yes (4) Leukocytosis Is this a current diagnosis for this admission?: Yes (5) Chronic normocytic anemia Is this a current diagnosis for this admission?: Yes (6) History of mitral valve replacement Is this a current diagnosis for this admission?: Yes (7) Obesity (BMI 35.0-39.9 without comorbidity) Is this a current diagnosis for this admission?: Yes - Additional Information Resuscitation Status: Full Code Home Medications: Albuterol Sulfate [Proair Hfa Inhalation Aerosol 8.5 gm Mdi] 2 puff IH Q6HP PRN 07/12/18 Albuterol Sulfate [Ventolin 0.083% Neb 2.5 mg/3 ml Ampul] 1 vial NEB Q6HP PRN 07/12/18 Atorvastatin Calcium [Lipitor 40 mg Tablet] 40 mg PO QHS 07/12/18 Budesonide/Formoterol Fumarate [Symbicort Hfa 160-4.5 Mcg Inhaler 6 gm] 2 puff IH Q12 07/12/18 Codeine Phosphate/Guaifenesin [Guaiatussin AC Liquid] 5 ml PO Q4HP PRN 07/12/18 Doxycycline Hyclate [Vibramycin 100 mg Tablet] 100 mg PO BID 07/12/18 Escitalopram Oxalate [Lexapro] 20 mg PO QHS 07/12/18 Furosemide [Lasix 40 mg Tablet] 40 mg PO BIDP PRN 07/12/18 Lorazepam [Ativan 1 mg Tablet] 1 mg PO BID 07/12/18 Losartan Potassium [Cozaar 50 mg Tablet] 50 mg PO DAILY 07/12/18 Metoprolol Tartrate [Lopressor 25 mg Tablet] 25 mg PO Q12 07/12/18 Prazosin HCl 1 mg PO HSP PRN 07/12/18 Spironolactone [Aldactone 25 mg Tablet] 25 mg PO DAILY 07/12/18 Tiotropium [place] [Spiriva Respimat] 2 puff IH DAILY 07/12/18 Warfarin Sodium [Coumadin 5 mg Tablet] 5 mg PO DAILY 07/12/18 Warfarin Sodium [Coumadin 7.5 mg Tablet] 7.5 mg PO MOWEFR 07/12/18 History of Present Illness History of Present Illness: DEAN VILLANUEVA is a 63 year old female with a past medical history of COPD, anxiety, mitral valve replacement on Coumadin. Patient presents with 24 hours of shortness of breath and a productive cough with yellow sputum developing paroxysms of cough and pain to the chest wall during deep breathing and coughing. She admits to rhinorrhea, denies sore throat. In the emergency room she is found to have fever of 100.5, hypoxia of 88% on room air, leukocytosis, but a chest x-ray unremarkable for infiltrate. She is treated empirically for pneumonia and referred to the hospitalist for admission. Hospital Course Hospital Course: This is 63 years old female patient with multiple comorbidities including COPD, anxiety disorder, mitral valve replacement, CHF, coronary artery disease, hyperlipidemia, hypertension and obesity presented with 1 day history of cough productive of yellowish sputum congestion and due to the cough started to have chest wall pain. Her chest x-ray reported as no infiltrates. She has leukocytosis of 16,000 and BNP of 3200. Today her leukocytosis has subsided from 16.2-10.8. Patient has been on cefepime. I seen patient propped up in bed. States she complaining of some shortness of breath and back pain. When I listen to her chest she has bilateral diffuse wheezing. I added Solu-Medrol to her regimen and increase the frequency of her DuoNeb from every 6 to every 4 hours. For her cough has added Tessalon Perles on top of Mucinex. This morning I seen patient sitting at the bedside. She is awake alert oriented. She is in mild distress which is her baseline. Her vital signs are okay and patient is stable enough to go home today. Physical Exam Vital Signs: Temp Pulse Resp BP Pulse Ox 98.3 F 76 16 162/54 H 99 07/15/18 23:07 07/16/18 07:59 07/16/18 07:59 07/15/18 23:07 07/16/18 07:59 Intake & Output 07/15/18 07/16/18 07/17/18 06:59 06:59 06:59 Intake Total 100 1503 Output Total 600 Balance 100 903 Weight 83.2 kg 84.3 kg General appearance: PRESENT: no acute distress Head exam: PRESENT: atraumatic Neck exam: ABSENT: carotid bruit, JVD, lymphadenopathy, thyromegaly Respiratory exam: PRESENT: clear to auscultation blas. ABSENT: rales, rhonchi, wheezes Cardiovascular exam: PRESENT: RRR. ABSENT: diastolic murmur, rubs, systolic murmur Neurological exam: PRESENT: alert, awake, oriented to time, oriented to situation Results Laboratory Results: 07/13/18 04:02 07/13/18 04:02 07/12/18 04:47 Sputum Gram Stain - Final 07/12/18 04:47 Sputum Sputum Culture - Final Staphylococcus Aureus Normal Gunjan 07/12/18 07/12/18 07/12/18 04:47 04:47 04:47 Creatine Kinase 32 Troponin I 0.022 NT-Pro-B Natriuret Pep 3290 H Impressions: Chest X-Ray 07/12/18 04:34 IMPRESSION: No acute cardiopulmonary abnormality copyright 2011 [employer]- All Rights Reserved Qualifiers - * PATIENT BEING DISCHARGED WITH ANY OF THE FOLLOWING DIAGNOSIS: No
[2018-07-16 09:39] VITALS: BP 146/82
== END 2018-07-16 10:00 | disposition home or self-care (01) | DRG 190 ==
LOC: ER 03:30 → EH 06:50 → 5 20:30
PROVIDERS: ADMIT Internal Medicine; ATTEND Internal Medicine
PROC: 3E0F73Z Introduction of Anti-inflammatory into Respiratory Tract, Via Natural or Artificial Opening (ICD-10-PCS; principal; 2018-07-12)
DX: J44.1 Chronic obstructive pulmonary disease with (acute) exacerbation (principal); J96.21 Acute and chronic respiratory failure with hypoxia; J44.0 Chronic obstructive pulmonary disease with (acute) lower respiratory infection; J20.9 Acute bronchitis, unspecified; D64.9 Anemia, unspecified; I25.10 Atherosclerotic heart disease of native coronary artery without angina pectoris; E78.5 Hyperlipidemia, unspecified; I10 Essential (primary) hypertension; F41.1 Generalized anxiety disorder; E66.9 Obesity, unspecified; Z68.35 Body mass index [BMI] 35.0-35.9, adult; I25.2 Old myocardial infarction; Z95.2 Presence of prosthetic heart valve; Z79.899 Other long term (current) drug therapy; Z79.01 Long term (current) use of anticoagulants; Z90.49 Acquired absence of other specified parts of digestive tract; Z95.1 Presence of aortocoronary bypass graft; Z95.5 Presence of coronary angioplasty implant and graft; Z90.710 Acquired absence of both cervix and uterus; Z95.0 Presence of cardiac pacemaker; Z88.3 Allergy status to other anti-infective agents; Z88.8 Allergy status to other drugs, medicaments and biological substances; Z83.6 Family history of other diseases of the respiratory system
CPT/HCPCS: 36415; 71045; 80048; 80053; 81001; 82272; 82550; 82607; 82728; 82746; 83540; 83550; 83880; 84484; 85025; 85045; 85610; 85730; 87040; 87070; 87077; 87186; 87205; 93005; 93010; 94640; 94667; 94668; 94799; 96374; 96375; 99291; J0692; J1940; J2060; J2270; J2930; J3490; J7620